=== PATIENT | male | born 1975 | race Caucasian/White ===

== ENCOUNTER 2016-11-02 17:14 | Emergency (ER) | payer MEDICARE, MEDICAID ==
--- NOTE | 2016-11-02 18:05 | RAD ---
Indication: Chest pain. 2 views of the chest including dual energy PA views demonstrate no mediastinal shift. Heart is of normal size and configuration. Lung sanderson demonstrate no pleural fluid, pneumonia or pneumothorax. When compared to previous exam of July 25, 2016 no significant change is noted. IMPRESSION: No active cardiopulmonary disease is noted.
--- NOTE | 2016-11-02 18:21 | UC ---
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 Negative: Vision Changes, Anxiety, Recent Stress, Headaches, Numbness, Tingling, Weakness , Dizziness, SOB, Swelling, Diaphoresis, Nausea/Vomiting, Palpitations, Cough, Hemoptysis, Back Pain, Abdominal Pain, Calf Pain/Swelling - Risk Factors Pulmonary Embolism Risk Factors: Malignancy - Allergy/Home Medications Allergies/Adverse Reactions: Allergies Allergy/AdvReac Type Severity Reaction Status Date / Time Phenytoin Allergy Unknown Unknown Verified 11/02/16 17:26 Reaction Details Gadolinium Allergy Hives Verified 11/02/16 17:26 Gadolinium Derivatives Allergy Hives Verified 11/02/16 17:26 Gadoteridol [From ProHance] Allergy Hives Verified 11/02/16 17:26 Shellfish Allergy Allergy Swelling Verified 11/02/16 17:26 Home Medications: Home Medications Methadone HCl [Dolophine] 10 mg PO BID 11/02/16 [History Confirmed 11/02/16] PMH/Surg Hx/FS Hx/Imm Hx Endocrine History Of: Denies: Diabetes, Thyroid Disease, Hyperthyroidism, Hypothyroidism, Dyslipidemia Cardiovascular History Of: Denies: Cardiac Disorders, Hypertension, Pacemaker/ICD, Myocardial Infarction , Congestive Heart Failure, Atrial Fibrillation, Deep Vein Thrombosis, Bleeding Disorders Respiratory History Of: Denies: COPD, Asthma, Bronchitis, Pneumonia, Pulmonary Embolism GI/ History Of: Reports: Gastroesophageal Reflux Denies: Ulcer, Gastrointestinal Bleed, Gall Bladder Disease, Kidney Stones, Diverticulitis, Renal Disease, Urosepsis Neurological History Of: Reports: Seizures Denies: TIA, CVA, Dementia, Migraine Psychological History Of: Denies: Anxiety, Depression, Bipolar Disorder, Schizophrenia, Post Traumatic Stress Disorder Cancer History Of: Denies: Lung Cancer, Colorectal Cancer, Breast Cancer, Prostate Cancer, Cervical Cancer Other History Of: Negative For: HIV, Hepatitis B, Hepatitis C, Anticoagulant Therapy - Surgical History Surgical History: Yes Surgery Procedure, Year, and Place: 3-CRANIOTOMY -03/27,12/31,01/01. mole removal to right under arm and left forearm and back 03/26/16 - Family History Known Family History: Positive: Cardiac Disease Negative: Hypertension - Social History Alcohol Use: None Substance Use Type: Marijuana Substance Use Comment - Amount & Last Used: states "medical marijuana" ... vapor form Smoking Status (MU): Current Every Day Smoker Type: Cigarettes Amount Used/How Often: 1/2 ppd Length of Time of Smoking/Using Tobacco: 26 yrs Have You Smoked in the Last Year: Yes - Immunization History Most Recent Influenza Vaccination: 2013 Most Recent Tetanus Shot: unk Most Recent Pneumonia Vaccination: never Review of Systems Constitutional: Fever, Chills Skin: Negative Eyes: Negative ENT: Negative Respiratory: Negative Cardiovascular: Chest Pain Gastrointestinal: Negative Genitourinary: Negative Motor: Negative Neurovascular: Negative Musculoskeletal: Negative Neurological: Negative Psychological: Negative All Other Systems Reviewed And Are Negative: Yes Physical Exam Triage Information Reviewed: Yes Appearance: Ill-Appearing, Pain Distress, Thin Vital Signs: Initial Vital Signs Temp 100.9 F 11/02/16 17:22 Pulse 98 11/02/16 17:22 Resp 18 11/02/16 17:22 BP 125/81 11/02/16 17:22 Pulse Ox 100 11/02/16 17:22 Vital Signs Reviewed: Yes Eyes: Positive: Conjunctiva Clear ENT: Positive: Hearing grossly normal. Negative: Nasal congestion, Nasal drainage, Trismus, Muffled/hoarse voice Neck: Positive: Supple, Nontender, No Lymphadenopathy Respiratory: Positive: Chest non-tender, Lungs clear, Normal breath sounds, No respiratory distress Cardiovascular: Positive: RRR, No Murmur Abdomen Description: Positive: Nontender. Negative: Distended Bowel Sounds: Positive: Present Musculoskeletal: Positive: ROM Intact, No Edema Neurological Exam: Normal Neurological: Positive: Alert Psychological Exam: Normal Skin Exam: Normal Diagnostics - EKG Cardiac Rate: NL Cardiac Rhythm: Sinus: Normal Ectopy: None ST Segment: Normal - Clinical Impression Provider Diagnoses: chest pain/fever of uncertain cause - Physician Notifications Discussed Patient Care With: Dr. Kirby [facility] [place] ED. via EMS Discharge - Discharge Plan Condition: Stable Disposition: TRANS HIGHER LVL OF CARE FAC
[2016-11-02 18:33] VITALS: BP 127/79
== END 2016-11-02 18:33 | disposition short-term general hospital (02) ==
LOC: UCEAST 17:14
DX: R07.81 Pleurodynia (principal); R50.9 Fever, unspecified; F17.210 Nicotine dependence, cigarettes, uncomplicated
CPT/HCPCS: 71020; 93005; 99213; G0463

== ENCOUNTER 2016-11-02 19:04 | Emergency (ER) | payer MEDICARE, MEDICAID ==
[2016-11-02] MEDS ORDERED: HYDROmorphone INJ* 1 MG/ML CARPUJECT SYRINGE IV ONE (19:51)
[2016-11-02 19:58] LABS: Hematocrit 32 % (42-52); Hemoglobin 10.9 g/dl (14.0-18.0); Mean Corpuscular HGB Conc 34 g/dl (31-36); Mean Corpuscular Hemoglobin 29 pg (27-31); Mean Corpuscular Volume 86 fL (80-94); Mean Platelet Volume 8 um3 (7.4-10.4); Red Blood Count 3.72 10^6/ul (4.0-5.4); Red Cell Distribution Width 14 % (10.5-15); White Blood Count 8.8 10^3/ul (3.5-10.8)
[2016-11-02 20:13] LABS: Albumin 3.5 g/dL (3.2-5.2); BUN/Creatinine Ratio 10.6 (8-20); Calcium 8.6 mg/dL (8.6-10.3); EGFR African American 84.2 (>60); EGFR Non-African American 65.5 (>60); Globulin 2.9 g/dL (2-4); Potassium 3.5 mmol/L (3.5-5.0); Total Bilirubin 0.3 mg/dL (0.2-1.0); Total Protein 6.4 g/dL (6.4-8.9)
[2016-11-02 20:16] LABS: Troponin I 0.01 ng/mL (<0.04)
--- NOTE | 2016-11-02 20:25 | RAD ---
Indication: Chest pain. Single frontal view of the chest performed at 2000 hours was reviewed. Comparison is made with previous exam dated earlier the same day. No mediastinal shift is noted. Heart is of normal size and configuration. Lung sanderson appear clear. IMPRESSION: NO ACTIVE CARDIOPULMONARY DISEASE IS NOTED.
[2016-11-02] MEDS ORDERED: Ondansetron INJ* 2 MG/ML VIAL IV ONE (20:40)
[2016-11-02] MEDS ORDERED: Ketorolac INJ* 30 MG/ML 1 ML VIAL IV PUSH ONE (20:55)
[2016-11-02 21:34] VITALS: BP 107/53
--- NOTE | 2016-11-26 20:01 | ED ---
David Roman Karl, scribed for Osmany Nascimento MD on 11/02/16 at 2109 . HPI Chest Pain - HPI Summary HPI Summary: Pt is a 40 y/o male BIBA that presents to the ED c/o 07/31 midsternal CP that began at 13:00 today and is constant. Pt was sent from urgent care and reported that his CP is worsened with deep breaths and movement. Pt also reported mild SOB. Pt stated that he took Dilaudid 4mg at 13:00 but it did not alleviate his symptoms. Hx: 1/2 PPD smoker, brain cancer. - History of Current Complaint Chief Complaint: EDChestWallPain Time Seen by Provider: 11/02/16 20:49 Hx Obtained From: Patient Onset/Duration: Started Hours Ago, Atraumatic, Still Present Time of Onset: 13:00 - CP Timing: Constant, Lasting Hours Initial Severity: Moderate Current Severity: Moderate Pain Intensity: 10 - CP Pain Scale Used: 0-10 Numeric Chest Pain Location: Mid Sternal Aggravating Factor(s): Movement, Deep Breaths Alleviating Factor(s): Nothing Associated Signs and Symptoms: Positive: Chest Pain, Shortness of Breath - mild - Allergy/Home Medications Allergies/Adverse Reactions: Allergies Allergy/AdvReac Type Severity Reaction Status Date / Time Phenytoin Allergy Unknown Unknown Verified 11/24/16 09:01 Reaction Details Gadolinium Allergy Hives Verified 11/24/16 09:01 Gadolinium Derivatives Allergy Hives Verified 11/24/16 09:01 Gadoteridol [From ProHance] Allergy Hives Verified 11/24/16 09:01 Shellfish Allergy Allergy Swelling Verified 11/24/16 09:01 PMH/Surg Hx/FS Hx/Imm Hx Endocrine/Hematology History: Denies: Hx Anticoagulant Therapy, Hx Diabetes, Hx Thyroid Disease Cardiovascular History: Denies: Hx Congestive Heart Failure, Hx Deep Vein Thrombosis, Hx Hypertension , Hx Myocardial Infarction, Hx Pacemaker/ICD Respiratory History: Reports: Other Respiratory Problems/Disorders Denies: Hx Asthma, Hx Chronic Obstructive Pulmonary Disease (COPD), Hx Lung Cancer, Hx Pneumonia, Hx Pulmonary Embolism GI History: Denies: Hx Gall Bladder Disease, Hx Gastrointestinal Bleed, Hx Ulcer, Hx Urosepsis History: Denies: Hx Dialysis, Hx Kidney Stones, Hx Renal Disease Sensory History: Denies: Hx Hearing Aid Neurological History: Reports: Hx Seizures, Other Neuro Impairments/Disorders - seizures Denies: Hx Dementia, Hx Migraine, Hx Transient Ischemic Attacks (TIA) Psychiatric History: Denies: Hx Anxiety, Hx Depression, Hx Panic Disorder, Hx Schizophrenia, Hx Bipolar Disorder - Cancer History Cancer Type, Location and Year: brain Hx Chemotherapy: Yes Hx Radiation Therapy: Yes - CURRENTLY - Surgical History Surgery Procedure, Year, and Place: 3-CRANIOTOMY -03/27,12/31,01/01. mole removal to right under arm and left forearm and back 03/26/16 Infectious Disease History: No Infectious Disease History: Denies: Hx Clostridium Difficile, Hx Hepatitis, Hx Human Immunodeficiency Virus (HIV), Hx of Known/Suspected MRSA, Hx Shingles, Hx Tuberculosis, Hx Known/ Suspected VRE, Hx Known/Suspected VRSA, History Other Infectious Disease, Traveled Outside the [place] in Last 30 Days - Family History Known Family History: Positive: Cardiac Disease Negative: Hypertension - Social History Alcohol Use: None Substance Use Type: Reports: Marijuana Substance Use Comment - Amount & Last Used: states "medical marijuana" ... vapor form Hx Tobacco Use: Yes Smoking Status (MU): Current Every Day Smoker Type: Cigarettes Amount Used/How Often: 1/2 ppd Length of Time of Smoking/Using Tobacco: 26 yrs Have You Smoked in the Last Year: Yes Review of Systems Constitutional: Negative Eyes: Negative ENT: Negative Positive: Chest Pain, Other - tachycardia at 107 bpm Positive: Shortness Of Breath Gastrointestinal: Negative Genitourinary: Negative Musculoskeletal: Negative Skin: Negative Neurological: Negative Psychological: Normal All Other Systems Reviewed And Are Negative: Yes Physical Exam Triage Information Reviewed: Yes Vital Signs On Initial Exam: Initial Vitals Temp Pulse Resp BP Pulse Ox 99.1 F 107 18 125/79 96 11/02/16 19:07 11/02/16 19:07 11/02/16 19:07 11/02/16 19:07 11/02/16 19:07 Vital Signs Reviewed: Yes Appearance: Positive: Pain Distress - mild discomfort Skin: Positive: Warm Head/Face: Positive: Normal Head/Face Inspection Eyes: Positive: JEANNA ENT: Positive: Hearing grossly normal Neck: Positive: Supple Respiratory/Lung Sounds: Positive: Clear to Auscultation, Breath Sounds Present Cardiovascular: Positive: RRR Abdomen Description: Positive: Nontender, Soft Bowel Sounds: Positive: Present Musculoskeletal: Positive: Strength/ROM Intact Neurological: Positive: Sensory/Motor Intact, Alert, Oriented to Person Place, Time Psychiatric: Positive: Affect/Mood Appropriate Diagnostics - Vital Signs Vital Signs Temp Pulse Resp BP Pulse Ox 11/02/16 20:30 96 12 109/58 97 11/02/16 20:00 106 10 122/67 97 11/02/16 19:59 18 11/02/16 19:40 94 0 117/69 95 11/02/16 19:25 99 21 98 11/02/16 19:07 99.1 F 107 18 125/79 96 - Laboratory Lab Results: Lab Results 11/02/16 11/02/16 11/02/16 Range/Units 19:48 19:48 19:48 WBC 8.8 (3.5-10.8) 10^3/ul RBC 3.72 L (4.0-5.4) 10^6/ul Hgb 10.9 L (14.0-18.0) g/dl Hct 32 L (42-52) % MCV 86 (80-94) fL MCH 29 (27-31) pg MCHC 34 (31-36) g/dl RDW 14 (10.5-15) % Plt Count 136 L (150-450) 10^3/ul MPV 8 (7.4-10.4) um3 Neut % (Auto) 84.2 H (38-83) % Lymph % (Auto) 5.6 L (25-47) % [place] % (Auto) 8.6 (1-9) % Eos % (Auto) 1.0 (0-6) % Baso % (Auto) 0.6 (0-2) % Absolute Neuts (auto) 7.4 (1.5-7.7) 10^3/ul Absolute Lymphs (auto) 0.5 L (1.0-4.8) 10^3/ul Absolute Monos (auto) 0.8 (0-0.8) 10^3/ul Absolute Eos (auto) 0.1 (0-0.6) 10^3/ul Absolute Basos (auto) 0.1 (0-0.2) 10^3/ul Absolute Nucleated RBC 0 10^3/ul Nucleated RBC % 0 INR (Anticoag Therapy) 1.09 (0.89-1.11) APTT 31.5 (26.0-36.3) seconds Sodium 138 (133-145) mmol/L Potassium 3.5 (3.5-5.0) mmol/L Chloride 104 (101-111) mmol/L Carbon Dioxide 30 (22-32) mmol/L Anion Gap 4 (2-11) mmol/L BUN 13 (6-24) mg/dL Creatinine 1.23 H (0.67-1.17) mg/dL Est GFR ( Amer) 84.2 (>60) Est GFR (Non-Af Amer) 65.5 (>60) BUN/Creatinine Ratio 10.6 (8-20) Glucose 100 (70-100) mg/dL Lactic Acid (0.5-2.0) mmol/L Calcium 8.6 (8.6-10.3) mg/dL Total Bilirubin 0.30 (0.2-1.0) mg/dL AST 28 (13-39) U/L ALT 28 (7-52) U/L Alkaline Phosphatase 87 (34-104) U/L Total Creatine Kinase 55 (10-223) U/L CK-MB (CK-2) 0.7 (0.6-6.3) ng/mL Myoglobin 22.6 (17.4-105.7) ng/mL Troponin I 0.01 (<0.04) ng/mL B-Natriuretic Peptide ( - 100) pg/mL Total Protein 6.4 (6.4-8.9) g/dL Albumin 3.5 (3.2-5.2) g/dL Globulin 2.9 (2-4) g/dL Albumin/Globulin Ratio 1.2 (1-3) 11/02/16 11/02/16 Range/Units 19:48 19:48 WBC (3.5-10.8) 10^3/ul RBC (4.0-5.4) 10^6/ul Hgb (14.0-18.0) g/dl Hct (42-52) % MCV (80-94) fL MCH (27-31) pg MCHC (31-36) g/dl RDW (10.5-15) % Plt Count (150-450) 10^3/ul MPV (7.4-10.4) um3 Neut % (Auto) (38-83) % Lymph % (Auto) (25-47) % [place] % (Auto) (1-9) % Eos % (Auto) (0-6) % Baso % (Auto) (0-2) % Absolute Neuts (auto) (1.5-7.7) 10^3/ul Absolute Lymphs (auto) (1.0-4.8) 10^3/ul Absolute Monos (auto) (0-0.8) 10^3/ul Absolute Eos (auto) (0-0.6) 10^3/ul Absolute Basos (auto) (0-0.2) 10^3/ul Absolute Nucleated RBC 10^3/ul Nucleated RBC % INR (Anticoag Therapy) (0.89-1.11) APTT (26.0-36.3) seconds Sodium (133-145) mmol/L Potassium (3.5-5.0) mmol/L Chloride (101-111) mmol/L Carbon Dioxide (22-32) mmol/L Anion Gap (2-11) mmol/L BUN (6-24) mg/dL Creatinine (0.67-1.17) mg/dL Est GFR ( Amer) (>60) Est GFR (Non-Af Amer) (>60) BUN/Creatinine Ratio (8-20) Glucose (70-100) mg/dL Lactic Acid 0.8 (0.5-2.0) mmol/L Calcium (8.6-10.3) mg/dL Total Bilirubin (0.2-1.0) mg/dL AST (13-39) U/L ALT (7-52) U/L Alkaline Phosphatase (34-104) U/L Total Creatine Kinase (10-223) U/L CK-MB (CK-2) (0.6-6.3) ng/mL Myoglobin (17.4-105.7) ng/mL Troponin I (<0.04) ng/mL B-Natriuretic Peptide 42 ( - 100) pg/mL Total Protein (6.4-8.9) g/dL Albumin (3.2-5.2) g/dL Globulin (2-4) g/dL Albumin/Globulin Ratio (1-3) Result Diagrams: 11/02/16 19:48 11/02/16 19:48 Lab Statement: Any lab studies that have been ordered have been reviewed, and results considered in the medical decision making process. - Radiology CXR Xray Interpretation: No Acute Changes Radiology Interpretation Completed By: Radiologist - IMPRESSION: NO ACTIVE CARDIOPULMONARY DISEASE IS NOTED. - EKG 19:22 EKG Interpretation: NSR at 92 bpm, No STEMI Re-Evaluation - Re-Evaluation First Eval Change: Improved Chest Pain Course/Dx - Diagnoses Provider Diagnoses: Pleurisy Discharge - Discharge Plan Condition: Stable Disposition: HOME Patient Education Materials: Pleurisy (ED) Referrals: Ole Jones MD [Primary Care Provider] - Additional Instructions: Please follow up with your primary care provider. Return to the emergency department for changing or worsening symptoms. The documentation as recorded by the David soriano Karl accurately reflects the service I personally performed and the decisions made by , Osmany Nascimento MD.
== END 2016-11-02 21:49 | disposition home or self-care (01) ==
LOC: ED 19:04
DX: R09.1 Pleurisy (principal); R07.9 Chest pain, unspecified
CPT/HCPCS: 36415; 71010; 71020; 80053; 82550; 82553; 83605; 83874; 83880; 84484; 85025; 85379; 85610; 85730; 93005; 96374; 96375; 99213; 99284; G0463; J1170; J1885; J2405

== ENCOUNTER 2017-07-04 11:07 | Emergency (ER) | payer MEDICARE, MEDICAID ==
[2017-07-04 13:16] VITALS: BP 116/68
--- NOTE | 2017-07-16 08:50 | UC ---
Respiratory Complaint HPI - HPI Summary HPI Summary: Patient presents with complaints of chest congestion, productive cough and sputum production x 2-3 days. He states his cough is getting worse. He reports generalized fatigue and malaise. He denies any chest pain, significant dyspnea, fever or chills, nausea or vomiting - History of Current Complaint Chief Complaint: UCRespiratory Stated Complaint: SORE THROAT SINUS ISSUE Time Seen by Provider: 07/04/17 13:58 Hx Obtained From: Patient Onset/Duration: Gradual Onset, Lasting Days Timing: Intermittent Episodes Severity Initially: Mild Severity Currently: Moderate Pain Intensity: 0 Pain Scale Used: 0-10 Numeric Character: Cough: Productive Aggravating Factors: Recumbent Position Alleviating Factors: Spontaneous Resolution Associated Signs And Symptoms: Positive: URI, Nasal Congestion, Sinus Discomfort - Risk Factors Pulmonary Embolism Risk Factors: Negative Cardiac Risk Factors: Negative Pseudomonas Risk Factors: Negative Tuberculosis Risk Factors: Negative - Allergies/Home Medications Allergies/Adverse Reactions: Allergies Allergy/AdvReac Type Severity Reaction Status Date / Time Phenytoin Allergy Unknown Unknown Verified 07/04/17 11:46 Reaction Details Gadolinium Allergy Hives Verified 07/04/17 11:46 Gadolinium Derivatives Allergy Hives Verified 07/04/17 11:46 Gadoteridol [From ProHance] Allergy Hives Verified 07/04/17 11:46 Shellfish Allergy Allergy Swelling Verified 07/04/17 11:46 Home Medications: Home Medications Sulfamethox/Trimethoprim DS* [Bactrim DS 800/160 TAB*] 07/04/17 [History] PMH/Surg Hx/FS Hx/Imm Hx Previously Healthy: Yes Other History Of: Negative For: HIV, Hepatitis B, Hepatitis C, Anticoagulant Therapy - Surgical History Surgical History: Yes Surgery Procedure, Year, and Place: HERNIA CHILD. CRANIOTOMY 03/27-12/31-. MOLE REMOVED FROM RIGHT UNDER ARM/LEFT FOREARM/BACK 03/26/16 - Family History Known Family History: Positive: Cardiac Disease Negative: Hypertension - Social History Occupation: Employed Part-time Lives: Alone Alcohol Use: None Substance Use Type: Marijuana Substance Use Comment - Amount & Last Used: states "medical marijuana" ... vapor form Smoking Status (MU): Current Every Day Smoker Type: Cigarettes Amount Used/How Often: 1/2 ppd Length of Time of Smoking/Using Tobacco: 26 yrs Have You Smoked in the Last Year: Yes - Immunization History Most Recent Influenza Vaccination: 2013 Most Recent Tetanus Shot: unk Most Recent Pneumonia Vaccination: never Review of Systems Constitutional: Fatigue Respiratory: Cough All Other Systems Reviewed And Are Negative: Yes Physical Exam Triage Information Reviewed: Yes Appearance: Well-Appearing Vital Signs: Initial Vital Signs Temp 97.9 F 07/04/17 11:47 Pulse 79 07/04/17 11:47 Resp 16 07/04/17 11:47 BP 107/67 07/04/17 11:47 Pulse Ox 99 07/04/17 11:47 Vital Signs Reviewed: Yes Eye Exam: Normal ENT Exam: Normal Neck exam: Normal Respiratory: Positive: Rhonchi Cardiovascular Exam: Normal Abdominal Exam: Normal Musculoskeletal Exam: Normal Neurological Exam: Normal Psychological Exam: Normal Skin Exam: Normal UC Diagnostic Evaluation - Laboratory O2 Sat by Pulse Oximetry: 100 Respiratory Course/Dx - Course Course Of Treatment: Patient was treated with ABX. - Differential Dx/Diagnosis Differential Diagnosis/HQI/PQRI: Bronchitis Provider Diagnoses: bronchitis Discharge - Discharge Plan Condition: Stable Disposition: HOME Prescriptions: Amoxicillin/Clavulanate TAB* [Augmentin TAB 500 mg*] 500 mg PO BID #20 tab Patient Education Materials: Acute Bronchitis (ED) Print Language: TAJIK Referrals: Ole Jones MD [Primary Care Provider] - Additional Instructions: You will need to follow up with your PCP regarding the area on you face.
== END 2017-07-04 14:05 | disposition home or self-care (01) ==
LOC: UCEAST 11:07
DX: J40 Bronchitis, not specified as acute or chronic (principal); R09.81 Nasal congestion; F12.90 Cannabis use, unspecified, uncomplicated; F17.210 Nicotine dependence, cigarettes, uncomplicated
CPT/HCPCS: 99212; G0463

== ENCOUNTER 2017-09-14 16:33 | Emergency (ER) | payer MEDICARE, MEDICAID ==
[2017-09-14 17:11] VITALS: BP 117/57
--- NOTE | 2017-09-14 17:59 | UC ---
Dental HPI - HPI Summary HPI Summary: In side right cheek skin is macerated but healing cheek is tender and swollen - History of Current Complaint Chief Complaint: UCDentalProblem Stated Complaint: PAINFUL SORE IN MOUTH,SWELLING Time Seen by Provider: 09/14/17 17:46 Hx Obtained From: Patient Onset/Duration: Sudden Onset, Lasting Days - 1, Still Present Severity: Moderate Pain Intensity: 5 Pain Scale Used: 0-10 Numeric Alleviating Factor(s): Topical Meds Related History: Swelling - Allergies/Home Medications Allergies/Adverse Reactions: Allergies Allergy/AdvReac Type Severity Reaction Status Date / Time Phenytoin Allergy Unknown Unknown Verified 09/14/17 17:12 Reaction Details Gadolinium Allergy Hives Verified 09/14/17 17:12 Gadolinium Derivatives Allergy Hives Verified 09/14/17 17:12 Gadoteridol [From ProHance] Allergy Hives Verified 09/14/17 17:12 Shellfish Allergy Allergy Swelling Verified 09/14/17 17:12 PMH/Surg Hx/FS Hx/Imm Hx Previously Healthy: No Cancer History: Other Other Cancer History: Brain Cancer Other History Of: Negative For: HIV, Hepatitis B, Hepatitis C, Anticoagulant Therapy - Surgical History Surgical History: Yes Surgery Procedure, Year, and Place: HERNIA CHILD. CRANIOTOMY 03/27-12/31-. MOLE REMOVED FROM RIGHT UNDER ARM/LEFT FOREARM/BACK 03/26/16 - Family History Known Family History: Positive: Cardiac Disease Negative: Hypertension - Social History Occupation: Disabled Lives: With Family Alcohol Use: None Substance Use Type: Marijuana Substance Use Comment - Amount & Last Used: states "medical marijuana" ... vapor form Smoking Status (MU): Former Smoker Type: Cigarettes Amount Used/How Often: 1/2 ppd Length of Time of Smoking/Using Tobacco: 26 yrs Have You Smoked in the Last Year: Yes - Immunization History Most Recent Influenza Vaccination: 2013 Most Recent Tetanus Shot: unk Most Recent Pneumonia Vaccination: never Review of Systems Constitutional: Negative Skin: Other - inside of cheek near cornor of lip is tender and swollen Eyes: Negative ENT: Negative Respiratory: Negative Cardiovascular: Negative Gastrointestinal: Negative Genitourinary: Negative Motor: Negative Neurovascular: Negative Musculoskeletal: Negative Neurological: Negative Psychological: Negative Is Patient Immunocompromised?: No All Other Systems Reviewed And Are Negative: Yes Physical Exam Triage Information Reviewed: Yes Appearance: Well-Appearing, No Pain Distress, Well-Nourished Vital Signs: Initial Vital Signs Temp 99.0 F 09/14/17 17:08 Pulse 85 09/14/17 17:08 Resp 12 09/14/17 17:08 BP 117/57 09/14/17 17:08 Pulse Ox 98 09/14/17 17:08 Vital Signs Reviewed: Yes Eye Exam: Normal Eyes: Positive: Conjunctiva Clear ENT Exam: Normal ENT: Positive: Normal ENT inspection, Hearing grossly normal, Pharynx normal, Uvula midline, Other - macerated tissue inside of right cheek near cornor of lip ---unsure how this happened-. Negative: Nasal congestion, Tonsillar swelling, Tonsillar exudate, Trismus, Hoarse voice, Dental tenderness Dental Exam: Normal Neck exam: Normal Neck: Positive: Supple, Nontender Respiratory Exam: Normal Respiratory: Positive: Chest non-tender, Lungs clear, Normal breath sounds, No respiratory distress, No accessory muscle use Cardiovascular Exam: Normal Cardiovascular: Positive: RRR, No Murmur, Pulses Normal, Brisk Capillary Refill Musculoskeletal Exam: Normal Musculoskeletal: Positive: Strength Intact, ROM Intact, No Edema Neurological Exam: Normal Neurological: Positive: Alert, Muscle Tone Normal Psychological Exam: Normal Skin Exam: Normal Dental Complaint Course/Dx - Course Course Of Treatment: clindamycin, chlorhexadene mouth wash, follow with pcp - Differential Dx/Diagnosis Provider Diagnoses: Wound infection right cheek, nicotine dependent Discharge - Discharge Plan Condition: Stable Disposition: HOME Prescriptions: Chlorhexidine MOUTHWASH 0.12%* [Peridex Mouth Wash 0.12%*] 15 ml .SEE ORDER BID #[id number] oral.soln Clindamycin Cap(NF) [Clindamycin Cap 300 mg Cap(NF)] 300 mg PO Q6H #40 cap Patient Education Materials: Wound Infection (ED) Referrals: Ole Jones MD [Primary Care Provider] - 1 Week
[2017-09-15 16:10] LABS: Albumin 3.7 g/dL (3.2-5.2); BUN/Creatinine Ratio 9.4 (8-20); Calcium 8.8 mg/dL (8.6-10.3); EGFR African American 99.5 (>60); EGFR Non-African American 77.4 (>60); Globulin 3.7 g/dL (2-4); Potassium 4.3 mmol/L (3.5-5.0); Total Bilirubin 0.4 mg/dL (0.2-1.0); Total Protein 7.4 g/dL (6.4-8.9)
[2017-09-15 16:18] LABS: Hematocrit 33 % (42-52); Hemoglobin 11.4 g/dl (14.0-18.0); Mean Corpuscular HGB Conc 34 g/dl (31-36); Mean Corpuscular Hemoglobin 29 pg (27-31); Mean Corpuscular Volume 85 fL (80-94); Mean Platelet Volume 9 um3 (7.4-10.4); Red Blood Count 3.91 10^6/ul (4.0-5.4); Red Cell Distribution Width 13 % (10.5-15); White Blood Count 7.2 10^3/ul (3.5-10.8)
== END 2017-09-14 18:35 | disposition home or self-care (01) ==
LOC: UCEAST 16:33
DX: B99.9 Unspecified infectious disease (principal); F12.90 Cannabis use, unspecified, uncomplicated; F17.201 Nicotine dependence, unspecified, in remission
CPT/HCPCS: 36415; 80053; 85025; 86618; 99212; G0463

== ENCOUNTER 2017-11-20 18:17 | Emergency (ER) | payer MEDICARE, MEDICAID ==
[2017-11-20] MEDS ORDERED: NS 0.9% 1000 ML* 1,000 ML IV ONE (18:56)
[2017-11-20] MEDS ORDERED: levETIRAcetam IV* 1,000 MG in NS 0.9% 100 ML* 100 ML IVPB ONE (18:56)
[2017-11-20 19:40] LABS: ABS Basophils 0 10^3/ul (0-0.2); ABS Eosinophils 0.1 10^3/ul (0-0.6); ABS Lymphocytes 0.5 10^3/ul (1.0-4.8); ABS Monocytes 0.5 10^3/ul (0-0.8); ABS Neutrophils 3.4 10^3/ul (1.5-7.7); ABS Nucleated RBC 0 10^3/ul; Hematocrit 36 % (42-52); Hemoglobin 12.2 g/dl (14.0-18.0); Lymphocyte % 10.9 % (25-47); Mean Corpuscular HGB Conc 34 g/dl (31-36); Mean Corpuscular Hemoglobin 28 pg (27-31); Mean Corpuscular Volume 83 fL (80-94); Mean Platelet Volume 8 um3 (7.4-10.4); Nucleated Red Blood Cells % 0; Platelet Count 111 10^3/ul (150-450); Red Cell Distribution Width 16 % (10.5-15); White Blood Count 4.5 10^3/ul (3.5-10.8)
--- NOTE | 2017-11-20 19:54 | RAD ---
INDICATION: Seizure. COMPARISON: Comparison is made with a prior CT of the brain from March 20, 2012 and a prior MRI of the brain from September 18, 2017. TECHNIQUE: Contiguous axial sections of the brain were obtained from the skull base to the vertex without contrast. FINDINGS: The patient is status post right frontal craniotomy. There is an area of decreased density in the right frontal lobe with some negative mass effect most consistent with encephalomalacia. No other focal abnormality or mass effect is seen. There is no evidence for hemorrhage. There is opacification of the right frontal sinus and several right ethmoid air cells and mild mucosal thickening within the visualized portion of the maxillary sinuses. These findings appear new from the prior MR study. IMPRESSION: 1. NO EVIDENCE FOR ACUTE INTRACRANIAL ABNORMALITY. 2 STATUS POST RIGHT CRANIOTOMY AND POSTSURGICAL CHANGES IN THE RIGHT FRONTAL LOBE WITHOUT EVIDENCE FOR MASS EFFECT. CONSIDER A FOLLOW-UP OUTPATIENT MRI OF THE BRAIN WITH CONTRAST FOR FURTHER EVALUATION. 3. FINDINGS SUGGESTIVE OF SINUSITIS.
[2017-11-20 19:59] LABS: EGFR Non-African American 85.7 (>60)
[2017-11-20 20:07] LABS: INR 1.02 (0.77-1.02)
[2017-11-20] MEDS ORDERED: Morphine INJ* 4 MG/ML 1 ML CARPUJECT IV ONE (20:47)
[2017-11-20] MEDS ORDERED: Ondansetron INJ* 2 MG/ML VIAL IV ONE (20:47)
[2017-11-20 20:55] LABS: Urine Appearance Clear; Urine Blood Negative (Negative); Urine Color Yellow; Urine Ketones Negative (Negative); Urine Protein 1+(30 mg/dL) (Negative); Urine Specific Gravity 1.018 (1.010-1.030); Urine Urobilinogen Negative (Negative)
[2017-11-20 21:27] VITALS: BP 117/71
--- NOTE | 2017-11-25 14:25 | ED ---
Damián Roman Stephanie, scribed for Jerardo Dong MD on 11/20/17 at 1929 . Neurological HPI - HPI Summary HPI Summary: The pt is a 41 y/o M BIBA to the ED with c/o seizure that occurred at 17:30 today. The seizure was witnessed by the pts sister and she reports all-body trembling and shaking. The pt was taking 1500 mg of Keppra a day for the past few days instead of the prescribed 3500 for the past few days. Pt was post- ictal on EMS arrival. Pt had Left arm and left sided weakness at EMS arrival but resolved now. - History of Current Complaint Chief Complaint: EDSeizure Stated Complaint: SEIZURES Time Seen by Provider: 11/20/17 18:56 Hx Obtained From: Patient, Family/Hadoop Analyst - sister Onset/Duration: Sudden Onset, Started hours ago - 2, Resolved Timing: Intermittent Episodes Lasting: - 1 min Number of Seizures: 1 Pain Intensity: 0 Pain Scale Used: 0-10 Numeric Aggravating: Medication Change Alleviating: Spontanious Resolution Associated Signs and Symptoms: Positive: Weakness - L sided, Decreased Level of Consciousness - Allergy/Home Medications Allergies/Adverse Reactions: Allergies Allergy/AdvReac Type Severity Reaction Status Date / Time MS Phenytoin [Phenytoin] Allergy Unknown Unknown Verified 09/14/17 17:12 Reaction Details MS Gadolinium [Gadolinium] Allergy Hives Verified 09/14/17 17:12 MS Gadolinium Derivatives Allergy Hives Verified 09/14/17 17:12 [Gadolinium Derivatives] MS Gadoteridol Allergy Hives Verified 09/14/17 17:12 [From ProHance] MS Shellfish Allergy Allergy Swelling Verified 09/14/17 17:12 [Shellfish Allergy] Home Medications: Home Medications Dronabinol CAP* [Marinol CAP*] 5 mg PO TID 11/20/17 [History Confirmed 11/20/17] HYDROmorphone TAB* [Dilaudid TAB*] 4 mg PO BID 11/20/17 [History Confirmed 11/20] Methadone TAB* [Dolophine TAB*] 10 mg PO BID 11/20/17 [History Confirmed ] levETIRAcetam TAB* [Keppra TAB*] 1,500 mg PO BID 11/20/17 [History Confirmed ] PMH/Surg Hx/FS Hx/Imm Hx Endocrine/Hematology History: Denies: Hx Anticoagulant Therapy, Hx Diabetes, Hx Thyroid Disease Cardiovascular History: Denies: Hx Congestive Heart Failure, Hx Deep Vein Thrombosis, Hx Hypertension , Hx Myocardial Infarction, Hx Pacemaker/ICD Respiratory History: Reports: Other Respiratory Problems/Disorders Denies: Hx Asthma, Hx Chronic Obstructive Pulmonary Disease (COPD), Hx Lung Cancer, Hx Pneumonia, Hx Pulmonary Embolism GI History: Denies: Hx Gall Bladder Disease, Hx Gastrointestinal Bleed, Hx Ulcer, Hx Urosepsis History: Denies: Hx Dialysis, Hx Kidney Stones, Hx Renal Disease Sensory History: Denies: Hx Hearing Aid Neurological History: Reports: Hx Seizures, Other Neuro Impairments/Disorders - seizures Denies: Hx Dementia, Hx Migraine, Hx Transient Ischemic Attacks (TIA) Psychiatric History: Denies: Hx Anxiety, Hx Depression, Hx Panic Disorder, Hx Schizophrenia, Hx Bipolar Disorder - Cancer History Cancer Type, Location and Year: Brain with Chemo and radiation Hx Chemotherapy: Yes Hx Radiation Therapy: Yes - Surgical History Surgery Procedure, Year, and Place: HERNIA CHILD. CRANIOTOMY 03/27-12/31-. MOLE REMOVED FROM RIGHT UNDER ARM/LEFT FOREARM/BACK 03/26/16 Infectious Disease History: No Infectious Disease History: Denies: Hx Clostridium Difficile, Hx Hepatitis, Hx Human Immunodeficiency Virus (HIV), Hx of Known/Suspected MRSA, Hx Shingles, Hx Tuberculosis, Hx Known/ Suspected VRE, Hx Known/Suspected VRSA, History Other Infectious Disease, Traveled Outside the [place] in Last 30 Days - Family History Known Family History: Positive: Cardiac Disease Negative: Hypertension - Social History Occupation: Disabled Lives: With Family Alcohol Use: None Substance Use Type: Reports: Marijuana Substance Use Comment - Amount & Last Used: states "medical marijuana" ... vapor form Hx Tobacco Use: Yes Smoking Status (MU): Heavy Every Day Tobacco Smoker Type: Cigarettes Amount Used/How Often: 1/2 ppd Length of Time of Smoking/Using Tobacco: 26 yrs Have You Smoked in the Last Year: Yes Review of Systems Negative: Fever, Chills Negative: Erythema Negative: Sore Throat Negative: Chest Pain Negative: Shortness Of Breath, Cough Negative: Abdominal Pain, Vomiting, Nausea Negative: dysuria, hematuria Negative: Myalgia, Edema Negative: Rash Neurological: Other - Negative: dizziness Positive: Weakness - L sided weakness- now resolved All Other Systems Reviewed And Are Negative: Yes Physical Exam - Summary Physical Exam Summary: Constitutional: Well-developed, Well-nourished, Alert. (-) Distressed Skin: Warm, Dry HENT: Normocephalic; Atraumatic Eyes: Conjunctiva normal Neck: Musculoskeletal ROM normal neck. (-) JVD, (-) Stridor, (-) Tracheal deviation Cardio: Rhythm regular, rate normal, Heart sounds normal; Intact distal pulses; The pedal pulses are 2+ and symmetric. Radial pulses are 2+ and symmetric. (-) Murmur Pulmonary/Chest wall: Effort normal. (-) Respiratory distress, (-) Wheezes, (-) Rales Abd: Soft, (-) Tenderness, (-) Distension, (-) Guarding, (-) Rebound Musculoskeletal: (-) Edema Lymph: (-) Cervical adenopathy Neuro: Alert, Oriented x3 Psych: Mood and affect Normal Triage Information Reviewed: Yes Vital Signs On Initial Exam: Initial Vitals Temp Pulse Resp BP Pulse Ox 98.8 F 82 20 105/69 100 11/20/17 18:27 11/20/17 18:27 11/20/17 18:27 11/20/17 18:27 11/20/17 18:27 Vital Signs Reviewed: Yes Diagnostics - Vital Signs Vital Signs Temp Pulse Resp BP Pulse Ox 11/20/17 19:06 99 11/20/17 18:39 82 17 99 11/20/17 18:37 105/69 11/20/17 18:27 98.8 F 82 20 105/69 100 - Laboratory Result Diagrams: 11/20/17 19:26 11/20/17 19:26 Lab Statement: Any lab studies that have been ordered have been reviewed, and results considered in the medical decision making process. - CT Brain CT Interpretation: No Acute Changes CT Interpretation Completed By: Radiologist - 1. NO EVIDENCE FOR ACUTE INTRACRANIAL ABNORMALITY. 2 STATUS POST RIGHT CRANIOTOMY AND POSTSURGICAL CHANGES IN THE RIGHT FRONTAL LOBE WITHOUT EVIDENCE FOR MASS EFFECT. CONSIDER A FOLLOW-UP OUTPATIENT MRI OF THE BRAIN WITH CONTRAST FOR FURTHER EVALUATION. 3. FINDINGS SUGGESTIVE OF SINUSITIS. - EKG 19:12 EKG Rhythm: Sinus Rhythm - 75 BPM EKG Interpretation: No STEMI Course/Dx - Course Course Of Treatment: ED physician consulted with Dr. Odonnell from neurology. Reviewed CT and discussed symptoms. Pt fully recovered. 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 Todds paralysis is very common in pts with frontal lobe tumors. ED physician gave the pt a loading dose of IV Keppra. Pt should return to his original Keppra dose. ED physician updated the mother, father, and pt who all agree with discharge. - Diagnoses Provider Diagnoses: Medical non-compliance, seizure with stanislav's paralysis - Physician Notifications Discussed Care Of Patient With: Jamila Odonnell - Providers discussed the case and agree with discharge decision. Time Discussed With Above Provider: 21:22 Discharge - Discharge Plan Condition: Stable Disposition: HOME Patient Education Materials: Frontal Lobe Seizures (ED) Referrals: Ole Jones MD [Primary Care Provider] - 3 Days Additional Instructions: RETURN TO THE EMERGENCY DEPARTMENT FOR CHANGING OR WORSENING SYMPTOMS The documentation as recorded by the Damián soriano Stephanie accurately reflects the service I personally performed and the decisions made by , Jerardo Dong MD.
== END 2017-11-20 21:47 | disposition home or self-care (01) ==
LOC: ED 18:17
DX: R56.9 Unspecified convulsions (principal); R53.1 Weakness; F17.210 Nicotine dependence, cigarettes, uncomplicated; Z91.19 Patient's noncompliance with other medical treatment and regimen
CPT/HCPCS: 36415; 70450; 80053; 80177; 80320; 81003; 81015; 83605; 83735; 85025; 85610; 93005; 96365; 96374; 96375; 99283; G0480; J2270; J2405

== ENCOUNTER 2017-12-25 17:24 | Inpatient (IN) | payer MEDICARE, MEDICAID ==
[2017-12-25 18:37] LABS: ABS Basophils 0 10^3/ul (0-0.2); ABS Eosinophils 0.2 10^3/ul (0-0.6); ABS Lymphocytes 0.5 10^3/ul (1.0-4.8); ABS Monocytes 0.4 10^3/ul (0-0.8); ABS Neutrophils 4.4 10^3/ul (1.5-7.7); ABS Nucleated RBC 0 10^3/ul; Eosinophil % 3.3 % (0-6); Hematocrit 34 % (42-52); Hemoglobin 11.8 g/dl (14.0-18.0); Lymphocyte % 9.8 % (25-47); Mean Corpuscular HGB Conc 35 g/dl (31-36); Mean Corpuscular Hemoglobin 29 pg (27-31); Mean Corpuscular Volume 83 fL (80-94); Mean Platelet Volume 8 um3 (7.4-10.4); Nucleated Red Blood Cells % 0; Platelet Count 16 10^3/ul (150-450); Red Blood Count 4.12 10^6/ul (4.0-5.4); Red Cell Distribution Width 16 % (10.5-15); White Blood Count 5.5 10^3/ul (3.5-10.8)
--- NOTE | 2017-12-25 18:45 | RAD ---
Indication: Seizures. Single frontal view of the chest performed at 1826 hours was reviewed. Comparison is made with previous exam dated November 02, 2016. Hyperinflated lung sanderson are noted. No pleural fluid, pneumonia or pneumothorax is noted. IMPRESSION: NO ACTIVE CARDIOPULMONARY DISEASE IS NOTED.
[2017-12-25 18:53] LABS: EGFR Non-African American 87.4 (>60)
[2017-12-25 18:59] LABS: INR 1.04 (0.77-1.02)
--- NOTE | 2017-12-25 19:25 | RAD ---
Indication: Seizure. CT of the brain was performed without IV contrast. Comparison is made with previous exam dated November 20, 2017. Ventricular structures are midline. No midline shift is noted. The extra-axial spaces are unremarkable. Hypodensity in the right frontal lobe consistent with encephalomalacia from prior surgery is noted. Patient is status post right frontal craniotomy. Mastoid air cells and paranasal sinuses are otherwise unremarkable. IMPRESSION: Right frontal encephalomalacia and postoperative change. No intracranial mass or hemorrhage is noted. No changes noted since previous exam of November 20, 2017.
[2017-12-25 20:39] LABS: ABS Basophils 0 10^3/ul (0-0.2); ABS Eosinophils 0.2 10^3/ul (0-0.6); ABS Lymphocytes 0.7 10^3/ul (1.0-4.8); ABS Monocytes 0.4 10^3/ul (0-0.8); ABS Neutrophils 3.1 10^3/ul (1.5-7.7); ABS Nucleated RBC 0 10^3/ul; Eosinophil % 4.6 % (0-6); Hematocrit 32 % (42-52); Hemoglobin 10.9 g/dl (14.0-18.0); Lymphocyte % 15.2 % (25-47); Mean Corpuscular HGB Conc 34 g/dl (31-36); Mean Corpuscular Hemoglobin 29 pg (27-31); Mean Corpuscular Volume 83 fL (80-94); Mean Platelet Volume 8 um3 (7.4-10.4); Nucleated Red Blood Cells % 0; Platelet Count 14 10^3/ul (150-450); Red Blood Count 3.83 10^6/ul (4.0-5.4); Red Cell Distribution Width 16 % (10.5-15); White Blood Count 4.4 10^3/ul (3.5-10.8)
[2017-12-25 20:59] LABS: Urine Appearance Clear; Urine Blood Negative (Negative); Urine Color Yellow; Urine Ketones Negative (Negative); Urine Protein Negative (Negative); Urine Specific Gravity 1.017 (1.010-1.030); Urine Urobilinogen Negative (Negative)
[2017-12-25] MEDS ORDERED: levETIRAcetam IV* 1,500 MG in NS 0.9% 100 ML* 100 ML IVPB ONE (21:00)
--- NOTE | 2017-12-25 21:01 | ED ---
Uday Roman Abhishek, scribed for Patience Chavez MD on 12/25/17 at 2057 . Progress - Progress Note Progress Note: We accepted pt from Dr. Quesada. Pt is awaiting disposition. During evaluation, we reported to the pt regarding their imaging results, and lab results. We also evaluated the pt's thrombocytopenia. After initial exam we discussed pt care with Dr. Hampton and she accepted pt care. - Consult/PCP Time Called: 20:50 Consult/PCP: Dr. Sarah Hampton Consult Reason/Comments: We discussed pt care regarding pt's admittance to the [facility] [place]. Course/Dx - Course Course Of Treatment: The pt's dx will be thrombocytopenia and recurrent seizure disorder and we discussed pt care with Dr. Hampton. She accepted pt care and the pt will be admitted to the [facility] [place]. - Diagnoses Provider Diagnoses: Recurrent seizures, Thrombocytopenia - Provider Notifications Instructed by Provider To: Admit As Inpatient The documentation as recorded by the Uday soriano Abhishek accurately reflects the service I personally performed and the decisions made by , Patience Chavez MD.
[2017-12-25] MEDS ORDERED: LORazepam TAB(*) 1 MG PO PRN (21:35)
[2017-12-25] MEDS ORDERED: Prochlorperazine TAB* 10 MG PO PRN (21:35)
[2017-12-25] MEDS ORDERED: Ondansetron INJ* 2 MG/ML VIAL IV PRN (21:37)
[2017-12-25] MEDS ORDERED: LORazepam INJ* 2 MG/ML 1 ML VIAL IV PUSH PRN ×2 (21:49→21:52)
[2017-12-26] MEDS: NS 0.9% 1000 ML* 1,000 ML IV SCH ×4 (00:28→22:55)
[2017-12-26] MEDS: HYDROmorphone TAB* 2 MG PO PRN ×4 (00:57→22:22)
--- NOTE | 2017-12-26 03:09 | HP ---
CC: Dr. Jones * HISTORY AND PHYSICAL: DATE OF ADMISSION: 12/25/17 PRIMARY CARE PROVIDER: None. ONCOLOGIST: Dr. Jones. CHIEF COMPLAINT: Seizure. HISTORY OF PRESENT ILLNESS: Mr. 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 The patient at this point is quite sleepy and not acting normally per his family. He states he had only 1 seizure ; however, his father states that he believes he had a seizure approximately 3 p.m. on the date of admission followed by a subsequent seizure either en route to an appointment with Dr. Jones or when he got to his office and was sent to the emergency room at that point. The patient's family generally are all poor historians and I cannot get much history out of the patient. His sister provides the best information that few weeks ago, he had seizure with what sounds to be a Shaheen's paralysis. In looking to the record, this appears to have been 11/20/17. At that time, per the ER note, the patient was taking his Keppra only once a day instead of twice a day. He was discharged home. The patient's sister also indicates that he states he will black out relatively frequently. It is unclear what these blacking out episodes are. The patient currently admits to left-sided weakness after a seizure. He states this is common. The patient states he received Temodar a couple of weeks ago. This was confirmed after speaking with Dr. Chilel. He denies any fevers but does state that he felt chilled recently. The patient's sister states that last evening when she saw him she noticed him trembling. PAST MEDICAL HISTORY: 1. Grade 3 astrocytoma with numerous recurrences. 2. Seizure disorder. MEDICATIONS: 1. Dronabinol 5 to 10 mg p.o. t.i.d. 2. Dilaudid 4 mg p.o. q.4 hours p.r.n. pain. 3. Compazine 10 mg p.o. q.6 hours p.r.n. nausea. 4. Ativan 2 mg p.o. q.6 hours p.r.n. seizure. 5. Protonix 40 mg p.o. daily. 6. Keppra 1500 mg p.o. b.i.d. 7. Zofran 8 mg p.o. q.8 hours p.r.n. nausea. 8. Methadone 10 mg p.o. b.i.d. 9. Dilaudid 4 mg p.o. twice daily. ALLERGIES: DILANTIN and IV CONTRAST and GADOLINIUM. FAMILY HISTORY: Mom is living; she is healthy. Dad is living; he has a history of hypertension, hyperlipidemia, and PTSD. SOCIAL HISTORY: The patient is an active smoker of one-half to 1 pack per day. He does not drink alcohol. Uses marijuana on occasion. 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 He is not at this point. He has 5 children. He indicates that his mom and dad would be his healthcare proxies though paperwork has not been filled out for this. REVIEW OF SYSTEMS: Somewhat difficult to obtain though he does state his appetite has been up and down. He has felt chilled and was shaking last evening. Denies any chest pain or edema. He denies cough or shortness of breath. He admits to mild abdominal pain at this point. No current nausea, vomiting. He admits to constipation. No hematochezia. No hematuria. No dysuria. He admits to left- sided weakness at this point. No joint pains or muscle pains out of the ordinary. No anxiety or depression. The patient's sister notes that he has a bruise overlying his left eye lid and that is new. He denies any bleeding from his gums or nosebleeds. PHYSICAL EXAMINATION GENERAL: The patient is a well-developed, thin, young male, lying flat in the bed, in no acute distress. VITAL SIGNS: Blood pressure 96/53, pulse 57, respirations 13, temp 97.7, O2 sat 99% on room air. HEENT: Pupils are equal and round. Extraocular muscles intact. Oropharynx is clear. Oral mucosa is moist. The patient wears dentures. There is no submandibular, cervical, or supraclavicular adenopathy. Thyroid is not enlarged. No thyroid nodule is noted. PULMONARY: Lungs are clear to auscultation bilaterally. CARDIAC: Normal S1, S2. Regular rate and rhythm. I do not appreciate any murmurs. ABDOMEN: Bowel sounds are present. Abdomen is soft, nontender, nondistended. MUSCULOSKELETAL: There is no cyanosis or clubbing of the digits. NEUROLOGIC: The patient is lethargic but responds to questions. He is able to speak. At times, it is somewhat garbled; however, if I ask him to speak more clearly, he is able to answer the question clearly and understandably. He follows all commands. There is noticeable left-sided weakness of the arm and leg. PSYCH: The patient is lethargic. He appears to be oriented to situation. SKIN: Warm and dry. The patient has some petechiae and a larger area of what appears to be palpable purpura on the left lower leg. There is a slight bruise to the left eye lid. The patient denies any trauma. There is also circular lesion to the left corner of his mouth, per the patient's son, who is a juvenile , states that his father told him previously that this is a birthmark. DIAGNOSTIC STUDIES/LAB DATA: WBC 4.4, hemoglobin 10.9, hematocrit 32, platelets 14. INR 1.04. Sodium 137, potassium 3.6, chloride 104, CO2 29, BUN 15, creatinine 0.95, glucose 143, lactic acid 0.6, calcium 9.0, magnesium 2.0. Bilirubin 0.5, AST 16, ALT 12, alk phos 62. CPK 70. Albumin 3.8. TSH 0.55. Urinalysis revealed specific gravity of 1.017 and otherwise negative for signs of infection. Urine drug screen is positive for opiates and cannabinoids. Chest x-ray reveals no active cardiopulmonary disease. CT brain: There is right frontal encephalomalacia and postoperative change. No intracranial mass or hemorrhage is noted. No change is noted since previous exam of 11/20/17. ASSESSMENT AND PLAN: Mr. Luna is a 42-year-old male with a history of grade 3 astrocytoma diagnosed in 2005 with subsequent resections and recurrences, most recently treated with Temodar approximately a couple of weeks ago, who now presents to the emergency room after having 1 to 2 seizures on the day of admission. 1. Seizures. The patient at one point (11/20/17) indicated he was taking his Keppra only once a day. Today, when questioned he states that he reliably has been taking it twice a day. The patient has never seen a neurologist for the seizure disorder. Therefore, I have consulted Dr. Hampton. At this point, he recommends giving the patient Keppra 1500 mg IV twice daily and having Ativan available for seizures lasting greater than 5 minutes. He does not recommend having a second agent at this point. He will be seen in consultation tomorrow morning. I suspect his lethargy/altered mental status at this point is postictal state. 2. Thrombocytopenia. This is new for the patient. He has at times been thrombocytopenic, however, not this severely. The patient does have evidence of mild bruising of the left eyelid and some petechiae in his lower extremities. He denies any other significant bleeding; therefore, we will hold off on platelet transfusion. A CBC will be obtained tomorrow morning. Dr. Chilel has been alerted to the patient's admission. 3. Nausea and chronic pain. The patient will continue on p.r.n. Compazine and Zofran. Additionally, his p.r.n. Dilaudid and standing methadone will be continued. 4. Gastroesophageal reflux disease. Continue Protonix. 5. DVT prophylaxis. According to the Adult Thrombosis Prophylaxis Risk Factor Assessment Guide, the patient has a total risk factor score of 3 making him high risk. However, given his marked thrombocytopenia, I will not utilize chemical prophylaxis nor will I utilize SCDs as significant bruising could be caused. 6. Code status is full. Again, the patient indicates that his parents would be his first choice of surrogate decision makers. His dad's name is Luis Daniel. His cell phone number is [phone]. The patient's sister can also be reached , her number is [phone], and her name is Laura. TIME SPENT: Seventy minutes was spent admitting this patient. [id number]/[facility] #: [id number]
[2017-12-26 05:52] LABS: Hematocrit 30 % (42-52); Hemoglobin 10.4 g/dl (14.0-18.0); Mean Corpuscular HGB Conc 35 g/dl (31-36); Mean Corpuscular Hemoglobin 29 pg (27-31); Mean Corpuscular Volume 84 fL (80-94); Mean Platelet Volume 8 um3 (7.4-10.4); Platelet Count 11 10^3/ul (150-450); Red Cell Distribution Width 16 % (10.5-15); White Blood Count 2.8 10^3/ul (3.5-10.8)
[2017-12-26] MEDS: Omeprazole CAP* 20 MG PO SCH (07:41)
--- NOTE | 2017-12-26 07:53 | ED ---
Alexandra Roman Thomas, scribed for Jimmy Quesada MD on 12/25/17 at 1801 . Complex/Multi-Sys Presentation - HPI Summary HPI Summary: The patient is a 42 year old male with a history of brain cancer and seizures presenting to the emergency department after he had a seizure earlier today. He is on Keppra 1500 mg in the morning and 1500 mg at night. His last seizure was in August of 2017. - History Of Current Complaint Chief Complaint: EDSeizure Time Seen by Provider: 12/25/17 17:49 Hx Obtained From: Patient Onset/Duration: Sudden Onset, Resolved Timing: Intermittent, Lasting: Severity Currently: None Severity Initially: Moderate Alleviating Factor(s): Spontaneous resolution Associated Signs And Symptoms: Positive: Other - Seizure - Allergies/Home Medications Allergies/Adverse Reactions: Allergies Allergy/AdvReac Type Severity Reaction Status Date / Time Gadolinium-Containing Allergy Hives Verified 12/25/17 21:31 Contrast Medi gadoteridol Allergy Hives Verified 12/25/17 21:31 phenytoin Allergy Unknown Verified 12/25/17 21:31 Reaction Details shellfish derived Allergy Swelling Verified 12/25/17 21:31 Home Medications: Home Medications Dronabinol CAP* [Marinol CAP*] 5 - 10 mg PO TID 12/25/17 [History Confirmed 04/08] HYDROmorphone TAB* [Dilaudid TAB*] 4 mg PO Q4H PRN 12/25/17 [History Confirmed 12/25/17] LORazepam TAB(*) [Ativan 1 MG TAB (*)] 2 mg PO Q6H PRN 12/25/17 [History Confirmed 12/25/17] Ondansetron TAB* [Zofran 4 MG Tab*] 8 mg PO Q8H PRN 12/25/17 [History Confirmed 12/25/17] Pantoprazole TAB (NF) [Protonix TAB (NF)] 40 mg PO DAILY 12/25/17 [History Confirmed 12/25/17] Prochlorperazine TAB* [Compazine Tab*] 10 mg PO Q6H PRN 12/25/17 [History Confirmed 12/25/17] PMH/Surg Hx/FS Hx/Imm Hx Endocrine/Hematology History: Denies: Hx Anticoagulant Therapy, Hx Diabetes, Hx Thyroid Disease Cardiovascular History: Denies: Hx Congestive Heart Failure, Hx Deep Vein Thrombosis, Hx Hypertension , Hx Myocardial Infarction, Hx Pacemaker/ICD Respiratory History: Reports: Other Respiratory Problems/Disorders Denies: Hx Asthma, Hx Chronic Obstructive Pulmonary Disease (COPD), Hx Lung Cancer, Hx Pneumonia, Hx Pulmonary Embolism GI History: Denies: Hx Gall Bladder Disease, Hx Gastrointestinal Bleed, Hx Ulcer, Hx Urosepsis History: Denies: Hx Dialysis, Hx Kidney Stones, Hx Renal Disease Sensory History: Denies: Hx Hearing Aid Neurological History: Reports: Hx Seizures, Other Neuro Impairments/Disorders - seizures Denies: Hx Dementia, Hx Migraine, Hx Transient Ischemic Attacks (TIA) Psychiatric History: Denies: Hx Anxiety, Hx Depression, Hx Panic Disorder, Hx Schizophrenia, Hx Bipolar Disorder - Cancer History Cancer Type, 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 CRANIOTOMY 03/27, , 01/01. MOLE REMOVED FROM Rt UNDER ARM, Lt FOREARM & BACK - 03/26/16 Infectious Disease History: No Infectious Disease History: Denies: Hx Clostridium Difficile, Hx Hepatitis, Hx Human Immunodeficiency Virus (HIV), Hx of Known/Suspected MRSA, Hx Shingles, Hx Tuberculosis, Hx Known/ Suspected VRE, Hx Known/Suspected VRSA, History Other Infectious Disease, Traveled Outside the [place] in Last 30 Days - Family History Known Family History: Positive: Cardiac Disease Negative: Hypertension - Social History Alcohol Use: None Substance Use Type: Reports: Marijuana Substance Use Comment - Amount & Last Used: states "medical marijuana" ... vapor form Hx Tobacco Use: Yes Smoking Status (MU): Heavy Every Day Tobacco Smoker Type: Cigarettes Amount Used/How Often: 1/2 ppd Length of Time of Smoking/Using Tobacco: 26 yrs Have You Smoked in the Last Year: Yes Review of Systems Negative: Fever Neurological: Other - Seizure All Other Systems Reviewed And Are Negative: Yes Physical Exam - Summary Physical Exam Summary: VITAL SIGNS: Reviewed. GENERAL: Patient is a well-developed and nourished male who is lying comfortable in the stretcher. Patient is not in any acute respiratory distress. HEAD AND FACE: No signs of trauma. No ecchymosis, hematomas or skull depressions. No sinus tenderness. EYES: PERRLA, EOMI x 2, No injected conjunctiva, no nystagmus. EARS: Hearing grossly intact. Ear canals and tympanic membranes are within normal limits. MOUTH: Oropharynx within normal limits. NECK: Supple, trachea is midline, no adenopathy, no JVD, no carotid bruit, no c- spine tenderness, neck with full ROM. CHEST: Symmetric, no tenderness at palpation LUNGS: Clear to auscultation bilaterally. No wheezing or crackles. CVS: Regular rate and rhythm, S1 and S2 present, no murmurs or gallops appreciated. ABDOMEN: Soft, non-tender. No signs of distention. No rebound no guarding, and no masses palpated. Bowel sounds are normal. EXTREMITIES: FROM in all major joints, no edema, no cyanosis or clubbing. NEURO: Alert and oriented x 3. No acute neurological deficits. Speech is normal and follows commands. SKIN: Dry and warm Triage Information Reviewed: Yes Vital Signs On Initial Exam: Initial Vitals Temp Pulse Resp BP Pulse Ox 97.7 F 101 18 101/66 97 12/25/17 17:25 12/25/17 17:25 12/25/17 17:25 12/25/17 17:25 12/25/17 17:25 Vital Signs Reviewed: Yes Diagnostics - Vital Signs Vital Signs Temp Pulse Resp BP Pulse Ox 12/25/17 17:25 97.7 F 101 18 101/66 97 - Laboratory Lab Results: Lab Results 12/25/17 12/25/17 12/25/17 Range/Units 18:18 18:18 18:18 WBC 5.5 (3.5-10.8) 10^3/ul RBC 4.12 (4.0-5.4) 10^6/ul Hgb 11.8 L (14.0-18.0) g/dl Hct 34 L (42-52) % MCV 83 (80-94) fL MCH 29 (27-31) pg MCHC 35 (31-36) g/dl RDW 16 H (10.5-15) % Plt Count 16 L* (150-450) 10^3/ul MPV 8 (7.4-10.4) um3 Neut % (Auto) 79.7 (38-83) % Lymph % (Auto) 9.8 L (25-47) % Meagher % (Auto) 6.9 (0-7) % Eos % (Auto) 3.3 (0-6) % Baso % (Auto) 0.3 (0-2) % Absolute Neuts (auto) 4.4 (1.5-7.7) 10^3/ul Absolute Lymphs (auto) 0.5 L (1.0-4.8) 10^3/ul Absolute Monos (auto) 0.4 (0-0.8) 10^3/ul Absolute Eos (auto) 0.2 (0-0.6) 10^3/ul Absolute Basos (auto) 0 (0-0.2) 10^3/ul Absolute Nucleated RBC 0 10^3/ul Nucleated RBC % 0 INR (Anticoag Therapy) 1.04 H (0.77-1.02) Sodium 137 (133-145) mmol/L Potassium 3.6 (3.5-5.0) mmol/L Chloride 104 (101-111) mmol/L Carbon Dioxide 29 (22-32) mmol/L Anion Gap 4 (2-11) mmol/L BUN 15 (6-24) mg/dL Creatinine 0.95 (0.67-1.17) mg/dL Est GFR ( Amer) 112.4 (>60) Est GFR (Non-Af Amer) 87.4 (>60) BUN/Creatinine Ratio 15.8 (8-20) Glucose 143 H (70-100) mg/dL Lactic Acid (0.5-2.0) mmol/L Calcium 9.0 (8.6-10.3) mg/dL Magnesium 2.0 (1.9-2.7) mg/dL Total Bilirubin 0.50 (0.2-1.0) mg/dL AST 16 (13-39) U/L ALT 12 (7-52) U/L Alkaline Phosphatase 62 (34-104) U/L Total Creatine Kinase 70 (10-223) U/L Total Protein 6.8 (6.4-8.9) g/dL Albumin 3.8 (3.2-5.2) g/dL Globulin 3.0 (2-4) g/dL Albumin/Globulin Ratio 1.3 (1-3) TSH 0.55 (0.34-5.60) mcIU/mL Urine Color Urine Appearance Urine pH (5-9) Ur Specific [place] (1.010-1.030) Urine Protein (Negative) Urine Ketones (Negative) Urine Blood (Negative) Urine Nitrate (Negative) Urine Bilirubin (Negative) Urine Urobilinogen (Negative) Ur Leukocyte Esterase (Negative) Urine Glucose (Negative) Urine Opiates Screen (None Detect) Ur Barbiturates Screen (None Detect) Carbamazepine < 2.0 L (4.0-12.0) mcg/mL Ur Phencyclidine Scrn (None Detect) Ur Amphetamines Screen (None Detect) U Benzodiazepines Scrn (None Detect) Urine Cocaine Screen (None Detect) U Cannabinoids Screen (None Detect) Serum Alcohol < 10 (<10) mg/dL 12/25/17 12/25/17 12/25/17 Range/Units 18:18 20:30 20:46 WBC 4.4 (3.5-10.8) 10^3/ul RBC 3.83 L (4.0-5.4) 10^6/ul Hgb 10.9 L (14.0-18.0) g/dl Hct 32 L (42-52) % MCV 83 (80-94) fL MCH 29 (27-31) pg MCHC 34 (31-36) g/dl RDW 16 H (10.5-15) % Plt Count 14 L* (150-450) 10^3/ul MPV 8 (7.4-10.4) um3 Neut % (Auto) 71.2 (38-83) % Lymph % (Auto) 15.2 L (25-47) % Meagher % (Auto) 8.7 H (0-7) % Eos % (Auto) 4.6 (0-6) % Baso % (Auto) 0.3 (0-2) % Absolute Neuts (auto) 3.1 (1.5-7.7) 10^3/ul Absolute Lymphs (auto) 0.7 L (1.0-4.8) 10^3/ul Absolute Monos (auto) 0.4 (0-0.8) 10^3/ul Absolute Eos (auto) 0.2 (0-0.6) 10^3/ul Absolute Basos (auto) 0 (0-0.2) 10^3/ul Absolute Nucleated RBC 0 10^3/ul Nucleated RBC % 0 INR (Anticoag Therapy) (0.77-1.02) Sodium (133-145) mmol/L Potassium (3.5-5.0) mmol/L Chloride (101-111) mmol/L Carbon Dioxide (22-32) mmol/L Anion Gap (2-11) mmol/L BUN (6-24) mg/dL Creatinine (0.67-1.17) mg/dL Est GFR ( Amer) (>60) Est GFR (Non-Af Amer) (>60) BUN/Creatinine Ratio (8-20) Glucose (70-100) mg/dL Lactic Acid 0.6 (0.5-2.0) mmol/L Calcium (8.6-10.3) mg/dL Magnesium (1.9-2.7) mg/dL Total Bilirubin (0.2-1.0) mg/dL AST (13-39) U/L ALT (7-52) U/L Alkaline Phosphatase (34-104) U/L Total Creatine Kinase (10-223) U/L Total Protein (6.4-8.9) g/dL Albumin (3.2-5.2) g/dL Globulin (2-4) g/dL Albumin/Globulin Ratio (1-3) TSH (0.34-5.60) mcIU/mL Urine Color Urine Appearance Urine pH (5-9) Ur Specific [place] (1.010-1.030) Urine Protein (Negative) Urine Ketones (Negative) Urine Blood (Negative) Urine Nitrate (Negative) Urine Bilirubin (Negative) Urine Urobilinogen (Negative) Ur Leukocyte Esterase (Negative) Urine Glucose (Negative) Urine Opiates Screen Presumptive positive A (None Detect) Ur Barbiturates Screen None detected (None Detect) Carbamazepine (4.0-12.0) mcg/mL Ur Phencyclidine Scrn None detected (None Detect) Ur Amphetamines Screen None detected (None Detect) U Benzodiazepines Scrn None detected (None Detect) Urine Cocaine Screen None detected (None Detect) U Cannabinoids Screen Presumptive positive A (None Detect) Serum Alcohol (<10) mg/dL 12/25/17 Range/Units 20:46 WBC (3.5-10.8) 10^3/ul RBC (4.0-5.4) 10^6/ul Hgb (14.0-18.0) g/dl Hct (42-52) % MCV (80-94) fL MCH (27-31) pg MCHC (31-36) g/dl RDW (10.5-15) % Plt Count (150-450) 10^3/ul MPV (7.4-10.4) um3 Neut % (Auto) (38-83) % Lymph % (Auto) (25-47) % Meagher % (Auto) (0-7) % Eos % (Auto) (0-6) % Baso % (Auto) (0-2) % Absolute Neuts (auto) (1.5-7.7) 10^3/ul Absolute Lymphs (auto) (1.0-4.8) 10^3/ul Absolute Monos (auto) (0-0.8) 10^3/ul Absolute Eos (auto) (0-0.6) 10^3/ul Absolute Basos (auto) (0-0.2) 10^3/ul Absolute Nucleated RBC 10^3/ul Nucleated RBC % INR (Anticoag Therapy) (0.77-1.02) Sodium (133-145) mmol/L Potassium (3.5-5.0) mmol/L Chloride (101-111) mmol/L Carbon Dioxide (22-32) mmol/L Anion Gap (2-11) mmol/L BUN (6-24) mg/dL Creatinine (0.67-1.17) mg/dL Est GFR ( Amer) (>60) Est GFR (Non-Af Amer) (>60) BUN/Creatinine Ratio (8-20) Glucose (70-100) mg/dL Lactic Acid (0.5-2.0) mmol/L Calcium (8.6-10.3) mg/dL Magnesium (1.9-2.7) mg/dL Total Bilirubin (0.2-1.0) mg/dL AST (13-39) U/L ALT (7-52) U/L Alkaline Phosphatase (34-104) U/L Total Creatine Kinase (10-223) U/L Total Protein (6.4-8.9) g/dL Albumin (3.2-5.2) g/dL Globulin (2-4) g/dL Albumin/Globulin Ratio (1-3) TSH (0.34-5.60) mcIU/mL Urine Color Yellow Urine Appearance Clear Urine pH 5.0 (5-9) Ur Specific [place] 1.017 (1.010-1.030) Urine Protein Negative (Negative) Urine Ketones Negative (Negative) Urine Blood Negative (Negative) Urine Nitrate Negative (Negative) Urine Bilirubin Negative (Negative) Urine Urobilinogen Negative (Negative) Ur Leukocyte Esterase Negative (Negative) Urine Glucose Negative (Negative) Urine Opiates Screen (None Detect) Ur Barbiturates Screen (None Detect) Carbamazepine (4.0-12.0) mcg/mL Ur Phencyclidine Scrn (None Detect) Ur Amphetamines Screen (None Detect) U Benzodiazepines Scrn (None Detect) Urine Cocaine Screen (None Detect) U Cannabinoids Screen (None Detect) Serum Alcohol (<10) mg/dL Result Diagrams: 12/26/17 05:15 03 18:18 Lab Statement: Any lab studies that have been ordered have been reviewed, and results considered in the medical decision making process. - Radiology CXR Xray Interpretation: No Acute Changes - NO ACTIVE CARDIOPULMONARY DISEASE IS NOTED. Dr. Quesada has reviewed this report. Radiology Interpretation Completed By: Radiologist - CT CT Brain CT Interpretation Completed By: Radiologist - ORDERED--SEE [facility] Multi-Symp Course/Dx Assessment/Plan: The patient is a 42 year old male with a history of brain cancer and seizures presenting to the emergency department after he had a seizure earlier today. He is on Keppra 1500 mg in the morning and 1500 mg at night. His last seizure was in August of 2017. At this point, bloodwork is ordered and is still pending. CXR shows no active cariopulmonary disease. At this point, the patient will be signed out to Dr. Chavez for further workup and management. - Diagnoses Differential Diagnoses/HQI/PQRI: Urinary Tract Infection, Other - Seizure Provider Diagnoses: Recurrent seizures, Thrombocytopenia Discharge - Discharge Plan Condition: Fair Disposition: OTHER Discharge Disposition Comment: Signed out to Dr. Chavez, pending bloodwork and CXR read. The documentation as recorded by the Alexandra soriano Thomas accurately reflects the service I personally performed and the decisions made by , Jimmy Quesada MD.
[2017-12-26] MEDS ORDERED: levETIRAcetam TAB* 500 MG PO SCH (09:00)
[2017-12-26] MEDS ORDERED: levETIRAcetam IV* 1,500 MG in NS 0.9% 100 ML* 100 ML IVPB SCH (09:00)
[2017-12-26] MEDS: Dronabinol CAP* 2.5 MG PO SCH ×3 (09:55→20:23)
[2017-12-26] MEDS: Methadone TAB* 10 MG PO SCH ×2 (09:56→20:24)
[2017-12-26] MEDS: levETIRAcetam TAB* 500 MG PO SCH ×2 (09:56→20:24)
--- NOTE | 2017-12-26 10:46 | PN ---
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 When questioned about his Keppra usage at home, it sounds that he has been taking only 1 tablet twice daily. Confirmation with his pharmacy is that he has 750mg tablets and it has been prescribed to take 2 tablets (1500mg) twice daily. He denies any signs of bleeding including from his gums, blood in his stool or hematuria. He has had no additional seizures since admission. Neurology has been asked to consult.] Objective: [ Laboratory Results - last 24 hr 12/25/17 12/25/17 12/25/17 18:18 18:18 18:18 WBC 5.5 RBC 4.12 Hgb 11.8 L Hct 34 L MCV 83 MCH 29 MCHC 35 RDW 16 H Plt Count 16 L* MPV 8 Neut % (Auto) 79.7 Lymph % (Auto) 9.8 L [place] % (Auto) 6.9 Eos % (Auto) 3.3 Baso % (Auto) 0.3 Absolute Neuts (auto) 4.4 Absolute Lymphs (auto) 0.5 L Absolute Monos (auto) 0.4 Absolute Eos (auto) 0.2 Absolute Basos (auto) 0 Absolute Nucleated RBC 0 Nucleated RBC % 0 INR (Anticoag Therapy) 1.04 H Sodium 137 Potassium 3.6 Chloride 104 Carbon Dioxide 29 Anion Gap 4 BUN 15 Creatinine 0.95 Est GFR ( Amer) 112.4 Est GFR (Non-Af Amer) 87.4 BUN/Creatinine Ratio 15.8 Glucose 143 H POC Glucose (mg/dL) Lactic Acid Calcium 9.0 Magnesium 2.0 Total Bilirubin 0.50 AST 16 ALT 12 Alkaline Phosphatase 62 Total Creatine Kinase 70 Total Protein 6.8 Albumin 3.8 Globulin 3.0 Albumin/Globulin Ratio 1.3 TSH 0.55 Urine Color Urine Appearance Urine pH Ur Specific [place] Urine Protein Urine Ketones Urine Blood Urine Nitrate Urine Bilirubin Urine Urobilinogen Ur Leukocyte Esterase Urine Glucose Urine Opiates Screen Ur Barbiturates Screen Carbamazepine < 2.0 L Ur Phencyclidine Scrn Ur Amphetamines Screen U Benzodiazepines Scrn Urine Cocaine Screen U Cannabinoids Screen Serum Alcohol < 10 12/25/17 12/25/17 12/25/17 18:18 20:30 20:46 WBC 4.4 RBC 3.83 L Hgb 10.9 L Hct 32 L MCV 83 MCH 29 MCHC 34 RDW 16 H Plt Count 14 L* MPV 8 Neut % (Auto) 71.2 Lymph % (Auto) 15.2 L [place] % (Auto) 8.7 H Eos % (Auto) 4.6 Baso % (Auto) 0.3 Absolute Neuts (auto) 3.1 Absolute Lymphs (auto) 0.7 L Absolute Monos (auto) 0.4 Absolute Eos (auto) 0.2 Absolute Basos (auto) 0 Absolute Nucleated RBC 0 Nucleated RBC % 0 INR (Anticoag Therapy) Sodium Potassium Chloride Carbon Dioxide Anion Gap BUN Creatinine Est GFR ( Amer) Est GFR (Non-Af Amer) BUN/Creatinine Ratio Glucose POC Glucose (mg/dL) Lactic Acid 0.6 Calcium Magnesium Total Bilirubin AST ALT Alkaline Phosphatase Total Creatine Kinase Total Protein Albumin Globulin Albumin/Globulin Ratio TSH Urine Color Urine Appearance Urine pH Ur Specific [place] Urine Protein Urine Ketones Urine Blood Urine Nitrate Urine Bilirubin Urine Urobilinogen Ur Leukocyte Esterase Urine Glucose Urine Opiates Screen Presumptive positive A Ur Barbiturates Screen None detected Carbamazepine Ur Phencyclidine Scrn None detected Ur Amphetamines Screen None detected U Benzodiazepines Scrn None detected Urine Cocaine Screen None detected U Cannabinoids Screen Presumptive positive A Serum Alcohol 12/25/17 12/26/17 12/26/17 20:46 03:35 05:15 WBC 2.8 L RBC 3.60 L Hgb 10.4 L Hct 30 L MCV 84 MCH 29 MCHC 35 RDW 16 H Plt Count 11 L* MPV 8 Neut % (Auto) Lymph % (Auto) [place] % (Auto) Eos % (Auto) Baso % (Auto) Absolute Neuts (auto) Absolute Lymphs (auto) Absolute Monos (auto) Absolute Eos (auto) Absolute Basos (auto) Absolute Nucleated RBC Nucleated RBC % INR (Anticoag Therapy) Sodium Potassium Chloride Carbon Dioxide Anion Gap BUN Creatinine Est GFR ( Amer) Est GFR (Non-Af Amer) BUN/Creatinine Ratio Glucose POC Glucose (mg/dL) 109 H Lactic Acid Calcium Magnesium Total Bilirubin AST ALT Alkaline Phosphatase Total Creatine Kinase Total Protein Albumin Globulin Albumin/Globulin Ratio TSH Urine Color Yellow Urine Appearance Clear Urine pH 5.0 Ur Specific [place] 1.017 Urine Protein Negative Urine Ketones Negative Urine Blood Negative Urine Nitrate Negative Urine Bilirubin Negative Urine Urobilinogen Negative Ur Leukocyte Esterase Negative Urine Glucose Negative Urine Opiates Screen Ur Barbiturates Screen Carbamazepine Ur Phencyclidine Scrn Ur Amphetamines Screen U Benzodiazepines Scrn Urine Cocaine Screen U Cannabinoids Screen Serum Alcohol Vital Signs Temp Pulse Resp BP Pulse Ox 98.3 F 60 12 87/58 97 12/26/17 07:24 12/26/17 10:20 12/26/17 10:20 12/26/17 07:24 12/26/17 10:20 Dronabinol (Marinol Cap*) 5 mg PO TID [facility] Last Admin: 12/26/17 09:55 Dose: 5 mg Hydromorphone HCl (Dilaudid Tab*) 4 mg PO Q4H PRN PRN Reason: PAIN Last Admin: 12/26/17 07:45 Dose: 4 mg Sodium Chloride (Ns 0.9% 1000 Ml*) 1,000 mls @ 125 mls/hr IV PER RATE [facility] Last Admin: 12/26/17 07:45 Dose: 125 mls/hr Levetiracetam (Keppra Tab*) 1,500 mg PO BID [facility] Last Admin: 12/26/17 09:56 Dose: 1,500 mg Lorazepam (Ativan Inj*) 2 mg IV PUSH Q5M PRN PRN Reason: seizure lasting >5min Methadone HCl (Dolophine Tab*) 10 mg PO BID [facility] Last Admin: 12/26/17 09:56 Dose: 10 mg Omeprazole (Prilosec Cap*) 20 mg PO 0730 [facility] Last Admin: 12/26/17 07:41 Dose: 20 mg Ondansetron HCl (Zofran Inj*) 4 mg IV Q6H PRN PRN Reason: NAUSEA Last Admin: 12/26/17 03:48 Dose: 4 mg Prochlorperazine (Compazine Tab*) 10 mg PO Q6H PRN PRN Reason: NAUSEA/VOMITING Gen: Thin and slightly sedated appearing 42 yo gentleman in NAD HEENT: small area of ecchymosis over L eyelid, no conjunctival hemorrage, MMM, no signs of bleeding CV: RRR, no m/r/g Resp: lungs CTA Abd: soft, nonTTP Extremities: No edema Skin: No extensive ecchymosis or other rash] Assessment: [This is a 42 yo male who presented after multiple seizures with profound thrombocytopenia with known recurrent grade 3 astrocytoma who had recently started Temodar.] Plan: [1. Seizure - neurology input is appreciated. Seizure focus is likely his tumor site, MRI from 1 month ago demonstrated some evidence of recurrence. After extensive interview it sounds like he has been taking the incorrect dose of Keppra at home (750 twice daily as opposed to the prescribed 1500 bid). Cont 1500 bid at this time. Cont seziure precautions 2. Thrombocytopenia - likely due to Temodar. Plt count 11K this am. No signs of bleeding. No plan to transfuse unless bleeding develops or plts fall to < 10K. Repeat CBC in am. 3. Astrocytoma - Followed by Dr Jones, recently started on Temodar for recurrent disease now with associated thrombocytopenia Dispo: Cont inpatient management. Awaiting neurology consult. DC when platelet count show signs of recovery without active bleeding.]
--- NOTE | 2017-12-26 15:51 | CONS ---
AMENDED REPORT NOW INCLUDES DATE OF CONSULT - ESIGNED BEFORE ADJUSTMENTS CC: Dr. Ole Jones* CONSULTATION REPORT: DATE OF CONSULT: 12/26/17 REASON FOR CONSULTATION: Seizure and history of brain cancer. HISTORY OF PRESENT ILLNESS: Mr. Luna is a 42-year-old gentleman, who has a history of grade 3 astrocytoma, diagnosed in 2005, status post numerous resections and radiation therapy as well as chemotherapy, most recently he received Temodar several weeks ago. He notes a history of seizures, states that his last one was in August, but he was seen in the hospital in the ER back at the end of October with a seizure. At that time, he was apparently not taking the Keppra as directed. He was supposed to be on 3000 mg a day and he was taking 1500 mg a day. He presented at that time with what was suspected to be a Shaheen's paralysis, left-sided weakness, which resolved slowly per the patient. He was loaded on Keppra and sent home on his normal dose of 1500 b.i.d. He is unclear how often he has seizures and it should be noted that the patient is a very poor historian. He apparently had a seizure yesterday, generalized tonic-clonic in nature, and then a subsequent seizure while he was on his way to see his oncologist. At that time, he was sent to the emergency room for additional evaluation. He did present with left-sided weakness again in the arm and leg, similar to his previous presentation. He was somnolent in the ER and slow to recover. He did not get any benzodiazepines. He was admitted to the hospital for monitoring. CT scan done yesterday, I personally reviewed the films, agreed with the findings, showed a right frontal encephalomalacia and postoperative changes. No mass or hemorrhage is noted. No change since the prior exam of 11/20/17. I also reviewed his MRI of the brain done on 11/28/17. At that time, showed mild enhancement adjacent to the area of encephalomalacia in the right frontal lobe, which is most prominent along the posterosuperior border, which has progressed from the prior examination and is suspicious for tumor recurrence, right frontoethmoid sinusitis noted. I agree with those findings as well. On admission, a Keppra level was drawn and he was noted to be severely thrombocytopenic with a platelet count of 11. It appears that on 11/20/17, his platelet count was 111. Platelet count on 09/26/17 was 200. He is anemic with a hemoglobin of 10.4, hematocrit of 30. INR of 1.04. Blood glucose yesterday 109. Urine is negative. Previous Keppra level of 38.9 on 11/20/17. Carbamazepine level yesterday was less than 2, serum alcohol less than 10, cannabinoids positive, opiates positive. Lyme serology negative in 2017. HIV 1 and 2 antibody nonreactive on 06/14/17. PAST MEDICAL HISTORY: As noted above, seizures and brain tumor. MEDICATIONS: At home include: 1. Dronabinol 5 mg to 10 mg p.o. t.i.d. 2. Dilaudid 4 mg p.o. q. 4 hours p.r.n. pain. 3. Compazine 10 mg p.o. q. 6 hours p.r.n. nausea. 4. Ativan 2 mg p.o. q. 6 hours p.r.n. seizures. 5. Protonix 40 mg p.o. daily. 6. Keppra 1500 mg p.o. b.i.d. 7. Zofran 8 mg p.o. q. 8 hours p.r.n. nausea. 8. Methadone 10 mg p.o. b.i.d. 9. Dilaudid 4 mg p.o. twice a day. ALLERGIES: DILANTIN, IV CONTRAST, and GADOLINIUM. FAMILY HISTORY: Father with hypertension, hyperlipidemia, and PTSD. Mother is healthy. SOCIAL HISTORY: Smokes about a pack a day for years. Denies any alcohol use. He states that he uses some marijuana. He denies any other drug use. REVIEW OF SYSTEMS: A 14-organ systems was done. He denies any problems at this point. Denies any headache, vision changes, although he does note a weakness on his left side. He states that this is getting better. He notes no other focal weakness. No numbness or tingling. No shortness of breath, dyspnea on exertion. No chest pain. No nausea, vomiting. Review of systems is otherwise negative. PHYSICAL EXAM: Vital Signs: Temp of 97.7, pulse rate of 57, respiratory rate of 18, O2 sat of 98%, blood pressure 88/53 to 104/82. In general: He is a thin , well- developed gentleman, in no acute distress. He is lying in his hospital bed, sleeping. He awakens easily. No family at bedside. HEENT: Normocephalic , atraumatic. There is a well-healed right frontal incision. Sclerae anicteric. Mucous membranes are moist. Oropharynx is clear. Nares are patent. Neck: Supple. No thyromegaly. No carotid bruits. Chest: Clear to auscultation bilaterally. Cardiovascular: Regular rate and rhythm. Abdomen: Nontender, nondistended. Extremities: No clubbing, cyanosis, or edema. He has some tattoos. Skin: Warm and dry. Neurologic Exam: He is awake. He is somnolent, but oriented to person, place, and time. His speech is fluent. There is no dysarthria. He is somewhat slow to respond. Pupils are equal, round, and reactive to light. Extraocular muscles are intact. Visual sanderson are full. Sensation is intact. Face is symmetric. Tongue is midline. Palate raises symmetrically. Sternocleidomastoid intact. Motor Exam: Spontaneously moving all extremities antigravity. He has 4+/5 weakness proximally and distally in the left upper extremity. 4+/5 weakness in the distal left lower extremity. 5/5 on the right side. Tone is normal. DTRs are 1+ and symmetric in the upper extremities, 3+ at the patella bilaterally, 2+ at the ankles. Downgoing Babinski's. [id number], rapid alternating movements were without tremor. He has no resting tremor. Sensation is intact to light touch, pinprick , and vibration throughout. There is no focal sensory loss. Gait was not tested at this time. DIAGNOSTIC STUDIES/LAB DATA: Lab work as noted above. Imaging as noted above. ASSESSMENT AND PLAN: Mr. Luna is a 42-year-old gentle man with a history of grade 3 astrocytoma, status post surgery, status post chemotherapy, most recently, Temodar several weeks ago, followed by Dr. Jones in Clinic. Has a history of seizures in the past. His last seizure was apparently in late October 2017; at that time, he had what appeared to be a Shaheen's paralysis, which improved. He was loaded on Keppra at that time and he was continued on 3000 mg p.o. divided twice a day. He presented to the hospital yesterday evening with another seizure or two, generalized tonic-clonic in nature. Has left-sided weakness consistent with his previous presentation, likely Shaheen's paralysis, it is slowly improving. CT scan showed no new bleeding or changes. I do not think we need to do any other imaging at this point. He had an MRI done about a month ago. I would continue his Keppra at current doses as there is some concern about compoliance. He was given IV doses yesterday and we will switch him to p.o. today. Keppra level is pending at this time, but I would keep him on this dose unless he has another seizure at which point we could consider adjunctive therapy.. We will have to keep in mind the fact that he is thrombocytopenic and many of the seizure medications can worsen this: Vimpat or Zonegran are possibilities.. He needs to be followed by Neurology outpatient as well for his seizure disorder. If his left-sided weakness persists greater than 24 hours, we can check an MRI of the brain, although my suspicion is low that this is secondary to any new changes in his brain. I will continue to follow him closely and make further recommendations as necessary. Thank you for the opportunity to participate in the care of this very interesting patient. [id number]/[facility] #: [id number] [place]
[2017-12-27] MEDS ORDERED: LORazepam INJ* 2 MG/ML 1 ML VIAL IV PUSH PRN ×2 (00:05→17:43)
[2017-12-27 06:15] LABS: ABS Basophils 0 10^3/ul (0-0.2); ABS Eosinophils 0.1 10^3/ul (0-0.6); ABS Lymphocytes 0.5 10^3/ul (1.0-4.8); ABS Monocytes 0.3 10^3/ul (0-0.8); ABS Neutrophils 1.4 10^3/ul (1.5-7.7); ABS Nucleated RBC 0 10^3/ul; Eosinophil % 4.3 % (0-6); Hematocrit 28 % (42-52); Hemoglobin 9.7 g/dl (14.0-18.0); Lymphocyte % 23.1 % (25-47); Mean Corpuscular HGB Conc 34 g/dl (31-36); Mean Corpuscular Hemoglobin 29 pg (27-31); Mean Corpuscular Volume 84 fL (80-94); Mean Platelet Volume 8 um3 (7.4-10.4); Nucleated Red Blood Cells % 0.2; Platelet Count 8 10^3/ul (150-450); Red Blood Count 3.35 10^6/ul (4.0-5.4); Red Cell Distribution Width 16 % (10.5-15); White Blood Count 2.3 10^3/ul (3.5-10.8)
[2017-12-27 06:23] LABS: EGFR Non-African American 90.7 (>60)
--- NOTE | 2017-12-27 08:09 | RAD ---
INDICATION: Left forearm pain after a fall TECHNIQUE: 2 views of the left forearm were obtained. FINDINGS: The bones are normal alignment. Joint spaces appear maintained. No fracture is seen. IMPRESSION: No radiographic evidence of acute fracture or dislocation. If the patient's symptoms persist, follow-up imaging is recommended.
[2017-12-27] MEDS: levETIRAcetam TAB* 500 MG PO SCH ×2 (08:34→21:09)
[2017-12-27] MEDS: Omeprazole CAP* 20 MG PO SCH (08:35)
[2017-12-27] MEDS: Dronabinol CAP* 2.5 MG PO SCH ×3 (08:35→21:10)
[2017-12-27] MEDS: Methadone TAB* 10 MG PO SCH ×2 (08:35→21:09)
[2017-12-27] MEDS ORDERED: Lidocaine 2% PF * 5 ML VIAL INJ ONE (08:46)
--- NOTE | 2017-12-27 09:52 | PROCNOTE ---
Hematology/Oncology Procedure Hematology/Oncology Procedure Note: Bone Marrow Biopsy: Informed consent obtained. Time out performed per protocol. Anesthesia 2% lidocaine, approx. 2.5 mLs, administered with good effect. Bone marrow biopsy and aspirate performed to left posterior superior iliac crest without obvious complications. Minimal blood loss. Pt. tolerated well.
--- NOTE | 2017-12-27 09:57 | PN ---
Progress Note - Progress Note Date of Service: 12/27/17 SOAP: Subjective: []Events of last night reviewed. Feel fine. Wants to go home. Aware of fall last night (following IV ativan) and states left elbow and hip hurt, grimacing slightly as he moves. Denies progressive headaches. No seizures. Medications: Dronabinol (Marinol Cap*) 5 mg PO TID [facility] Last Admin: 12/27/17 08:35 Dose: 5 mg Hydromorphone HCl (Dilaudid Tab*) 4 mg PO Q4H PRN PRN Reason: PAIN Last Admin: 12/26/17 22:22 Dose: 4 mg Sodium Chloride (Ns 0.9% 1000 Ml*) 1,000 mls @ 125 mls/hr IV PER RATE [facility] Last Admin: 12/26/17 22:55 Dose: 125 mls/hr Levetiracetam (Keppra Tab*) 1,500 mg PO BID [facility] Last Admin: 12/27/17 08:34 Dose: 1,500 mg Lorazepam (Ativan Inj*) 2 mg IV PUSH Q5M PRN PRN Reason: seizure lasting >5min Last Admin: 12/27/17 00:12 Dose: 2 mg Lorazepam (Ativan Inj*) 2 mg IV PUSH Q6H PRN PRN Reason: ANXIETY Methadone HCl (Dolophine Tab*) 10 mg PO BID [facility] Last Admin: 12/27/17 08:35 Dose: 10 mg Omeprazole (Prilosec Cap*) 20 mg PO 0730 [facility] Last Admin: 12/27/17 08:35 Dose: 20 mg Ondansetron HCl (Zofran Inj*) 4 mg IV Q6H PRN PRN Reason: NAUSEA Last Admin: 12/26/17 03:48 Dose: 4 mg Prochlorperazine (Compazine Tab*) 10 mg PO Q6H PRN PRN Reason: NAUSEA/VOMITING Objective: [] Vital Signs Temp Pulse Resp BP Pulse Ox 98.2 F 62 14 114/66 94 12/26/17 23:13 12/27/17 07:58 12/27/17 08:35 12/27/17 02:45 12/27/17 02:45 A&Ox3, sleepy, EOMI, JENNINGS, good strength=bilat. HRR, S1S2 LS clear with even and non-labored respirations +BS, abd. soft and non-tender Left elbow with moderate sized hematoma and abrasion, good ROM and mild tenderness -- forearm x-ray negative Left lateral hip/posterior femoral area with moderate size hematoma, good ROM and mild tenderness. Laboratory Results - last 24 hr 12/27/17 12/27/17 12/27/17 05:49 05:49 09:30 WBC 2.3 L RBC 3.35 L Hgb 9.7 L Hct 28 L MCV 84 MCH 29 MCHC 34 RDW 16 H Plt Count 8 L* MPV 8 Neut % (Auto) 60.3 Lymph % (Auto) 23.1 L Rolette % (Auto) 12.0 H Eos % (Auto) 4.3 Baso % (Auto) 0.3 Absolute Neuts (auto) 1.4 L Absolute Lymphs (auto) 0.5 L Absolute Monos (auto) 0.3 Absolute Eos (auto) 0.1 Absolute Basos (auto) 0 Absolute Nucleated RBC 0 Nucleated RBC % 0.2 Sodium 139 Potassium 3.9 Chloride 111 Carbon Dioxide 27 Anion Gap 1 L BUN 17 Creatinine 0.92 Est GFR ( Amer) 116.6 Est GFR (Non-Af Amer) 90.7 BUN/Creatinine Ratio 18.5 Glucose 97 Calcium 8.5 L Total Bilirubin 0.40 AST 13 ALT 9 Alkaline Phosphatase 50 Total Protein 5.5 L Albumin 3.0 L Globulin 2.5 Albumin/Globulin Ratio 1.2 Flow Intrp 2-8 Markers TNP Flow Intrp 16+ Markers TNP Assessment: []42 yo male with recurrent astrocytoma recently started on Temozolimide admitted with seizures found to be on incorrect doses of Keppra (level pending) and now with thrombocytopenia and decreasing counts appearing out of the norm for his tx. He has had multiple lines of thearpy and is certainly at risk for MDS, however there is also a possibility of keppra induced cytopenias. Plan: []1. Bone Marrow Biopsy and aspirate today, flow and cytometry, FISH MDS - see procedure note 2. Transfuse platelets today 3. Fall precautions and will decrease dose of lorazepam for PRN use 4. Check labs in AM
[2017-12-27] MEDS: HYDROmorphone TAB* 2 MG PO PRN (12:10)
[2017-12-27 15:02] LABS: Mean Platelet Volume 7 um3 (7.4-10.4); Platelet Count 33 10^3/ul (150-450)
[2017-12-28] MEDS: HYDROmorphone TAB* 2 MG PO PRN ×2 (02:36→13:50)
[2017-12-28] MEDS: LORazepam INJ* 2 MG/ML 1 ML VIAL IV PUSH PRN ×2 (04:41→17:13)
[2017-12-28] MEDS: Omeprazole CAP* 20 MG PO SCH (05:37)
[2017-12-28 06:38] LABS: ABS Basophils 0 10^3/ul (0-0.2); ABS Eosinophils 0.1 10^3/ul (0-0.6); ABS Lymphocytes 0.6 10^3/ul (1.0-4.8); ABS Monocytes 0.3 10^3/ul (0-0.8); ABS Neutrophils 2.2 10^3/ul (1.5-7.7); ABS Nucleated RBC 0 10^3/ul; Eosinophil % 4.2 % (0-6); Hematocrit 27 % (42-52); Hemoglobin 9.3 g/dl (14.0-18.0); Lymphocyte % 17.5 % (25-47); Mean Corpuscular HGB Conc 35 g/dl (31-36); Mean Corpuscular Hemoglobin 29 pg (27-31); Mean Corpuscular Volume 83 fL (80-94); Mean Platelet Volume 7 um3 (7.4-10.4); Nucleated Red Blood Cells % 0; Platelet Count 28 10^3/ul (150-450); Red Blood Count 3.24 10^6/ul (4.0-5.4); Red Cell Distribution Width 16 % (10.5-15); White Blood Count 3.2 10^3/ul (3.5-10.8)
[2017-12-28 06:42] LABS: EGFR Non-African American 95.4 (>60)
--- NOTE | 2017-12-28 08:57 | PN ---
Subjective Date of Service: 12/28/17 Interval History: No further falls. He is not trying to get out of bed independently. Notes some pain at the site of his bone marrow aspiration. Denies any weakness and feels that his weakness on presentation has resolved. No further seizure like activity. Objective Active Medications: Dronabinol (Marinol Cap*) 5 mg PO TID [facility] Last Admin: 12/27/17 21:10 Dose: 5 mg Hydromorphone HCl (Dilaudid Tab*) 4 mg PO Q4H PRN PRN Reason: PAIN Last Admin: 12/28/17 02:36 Dose: 4 mg Levetiracetam (Keppra Tab*) 1,500 mg PO BID [facility] Last Admin: 12/27/17 21:09 Dose: 1,500 mg Lorazepam (Ativan Inj*) 2 mg IV PUSH Q5M PRN PRN Reason: seizure lasting >5min Last Admin: 12/27/17 00:12 Dose: 2 mg Lorazepam (Ativan Inj*) 1 mg IV PUSH Q8H PRN PRN Reason: ANXIETY Last Admin: 12/28/17 04:41 Dose: 1 mg Methadone HCl (Dolophine Tab*) 10 mg PO BID [facility] Last Admin: 12/27/17 21:09 Dose: 10 mg Omeprazole (Prilosec Cap*) 20 mg PO 0730 [facility] Last Admin: 12/28/17 05:37 Dose: 20 mg Ondansetron HCl (Zofran Inj*) 4 mg IV Q6H PRN PRN Reason: NAUSEA Last Admin: 12/26/17 03:48 Dose: 4 mg Prochlorperazine (Compazine Tab*) 10 mg PO Q6H PRN PRN Reason: NAUSEA/VOMITING Vital Signs 12/27/17 12/27/17 12/27/17 09:07 10:46 10:59 Temperature 97.3 F 97.8 F Pulse Rate 55 55 Respiratory 16 16 17 Rate Blood Pressure 110/67 113/69 (mmHg) O2 Sat by Pulse 100 100 Oximetry 12/27/17 12/27/17 12/27/17 11:48 11:54 12:10 Temperature 98.1 F Pulse Rate 49 Respiratory 16 14 16 Rate Blood Pressure 97/61 (mmHg) O2 Sat by Pulse 100 Oximetry 12/27/17 12/27/17 12/27/17 13:13 14:13 14:44 Temperature 98.0 F 97.7 F Pulse Rate 58 57 Respiratory 16 16 16 Rate Blood Pressure 110/66 118/69 (mmHg) O2 Sat by Pulse 100 100 Oximetry 12/27/17 12/27/17 12/27/17 15:31 16:10 17:02 Temperature 98.0 F Pulse Rate 53 Respiratory 16 15 15 Rate Blood Pressure 120/65 (mmHg) O2 Sat by Pulse 99 Oximetry 12/27/17 12/27/17 12/27/17 17:07 21:09 21:10 Temperature 98.5 F Pulse Rate 55 Respiratory 15 16 16 Rate Blood Pressure 102/65 (mmHg) O2 Sat by Pulse 100 Oximetry 12/27/17 12/27/17 12/27/17 21:11 21:12 21:14 Temperature 98.1 F Pulse Rate 66 Respiratory 16 16 17 Rate Blood Pressure 119/64 (mmHg) O2 Sat by Pulse 100 Oximetry 12/28/17 12/28/17 12/28/17 00:49 01:07 02:36 Temperature 98.1 F Pulse Rate 75 Respiratory 16 16 16 Rate Blood Pressure 110/66 (mmHg) O2 Sat by Pulse 97 Oximetry 12/28/17 12/28/17 12/28/17 02:38 04:41 05:38 Temperature 98.2 F Pulse Rate 60 Respiratory 18 18 16 Rate Blood Pressure 105/56 (mmHg) O2 Sat by Pulse 96 Oximetry Oxygen Devices in Use Now: None Neurology Exam: General: HEENT: Normocephalic, sclera anicteric, mucous membranes dry Neck: Supple Chest: Clear to auscultation bilaterally Cardiovascular: Regular rate and rhythm without murmurs, rubs, gallops Abdomen: Soft, scaphoid Extremities: No cyanosis, or edema, skin is warm Neurological Findings: Sleeping but awakens, oriented X 3, somnolent Speech: fluent without dysarthria Cranial Nerve: PEERL, EOM intact, VFF, no nystagmus, face symmetric bilaterally , facial sensation intact, hearing intact to finger rub bilaterally, palate elevates symmetrically, tongue midline Motor: Moving all extremities antigravity, no drift. Symmetric, no focal weakness. Generalized muscle wasting Sensation: intact to LT/PP bilaterally upper and lower extremities No tremors Result Diagrams: 12/28/17 05:57 12/28/17 05:57 Additional Lab and Data: Lab Results 12/25/17 12/25/17 12/25/17 Range/Units 18:18 18:18 18:18 WBC 5.5 (3.5-10.8) 10^3/ul RBC 4.12 (4.0-5.4) 10^6/ul Hgb 11.8 L (14.0-18.0) g/dl Hct 34 L (42-52) % MCV 83 (80-94) fL MCH 29 (27-31) pg MCHC 35 (31-36) g/dl RDW 16 H (10.5-15) % Plt Count 16 L* (150-450) 10^3/ul MPV 8 (7.4-10.4) um3 Neut % (Auto) 79.7 (38-83) % Lymph % (Auto) 9.8 L (25-47) % Borden % (Auto) 6.9 (0-7) % Eos % (Auto) 3.3 (0-6) % Baso % (Auto) 0.3 (0-2) % Absolute Neuts (auto) 4.4 (1.5-7.7) 10^3/ul Absolute Lymphs (auto) 0.5 L (1.0-4.8) 10^3/ul Absolute Monos (auto) 0.4 (0-0.8) 10^3/ul Absolute Eos (auto) 0.2 (0-0.6) 10^3/ul Absolute Basos (auto) 0 (0-0.2) 10^3/ul Absolute Nucleated RBC 0 10^3/ul Nucleated RBC % 0 INR (Anticoag Therapy) 1.04 H (0.77-1.02) Sodium 137 (133-145) mmol/L Potassium 3.6 (3.5-5.0) mmol/L Chloride 104 (101-111) mmol/L Carbon Dioxide 29 (22-32) mmol/L Anion Gap 4 (2-11) mmol/L BUN 15 (6-24) mg/dL Creatinine 0.95 (0.67-1.17) mg/dL Est GFR ( Amer) 112.4 (>60) Est GFR (Non-Af Amer) 87.4 (>60) BUN/Creatinine Ratio 15.8 (8-20) Glucose 143 H (70-100) mg/dL Lactic Acid (0.5-2.0) mmol/L Calcium 9.0 (8.6-10.3) mg/dL Magnesium 2.0 (1.9-2.7) mg/dL Total Bilirubin 0.50 (0.2-1.0) mg/dL AST 16 (13-39) U/L ALT 12 (7-52) U/L Alkaline Phosphatase 62 (34-104) U/L Total Creatine Kinase 70 (10-223) U/L Total Protein 6.8 (6.4-8.9) g/dL Albumin 3.8 (3.2-5.2) g/dL Globulin 3.0 (2-4) g/dL Albumin/Globulin Ratio 1.3 (1-3) TSH 0.55 (0.34-5.60) mcIU/mL Urine Color Urine Appearance Urine pH (5-9) Ur Specific Zaleski (1.010-1.030) Urine Protein (Negative) Urine Ketones (Negative) Urine Blood (Negative) Urine Nitrate (Negative) Urine Bilirubin (Negative) Urine Urobilinogen (Negative) Ur Leukocyte Esterase (Negative) Urine Glucose (Negative) Urine Opiates Screen (None Detect) Ur Barbiturates Screen (None Detect) Carbamazepine < 2.0 L (4.0-12.0) mcg/mL Ur Phencyclidine Scrn (None Detect) Ur Amphetamines Screen (None Detect) U Benzodiazepines Scrn (None Detect) Urine Cocaine Screen (None Detect) U Cannabinoids Screen (None Detect) Serum Alcohol < 10 (<10) mg/dL 12/25/17 12/25/17 12/25/17 Range/Units 18:18 20:30 20:46 WBC 4.4 (3.5-10.8) 10^3/ul RBC 3.83 L (4.0-5.4) 10^6/ul Hgb 10.9 L (14.0-18.0) g/dl Hct 32 L (42-52) % MCV 83 (80-94) fL MCH 29 (27-31) pg MCHC 34 (31-36) g/dl RDW 16 H (10.5-15) % Plt Count 14 L* (150-450) 10^3/ul MPV 8 (7.4-10.4) um3 Neut % (Auto) 71.2 (38-83) % Lymph % (Auto) 15.2 L (25-47) % Borden % (Auto) 8.7 H (0-7) % Eos % (Auto) 4.6 (0-6) % Baso % (Auto) 0.3 (0-2) % Absolute Neuts (auto) 3.1 (1.5-7.7) 10^3/ul Absolute Lymphs (auto) 0.7 L (1.0-4.8) 10^3/ul Absolute Monos (auto) 0.4 (0-0.8) 10^3/ul Absolute Eos (auto) 0.2 (0-0.6) 10^3/ul Absolute Basos (auto) 0 (0-0.2) 10^3/ul Absolute Nucleated RBC 0 10^3/ul Nucleated RBC % 0 INR (Anticoag Therapy) (0.77-1.02) Sodium (133-145) mmol/L Potassium (3.5-5.0) mmol/L Chloride (101-111) mmol/L Carbon Dioxide (22-32) mmol/L Anion Gap (2-11) mmol/L BUN (6-24) mg/dL Creatinine (0.67-1.17) mg/dL Est GFR ( Amer) (>60) Est GFR (Non-Af Amer) (>60) BUN/Creatinine Ratio (8-20) Glucose (70-100) mg/dL Lactic Acid 0.6 (0.5-2.0) mmol/L Calcium (8.6-10.3) mg/dL Magnesium (1.9-2.7) mg/dL Total Bilirubin (0.2-1.0) mg/dL AST (13-39) U/L ALT (7-52) U/L Alkaline Phosphatase (34-104) U/L Total Creatine Kinase (10-223) U/L Total Protein (6.4-8.9) g/dL Albumin (3.2-5.2) g/dL Globulin (2-4) g/dL Albumin/Globulin Ratio (1-3) TSH (0.34-5.60) mcIU/mL Urine Color Urine Appearance Urine pH (5-9) Ur Specific Zaleski (1.010-1.030) Urine Protein (Negative) Urine Ketones (Negative) Urine Blood (Negative) Urine Nitrate (Negative) Urine Bilirubin (Negative) Urine Urobilinogen (Negative) Ur Leukocyte Esterase (Negative) Urine Glucose (Negative) Urine Opiates Screen Presumptive positive A (None Detect) Ur Barbiturates Screen None detected (None Detect) Carbamazepine (4.0-12.0) mcg/mL Ur Phencyclidine Scrn None detected (None Detect) Ur Amphetamines Screen None detected (None Detect) U Benzodiazepines Scrn None detected (None Detect) Urine Cocaine Screen None detected (None Detect) U Cannabinoids Screen Presumptive positive A (None Detect) Serum Alcohol (<10) mg/dL 12/25/17 Range/Units 20:46 WBC (3.5-10.8) 10^3/ul RBC (4.0-5.4) 10^6/ul Hgb (14.0-18.0) g/dl Hct (42-52) % MCV (80-94) fL MCH (27-31) pg MCHC (31-36) g/dl RDW (10.5-15) % Plt Count (150-450) 10^3/ul MPV (7.4-10.4) um3 Neut % (Auto) (38-83) % Lymph % (Auto) (25-47) % Borden % (Auto) (0-7) % Eos % (Auto) (0-6) % Baso % (Auto) (0-2) % Absolute Neuts (auto) (1.5-7.7) 10^3/ul Absolute Lymphs (auto) (1.0-4.8) 10^3/ul Absolute Monos (auto) (0-0.8) 10^3/ul Absolute Eos (auto) (0-0.6) 10^3/ul Absolute Basos (auto) (0-0.2) 10^3/ul Absolute Nucleated RBC 10^3/ul Nucleated RBC % INR (Anticoag Therapy) (0.77-1.02) Sodium (133-145) mmol/L Potassium (3.5-5.0) mmol/L Chloride (101-111) mmol/L Carbon Dioxide (22-32) mmol/L Anion Gap (2-11) mmol/L BUN (6-24) mg/dL Creatinine (0.67-1.17) mg/dL Est GFR ( Amer) (>60) Est GFR (Non-Af Amer) (>60) BUN/Creatinine Ratio (8-20) Glucose (70-100) mg/dL Lactic Acid (0.5-2.0) mmol/L Calcium (8.6-10.3) mg/dL Magnesium (1.9-2.7) mg/dL Total Bilirubin (0.2-1.0) mg/dL AST (13-39) U/L ALT (7-52) U/L Alkaline Phosphatase (34-104) U/L Total Creatine Kinase (10-223) U/L Total Protein (6.4-8.9) g/dL Albumin (3.2-5.2) g/dL Globulin (2-4) g/dL Albumin/Globulin Ratio (1-3) TSH (0.34-5.60) mcIU/mL Urine Color Yellow Urine Appearance Clear Urine pH 5.0 (5-9) Ur Specific Zaleski 1.017 (1.010-1.030) Urine Protein Negative (Negative) Urine Ketones Negative (Negative) Urine Blood Negative (Negative) Urine Nitrate Negative (Negative) Urine Bilirubin Negative (Negative) Urine Urobilinogen Negative (Negative) Ur Leukocyte Esterase Negative (Negative) Urine Glucose Negative (Negative) Urine Opiates Screen (None Detect) Ur Barbiturates Screen (None Detect) Carbamazepine (4.0-12.0) mcg/mL Ur Phencyclidine Scrn (None Detect) Ur Amphetamines Screen (None Detect) U Benzodiazepines Scrn (None Detect) Urine Cocaine Screen (None Detect) U Cannabinoids Screen (None Detect) Serum Alcohol (<10) mg/dL Assessment/Plan 42 year old with a history of recurrent Astrocytoma, most recently started on Temodar. He has a history of seizures which are moderately controlled with some breakthroughs, admitted with seizure like activity and found to be on the wrong dose of Keppra. His Keppra dose has since been corrected to 3000mg q day. No further seizure activity. He has presented with Shaheen's in the past and on this presentation, had left sided weakness consistent with his prior presentation which appears to have resolved. --Continue Keppra 1500mg po bid. No further seizure activity. Keppra level is pending but it will reflect the incorrect dose that he was taking. Would suggest another Keppra level in a week prior to first dose in the am. 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 --Thrombocytopenia: Keppra can be associated with thrombocytopenia, as can many of the AEDs. He has been on Keppra for some time and in the past, his platelets have been stable on this medication. My suspicion that this is related to the Keppra is low. I am very hesitant to switch AEDs at this point. --I would be happy to follow him as an outpatient once discharged and continue to adjust his seizure medication as necessary. Will sign off for now, neurology remains available for any additional concerns. Can set up outpatient follow up at discharge.
[2017-12-28] MEDS: levETIRAcetam TAB* 500 MG PO SCH ×2 (09:06→19:43)
[2017-12-28] MEDS: Methadone TAB* 10 MG PO SCH ×2 (09:06→19:42)
[2017-12-28] MEDS: Dronabinol CAP* 2.5 MG PO SCH ×3 (09:06→19:41)
--- NOTE | 2017-12-28 11:16 | PN ---
Progress Note - Progress Note Date of Service: 12/28/17 SOAP: Subjective: []Doing a little better today. His elbow and hip are soar. No sizures per his report. He is on one on one since fall. Eating. SocHx: Reports he does have his Will done. His son is with his sister. Parents brought him to hospital. Dronabinol (Marinol Cap*) 5 mg PO TID [facility] Last Admin: 12/28/17 09:06 Dose: 5 mg Hydromorphone HCl (Dilaudid Tab*) 4 mg PO Q4H PRN PRN Reason: PAIN Last Admin: 12/28/17 02:36 Dose: 4 mg Levetiracetam (Keppra Tab*) 1,500 mg PO BID [facility] Last Admin: 12/28/17 09:06 Dose: 1,500 mg Lorazepam (Ativan Inj*) 2 mg IV PUSH Q5M PRN PRN Reason: seizure lasting >5min Last Admin: 12/27/17 00:12 Dose: 2 mg Lorazepam (Ativan Inj*) 1 mg IV PUSH Q8H PRN PRN Reason: ANXIETY Last Admin: 12/28/17 04:41 Dose: 1 mg Methadone HCl (Dolophine Tab*) 10 mg PO BID [facility] Last Admin: 12/28/17 09:06 Dose: 10 mg Omeprazole (Prilosec Cap*) 20 mg PO 0730 [facility] Last Admin: 12/28/17 05:37 Dose: 20 mg Ondansetron HCl (Zofran Inj*) 4 mg IV Q6H PRN PRN Reason: NAUSEA Last Admin: 12/26/17 03:48 Dose: 4 mg Prochlorperazine (Compazine Tab*) 10 mg PO Q6H PRN PRN Reason: NAUSEA/VOMITING Objective: [] Vital Signs Temp Pulse Resp BP Pulse Ox 97.5 F 48 16 95/53 99 12/28/17 07:39 12/28/17 07:39 12/28/17 10:52 12/28/17 07:39 12/28/17 07:39 Neuro: continues to have bunted slowed cognition, he is weak appearing. EOMI, JENNINGS, good strength=bilat. He is walking well, normal gait. out of bed without assist. HRR, S1S2 LS clear with even and non-labored respirations +BS, abd. soft and non-tender Left elbow with moderate sized hematoma and abrasion, good ROM and mild tenderness -- forearm x-ray negative Left lateral hip/posterior femoral area with moderate size hematoma, good ROM and mild tenderness. 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 Admitted with seizures on Keppra, may not have been taking correctly but level was 48. Course complicated by sever thrombocytopenia and fall during admission. Plan: []1. Seizure. Case discussed with Dr. Hampton and there are few attractive alternatives. Will continue on Keppra and tolerate some seizure activity. Follow closely in clinic. Asked if sister could bring in all pill boxes to review prior to discharge. VNS at home for medication management. 2. Thrombocytopenia. Aspirate with normal megakaryocytes, full bone marrow pending. May have been TMZ or TMZ in combination with keppra. - Improved today and will follow - Check B12 - Dose reduction of further chemotherapy. 3. GBM. Has been deteriorating. Have discussed prognosis, he has had his Will done. At this time we will try and continue therapy. Full code given seizure risk.
[2017-12-29 07:21] LABS: ABS Basophils 0 10^3/ul (0-0.2); ABS Eosinophils 0.1 10^3/ul (0-0.6); ABS Lymphocytes 0.5 10^3/ul (1.0-4.8); ABS Monocytes 0.3 10^3/ul (0-0.8); ABS Nucleated RBC 0 10^3/ul; Eosinophil % 4.3 % (0-6); Hematocrit 27 % (42-52); Hemoglobin 9.6 g/dl (14.0-18.0); Lymphocyte % 16.8 % (25-47); Mean Corpuscular HGB Conc 35 g/dl (31-36); Mean Corpuscular Hemoglobin 29 pg (27-31); Mean Corpuscular Volume 83 fL (80-94); Mean Platelet Volume 7 um3 (7.4-10.4); Nucleated Red Blood Cells % 0.1; Platelet Count 21 10^3/ul (150-450); Red Blood Count 3.25 10^6/ul (4.0-5.4); Red Cell Distribution Width 16 % (10.5-15)
[2017-12-29] MEDS: Dronabinol CAP* 2.5 MG PO SCH ×3 (07:32→19:36)
[2017-12-29] MEDS: Methadone TAB* 10 MG PO SCH ×2 (07:32→19:36)
[2017-12-29] MEDS: Omeprazole CAP* 20 MG PO SCH (07:32)
[2017-12-29] MEDS: levETIRAcetam TAB* 500 MG PO SCH ×2 (07:32→19:37)
[2017-12-29] MEDS: LORazepam INJ* 2 MG/ML 1 ML VIAL IV PUSH PRN (10:56)
[2017-12-29] MEDS: HYDROmorphone TAB* 2 MG PO PRN ×2 (14:02→23:19)
[2017-12-30 05:30] LABS: ABS Basophils 0 10^3/ul (0-0.2); ABS Eosinophils 0.1 10^3/ul (0-0.6); ABS Lymphocytes 0.5 10^3/ul (1.0-4.8); ABS Monocytes 0.3 10^3/ul (0-0.8); ABS Neutrophils 2.1 10^3/ul (1.5-7.7); ABS Nucleated RBC 0 10^3/ul; Eosinophil % 4.4 % (0-6); Hematocrit 29 % (42-52); Hemoglobin 10.2 g/dl (14.0-18.0); Lymphocyte % 16.1 % (25-47); Mean Corpuscular HGB Conc 35 g/dl (31-36); Mean Corpuscular Hemoglobin 29 pg (27-31); Mean Corpuscular Volume 83 fL (80-94); Mean Platelet Volume 7 um3 (7.4-10.4); Nucleated Red Blood Cells % 0.1; Platelet Count 21 10^3/ul (150-450); Red Cell Distribution Width 17 % (10.5-15); White Blood Count 2.9 10^3/ul (3.5-10.8)
[2017-12-30 07:52] VITALS: BP 97/58
[2017-12-30] MEDS: Omeprazole CAP* 20 MG PO SCH (08:08)
[2017-12-30] MEDS: levETIRAcetam TAB* 500 MG PO SCH (08:08)
[2017-12-30] MEDS: Methadone TAB* 10 MG PO SCH (08:10)
[2017-12-30] MEDS: Dronabinol CAP* 2.5 MG PO SCH (08:12)
[2017-12-30] MEDS: LORazepam INJ* 2 MG/ML 1 ML VIAL IV PUSH PRN (12:28)
== END 2017-12-30 13:45 | disposition home or self-care (01) | DRG 803 ==
LOC: ED 17:24 → MED 21:34
PROVIDERS: ADMIT Hospitalist; ATTEND Internal Medicine Hematology & Oncology
PROC: 0QB33ZX Excision of Left Pelvic Bone, Percutaneous Approach, Diagnostic (ICD-10-PCS; principal; 2017-12-27)
PROC: 07DR3ZX Extraction of Iliac Bone Marrow, Percutaneous Approach, Diagnostic (ICD-10-PCS; 2017-12-27)
PROC: 30233R1 Transfusion of Nonautologous Platelets into Peripheral Vein, Percutaneous Approach (ICD-10-PCS; 2017-12-27)
DX: D69.6 Thrombocytopenia, unspecified (principal); C71.9 Malignant neoplasm of brain, unspecified; G83.84 Todd's paralysis (postepileptic); G40.909 Epilepsy, unspecified, not intractable, without status epilepticus; K21.9 Gastro-esophageal reflux disease without esophagitis; G89.29 Other chronic pain; F17.210 Nicotine dependence, cigarettes, uncomplicated; Z79.899 Other long term (current) drug therapy; Z88.8 Allergy status to other drugs, medicaments and biological substances; Z91.041 Radiographic dye allergy status; Z82.49 Family history of ischemic heart disease and other diseases of the circulatory system; Z81.8 Family history of other mental and behavioral disorders
CPT/HCPCS: 36415; 38222; 70450; 71045; 80048; 80053; 80156; 80177; 80307; 80320; 81003; 82550; 83605; 83735; 84443; 85025; 85027; 85049; 85060; 85097; 85610; 88184; 88187; 88188; 88271; 88305; 88311; 88313; 99212; 99231; 99232; 99233; 99284; 99406; A9270-GY; G0463; G0480; J2060; J2405; P9035; Q0164

== ENCOUNTER 2018-03-20 09:30 | Emergency (ER) | payer MEDICARE, MEDICAID ==
[2018-03-20 09:53] VITALS: BP 101/64
--- NOTE | 2018-03-20 10:49 | UC ---
UC General HPI - HPI Summary HPI Summary: this man is to urgent care with systemic rash, has had fevers and additional weight loss has a reoccurring brain cancer. Seems pale , confused compared to previous visits - History of Current Complaint Hx Obtained From: Patient Onset/Duration: Gradual Onset Timing: Constant Pain Intensity: 0 Associated Signs & Symptoms: Positive: Confusion, Decreased Oral Intake, Immunocompromised <Carmen Acosta - Last Filed: 04/04/18 14:00> <Marily Finnegan - Last Filed: 04/04/18 18:16> - History of Current Complaint Chief Complaint: UCSkin Stated Complaint: RASH Time Seen by Provider: 03/20/18 10:25 - Allergy/Home Medications Allergies/Adverse Reactions: Allergies Allergy/AdvReac Type Severity Reaction Status Date / Time Gadolinium-Containing Allergy Hives Verified 03/20/18 09:53 Contrast Medi gadoteridol Allergy Hives Verified 03/20/18 09:53 phenytoin Allergy Unknown Verified 03/20/18 09:53 Reaction Details shellfish derived Allergy Swelling Verified 03/20/18 09:53 PMH/Surg Hx/FS Hx/Imm Hx Previously Healthy: Yes GI/ History: Gastroesophageal Reflux Neurological History: Seizures Cancer History: Other - brain Other Cancer History: Brain Other History Of: Negative For: HIV, Hepatitis B, Hepatitis C, Anticoagulant Therapy - Surgical History Surgical History: Yes Surgery Procedure, Year, and Place: HERNIA - A CHILD. CRANIOTOMY 03/27, , 01/01. MOLE REMOVED FROM Rt UNDER ARM, Lt FOREARM & BACK - 03/26/16 - Family History Known Family History: Positive: Cardiac Disease Negative: Hypertension - Social History Occupation: Disabled Lives: With Family Alcohol Use: None Substance Use Type: Marijuana Substance Use Comment - Amount & Last Used: states "medical marijuana" ... vapor form Smoking Status (MU): Heavy Every Day Tobacco Smoker Type: Cigarettes Amount Used/How Often: 1/2 ppd Length of Time of Smoking/Using Tobacco: 26 yrs Have You Smoked in the Last Year: Yes - Immunization History Most Recent Influenza Vaccination: Fall 2016 Most Recent Tetanus Shot: unk Most Recent Pneumonia Vaccination: 2015 <Carmen Acosta - Last Filed: 04/04/18 14:00> Review of Systems Constitutional: Fever, Fatigue Skin: Rash Gastrointestinal: Nausea Neurological: Weakness Is Patient Immunocompromised?: Yes All Other Systems Reviewed And Are Negative: Yes <Carmen Acosta - Last Filed: 04/04/18 14:00> Physical Exam Triage Information Reviewed: Yes Appearance: Ill-Appearing, Pain Distress, Thin, Cachectic Vital Signs: Initial Vital Signs Temp 101.3 F 03/20/18 09:46 Pulse 106 03/20/18 09:46 Resp 16 03/20/18 09:46 BP 101/64 03/20/18 09:46 Pulse Ox 99 03/20/18 09:46 Vital Signs Reviewed: Yes Eye Exam: Normal Eyes: Positive: Conjunctiva Clear ENT Exam: Normal ENT: Positive: Normal ENT inspection, Hearing grossly normal, Pharynx normal, TMs normal, Uvula midline. Negative: Nasal congestion, Tonsillar swelling, Tonsillar exudate, Trismus, Muffled voice, Hoarse voice, Dental tenderness, Sinus tenderness Dental Exam: Normal Neck exam: Normal Neck: Positive: Supple, Nontender, No Lymphadenopathy Respiratory Exam: Normal Respiratory: Positive: Chest non-tender, Lungs clear, Normal breath sounds, No respiratory distress, No accessory muscle use Cardiovascular Exam: Normal Cardiovascular: Positive: No Murmur, Pulses Normal, Brisk Capillary Refill, Tachycardia Musculoskeletal Exam: Normal Musculoskeletal: Positive: Strength Intact, ROM Intact, No Edema Neurological Exam: Normal Neurological: Positive: Alert, Muscle Tone Normal Psychological Exam: Other Psychological: Positive: Other: - seems confused when compaired to his past interactions, slow to respond Skin: Positive: rashes <Carmen Acosta - Last Filed: 04/04/18 14:00> Vital Signs: Initial Vital Signs Temp 101.3 F 03/20/18 09:46 Pulse 106 03/20/18 09:46 Resp 16 03/20/18 09:46 BP 101/64 03/20/18 09:46 Pulse Ox 99 03/20/18 09:46 <Marily Finnegan - Last Filed: 04/04/18 18:16> Course/Dx - Course Course Of Treatment: ivf, to [facility] [place] ED by EMS - Differential Dx - Multi-Symptom Provider Diagnoses: Fever in immune comprimise patient - Physician Notifications Discussed Patient Care With: Will Gray Time Discussed With Above Provider: 10:15 Instructed by Provider To: Transfer <Carmen Acosta - Last Filed: 04/04/18 14:00> Discharge - Sign-Out/Discharge Documenting (check all that apply): Discharge/Admit/Transfer - Billing Disposition and Condition Condition: FAIR Disposition: Trans Higher Lvl of Care Fac <Carmen Acosta - Last Filed: 04/04/18 14:00> - Billing Disposition and Condition Condition: FAIR Disposition: Trans Higher Lvl of Care Fac <Marily Finnegan - Last Filed: 04/04/18 18:16> - Discharge Plan Condition: Fair Disposition: TRANS HIGHER LVL OF CARE FAC Referrals: Ole Jones MD [Primary Care Provider] - Attestation Statement User Type: Provider - I was available for consult. This patient was seen by the MANDA. The patient was not presented to, seen by, or examined by me. -Tracee <Marily Finnegan - Last Filed: 04/04/18 18:16>
== END 2018-03-20 11:04 | disposition short-term general hospital (02) ==
LOC: UCEAST 09:30
DX: R50.9 Fever, unspecified (principal); D84.9 Immunodeficiency, unspecified; R53.83 Other fatigue; R11.0 Nausea; R63.4 Abnormal weight loss; C71.9 Malignant neoplasm of brain, unspecified; K21.9 Gastro-esophageal reflux disease without esophagitis; R56.9 Unspecified convulsions; Z91.013 Allergy to seafood; Z88.8 Allergy status to other drugs, medicaments and biological substances; F17.210 Nicotine dependence, cigarettes, uncomplicated; Z82.49 Family history of ischemic heart disease and other diseases of the circulatory system
CPT/HCPCS: 99213; G0463

== ENCOUNTER 2018-03-20 11:39 | Inpatient (IN) | payer MEDICARE, MEDICAID ==
[2018-03-20] MEDS ORDERED: NS 0.9% 1000 ML*IV.FLUID IV ONE (11:59)
[2018-03-20] MEDS ORDERED: Piperacillin/Tazobac ADVAN(*) 3.375 GM in NS 0.9% 100 ML* 100 ML IVPB ONE ×2 (11:59→14:53)
[2018-03-20] MEDS ORDERED: Vancomycin(*) 1,000 MG VIAL IVPB SCH (12:00)
[2018-03-20 12:45] LABS: ABS Basophils 0 10^3/ul (0-0.2); ABS Eosinophils 0 10^3/ul (0-0.6); ABS Lymphocytes 0.4 10^3/ul (1.0-4.8); ABS Monocytes 0.7 10^3/ul (0-0.8); ABS Neutrophils 4.4 10^3/ul (1.5-7.7); ABS Nucleated RBC 0 10^3/ul; Eosinophil % 0.8 % (0-6); Hematocrit 29 % (42-52); Hemoglobin 10.1 g/dl (14.0-18.0); Lymphocyte % 7.7 % (25-47); Mean Corpuscular HGB Conc 35 g/dl (31-36); Mean Corpuscular Hemoglobin 31 pg (27-31); Mean Corpuscular Volume 90 fL (80-94); Mean Platelet Volume 7.4 um3 (7.4-10.4); Nucleated Red Blood Cells % 0; Platelet Count 109 10^3/ul (150-450); Red Blood Count 3.22 10^6/ul (4.0-5.4); Red Cell Distribution Width 13 % (10.5-15); White Blood Count 5.5 10^3/ul (3.5-10.8)
[2018-03-20 12:59] LABS: INR 1.24 (0.77-1.02)
--- NOTE | 2018-03-20 13:07 | RAD ---
HISTORY: General illness, possible sepsis COMPARISONS: December 25, 2017 VIEWS: 1: frontal portable view of the chest at 12:05 PM FINDINGS: LINES AND TUBES: None. CARDIOMEDIASTINAL SILHOUETTE: The cardiomediastinal silhouette is normal for portable technique. PLEURA: The costophrenic angles are sharp. No pleural abnormalities are noted. LUNG PARENCHYMA: There is increased density along the left upper lung in the periphery which is felt to be artifactual secondary to overlying electronic monitoring lead ABDOMEN: The upper abdomen is clear. There is no subphrenic gas. BONES AND SOFT TISSUES: No bone or soft tissue abnormalities are noted. IMPRESSION: NO ACTIVE CARDIOPULMONARY DISEASE.
[2018-03-20] MEDS ORDERED: methylPREDNISolone 125 MG* 2 ML VIAL IV ONE ×2 (13:50→16:00)
[2018-03-20] MEDS ORDERED: Vancomycin(*) 1,000 MG - ED ONCE IVPB ONE ×2 (14:00)
[2018-03-20] MEDS ORDERED: Prochlorperazine TAB* 10 MG PO PRN (14:54)
[2018-03-20] MEDS ORDERED: Zosyn per Pharmacy* NOTE FOLLOW UP SCH (15:00)
--- NOTE | 2018-03-20 15:35 | ED ---
Sudheer Roman Julia, scribed for Will Gray on 03/20/18 at 1159 . Skin Complaint - HPI Summary HPI Summary: This patient is a 42 year old M BIBA to [facility] from [facility] with due bilateral leg rash and swelling with fever for the past three days. No prior rash before . Patient took Ibuprofen last night. Patient denies recent antibiotic use. Last chemotherapy was a week ago for brain cancer. Patient is unaware of oncologist; records reviewed, patient is seen by Dr. Jones. Patient report three previous brain surgeries. - History of Current Complaint Chief Complaint: EDRashSkinAbscess Time Seen by Provider: 03/20/18 11:49 Stated Complaint: GENERAL ILLNESS/POSS SEPSIS Hx Obtained From: Patient Skin Exposure Onset/Duration: Days Ago Timing: Constant Pain Intensity: 9 Pain Scale Used: 0-10 Numeric Skin Location: Leg - bilateral Character: Swelling, Pain, Redness Alleviating Symptom(s): Nothing Associated Signs & Symptoms: Fever Related History: Other: - cancer - Additional Pertinent History Primary Care Physician: ADELA - Allergy/Home Medications Allergies/Adverse Reactions: Allergies Allergy/AdvReac Type Severity Reaction Status Date / Time Gadolinium-Containing Allergy Hives Verified 03/20/18 09:53 Contrast Medi gadoteridol Allergy Hives Verified 03/20/18 09:53 phenytoin Allergy Unknown Verified 03/20/18 09:53 Reaction Details shellfish derived Allergy Swelling Verified 03/20/18 09:53 Home Medications: Home Medications levETIRAcetam TAB* [Keppra TAB*] 1,500 mg PO BID 03/20/18 [History Confirmed ] PMH/Surg Hx/FS Hx/Imm Hx Endocrine/Hematology History: Denies: Hx Anticoagulant Therapy, Hx Diabetes, Hx Thyroid Disease Cardiovascular History: Denies: Hx Congestive Heart Failure, Hx Deep Vein Thrombosis, Hx Hypertension , Hx Myocardial Infarction, Hx Pacemaker/ICD Respiratory History: Denies: Hx Asthma, Hx Chronic Obstructive Pulmonary Disease (COPD), Hx Lung Cancer, Hx Pneumonia, Hx Pulmonary Embolism GI History: Denies: Hx Gall Bladder Disease, Hx Gastrointestinal Bleed, Hx Ulcer, Hx Urosepsis History: Denies: Hx Dialysis, Hx Kidney Stones, Hx Renal Disease Sensory History: Reports: Hx Contacts or Glasses Denies: Hx Hearing Aid Opthamlomology History: Reports: Hx Contacts or Glasses Neurological History: Reports: Hx Seizures, Other Neuro Impairments/Disorders - seizures Denies: Hx Dementia, Hx Migraine, Hx Transient Ischemic Attacks (TIA) Psychiatric History: Denies: Hx Anxiety, Hx Depression, Hx Panic Disorder, Hx Schizophrenia, Hx Bipolar Disorder - Cancer History Cancer Type, 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 CRANIOTOMY 03/27, , 01/01. MOLE REMOVED FROM Rt UNDER ARM, Lt FOREARM & BACK - 03/26/16 Infectious Disease History: No Infectious Disease History: Denies: Hx Clostridium Difficile, Hx Hepatitis, Hx Human Immunodeficiency Virus (HIV), Hx of Known/Suspected MRSA, Hx Shingles, Hx Tuberculosis, Hx Known/ Suspected VRE, Hx Known/Suspected VRSA, History Other Infectious Disease, Traveled Outside the [place] in Last 30 Days - Family History Known Family History: Positive: Cardiac Disease Negative: Hypertension - Social History Alcohol Use: None Substance Use Type: Reports: Marijuana Substance Use Comment - Amount & Last Used: states "medical marijuana" ... vapor form Hx Tobacco Use: Yes Smoking Status (MU): Heavy Every Day Tobacco Smoker Type: Cigarettes Amount Used/How Often: 1/2 ppd Length of Time of Smoking/Using Tobacco: 26 yrs Have You Smoked in the Last Year: Yes Review of Systems Positive: Fever Positive: Rash All Other Systems Reviewed And Are Negative: Yes Physical Exam - Summary Physical Exam Summary: Appearance: ill appearing, no pain distress, lethargic Skin: warm, dry, maculopapular rash and swelling to bilateral legs Head/face: normal Eyes: EOMI, JEANNA ENT: normal Neck: supple, non-tender Respiratory: CTA, breath sounds present Cardiovascular: regular rhythm, tachycardic, pulses symmetrical Abdomen: non-tender, soft Bowel: present Musculoskeletal: normal, strength/ROM intact Neuro: normal, sensory motor intact, A&Ox3 Triage Information Reviewed: Yes Vital Signs On Initial Exam: Initial Vitals Temp Pulse Resp BP Pulse Ox 101.2 F 83 19 103/66 99 03/20/18 11:41 03/20/18 11:41 03/20/18 11:41 03/20/18 11:41 03/20/18 11:41 Vital Signs Reviewed: Yes Diagnostics - Vital Signs Vital Signs Temp Pulse Resp BP Pulse Ox 03/20/18 11:41 101.2 F 83 19 103/66 99 - Laboratory Lab Results: Lab Results 03/20/18 03/20/18 03/20/18 Range/Units 12:34 12:34 12:34 WBC 5.5 (3.5-10.8) 10^3/ul RBC 3.22 L (4.0-5.4) 10^6/ul Hgb 10.1 L (14.0-18.0) g/dl Hct 29 L (42-52) % MCV 90 (80-94) fL MCH 31 (27-31) pg MCHC 35 (31-36) g/dl RDW 13 (10.5-15) % Plt Count 109 L (150-450) 10^3/ul MPV 7.4 (7.4-10.4) um3 Neut % (Auto) 79.4 (38-83) % Lymph % (Auto) 7.7 L (25-47) % Alexander % (Auto) 12.0 H (0-7) % Eos % (Auto) 0.8 (0-6) % Baso % (Auto) 0.1 (0-2) % Absolute Neuts (auto) 4.4 (1.5-7.7) 10^3/ul Absolute Lymphs (auto) 0.4 L (1.0-4.8) 10^3/ul Absolute Monos (auto) 0.7 (0-0.8) 10^3/ul Absolute Eos (auto) 0 (0-0.6) 10^3/ul Absolute Basos (auto) 0 (0-0.2) 10^3/ul Absolute Nucleated RBC 0 10^3/ul Nucleated RBC % 0 INR (Anticoag Therapy) 1.24 H (0.77-1.02) APTT 27.2 (26.0-36.3) seconds Sodium 136 L (139-145) mmol/L Potassium 3.6 (3.5-5.0) mmol/L Chloride 103 (101-111) mmol/L Carbon Dioxide 28 (22-32) mmol/L Anion Gap 5 (2-11) mmol/L BUN 14 (6-24) mg/dL Creatinine 1.11 (0.67-1.17) mg/dL Est GFR ( Amer) 93.9 (>60) Est GFR (Non-Af Amer) 73.0 (>60) BUN/Creatinine Ratio 12.6 (8-20) Glucose 100 (70-100) mg/dL Lactic Acid (0.5-2.0) mmol/L Calcium 8.3 L (8.6-10.3) mg/dL Total Bilirubin 0.60 (0.2-1.0) mg/dL AST 14 (13-39) U/L ALT 8 (7-52) U/L Alkaline Phosphatase 56 (34-104) U/L Total Creatine Kinase 48 (10-223) U/L Troponin I 0.00 (<0.04) ng/mL Total Protein 6.0 L (6.4-8.9) g/dL Albumin 3.2 (3.2-5.2) g/dL Globulin 2.8 (2-4) g/dL Albumin/Globulin Ratio 1.1 (1-3) 05//18 Range/Units 12:34 WBC (3.5-10.8) 10^3/ul RBC (4.0-5.4) 10^6/ul Hgb (14.0-18.0) g/dl Hct (42-52) % MCV (80-94) fL MCH (27-31) pg MCHC (31-36) g/dl RDW (10.5-15) % Plt Count (150-450) 10^3/ul MPV (7.4-10.4) um3 Neut % (Auto) (38-83) % Lymph % (Auto) (25-47) % Alexander % (Auto) (0-7) % Eos % (Auto) (0-6) % Baso % (Auto) (0-2) % Absolute Neuts (auto) (1.5-7.7) 10^3/ul Absolute Lymphs (auto) (1.0-4.8) 10^3/ul Absolute Monos (auto) (0-0.8) 10^3/ul Absolute Eos (auto) (0-0.6) 10^3/ul Absolute Basos (auto) (0-0.2) 10^3/ul Absolute Nucleated RBC 10^3/ul Nucleated RBC % INR (Anticoag Therapy) (0.77-1.02) APTT (26.0-36.3) seconds Sodium (139-145) mmol/L Potassium (3.5-5.0) mmol/L Chloride (101-111) mmol/L Carbon Dioxide (22-32) mmol/L Anion Gap (2-11) mmol/L BUN (6-24) mg/dL Creatinine (0.67-1.17) mg/dL Est GFR ( Amer) (>60) Est GFR (Non-Af Amer) (>60) BUN/Creatinine Ratio (8-20) Glucose (70-100) mg/dL Lactic Acid 0.6 (0.5-2.0) mmol/L Calcium (8.6-10.3) mg/dL Total Bilirubin (0.2-1.0) mg/dL AST (13-39) U/L ALT (7-52) U/L Alkaline Phosphatase (34-104) U/L Total Creatine Kinase (10-223) U/L Troponin I (<0.04) ng/mL Total Protein (6.4-8.9) g/dL Albumin (3.2-5.2) g/dL Globulin (2-4) g/dL Albumin/Globulin Ratio (1-3) Result Diagrams: 03/20/18 12:34 03/20/18 12:34 Lab Statement: Any lab studies that have been ordered have been reviewed, and results considered in the medical decision making process. - Radiology CXR Radiology Interpretation Completed By: Radiologist - NO ACTIVE CARDIOPULMONARY DISEASE. ED Physician has reviewed this report. - EKG 12:13 Cardiac Rate: NL EKG Rhythm: Sinus Rhythm EKG Interpretation: no acute changes Course/Dx - Course Course Of Treatment: 42 year old M BIBA to [facility] from [facility] with due bilateral leg rash and swelling with fever for the past three days. No prior rash before . Patient took Ibuprofen last night. Patient denies recent antibiotic use. Last chemotherapy was a week ago for brain cancer. PMHx of astrocytoma. Patient is given Solu-Medrol, IV fluids, and Vancomycin. CXR and EKG reveal no acute findings. Patient is febrile and lethargic. Physicial exam reval macropapular rash on bilateral legs. Bloodwork is obtained. Disccused patient care with Dr. Chilel's mid level who recommended admission. - Differential Diagnoses - Skin Complaint Differential Diagnoses: Allergic Reaction, Cellulitis, Eczema, Medication; Adverse Reaction, Other - sepsis/orville kain syndrome - Diagnoses Provider Diagnoses: Cellulitis, Sepsis, Fever, Julian-Kain syndrome, Astrocytoma, Chemotherapy adverse reaction - Physician Notifications Discussed Care Of Patient With: Jose Angel Chilel mid-level Time Discussed With Above Provider: 13:50 Instructed by Provider To: Admit As Inpatient Discharge - Sign-Out/Discharge Documenting (check all that apply): Discharge/Admit/Transfer - admit - Discharge Plan Condition: Stable Disposition: ADMITTED TO [facility] - Billing Disposition and Condition Condition: STABLE [place] [facility] [place] The documentation as recorded by the Sudheer soriano Julia accurately reflects the service I personally performed and the decisions made by Isaac davis Emmanuel.
[2018-03-20] MEDS: Heparin VIAL(*) 5000 UNITS/ML VIAL (FIVE THOUSAND) SUBCUT SCH ×2 (15:47→21:08)
[2018-03-20] MEDS: ZOSYN 3.375 GM Q8H per EXTENDED INFUSION IVPB SCH ×2 (17:01)
[2018-03-20] MEDS: NS 0.9% 1000 ML* 1,000 ML IV SCH (17:02)
[2018-03-20 18:53] LABS: Urine Appearance Clear; Urine Blood 2+ (Negative); Urine Color Yellow; Urine Ketones Negative (Negative); Urine Protein Negative (Negative); Urine Urobilinogen Positive (Negative)
[2018-03-20] MEDS ORDERED: Dronabinol CAP* 2.5 MG PO SCH (21:00)
[2018-03-20] MEDS: Dexamethasone IV* 4 MG/ML 1 ML (4 MG) IV SLOW PU SCH (21:06)
[2018-03-20] MEDS: levETIRAcetam TAB* 500 MG PO SCH (21:07)
[2018-03-20] MEDS: Acetaminophen TAB* 325 MG PO PRN (21:07)
[2018-03-20] MEDS: Methadone TAB* 10 MG PO SCH (21:08)
[2018-03-20] MEDS: HYDROmorphone TAB* 4 MG PO PRN (21:33)
[2018-03-21] MEDS: ZOSYN 3.375 GM Q8H per EXTENDED INFUSION IVPB SCH ×2 (01:06)
[2018-03-21] MEDS: Acetaminophen TAB* 325 MG PO PRN ×2 (02:27→19:59)
[2018-03-21] MEDS: NS 0.9% 1000 ML* 1,000 ML IV SCH ×2 (03:18→15:31)
[2018-03-21] MEDS: diPHENhydraMINE PO* 25 MG PO PRN ×2 (03:52→20:02)
[2018-03-21] MEDS ORDERED: LORazepam TAB(*) 1 MG PO PRN ×2 (04:24→08:59)
[2018-03-21] MEDS: HYDROmorphone TAB* 4 MG PO PRN ×2 (04:25→20:00)
[2018-03-21 05:37] LABS: Hematocrit 31 % (42-52); Hemoglobin 10.9 g/dl (14.0-18.0); Mean Corpuscular HGB Conc 35 g/dl (31-36); Mean Corpuscular Hemoglobin 32 pg (27-31); Mean Corpuscular Volume 90 fL (80-94); Mean Platelet Volume 8.3 um3 (7.4-10.4); Platelet Count 97 10^3/ul (150-450); Red Blood Count 3.43 10^6/ul (4.0-5.4); Red Cell Distribution Width 13 % (10.5-15); White Blood Count 3.1 10^3/ul (3.5-10.8)
[2018-03-21 05:49] LABS: EGFR Non-African American 83.3 (>60)
[2018-03-21] MEDS: Heparin VIAL(*) 5000 UNITS/ML VIAL (FIVE THOUSAND) SUBCUT SCH ×3 (06:19→20:03)
[2018-03-21] MEDS ORDERED: LORazepam TAB(*) 1 MG PO ONE (07:47)
[2018-03-21] MEDS: Omeprazole CAP* 20 MG PO SCH (08:23)
[2018-03-21] MEDS: Dexamethasone IV* 4 MG/ML 1 ML (4 MG) IV SLOW PU SCH ×2 (08:23→19:59)
[2018-03-21] MEDS: Methadone TAB* 10 MG PO SCH ×2 (08:23→20:01)
[2018-03-21] MEDS: levETIRAcetam TAB* 500 MG PO SCH ×2 (08:24→20:01)
--- NOTE | 2018-03-21 09:24 | PN ---
Progress Note - Progress Note Date of Service: 03/21/18 SOAP: Subjective: had a seizure this am, but missed his early am ativan. reports that he woke up with left arm paralysis, but self limited. feels better now after ativan. reports that he took a "prescription drug" from a "friend" on sunday for pain ( despite getting narcotics through our office) and then the next day developed a purple rash on LE spreading up his legs to his scrotum. intensely pruritic. used topical hydrocortisone and benadryl with out relief. no fevers until he went to urgent care. given IV vanco and zosyn in ER. Denies any IV drug use. denies smoking (though i have personally observed him smoking in the community smoking). he is drinking alcohol. there is some question as to whether or not he is taking his son's adderal as well. Objective: Vital Signs Temp Pulse Resp BP Pulse Ox 96.9 F 58 16 107/74 99 03/21/18 07:43 03/21/18 07:43 03/21/18 08:24 03/21/18 07:43 03/21/18 07:43 groggy but communitive perr eomi op moist no lesions cta bl s1 s2 nl soft nt +bs nonblanching nonpalpable purpura on legs and scrotum slow to answer but communicative Laboratory Results - last 24 hr 03/20/18 03/20/18 03/20/18 12:34 12:34 12:34 WBC 5.5 RBC 3.22 L Hgb 10.1 L Hct 29 L MCV 90 MCH 31 MCHC 35 RDW 13 Plt Count 109 L MPV 7.4 Neut % (Auto) 79.4 Lymph % (Auto) 7.7 L [place] % (Auto) 12.0 H Eos % (Auto) 0.8 Baso % (Auto) 0.1 Absolute Neuts (auto) 4.4 Absolute Lymphs (auto) 0.4 L Absolute Monos (auto) 0.7 Absolute Eos (auto) 0 Absolute Basos (auto) 0 Absolute Nucleated RBC 0 Nucleated RBC % 0 ESR 73 H INR (Anticoag Therapy) 1.24 H APTT 27.2 D-Dimer, Quantitative Cancelled Sodium 136 L Potassium 3.6 Chloride 103 Carbon Dioxide 28 Anion Gap 5 BUN 14 Creatinine 1.11 Est GFR ( Amer) 93.9 Est GFR (Non-Af Amer) 73.0 BUN/Creatinine Ratio 12.6 Glucose 100 Lactic Acid Calcium 8.3 L Total Bilirubin 0.60 AST 14 ALT 8 Alkaline Phosphatase 56 Total Creatine Kinase 48 Troponin I 0.00 C-Reactive Protein 128.65 H Total Protein 6.0 L Albumin 3.2 Globulin 2.8 Albumin/Globulin Ratio 1.1 Urine Color Urine Appearance Urine pH Ur Specific [place] Urine Protein Urine Ketones Urine Blood Urine Nitrate Urine Bilirubin Urine Urobilinogen Ur Leukocyte Esterase Urine WBC (Auto) Urine RBC (Auto) Urine Bacteria Urine Glucose 03/20/18 03/20/18 03/20/18 12:34 15:46 17:30 WBC RBC Hgb Hct MCV MCH MCHC RDW Plt Count MPV Neut % (Auto) Lymph % (Auto) [place] % (Auto) Eos % (Auto) Baso % (Auto) Absolute Neuts (auto) Absolute Lymphs (auto) Absolute Monos (auto) Absolute Eos (auto) Absolute Basos (auto) Absolute Nucleated RBC Nucleated RBC % ESR INR (Anticoag Therapy) APTT D-Dimer, Quantitative > 1050 H Sodium Potassium Chloride Carbon Dioxide Anion Gap BUN Creatinine Est GFR ( Amer) Est GFR (Non-Af Amer) BUN/Creatinine Ratio Glucose Lactic Acid 0.6 0.6 Calcium Total Bilirubin AST ALT Alkaline Phosphatase Total Creatine Kinase Troponin I C-Reactive Protein Total Protein Albumin Globulin Albumin/Globulin Ratio Urine Color Urine Appearance Urine pH Ur Specific [place] Urine Protein Urine Ketones Urine Blood Urine Nitrate Urine Bilirubin Urine Urobilinogen Ur Leukocyte Esterase Urine WBC (Auto) Urine RBC (Auto) Urine Bacteria Urine Glucose 03/20/18 03/21/18 03/21/18 18:34 05:17 05:17 WBC 3.1 L RBC 3.43 L Hgb 10.9 L Hct 31 L MCV 90 MCH 32 H MCHC 35 RDW 13 Plt Count 97 L D MPV 8.3 Neut % (Auto) Lymph % (Auto) [place] % (Auto) Eos % (Auto) Baso % (Auto) Absolute Neuts (auto) Absolute Lymphs (auto) Absolute Monos (auto) Absolute Eos (auto) Absolute Basos (auto) Absolute Nucleated RBC Nucleated RBC % ESR INR (Anticoag Therapy) APTT D-Dimer, Quantitative Sodium 138 L Potassium 4.2 Chloride 108 Carbon Dioxide 26 Anion Gap 4 BUN 16 Creatinine 0.99 Est GFR ( Amer) 107.1 Est GFR (Non-Af Amer) 83.3 BUN/Creatinine Ratio 16.2 Glucose 167 H Lactic Acid Calcium 8.6 Total Bilirubin 0.70 AST 87 H ALT 76 H Alkaline Phosphatase 83 Total Creatine Kinase Troponin I C-Reactive Protein Total Protein 6.4 Albumin 3.3 Globulin 3.1 Albumin/Globulin Ratio 1.1 Urine Color Yellow Urine Appearance Clear Urine pH 5.0 Ur Specific [place] 1.010 Urine Protein Negative Urine Ketones Negative Urine Blood 2+ A Urine Nitrate Negative Urine Bilirubin Negative Urine Urobilinogen Positive A Ur Leukocyte Esterase Negative Urine WBC (Auto) Trace(0-5/hpf) Urine RBC (Auto) 1+(3-5/hpf) A Urine Bacteria Absent Urine Glucose Negative Acetaminophen (Tylenol Tab*) 650 mg PO Q6H PRN PRN Reason: FEVER/PAIN Last Admin: 03/21/18 02:27 Dose: 650 mg Dexamethasone Sodium Phosphate (Decadron Iv*) 4 mg IV SLOW PU BID [facility] Last Admin: 03/21/18 08:23 Dose: 4 mg Diphenhydramine HCl (Benadryl Po*) 25 mg PO Q6H PRN PRN Reason: ITCHING Last Admin: 03/21/18 03:52 Dose: 25 mg Heparin Sodium (Porcine) (Heparin Vial(*)) 5,000 units SUBCUT Q8HR [facility] Last Admin: 03/21/18 06:19 Dose: 5,000 units Hydromorphone HCl (Dilaudid Tab*) 4 mg PO QID PRN PRN Reason: PAIN Last Admin: 03/21/18 04:25 Dose: 4 mg Sodium Chloride (Ns 0.9% 1000 Ml*) 1,000 mls @ 100 mls/hr IV PER RATE [facility] Last Admin: 03/21/18 03:18 Dose: 100 mls/hr Levetiracetam (Keppra Tab*) 1,500 mg PO BID [facility] Last Admin: 03/21/18 08:24 Dose: 1,500 mg Lorazepam (Ativan Tab(*)) 2 mg PO Q6H PRN PRN Reason: IMPENDING SEIZURE Methadone HCl (Dolophine Tab*) 10 mg PO BID [facility] Last Admin: 03/21/18 08:23 Dose: 10 mg Omeprazole (Prilosec Cap*) 20 mg PO DAILY [facility] Last Admin: 03/21/18 08:23 Dose: 20 mg Pharmacy Consult (Zosyn Per Pharmacy*) 1 note FOLLOW UP .ZOSYN PER PHARMACY [facility] Prochlorperazine (Compazine Tab*) 10 mg PO Q6H PRN PRN Reason: NAUSEA/VOMITING Assessment: 42 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 viral infection (HIV, hepatitis). Plan: -stop zosyn -fu blood cultures -cont steroids for vasculitis -check viral studies as above -fu cultures -will look at peripheral smear given anemia and thrombocytopenia, though suspicion for TTP is low -seizure precautions, ativan 2 mg qam and prn, keppra 1500 mg po bid it appears that overall Mohan is deteriorating in his ability to care for himself. In reviewing office notes his therapy appears to be on hold for these reasons, and now he is taking drugs unprescribed to him. I am not clear on his ability to continue to provide guardianship to his son. We will get a social work consult.
[2018-03-21] MEDS ORDERED: Nicotine Inhaler* 10 MG AMP INH PRN (11:34)
[2018-03-21] MEDS ORDERED: Mouth Piece, Nicotine* 1 EACH CARTRIDGE INH ONE (12:00)
[2018-03-21] MEDS: Nicotine PATCH 21 MG/24 HR* PATCH TRANSDERM SCH (13:36)
[2018-03-21] MEDS ORDERED: Hydrocortisone 1% CREAM* 30 GM TUBE TOPICAL PRN (20:32)
[2018-03-21] MEDS ORDERED: Nicotine Patch Removal NOTE PATCH OFF SCH (21:00)
[2018-03-22] MEDS: diPHENhydraMINE PO* 25 MG PO PRN (03:37)
[2018-03-22] MEDS: Heparin VIAL(*) 5000 UNITS/ML VIAL (FIVE THOUSAND) SUBCUT SCH (05:30)
[2018-03-22 05:39] LABS: ABS Basophils 0 10^3/ul (0-0.2); ABS Eosinophils 0 10^3/ul (0-0.6); ABS Lymphocytes 0.4 10^3/ul (1.0-4.8); ABS Monocytes 0.7 10^3/ul (0-0.8); ABS Neutrophils 8.7 10^3/ul (1.5-7.7); ABS Nucleated RBC 0 10^3/ul; Eosinophil % 0 % (0-6); Hematocrit 29 % (42-52); Hemoglobin 10.1 g/dl (14.0-18.0); Lymphocyte % 4.3 % (25-47); Mean Corpuscular HGB Conc 36 g/dl (31-36); Mean Corpuscular Hemoglobin 32 pg (27-31); Mean Corpuscular Volume 90 fL (80-94); Mean Platelet Volume 8.3 um3 (7.4-10.4); Nucleated Red Blood Cells % 0; Platelet Count 103 10^3/ul (150-450); Red Blood Count 3.16 10^6/ul (4.0-5.4); Red Cell Distribution Width 13 % (10.5-15); White Blood Count 9.9 10^3/ul (3.5-10.8)
[2018-03-22 05:55] LABS: EGFR Non-African American 106.5 (>60)
--- NOTE | 2018-03-22 07:35 | DS ---
- Discharge Summary ADMIT DTE: 03/20/2018 DISCHARGE DATE: 03/22/2018 DISCHARGE DIAGNOSIS: 1. 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 seizure disorder 3. fever, likely from vasculitis and drug reaction 4. narcotic abuse 5. astrocytoma DISCHARGE MEDS: Home Medications Medication Instructions Recorded Confirmed Type HYDROmorphone TAB* [Dilaudid Tab*] 4 mg PO QID 11/20/17 03/20/18 History Methadone TAB* [Dolophine TAB*] 10 mg PO BID 11/20/17 03/20/18 History Dronabinol CAP* [Marinol CAP*] 5 - 10 mg PO TID 12/25/17 03/20/18 History Pantoprazole TAB (NF) [Protonix 40 mg PO DAILY 12/25/17 03/20/18 History TAB (NF)] Prochlorperazine TAB* [Compazine 10 mg PO Q6H PRN 12/25/17 03/20/18 History Tab*] levETIRAcetam TAB* [Keppra TAB*] 1,500 mg PO BID 03/20/18 03/20/18 History Dexamethasone TAB* [Decadron TAB*] 2 mg PO BID #14 tab 03/22/18 Rx Hydrocortisone 1% CREAM* [Hytone 1 applic TOPICAL BID PRN tube 03/22/18 Rx Cream 1%*] LORazepam TAB(*) [Ativan 1 MG TAB 2 mg PO Q6H PRN tab MDD 8 mg 03/22/18 Rx (*)] diPHENhydraMINE PO* [Benadryl PO 25 mg PO Q6H PRN tab 03/22/18 Rx 25 MG TAB*] DISCHARGE FOLLOW UP: Emilia Gomes, 03/28 at 4 pm Main office HOSPITAL COURSE: See full admit H+P for details, briefly Mohan admits to using a "prescription " painkiller from a friend "something that started with a T" and one day later developing a pruritic prupuric rash on both legs that progressed up to his scrotum. He went to urgent care where he had slurred speech and a fever and was sent to the ER. He was given zosyn and vanco in the ER and admitted with IV steroids. I felt that this likely represented a leukoclastocytic vasculitis from either a drug reaction or virus. Hepatitis and HIV were negative. antibiotics were stopped, cultures negative, and steroids were administered. He did have one questionable seizure after missing his am ativan. He improved and will be discharged home on dexamethasone 2 mg po bid. He will see DISABILITIES SERVICES OFFICER Mireya in 1 week and if improving steroids can be tapered further. He was strongly advised to NOT use drugs not prescribed to him, as this violates the contract with Dr. Jones to provide his narcotics. He seems in agreement. There has been some concern about his ability to care for his son as his disease progresses. CPS was recently contacted by our office and social work here is continuing to follow. a VNS referral was placed. >30 mins spent, >50% in face to face counseling
[2018-03-22] MEDS: levETIRAcetam TAB* 500 MG PO SCH (08:16)
[2018-03-22] MEDS: Dexamethasone IV* 4 MG/ML 1 ML (4 MG) IV SLOW PU SCH (08:16)
[2018-03-22] MEDS: Omeprazole CAP* 20 MG PO SCH (08:17)
[2018-03-22] MEDS: Nicotine PATCH 21 MG/24 HR* PATCH TRANSDERM SCH (08:17)
[2018-03-22] MEDS: Methadone TAB* 10 MG PO SCH (08:17)
[2018-03-22 12:36] VITALS: BP 124/70
== END 2018-03-22 10:30 | disposition home or self-care (01) | DRG 546 ==
LOC: ED 11:39 → MED 14:42
PROVIDERS: ADMIT Internal Medicine Hematology & Oncology; ATTEND Internal Medicine Hematology & Oncology
DX: M31.0 Hypersensitivity angiitis (principal); C71.1 Malignant neoplasm of frontal lobe; G40.909 Epilepsy, unspecified, not intractable, without status epilepticus; F17.210 Nicotine dependence, cigarettes, uncomplicated; D64.9 Anemia, unspecified; D69.6 Thrombocytopenia, unspecified; R50.9 Fever, unspecified; F12.10 Cannabis abuse, uncomplicated; T39.315A Adverse effect of propionic acid derivatives, initial encounter; Z88.8 Allergy status to other drugs, medicaments and biological substances; Z82.49 Family history of ischemic heart disease and other diseases of the circulatory system; Z92.21 Personal history of antineoplastic chemotherapy; Z91.013 Allergy to seafood; Z88.1 Allergy status to other antibiotic agents; Z91.041 Radiographic dye allergy status
CPT/HCPCS: 36415; 71045; 80053; 80177; 81003; 81015; 82248; 82550; 83516; 83605; 83615; 84484; 85025; 85027; 85379; 85610; 85652; 85730; 86140; 86141; 86255; 86703; 86704; 86705; 86706; 86707; 86803; 87040; 87086; 87340; 87350; 93005; 99213; 99222; 99239; 99285; A9270-GY; G0463; J1100; J1644; J2543; J2930; J3370

== ENCOUNTER 2018-04-19 15:46 | Inpatient (IN) | payer MEDICARE, MEDICAID ==
[2018-04-19] MEDS ORDERED: NS 0.9% 1000 ML*IV.FLUID IV ONE (16:08)
[2018-04-19] MEDS ORDERED: Levofloxacin 750 MG IVPREMIX(* 750 MG/150 ML BAG IVPB ONE (16:09)
[2018-04-19 16:49] LABS: ABS Basophils 0 10^3/ul (0-0.2); ABS Eosinophils 0.1 10^3/ul (0-0.6); ABS Lymphocytes 0.6 10^3/ul (1.0-4.8); ABS Monocytes 0.8 10^3/ul (0-0.8); ABS Nucleated RBC 0 10^3/ul; Eosinophil % 0.7 % (0-6); Hematocrit 36 % (42-52); Hemoglobin 12.3 g/dl (14.0-18.0); Lymphocyte % 5.4 % (25-47); Mean Corpuscular HGB Conc 35 g/dl (31-36); Mean Corpuscular Hemoglobin 31 pg (27-31); Mean Corpuscular Volume 89 fL (80-94); Mean Platelet Volume 7.7 um3 (7.4-10.4); Nucleated Red Blood Cells % 0; Platelet Count 223 10^3/ul (150-450); Red Blood Count 3.98 10^6/ul (4.00-5.40); Red Cell Distribution Width 14 % (10.5-15); White Blood Count 10.5 10^3/ul (3.5-10.8)
--- NOTE | 2018-04-19 16:58 | RAD ---
INDICATION: Sepsis COMPARISON: Chest x-ray March 20, 2018 TECHNIQUE: An AP portable view obtained at 1640 hours is submitted. FINDINGS: Bones/Soft Tissues: There are no acute bony findings. Cardiomediastinal: The heart is normal in size. Lungs: There is a right upper lobe infiltrate and a right perihilar infiltrate. There is a left lower lobe infiltrate with interstitial and alveolar change. Both findings are new. Pleura: There are no pleural effusions. Other: None IMPRESSION: BY LATERAL INFILTRATES. SUGGEST FOLLOW-UP.
[2018-04-19 17:00] LABS: INR 1.69 (0.77-1.02)
[2018-04-19 17:14] LABS: EGFR Non-African American 74.6 (>60)
[2018-04-19] MEDS ORDERED: Acetaminophen TAB* 325 MG PO ONE (17:37)
[2018-04-19] MEDS ORDERED: Hydrocortisone 1% CREAM* 30 GM TUBE TOPICAL PRN (19:23)
[2018-04-19] MEDS ORDERED: Prochlorperazine TAB* 10 MG PO PRN (19:23)
[2018-04-19 20:18] LABS: Urine Appearance Clear; Urine Blood 2+ (Negative); Urine Color Amber; Urine Ketones Negative (Negative); Urine Protein 1+(30 mg/dL) (Negative); Urine Specific Gravity 1.021 (1.010-1.030); Urine Urobilinogen Negative (Negative)
[2018-04-19] MEDS: LORazepam TAB(*) 1 MG PO PRN (20:26)
--- NOTE | 2018-04-19 20:48 | ED ---
Ata Roman Angela, scribed for Matthew Bo MD on 04/19/18 at 1610 . HPI Febrile Illness - HPI Summary HPI Summary: This pt is a 42 y/o male presenting to [facility] c/o productive cough, vomiting, fever today. Pt reports he has had a cough for 1 week now. He describes a productive cough with sputum. He states he began vomiting yesterday and continues to today. Pt notes he developed a fever today. He additionally reports diarrhea with known C. diff. Denies any pain, chest pain, abd pain. PMHx includes brain CA, brain surgery x3, ADHD. - History of Current Complaint Chief Complaint: EDFever Time Seen by Provider: 04/19/18 15:58 Hx Obtained From: Patient Onset/Duration: Started Hours Ago, Still Present Timing: Lasting Hours Current Severity: None Pain Intensity: 0 Pain Scale Used: 0-10 Numeric Aggravating Factors: Nothing Alleviating Factors: Nothing Associated Signs and Symptoms: Cough, Diarrhea, Nausea, Vomiting - Additional Pertinent History Primary Care Physician: ADELA - Allergy/Home Medications Allergies/Adverse Reactions: Allergies Allergy/AdvReac Type Severity Reaction Status Date / Time Gadolinium-Containing Allergy Hives Verified 03/20/18 09:53 Contrast Medi gadoteridol Allergy Hives Verified 03/20/18 09:53 phenytoin Allergy Unknown Verified 03/20/18 09:53 Reaction Details shellfish derived Allergy Swelling Verified 03/20/18 09:53 PMH/Surg Hx/FS Hx/Imm Hx Endocrine/Hematology History: Denies: Hx Anticoagulant Therapy, Hx Diabetes, Hx Thyroid Disease Cardiovascular History: Denies: Hx Congestive Heart Failure, Hx Deep Vein Thrombosis, Hx Hypertension , Hx Myocardial Infarction, Hx Pacemaker/ICD Respiratory History: Reports: Other Respiratory Problems/Disorders Denies: Hx Asthma, Hx Chronic Obstructive Pulmonary Disease (COPD), Hx Lung Cancer, Hx Pneumonia, Hx Pulmonary Embolism GI History: Denies: Hx Gall Bladder Disease, Hx Gastrointestinal Bleed, Hx Ulcer, Hx Urosepsis History: Denies: Hx Dialysis, Hx Kidney Stones, Hx Renal Disease Sensory History: Reports: Hx Contacts or Glasses Denies: Hx Hearing Aid Opthamlomology History: Reports: Hx Contacts or Glasses Neurological History: Reports: Hx Seizures, Other Neuro Impairments/Disorders - seizures Denies: Hx Dementia, Hx Migraine, Hx Transient Ischemic Attacks (TIA) Psychiatric History: Reports: Hx Attention Deficit Hyperactivity Disorder Denies: Hx Anxiety, Hx Depression, Hx Panic Disorder, Hx Schizophrenia, Hx Bipolar Disorder - Cancer History Cancer Type, 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 CRANIOTOMY 03/27, , 01/01. MOLE REMOVED FROM Rt UNDER ARM, Lt FOREARM & BACK - 03/26/16 Infectious Disease History: Yes Infectious Disease History: Denies: Hx Clostridium Difficile, Hx Hepatitis, Hx Human Immunodeficiency Virus (HIV), Hx of Known/Suspected MRSA, Hx Shingles, Hx Tuberculosis, Hx Known/ Suspected VRE, Hx Known/Suspected VRSA, History Other Infectious Disease, Traveled Outside the [place] in Last 30 Days - Family History Known Family History: Positive: Cardiac Disease Negative: Hypertension - Social History Alcohol Use: None Substance Use Type: Reports: Marijuana Substance Use Comment - Amount & Last Used: states "medical marijuana" ... vapor form Hx Tobacco Use: Yes Smoking Status (MU): Heavy Every Day Tobacco Smoker Type: Cigarettes Amount Used/How Often: 1/2 ppd Length of Time of Smoking/Using Tobacco: 26 yrs Have You Smoked in the Last Year: Yes Review of Systems Positive: Fever Negative: Chest Pain Positive: Cough Positive: Vomiting, Diarrhea, Nausea. Negative: Abdominal Pain All Other Systems Reviewed And Are Negative: Yes Physical Exam - Summary Physical Exam Summary: Appearance: The patient is a thin male. Ill-appearing. Skin: The skin is warm and dry and skin color reflects adequate perfusion. HEENT: The head is normocephalic and atraumatic. The pupils are equal and reactive. The conjunctivae are clear and without drainage. Nares are patent and without drainage. Mouth reveals moist mucous membranes and the throat is without erythema and exudate. The external ears are intact. The ear canals are patent and without drainage. The tympanic membranes are intact. Neck: the neck is supple with full range of motion and non-tender. There are no carotid bruits. There is no neck vein distension. Respiratory: Chest is non-tender. Lungs are clear to auscultation and breath sounds are symmetrical and equal. Cardiovascular: Heart is tachycardic with regular rhythm. There is no murmur or rub auscultated. There is no peripheral edema and pulses are symmetrical and equal. Abdomen: The abdomen is soft and non-tender. There are normal bowel sounds heard in all four quadrants and there is no organomegaly palpated. Musculoskeletal: There is no back tenderness noted. Extremities are non-tender with full range of motion. There is good capillary refill. There is no peripheral edema or calf tenderness elicited. Neurological: Patient is alert and oriented to person, place and time. Psychiatric: The patient has an appropriate affect and does not exhibit any anxiety or depression. Triage Information Reviewed: Yes Vital Signs On Initial Exam: Initial Vitals Temp Pulse Resp BP Pulse Ox 102.1 F 120 14 101/67 94 04/19/18 15:53 04/19/18 15:53 04/19/18 15:53 04/19/18 15:53 04/19/18 15:53 Vital Signs Reviewed: Yes Diagnostics - Vital Signs Vital Signs Temp Pulse Resp BP Pulse Ox 04/19/18 15:53 102.1 F 120 14 101/67 94 - Laboratory Lab Results: Lab Results 04/19/18 04/19/18 04/19/18 Range/Units 16:40 16:40 16:40 WBC 10.5 (3.5-10.8) 10^3/ul RBC 3.98 L (4.00-5.40) 10^6/ul Hgb 12.3 L (14.0-18.0) g/dl Hct 36 L (42-52) % MCV 89 (80-94) fL MCH 31 (27-31) pg MCHC 35 (31-36) g/dl RDW 14 (10.5-15) % Plt Count 223 (150-450) 10^3/ul MPV 7.7 (7.4-10.4) um3 Neut % (Auto) 85.8 H (38-83) % Lymph % (Auto) 5.4 L (25-47) % [place] % (Auto) 8.1 H (0-7) % Eos % (Auto) 0.7 (0-6) % Baso % (Auto) 0 (0-2) % Absolute Neuts (auto) 9.0 H (1.5-7.7) 10^3/ul Absolute Lymphs (auto) 0.6 L (1.0-4.8) 10^3/ul Absolute Monos (auto) 0.8 (0-0.8) 10^3/ul Absolute Eos (auto) 0.1 (0-0.6) 10^3/ul Absolute Basos (auto) 0 (0-0.2) 10^3/ul Absolute Nucleated RBC 0 10^3/ul Nucleated RBC % 0 INR (Anticoag Therapy) 1.69 H (0.77-1.02) Sodium 134 L (135-145) mmol/L Potassium 3.7 (3.5-5.0) mmol/L Chloride 100 L (101-111) mmol/L Carbon Dioxide 27 (22-32) mmol/L Anion Gap 7 (2-11) mmol/L BUN 13 (6-24) mg/dL Creatinine 1.09 (0.67-1.17) mg/dL Est GFR ( Amer) 90.2 (>60) Est GFR (Non-Af Amer) 74.6 (>60) BUN/Creatinine Ratio 11.9 (8-20) Glucose 102 H (70-100) mg/dL Lactic Acid (0.5-2.0) mmol/L Calcium 9.0 (8.6-10.3) mg/dL Total Bilirubin 0.50 (0.2-1.0) mg/dL AST 12 L (13-39) U/L ALT 7 (7-52) U/L Alkaline Phosphatase 55 (34-104) U/L Troponin I 0.00 (<0.04) ng/mL C-Reactive Protein 123.33 H (<8.01) mg/L Total Protein 7.5 (6.4-8.9) g/dL Albumin 3.4 (3.2-5.2) g/dL Globulin 4.1 H (2-4) g/dL Albumin/Globulin Ratio 0.8 L (1-3) 04/19/18 Range/Units 16:40 WBC (3.5-10.8) 10^3/ul RBC (4.00-5.40) 10^6/ul Hgb (14.0-18.0) g/dl Hct (42-52) % MCV (80-94) fL MCH (27-31) pg MCHC (31-36) g/dl RDW (10.5-15) % Plt Count (150-450) 10^3/ul MPV (7.4-10.4) um3 Neut % (Auto) (38-83) % Lymph % (Auto) (25-47) % [place] % (Auto) (0-7) % Eos % (Auto) (0-6) % Baso % (Auto) (0-2) % Absolute Neuts (auto) (1.5-7.7) 10^3/ul Absolute Lymphs (auto) (1.0-4.8) 10^3/ul Absolute Monos (auto) (0-0.8) 10^3/ul Absolute Eos (auto) (0-0.6) 10^3/ul Absolute Basos (auto) (0-0.2) 10^3/ul Absolute Nucleated RBC 10^3/ul Nucleated RBC % INR (Anticoag Therapy) (0.77-1.02) Sodium (135-145) mmol/L Potassium (3.5-5.0) mmol/L Chloride (101-111) mmol/L Carbon Dioxide (22-32) mmol/L Anion Gap (2-11) mmol/L BUN (6-24) mg/dL Creatinine (0.67-1.17) mg/dL Est GFR ( Amer) (>60) Est GFR (Non-Af Amer) (>60) BUN/Creatinine Ratio (8-20) Glucose (70-100) mg/dL Lactic Acid 0.8 (0.5-2.0) mmol/L Calcium (8.6-10.3) mg/dL Total Bilirubin (0.2-1.0) mg/dL AST (13-39) U/L ALT (7-52) U/L Alkaline Phosphatase (34-104) U/L Troponin I (<0.04) ng/mL C-Reactive Protein (<8.01) mg/L Total Protein (6.4-8.9) g/dL Albumin (3.2-5.2) g/dL Globulin (2-4) g/dL Albumin/Globulin Ratio (1-3) Result Diagrams: 04/19/18 16:40 04/19/18 16:40 Lab Statement: Any lab studies that have been ordered have been reviewed, and results considered in the medical decision making process. - Radiology Chest XR Xray Interpretation: Positive (See Comments) - IMPRESSION: Bilateral infiltrates. Suggest follow-up. Dr. Bo has reviewed this radiology report. Radiology Interpretation Completed By: Radiologist Course/Dx - Course Course Of Treatment: Mr. Luna presented to the emergency department immediately accepted criteria. He was tachycardic and febrile. He was given IV normal saline and Levaquin while labs were obtained. Dr. Chilel was contacted congressional district aide for Dr. Jones and will be admitting him to the ICU. - Diagnoses Provider Diagnoses: Pneumonia, Sepsis - Provider Notifications Discussed Care Of Patient With: Arnold Pennington Time Discussed With Above Provider: 17:43 Instructed by Provider To: Other - I discussed pt care with Dr. Pennington, hospitalist, who recommends consult with oncologist. [17:58] I discussed case with Dr. Chilel, oncologist, who accepted pt for admission. - Critical Care Time Critical Care Time: 30-74 min Discharge - Sign-Out/Discharge Documenting (check all that apply): Discharge/Admit/Transfer - Admit - Discharge Plan Condition: Stable Disposition: ADMITTED TO [facility] Referrals: Ole Jones MD [Primary Care Provider] - - Billing Disposition and Condition Condition: STABLE Disposition: Admitted to [facility] The documentation as recorded by the Ata soriano Angela accurately reflects the service I personally performed and the decisions made by me, Matthew Bo MD.
[2018-04-19] MEDS: NS 0.9% 1000 ML* 1,000 ML IV SCH (21:47)
[2018-04-19] MEDS: levETIRAcetam TAB* 500 MG PO SCH (22:02)
[2018-04-19] MEDS: Methadone TAB* 10 MG PO SCH (22:03)
[2018-04-19] MEDS: Dronabinol CAP* 2.5 MG PO SCH (22:03)
[2018-04-19] MEDS: metroNIDAZOLE IV 250 MG/50ML* 50 ML IVPB SCH (22:03)
[2018-04-19] MEDS: HYDROmorphone TAB* 4 MG PO SCH (22:03)
[2018-04-20] MEDS: NS 0.9% 1000 ML* 1,000 ML IV SCH ×4 (02:22→12:50)
[2018-04-20] MEDS: diPHENhydraMINE PO* 25 MG PO PRN (03:49)
[2018-04-20] MEDS: Acetaminophen TAB* 325 MG PO PRN ×2 (04:16→20:21)
[2018-04-20] MEDS: metroNIDAZOLE IV 250 MG/50ML* 50 ML IVPB SCH ×3 (05:15→20:32)
[2018-04-20 05:50] LABS: ABS Basophils 0.1 10^3/ul (0-0.2); ABS Eosinophils 0.1 10^3/ul (0-0.6); ABS Lymphocytes 0.5 10^3/ul (1.0-4.8); ABS Monocytes 0.7 10^3/ul (0-0.8); ABS Neutrophils 7.6 10^3/ul (1.5-7.7); ABS Nucleated RBC 0 10^3/ul; Eosinophil % 1.4 % (0-6); Hematocrit 27 % (42-52); Hemoglobin 9.5 g/dl (14.0-18.0); Lymphocyte % 5.2 % (25-47); Mean Corpuscular HGB Conc 35 g/dl (31-36); Mean Corpuscular Hemoglobin 31 pg (27-31); Mean Corpuscular Volume 89 fL (80-94); Mean Platelet Volume 7.6 um3 (7.4-10.4); Nucleated Red Blood Cells % 0; Platelet Count 177 10^3/ul (150-450); Red Blood Count 3.05 10^6/ul (4.00-5.40); Red Cell Distribution Width 13 % (10.5-15)
[2018-04-20 06:06] LABS: EGFR Non-African American 103.5 (>60)
[2018-04-20] MEDS: Methadone TAB* 10 MG PO SCH ×2 (08:31→20:22)
[2018-04-20] MEDS: CMC:Pantoprazole TAB (NF) 40 MG TAB PO SCH (08:31)
[2018-04-20] MEDS: Dronabinol CAP* 2.5 MG PO SCH ×3 (08:32→20:21)
[2018-04-20] MEDS: HYDROmorphone TAB* 4 MG PO SCH ×4 (08:32→20:22)
[2018-04-20] MEDS: levETIRAcetam TAB* 500 MG PO SCH ×2 (08:32→20:21)
[2018-04-20] MEDS: Benzonatate CAP* 100 MG PO PRN ×2 (10:30→18:36)
[2018-04-20] MEDS: Enoxaparin(*) 40 MG/0.4 ML SYR SUBCUT SCH (10:31)
[2018-04-20] MEDS: LORazepam TAB(*) 1 MG PO PRN (11:43)
[2018-04-20] MEDS: Levofloxacin 750 MG IVPREMIX(* 750 MG/150 ML BAG IVPB SCH (17:26)
[2018-04-21] MEDS: LORazepam TAB(*) 1 MG PO PRN ×3 (01:14→22:07)
[2018-04-21] MEDS: metroNIDAZOLE IV 250 MG/50ML* 50 ML IVPB SCH ×3 (04:03→20:12)
[2018-04-21] MEDS: Acetaminophen TAB* 325 MG PO PRN ×2 (04:09→20:13)
[2018-04-21 07:33] LABS: INR 1.44 (0.77-1.02)
[2018-04-21 07:38] LABS: EGFR Non-African American 102.1 (>60)
[2018-04-21 08:15] LABS: ABS Basophils 0 10^3/ul (0-0.2); ABS Eosinophils 0.2 10^3/ul (0-0.6); ABS Lymphocytes 0.5 10^3/ul (1.0-4.8); ABS Monocytes 0.6 10^3/ul (0-0.8); ABS Neutrophils 6.5 10^3/ul (1.5-7.7); ABS Nucleated RBC 0 10^3/ul; Eosinophil % 2.6 % (0-6); Hematocrit 31 % (42-52); Hemoglobin 10.6 g/dl (14.0-18.0); Lymphocyte % 6.8 % (25-47); Mean Corpuscular HGB Conc 34 g/dl (31-36); Mean Corpuscular Hemoglobin 31 pg (27-31); Mean Corpuscular Volume 91 fL (80-94); Mean Platelet Volume 8.2 um3 (7.4-10.4); Nucleated Red Blood Cells % 0; Platelet Count 200 10^3/ul (150-450); Red Blood Count 3.44 10^6/ul (4.00-5.40); Red Cell Distribution Width 14 % (10.5-15); White Blood Count 7.9 10^3/ul (3.5-10.8)
[2018-04-21] MEDS: levETIRAcetam TAB* 500 MG PO SCH ×2 (08:52→20:12)
[2018-04-21] MEDS: HYDROmorphone TAB* 4 MG PO SCH ×4 (08:53→20:13)
[2018-04-21] MEDS: Dronabinol CAP* 2.5 MG PO SCH ×3 (08:54→20:14)
[2018-04-21] MEDS: CMC:Pantoprazole TAB (NF) 40 MG TAB PO SCH (08:54)
[2018-04-21] MEDS: Methadone TAB* 10 MG PO SCH ×2 (08:54→20:14)
[2018-04-21] MEDS: Cefepime 2 GM in Dextrose(*) 2 GM/50 ML BAG IV SCH ×2 (11:27→22:11)
[2018-04-21] MEDS: Enoxaparin(*) 40 MG/0.4 ML SYR SUBCUT SCH (11:29)
[2018-04-21] MEDS ORDERED: NS 0.9% 250 ML* 250 ML IVPB ONE (13:00)
[2018-04-21] MEDS: NS 0.9% 1000 ML* 1,000 ML IV SCH (13:33)
[2018-04-21] MEDS: Levofloxacin 750 MG IVPREMIX(* 750 MG/150 ML BAG IVPB SCH (17:02)
[2018-04-22] MEDS: NS 0.9% 1000 ML* 1,000 ML IV SCH (01:56)
[2018-04-22] MEDS: metroNIDAZOLE IV 250 MG/50ML* 50 ML IVPB SCH ×3 (03:59→20:32)
[2018-04-22 07:01] LABS: ABS Basophils 0.1 10^3/ul (0-0.2); ABS Eosinophils 0.2 10^3/ul (0-0.6); ABS Lymphocytes 0.4 10^3/ul (1.0-4.8); ABS Monocytes 0.6 10^3/ul (0-0.8); ABS Neutrophils 4.9 10^3/ul (1.5-7.7); ABS Nucleated RBC 0 10^3/ul; Eosinophil % 2.8 % (0-6); Hematocrit 28 % (42-52); Hemoglobin 9.7 g/dl (14.0-18.0); Lymphocyte % 7.2 % (25-47); Mean Corpuscular HGB Conc 34 g/dl (31-36); Mean Corpuscular Hemoglobin 31 pg (27-31); Mean Corpuscular Volume 89 fL (80-94); Mean Platelet Volume 7.7 um3 (7.4-10.4); Nucleated Red Blood Cells % 0; Platelet Count 167 10^3/ul (150-450); Red Blood Count 3.17 10^6/ul (4.00-5.40); Red Cell Distribution Width 14 % (10.5-15); White Blood Count 6.2 10^3/ul (3.5-10.8)
[2018-04-22] MEDS: Dronabinol CAP* 2.5 MG PO SCH ×3 (08:30→20:40)
[2018-04-22] MEDS: levETIRAcetam TAB* 500 MG PO SCH ×2 (08:31→20:39)
[2018-04-22] MEDS: CMC:Pantoprazole TAB (NF) 40 MG TAB PO SCH (08:31)
[2018-04-22] MEDS: Methadone TAB* 10 MG PO SCH ×2 (08:31→20:40)
[2018-04-22] MEDS: HYDROmorphone TAB* 4 MG PO SCH ×4 (08:32→20:40)
--- NOTE | 2018-04-22 10:48 | PN ---
Progress Note - Progress Note Date of Service: 04/22/18 SOAP: Subjective: []Admitted 3 days ago with Sepsis secondary to Pseudomonas. Course complicated by prior C.Diff infection, on PO Flagyl. Has been coughing for approx. 1 week, none productive. Denies abd. pain and feels diarrhea is getting better. Noticed a rash on bilat. tops of feet this AM. Pain controlled. Medications: Acetaminophen (Tylenol Tab*) 650 mg PO Q6H PRN PRN Reason: FEVER Last Admin: 04/21/18 20:13 Dose: 650 mg Benzonatate (Tessalon Cap*) 100 mg PO BID PRN PRN Reason: COUGH Last Admin: 04/20/18 18:36 Dose: 100 mg Diphenhydramine HCl (Benadryl Po*) 25 mg PO Q6H PRN PRN Reason: ITCHING Last Admin: 04/20/18 03:49 Dose: 25 mg Dronabinol (Marinol Cap*) 5 mg PO TID [facility] Last Admin: 04/22/18 08:30 Dose: 5 mg Enoxaparin Sodium (Lovenox(*)) 40 mg SUBCUT Q24H [facility] Last Admin: 04/21/18 11:29 Dose: 40 mg Hydrocortisone (Hytone Cream 1%*) 1 applic TOPICAL BID PRN PRN Reason: ITCHING Hydromorphone HCl (Dilaudid Tab*) 4 mg PO QID [facility] Last Admin: 04/22/18 08:32 Dose: 4 mg Levofloxacin/Dextrose (Levaquin 750 Mg Ivpremix(*)) 750 mg in 150 mls @ 100 mls /hr IVPB Q24H [facility] Last Admin: 04/21/18 17:02 Dose: 100 mls/hr Metronidazole/Sodium Chloride (Flagyl 250 Mg Ivpb*) 50 mls @ 50 mls/hr IVPB Q8H [facility] Last Admin: 04/22/18 03:59 Dose: 50 mls/hr Sodium Chloride (Ns 0.9% 1000 Ml*) 1,000 mls @ 100 mls/hr IV PER RATE [facility] Last Admin: 04/22/18 01:56 Dose: 100 mls/hr Cefepime HCl (Maxipime 2 Gm In Dextrose Duplex (*)) 2 gm in 50 mls @ 100 mls/ hr IV Q12H [facility] Last Admin: 04/21/18 22:11 Dose: 100 mls/hr Levetiracetam (Keppra Tab*) 1,500 mg PO BID [facility] Last Admin: 04/22/18 08:31 Dose: 1,500 mg Lorazepam (Ativan Tab(*)) 2 mg PO Q6H PRN PRN Reason: IMPENDING SEIZURE Last Admin: 04/21/18 22:07 Dose: 2 mg Methadone HCl (Dolophine Tab*) 10 mg PO BID [facility] Last Admin: 04/22/18 08:31 Dose: 10 mg Pantoprazole Sodium (Protonix Tab (Nf)) 40 mg PO DAILY [facility] Last Admin: 04/22/18 08:31 Dose: 40 mg Prochlorperazine (Compazine Tab*) 10 mg PO Q6H PRN PRN Reason: NAUSEA/VOMITING Objective: [] Vital Signs Temp Pulse Resp BP Pulse Ox 99.8 F 91 18 101/58 99 04/22/18 07:41 04/22/18 07:41 04/22/18 08:32 04/22/18 07:41 04/22/18 07:41 Alert and oriented, mumbles but neuro otherwise grossly non-focal HRR, S1S2, no murmur noted LS right markedly dim. to middle lobe, without crackles noted, dry cough present , poor respiratory effort - left clear though poor respiratory effort +BS, abd. soft and non-tender Small, dark erythematous, slightly raised macular purpuric, non-blanchable rash to dorsal aspect of bilat. feet Laboratory Results - last 24 hr 04/22/18 06:45 WBC 6.2 RBC 3.17 L Hgb 9.7 L Hct 28 L MCV 89 MCH 31 MCHC 34 RDW 14 Plt Count 167 MPV 7.7 Neut % (Auto) 79.4 Lymph % (Auto) 7.2 L [place] % (Auto) 9.7 H Eos % (Auto) 2.8 Baso % (Auto) 0.9 Absolute Neuts (auto) 4.9 Absolute Lymphs (auto) 0.4 L Absolute Monos (auto) 0.6 Absolute Eos (auto) 0.2 Absolute Basos (auto) 0.1 Absolute Nucleated RBC 0 Nucleated RBC % 0 Assessment: []42 yo male with sepsis secondary to pseudomonas, likely from pneumonia, present on admission. Plan: []1. Pseumodmonas sepsis: Continue broad spectrum until susceptibility, recheck blood cultures today 2. C.Diff: cont. Flagyl 3. Rash: suspect recurrent vasculitis, requested a punch biopsy from path, check CHRIS, ANCA, hep. B&C antibody, and HIV, will hold off on steroids until after biopsy as not severe currently 4. GBM: hold chemo d/t acute illness Disposition: inpt. for IV abx., will likely need full week with transition to PO
[2018-04-22] MEDS: Cefepime 2 GM in Dextrose(*) 2 GM/50 ML BAG IV SCH ×2 (11:30→22:21)
[2018-04-22] MEDS: Enoxaparin(*) 40 MG/0.4 ML SYR SUBCUT SCH (11:44)
[2018-04-22] MEDS: Levofloxacin 750 MG IVPREMIX(* 750 MG/150 ML BAG IVPB SCH (17:04)
[2018-04-22] MEDS: LORazepam TAB(*) 1 MG PO PRN (22:20)
[2018-04-22] MEDS: Benzonatate CAP* 100 MG PO PRN (22:26)
[2018-04-23] MEDS: NS 0.9% 1000 ML* 1,000 ML IV SCH ×2 (01:22→14:17)
[2018-04-23] MEDS: metroNIDAZOLE IV 250 MG/50ML* 50 ML IVPB SCH ×3 (03:15→20:28)
[2018-04-23 07:06] LABS: ABS Basophils 0 10^3/ul (0-0.2); ABS Eosinophils 0.1 10^3/ul (0-0.6); ABS Lymphocytes 0.5 10^3/ul (1.0-4.8); ABS Monocytes 0.7 10^3/ul (0-0.8); ABS Neutrophils 4.8 10^3/ul (1.5-7.7); ABS Nucleated RBC 0 10^3/ul; Eosinophil % 2.4 % (0-6); Hematocrit 27 % (42-52); Hemoglobin 9.4 g/dl (14.0-18.0); Lymphocyte % 7.8 % (25-47); Mean Corpuscular HGB Conc 35 g/dl (31-36); Mean Corpuscular Hemoglobin 31 pg (27-31); Mean Corpuscular Volume 89 fL (80-94); Mean Platelet Volume 7.7 um3 (7.4-10.4); Nucleated Red Blood Cells % 0; Platelet Count 169 10^3/ul (150-450); Red Blood Count 3.01 10^6/ul (4.00-5.40); Red Cell Distribution Width 13 % (10.5-15); White Blood Count 6.1 10^3/ul (3.5-10.8)
[2018-04-23 07:30] LABS: EGFR Non-African American 102.1 (>60)
[2018-04-23] MEDS: Benzonatate CAP* 100 MG PO PRN (07:55)
[2018-04-23] MEDS: Enoxaparin(*) 40 MG/0.4 ML SYR SUBCUT SCH (09:29)
[2018-04-23] MEDS: levETIRAcetam TAB* 500 MG PO SCH ×2 (09:29→20:28)
[2018-04-23] MEDS: Methadone TAB* 10 MG PO SCH ×2 (09:30→20:30)
[2018-04-23] MEDS: HYDROmorphone TAB* 4 MG PO SCH ×4 (09:30→20:28)
[2018-04-23] MEDS: Dronabinol CAP* 2.5 MG PO SCH ×3 (09:31→20:28)
[2018-04-23] MEDS: CMC:Pantoprazole TAB (NF) 40 MG TAB PO SCH (09:31)
--- NOTE | 2018-04-23 10:32 | PN ---
Progress Note - Progress Note Date of Service: 04/23/18 SOAP: Subjective: []Still coughing but chest feels better. Rash on feet unchanged and definitely not worse. No GI complaints. Medications Acetaminophen (Tylenol Tab*) 650 mg PO Q6H PRN PRN Reason: FEVER Last Admin: 04/21/18 20:13 Dose: 650 mg Benzonatate (Tessalon Cap*) 100 mg PO BID PRN PRN Reason: COUGH Last Admin: 04/23/18 07:55 Dose: 100 mg Diphenhydramine HCl (Benadryl Po*) 25 mg PO Q6H PRN PRN Reason: ITCHING Last Admin: 04/20/18 03:49 Dose: 25 mg Dronabinol (Marinol Cap*) 5 mg PO TID [facility] Last Admin: 04/23/18 09:31 Dose: 5 mg Enoxaparin Sodium (Lovenox(*)) 40 mg SUBCUT Q24H [facility] Last Admin: 04/23/18 09:29 Dose: 40 mg Guaifenesin/Dextromethorphan (Robitussin Dm*) 10 ml PO Q6H PRN PRN Reason: COUGH Hydrocortisone (Hytone Cream 1%*) 1 applic TOPICAL BID PRN PRN Reason: ITCHING Hydromorphone HCl (Dilaudid Tab*) 4 mg PO QID [facility] Last Admin: 04/23/18 09:30 Dose: 4 mg Levofloxacin/Dextrose (Levaquin 750 Mg Ivpremix(*)) 750 mg in 150 mls @ 100 mls /hr IVPB Q24H [facility] Last Admin: 04/22/18 17:04 Dose: 100 mls/hr Metronidazole/Sodium Chloride (Flagyl 250 Mg Ivpb*) 50 mls @ 50 mls/hr IVPB Q8H [facility] Last Admin: 04/23/18 03:15 Dose: 50 mls/hr Sodium Chloride (Ns 0.9% 1000 Ml*) 1,000 mls @ 100 mls/hr IV PER RATE [facility] Last Admin: 04/23/18 01:22 Dose: 100 mls/hr Levetiracetam (Keppra Tab*) 1,500 mg PO BID [facility] Last Admin: 04/23/18 09:29 Dose: 1,500 mg Lorazepam (Ativan Tab(*)) 2 mg PO Q6H PRN PRN Reason: IMPENDING SEIZURE Last Admin: 04/22/18 22:20 Dose: 2 mg Methadone HCl (Dolophine Tab*) 10 mg PO BID [facility] Last Admin: 04/23/18 09:30 Dose: 10 mg Pantoprazole Sodium (Protonix Tab (Nf)) 40 mg PO DAILY [facility] Last Admin: 04/23/18 09:31 Dose: 40 mg Prochlorperazine (Compazine Tab*) 10 mg PO Q6H PRN PRN Reason: NAUSEA/VOMITING Objective: [] Vital Signs Temp Pulse Resp BP Pulse Ox 98.4 F 76 20 109/67 94 04/23/18 08:10 04/23/18 08:10 04/23/18 09:31 04/23/18 08:10 04/23/18 08:10 A&Ox3, EOMI, mumbles HRR, S1S2 without murmur noted LS dimished bilat., occ. cough wet but non-productive +BS, abd. soft and non-tender +PP=bilat, no edema Dorsal aspect of bilat. feet with purpuric rash that is slightly less erythematous than yesterday Laboratory Results - last 24 hr 04/23/18 04/23/18 04/23/18 06:28 06:31 06:31 WBC 6.1 RBC 3.01 L Hgb 9.4 L Hct 27 L MCV 89 MCH 31 MCHC 35 RDW 13 Plt Count 169 MPV 7.7 Neut % (Auto) 77.7 Lymph % (Auto) 7.8 L Robeson % (Auto) 11.6 H Eos % (Auto) 2.4 Baso % (Auto) 0.5 Absolute Neuts (auto) 4.8 Absolute Lymphs (auto) 0.5 L Absolute Monos (auto) 0.7 Absolute Eos (auto) 0.1 Absolute Basos (auto) 0 Absolute Nucleated RBC 0 Nucleated RBC % 0 Sodium 141 Potassium 3.7 Chloride 108 Carbon Dioxide 30 Anion Gap 3 BUN 5 L Creatinine 0.83 Est GFR ( Amer) 123.5 Est GFR (Non-Af Amer) 102.1 BUN/Creatinine Ratio 6.0 L Glucose 100 POC Glucose (mg/dL) Calcium 7.9 L Total Bilirubin 0.30 AST 13 ALT 6 L Alkaline Phosphatase 39 Total Protein 5.6 L Albumin 2.4 L Globulin 3.2 Albumin/Globulin Ratio 0.8 L Hepatitis B Antibody not immune A Hep Bs Antigen Nonreactive Hep Bs Antibody, Quant <3.1 HIV 1&2 Antibody Rapid nonreactive Microbiology 04/19/18 16:27 Aerobic Blood Culture - Final Blood Venous Sphingomonas Paucimobilis Anaerobic Blood Culture - Preliminary No Growth Day 3 04/19/18 16:40 Aerobic Blood Culture - Preliminary Blood Venous No Growth Day 3 Anaerobic Blood Culture - Preliminary No Growth Day 3 04/19/18 20:07 Urine Culture - Final Urine No Growth (<1,000 CFU/mL) Assessment: []42 yo male with GBM currently admitted due to Sphingomonas Paucimobilis spesis , present on admission. Plan: []1. Sepsis: sensitive to Levaquin and appears to be improving. Today is day 5 IV abx., d/c cefepime. Can transition to PO tomorrow and potential d/c is stable. 2. Rash: unclear but appears to be a recurrent vasculitis, not progressive so holding off on steroids for now, follow work-up 3. C.Diff: cont. PO Flagyl, appears to be improving 4. Cough: add Guaifensin DM 5. GBM: off therapy, will f/u as outpatiemnt 6. High fall risk: partially related to how ill he was upon arrival, will ask PT to eval. for independent ambulation in planning for d/c
--- NOTE | 2018-04-23 12:20 | HP ---
HISTORY AND PHYSICAL: DATE OF ADMISSION: 04/19/18 REASON FOR ADMISSION: Fever, pneumonia, sepsis. HISTORY OF PRESENT ILLNESS: Mohan Luna is a 42-year-old male with known underlying grade 3 astrocytoma dating back to 2005. He has been on multiple therapies over time, although his recent Temodar has been on hold. For details , please see the note. He had a recent admission on 03/20/18. At that time, he had presented with a rash along with fever and mild hypotension. He had previously taken a medication from a friend just prior to that. 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 Likely drug reaction. He was treated with a steroid. Hepatitis and HIV were negative during that admission. The patient did reasonably well until 1 week prior to this admission when he developed a cough productive of sputum. Along with this, he had fatigue, chest pain. It should be noted that he had had diarrhea about 2 weeks ago and stool cultures have been positive for C. diff. He is currently receiving Flagyl 250 t.i.d. He presented to the emergency room where he was seen by Dr. Casimiro Bo. Workup in the ER included a chest x-ray, which revealed bilateral infiltrates, upper lobe on the right and lower lobe on the left. He was very hypotensive and tachycardic in the emergency room along with hypoxia. BP typically runs in the 90s and 100s, but in the emergency room, his blood pressure was in the, at times, upper 80s. Temp was 102.1 and pulse rate was as high as 120. He was given normal saline 2 L and also started on Levaquin. Lactic acid was obtained and was 0.8. White count was slightly elevated at 10.5. PAST MEDICAL/SURGICAL HISTORY: Significant for grade 3 astrocytoma, status post R0 resection in 2005, treated with radiation and then 1 year of Temodar. In 2011, was found to have a recurrent lesion with a second surgery R0 resection. He was treated with 6 months of Temodar, this was resumed in 2012 with disease progression and multiple reexcision. He was started on Avastin in 2012 and then radiation therapy. He developed nephrotic syndrome in 2015, was found to have no residual disease on MRI in 2016. In February 2017, there was no enhancement seen and seizure activity in early 2017. MRI continued to show progression and he resumed Temodar in November 2017. This has been on hold recently due to multiple other issues. Past medical history otherwise significant for no other surgeries other than of the brain as discussed above other than herniorrhaphy in 1987. MEDICATIONS: 1. Flagyl 250 mg t.i.d. 2. Lorazepam 2 mg q.6 hours p.r.n. 3. Marinol 5 mg t.i.d. 4. Dilaudid 4 mg four times a day. 5. Keppra 1500 mg b.i.d. 6. Methadone 10 mg b.i.d. 7. Pantoprazole 40 mg daily. ALLERGIES: To GADOLINIUM, DILANTIN, and SHELLFISH. FAMILY HISTORY: Noncontributory. 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 Has a girlfriend, who spends time with him on the weekend, whom he has known for approximately 4 months. He does get some outside services. His sister lives across the street and does care for his son when he is unable to do so. He is a former smoker. REVIEW OF SYSTEMS: Essentially unobtainable for the patient at this time. He is accompanied by his girlfriend, who provides most of the details. He is unable to provide much medical information. PHYSICAL EXAMINATION GENERAL: A 42-year-old male, very lethargic. His speech is quite slurred and almost unintelligible at times. VITAL SIGNS: Temperature 102.2; blood pressure 98/66 following IV fluid; O2 sat 97% on 4 L, having previously been in the upper 80s on room air. Pulse currently 90, had been as high as 120 earlier. HEENT: PERRL, EOMI. No erythema or exudate. NECK: No palpable cervical, supraclavicular, or axillary adenopathy. LUNGS: Clear. HEART: Tachycardic without murmurs, rubs, or gallops. ABDOMEN: Soft and nontender without masses or organomegaly. EXTREMITIES: No edema. NEUROLOGIC: The patient is alert, but confused, is oriented to person and to hospital as well as year. DIAGNOSTIC STUDIES/LAB DATA: Include a CBC with a white count of 10,500, H and H 36/12.3, platelet count . Chemistry studies: Sodium 134, potassium 3.7, chloride 100, bicarb 27, BUN 13, creatinine 1.09, glucose 102. C-reactive protein 123. Lactic acid 0.8. Chest x-ray as above. Cultures have been obtained. IMPRESSION AND PLAN: 1. Bilateral right upper lobe and left lower lobe pneumonia in the setting of hypotension, sepsis, and tachycardia along with hypoxia. The patient has been started on Levaquin 750 mg daily IV. Given his recent episode of Clostridium difficile, we will try not to broaden coverage unless we have to. He will be maintained on 250 mL of normal saline per hour after his initial 2 L bolus. If necessary, further IV fluids will be given. Given the blood pressure, he will be watched in the ICU overnight. 2. Astrocytoma. He has been off Temodar recently and continued to be watched off therapy. Hopefully, this can be resumed in the future. 3. Recent episode of Clostridium difficile. He will receive Flagyl 250 mg t.i.d. to complete a 14-day course. 4. Seizure history. He will be maintained on Keppra 1500 mg b.i.d. 5. DVT prophylaxis. Lovenox 40 mg daily. [id number]/[facility] #: [id number] [facility]
[2018-04-23] MEDS: LORazepam TAB(*) 1 MG PO PRN (15:18)
[2018-04-23] MEDS: Levofloxacin 750 MG IVPREMIX(* 750 MG/150 ML BAG IVPB SCH (17:01)
[2018-04-24] MEDS: GuaiFENesin DM* 5 ML UDC PO PRN ×2 (01:11→22:51)
[2018-04-24] MEDS: Benzonatate CAP* 100 MG PO PRN ×3 (03:24→22:51)
[2018-04-24] MEDS: Acetaminophen TAB* 325 MG PO PRN (03:24)
[2018-04-24] MEDS: diPHENhydraMINE PO* 25 MG PO PRN (03:24)
[2018-04-24] MEDS: NS 0.9% 1000 ML* 1,000 ML IV SCH (03:25)
[2018-04-24] MEDS: metroNIDAZOLE IV 250 MG/50ML* 50 ML IVPB SCH (03:26)
[2018-04-24] MEDS: levETIRAcetam TAB* 500 MG PO SCH ×2 (09:36→20:31)
[2018-04-24] MEDS: Methadone TAB* 10 MG PO SCH ×2 (09:37→20:32)
[2018-04-24] MEDS: HYDROmorphone TAB* 4 MG PO SCH ×4 (09:38→20:32)
[2018-04-24] MEDS: Enoxaparin(*) 40 MG/0.4 ML SYR SUBCUT SCH (09:39)
[2018-04-24] MEDS: Dronabinol CAP* 2.5 MG PO SCH ×3 (09:39→20:31)
[2018-04-24] MEDS: CMC:Pantoprazole TAB (NF) 40 MG TAB PO SCH (09:39)
--- NOTE | 2018-04-24 10:15 | PN ---
Progress Note - Progress Note Date of Service: 04/24/18 SOAP: Subjective: []Feels better. Worked with PT and balance was ok. Responding to questions but difficulty with focus. No fevers. Breathing is better. Eating well. Rash on feet maybe getting better but still hurts. Acetaminophen (Tylenol Tab*) 650 mg PO Q6H PRN PRN Reason: FEVER Last Admin: 04/24/18 03:24 Dose: 650 mg Benzonatate (Tessalon Cap*) 100 mg PO BID PRN PRN Reason: COUGH Last Admin: 04/24/18 03:24 Dose: 100 mg Diphenhydramine HCl (Benadryl Po*) 25 mg PO Q6H PRN PRN Reason: ITCHING Last Admin: 04/24/18 03:24 Dose: 25 mg Dronabinol (Marinol Cap*) 2.5 mg PO TID [facility] Enoxaparin Sodium (Lovenox(*)) 40 mg SUBCUT Q24H [facility] Last Admin: 04/24/18 09:39 Dose: 40 mg Guaifenesin/Dextromethorphan (Robitussin Dm*) 10 ml PO Q6H PRN PRN Reason: COUGH Last Admin: 04/24/18 01:11 Dose: 10 ml Hydrocortisone (Hytone Cream 1%*) 1 applic TOPICAL BID PRN PRN Reason: ITCHING Last Admin: 04/23/18 15:19 Dose: 1 applic Hydromorphone HCl (Dilaudid Tab*) 4 mg PO QID [facility] Last Admin: 04/24/18 09:38 Dose: 4 mg Levetiracetam (Keppra Tab*) 1,500 mg PO BID [facility] Last Admin: 04/24/18 09:36 Dose: 1,500 mg Levofloxacin (Levaquin Tab*) 750 mg PO Q24H [facility] Lorazepam (Ativan Tab(*)) 2 mg PO Q6H PRN PRN Reason: IMPENDING SEIZURE Last Admin: 04/23/18 15:18 Dose: 2 mg Methadone HCl (Dolophine Tab*) 10 mg PO BID [facility] Last Admin: 04/24/18 09:37 Dose: 10 mg Metronidazole (Flagyl Tab*) 500 mg PO TID [facility] Pantoprazole Sodium (Protonix Tab (Nf)) 40 mg PO DAILY [facility] Last Admin: 04/24/18 09:39 Dose: 40 mg Prochlorperazine (Compazine Tab*) 10 mg PO Q6H PRN PRN Reason: NAUSEA/VOMITING Objective: [] Vital Signs Temp Pulse Resp BP Pulse Ox 98.3 F 83 18 100/58 98 04/24/18 03:08 04/24/18 03:08 04/24/18 09:39 04/24/18 03:08 04/24/18 03:08 Appears weak A&Ox3, EOMI, mumbles HRR, S1S2 without murmur noted LS dimished bilat., no wheezing +BS, abd. soft and non-tender +PP=bilat, no edema Dorsal aspect of bilat. feet with rash that is appears to be improving. Bx site healing. Assessment: []42 yo male with GBM currently admitted due to Sphingomonas Paucimobilis spesis , present on admission. Plan: []1. Sepsis. Will change to PO Levoquin at 750 mg daily, plan 10 days total. 2. Rash: unclear but appears to be a recurrent vasculitis. Bx is pending. Steroids on hold. Improving 3. C.Diff: cont. PO Flagyl at 500 mg tid appears to be improving. Will continue util 2 weeks post antibiotics 4. Cough: add Guaifensin DM 5. GBM. Will check MRI tomorrow 6. High fall risk. PT evaluation and will work with him while in hospital 7. Mental status. Multifactorial, try to decrease Marinol 8. Plan discharge tomorrow.
[2018-04-24] MEDS: Levofloxacin TAB* 750 MG PO SCH (11:33)
[2018-04-24] MEDS: metroNIDAZOLE TAB* 250 MG PO SCH ×2 (13:19→20:31)
[2018-04-24] MEDS: LORazepam TAB(*) 1 MG PO PRN (13:20)
[2018-04-25 08:37] VITALS: BP 93/56
[2018-04-25] MEDS: Dronabinol CAP* 2.5 MG PO SCH ×2 (08:48→13:29)
[2018-04-25] MEDS: Methadone TAB* 10 MG PO SCH (08:49)
[2018-04-25] MEDS: HYDROmorphone TAB* 4 MG PO SCH ×2 (08:51→13:28)
[2018-04-25] MEDS: levETIRAcetam TAB* 500 MG PO SCH (08:51)
[2018-04-25] MEDS: metroNIDAZOLE TAB* 250 MG PO SCH ×2 (08:52→13:27)
[2018-04-25] MEDS: LORazepam TAB(*) 1 MG PO PRN (09:18)
[2018-04-25] MEDS: Benzonatate CAP* 100 MG PO PRN (09:18)
--- NOTE | 2018-04-25 10:01 | DS ---
- Discharge Summary Admission Date: 04/19/2018 Discharge Date: 04/25/18 Discharge Diagnosis: 1. Sphingomonas Paucimobilis Sepsis: present on admission, resolving, felt secondary to pneumonia 2. 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 Astrocytoma: off therapy, will obtain restaging MRI in near future as outpatient 4. Chronic Pain: no change in therapy as managed by Dr. Jones Discharge Medications: Medication Instructions Recorded Confirmed Type HYDROmorphone TAB* [Dilaudid Tab*] 4 mg PO Q6HR PRN 11/20/17 04/19/18 History Methadone TAB* [Dolophine TAB*] 10 mg PO BID 11/20/17 04/19/18 History Dronabinol CAP* [Marinol CAP*] 5 - 10 mg PO TID 12/25/17 04/19/18 History Prochlorperazine TAB* [Compazine 10 mg PO Q6H PRN 12/25/17 04/19/18 History Tab*] levETIRAcetam TAB* [Keppra TAB*] 1,500 mg PO BID 03/20/18 04/19/18 History LORazepam TAB(*) [Ativan 1 MG TAB 2 mg PO Q6H PRN tab MDD 8 mg 03/22/18 Rx (*)] diPHENhydraMINE PO* [Benadryl PO 25 mg PO Q6H PRN tab 03/22/18 04/19/18 Rx 25 MG TAB*] Acetaminophen TAB* [Tylenol TAB*] 650 mg PO Q6H PRN tab 04/25/18 Rx Benzonatate CAP* [Tessalon 100 MG 100 mg PO BID PRN #60 cap 04/25/18 Rx CAP*] GuaiFENesin DM* [Robitussin DM*] 10 ml PO Q6H PRN udc 04/25/18 Rx Levofloxacin TAB* [Levaquin 750 MG 750 mg PO Q24H #8 tab 04/25/18 Rx TAB*] metroNIDAZOLE TAB* [Flagyl 250 mg 500 mg PO TID #66 tab 04/25/18 Rx TAB*] Hospital Course: Please see admission noted for full H&P, however briefly, Mr. Luna is well known to our service due to his unfortunate diagnosis of recurrent astrocytoma most recently off therapy due to several complications. He presented to the ER on 04/19 with complaint of a cough x1 week with new fever. He was found to have bilat. pneumonia with sepsis and was admitted for IV abx. Due to recent c.diff infection he was started on Levaquin with goal of avoiding broad spectrum abx. Initial cultures appeared to grow Pseudomonas therefore this was felt to be approrpiate, however on 04/21 he had a recurrent temp. of 100.9 with hypotension and subsequently IV Cefepime was ordered. On 04/22 he complained of a recurrent rash similar to recent [facility]. feet and full work- up for vasculitis was initiated. Hepatitis B&C, and HIV were all negative. He was found to have +ANCA and myeloperoxidase antibodies and a biopsy completed that day confirmed vasculitis (felt secondary to drug reaction). On 04/23 sensitivities confirmed Levaquin coverage and Cefepime was stopped. At this time his rash has improved spontaneously and he is feeling very well. He is having formed stools and no further abd. discomfort or cramping. He continues to have a harsh, non-productive cough, but has not been hypoxic for several days. He is hypotensive similar to his baseline without symptoms and has not have a fever since 04/21. He has ambulated around unit with PT and has improved strength since admission. He will be discharged home today with PO Levaquin to complete full 14 day course and will continue Flagyl for another 14 days after this is completed. He will follow-up as an outpatient with a restaging MRI of the brain and subsequently see Dr. Jones on 05/06. Plan of care reviewed at length with all questions answered. >40 min spent with >50% face to face counseling.
[2018-04-25] MEDS: Enoxaparin(*) 40 MG/0.4 ML SYR SUBCUT SCH (10:47)
[2018-04-25] MEDS: Levofloxacin TAB* 750 MG PO SCH (11:43)
== END 2018-04-25 14:10 | disposition home or self-care (01) | DRG 871 ==
LOC: ED 15:46 → ICU 19:18 → MED 04-20 11:38
PROVIDERS: ADMIT Internal Medicine Hematology & Oncology; ATTEND Internal Medicine Hematology & Oncology
PROC: 0HBNXZX Excision of Left Foot Skin, External Approach, Diagnostic (ICD-10-PCS; principal; 2018-04-22)
DX: A41.52 Sepsis due to Pseudomonas (principal); J18.9 Pneumonia, unspecified organism; A04.72 Enterocolitis due to Clostridium difficile, not specified as recurrent; F17.210 Nicotine dependence, cigarettes, uncomplicated; G89.29 Other chronic pain; L95.9 Vasculitis limited to the skin, unspecified; R56.9 Unspecified convulsions; A41.89 Other specified sepsis; F90.9 Attention-deficit hyperactivity disorder, unspecified type; Z85.841 Personal history of malignant neoplasm of brain; Z92.21 Personal history of antineoplastic chemotherapy; Z92.3 Personal history of irradiation; Z82.49 Family history of ischemic heart disease and other diseases of the circulatory system; Z88.8 Allergy status to other drugs, medicaments and biological substances; Z91.013 Allergy to seafood
CPT/HCPCS: 11100; 11101; 36415; 71045; 80053; 81003; 81015; 83516; 83605; 84484; 85025; 85610; 86038; 86140; 86255; 86703; 86706; 86803; 87040; 87077; 87086; 87186; 87340; 88305; 88342; 88346; 88350; 99232; 99233; 99239; 99285; 99406; A9270-GY; G8978-GP-CL; G8979-GP-CI; J0692; J1650; Q0164

== ENCOUNTER 2018-08-04 13:57 | Emergency (ER) | payer MEDICARE, MEDICAID ==
[2018-08-04 14:05] VITALS: BP 109/65
[2018-08-04] MEDS ORDERED: predniSONE TAB* 20 MG PO ONE (14:33)
--- NOTE | 2018-08-04 14:33 | UC ---
General HPI - HPI Summary HPI Summary: 42 yo patient who states he has some meaty sauce about 90 min ago and started feeling some swelling/tingling and itching of his tongue. He took a benadryl shortly after the onset of these symptoms and he has experienced some relief but still has some itching in his tongue and throat. Denies drooling, wheezing, problems swallowing, itching in skin/rashes. He does not know if it had shellfish inside, he has a known allergy to it. Also states he has presence of an ingrown hair in pubis which has been discharging intermittently for several weeks. Denies fever, chills. - History of Current Complaint Chief Complaint: UCGeneralIllness Stated Complaint: SWOLLEN TONGUE Time Seen by Provider: 08/04/18 14:15 Hx Obtained From: Patient Onset/Duration: Sudden Onset, Lasting Hours Timing: Constant Onset Severity: Mild Current Severity: Mild Pain Intensity: 0 - Allergy/Home Medications Allergies/Adverse Reactions: Allergies Allergy/AdvReac Type Severity Reaction Status Date / Time Gadolinium-Containing Allergy Hives Verified 08/04/18 14:06 Contrast Medi gadoteridol Allergy Hives Verified 08/04/18 14:06 phenytoin Allergy Unknown Verified 08/04/18 14:06 Reaction Details shellfish derived Allergy Swelling Verified 08/04/18 14:06 PMH/Surg Hx/FS Hx/Imm Hx Neurological History: Seizures Other History Of: Negative For: HIV, Hepatitis B, Hepatitis C, Anticoagulant Therapy - Surgical History Surgical History: Yes Surgery Procedure, Year, and Place: HERNIA - A CHILD. CRANIOTOMY 03/27, , 01/01. MOLE REMOVED FROM Rt UNDER ARM, Lt FOREARM & BACK - 03/26/16 - Family History Known Family History: Positive: Cardiac Disease Negative: Hypertension - Social History Alcohol Use: None Substance Use Type: Prescribed Substance Use Comment - Amount & Last Used: states "medical marijuana" ... vapor form Smoking Status (MU): Heavy Every Day Tobacco Smoker Type: Cigarettes Amount Used/How Often: 1/2 ppd Length of Time of Smoking/Using Tobacco: 26 yrs Have You Smoked in the Last Year: Yes - Immunization History Most Recent Influenza Vaccination: Fall 2016 Most Recent Tetanus Shot: unk Most Recent Pneumonia Vaccination: 2016 Review of Systems ENT: Other - tongue itch All Other Systems Reviewed And Are Negative: Yes Physical Exam Triage Information Reviewed: Yes Appearance: Well-Appearing, No Pain Distress, Well-Nourished Vital Signs: Initial Vital Signs Temp 98.4 F 08/04/18 14:02 Pulse 116 08/04/18 14:02 Resp 18 08/04/18 14:02 BP 109/65 08/04/18 14:02 Pulse Ox 98 08/04/18 14:02 Vital Signs Reviewed: Yes Eyes: Positive: Conjunctiva Clear ENT: Positive: Hearing grossly normal, Pharynx normal, TMs normal, Uvula midline , Other - tongue has lost its coating, no teeth markings. Neck: Positive: Supple, Nontender, No Lymphadenopathy Respiratory: Positive: Chest non-tender, Lungs clear, Normal breath sounds Cardiovascular: Positive: RRR, No Murmur, Pulses Normal, Brisk Capillary Refill Abdomen Description: Positive: Nontender, No Organomegaly, Soft Bowel Sounds: Positive: Present Musculoskeletal: Positive: Strength Intact, ROM Intact Skin Exam: Other - erythema and soft tissue swelling on base of pubic hair with mild d/c Course/Dx - Course Course Of Treatment: Patient presents with tongue swelling and itching after ingestion of meat sauce. Prednisone administered at , discussed with patient other signs of allergies to food, return immediately if they present. Prednisone to be continued for 3 days. Presence of folliculitis in pubic area for several weeks with intermittent supuration, start keflex 500mg po tid for 5 days. F/u with PCP in 1 week. - Differential Dx - Multi-Symptom Provider Diagnoses: Food allergy. Folliculitis Discharge - Sign-Out/Discharge Documenting (check all that apply): Patient Departure All imaging exams completed and their final reports reviewed: No Studies - Discharge Plan Condition: Stable Disposition: HOME Referrals: Ole Jones MD [Primary Care Provider] - - Billing Disposition and Condition Condition: STABLE Disposition: Home
== END 2018-08-04 14:55 | disposition home or self-care (01) ==
LOC: UCEAST 13:57
DX: T78.1XXA Other adverse food reactions, not elsewhere classified, initial encounter (principal); X58.XXXA Exposure to other specified factors, initial encounter; L73.9 Follicular disorder, unspecified; F17.210 Nicotine dependence, cigarettes, uncomplicated; F12.90 Cannabis use, unspecified, uncomplicated; Z91.013 Allergy to seafood; Z91.041 Radiographic dye allergy status; Z88.8 Allergy status to other drugs, medicaments and biological substances; Z79.2 Long term (current) use of antibiotics
CPT/HCPCS: 99212; G0463; J7512

== ENCOUNTER 2019-01-21 20:28 | Inpatient (IN) | payer MEDICARE, MEDICAID ==
--- NOTE | 2019-01-21 20:38 | ED ---
Neurological HPI - HPI Summary HPI Summary: ALANIS BRUNO CALLED AT 2014. ETA 5 MINUTES. Patient was seen by Dr. Chavez at 2027. This patient is a 43 year old M brought in by ambulance to ED with neuro hx ( see record for PMHx) and a chief complaint of seizure and possible stroke at 1939. The patient had a L frontal lobe astrocytoma that was dx in 2005. It was restricted. Reoccurence happened in 2017. The patient had an MRI done today that showed the frontal lobe mass has progressed. The patient has a hx of L side focal seizure. He takes Keppra 1500mg BID. The patient was brought in by EMS because of seizure/weakness of the L side and L side facial droop. EMS says he usually is post ictal for 15 minutes, was sleepy, but was able to answer questions appropriately en route. The patient rates the pain 0/10 in severity. Symptoms aggravated by nothing. Symptoms alleviated by nothing. Patients family is in the room at 2050. Patient sees Dr. Jones. - History of Current Complaint Stated Complaint: POSSIBLE STROKE PER EMS Hx Obtained From: Patient, EMS Onset/Duration: Sudden Onset, Started hours ago - 1939, Still Present Timing: Constant Current Severity: None Number of Seizures: 1 Neurological Deficit Location: Facial, LUE, LLE Pain Intensity: 0 Pain Scale Used: 0-10 Numeric Character: Weak - on the L side Aggravating: Nothing Alleviating: Nothing Associated Signs and Symptoms: Positive: Weakness, Seizure TPA Considered: No Related Hx: Seizure - Additional Pertinent History Primary Care Physician: [id number] - Allergy/Home Medications Allergies/Adverse Reactions: Allergies Allergy/AdvReac Type Severity Reaction Status Date / Time Gadolinium-Containing Allergy Hives Verified 09/27/18 15:45 Contrast Medi gadoteridol Allergy Hives Verified 09/27/18 15:45 phenytoin Allergy Unknown Verified 09/27/18 15:45 Reaction Details shellfish derived Allergy Swelling Verified 09/27/18 15:45 PMH/Surg Hx/FS Hx/Imm Hx Endocrine/Hematology History: Denies: Hx Anticoagulant Therapy, Hx Diabetes, Hx Thyroid Disease Cardiovascular History: Denies: Hx Congestive Heart Failure, Hx Deep Vein Thrombosis, Hx Hypertension , Hx Myocardial Infarction, Hx Pacemaker/ICD Respiratory History: Reports: Hx Pneumonia - Current PNA, Other Respiratory Problems/Disorders Denies: Hx Asthma, Hx Chronic Obstructive Pulmonary Disease (COPD), Hx Lung Cancer, Hx Pulmonary Embolism GI History: Reports: Other GI Disorders - Hernia surgery in the 80s Denies: Hx Gall Bladder Disease, Hx Gastrointestinal Bleed, Hx Ulcer, Hx Urosepsis History: Denies: Hx Dialysis, Hx Kidney Stones, Hx Renal Disease Sensory History: Denies: Hx Contacts or Glasses, Hx Hearing Aid Opthamlomology History: Denies: Hx Contacts or Glasses Neurological History: Reports: Hx Seizures, Other Neuro Impairments/Disorders - Recurrent x3 astrocytoma Denies: Hx Dementia, Hx Migraine, Hx Transient Ischemic Attacks (TIA) Psychiatric History: Reports: Hx Attention Deficit Hyperactivity Disorder Denies: Hx Anxiety, Hx Depression, Hx Panic Disorder, Hx Schizophrenia, Hx Bipolar Disorder - Cancer History Cancer Type, Location and Year: Brain cancer (astrocytoma), recurrence x3 Hx Chemotherapy: Yes - Last in greater than few weeks Hx Radiation Therapy: Yes - Surgical History Surgery Procedure, Year, and Place: HERNIA - A CHILD. CRANIOTOMY 03/27, , 01/01. MOLE REMOVED FROM Rt UNDER ARM, Lt FOREARM & BACK - 03/26/16 Infectious Disease History: Reports: Hx Clostridium Difficile - dx 04/10/18 Denies: Hx Hepatitis, Hx Human Immunodeficiency Virus (HIV), Hx of Known/ Suspected MRSA, Hx Shingles, Hx Tuberculosis, Hx Known/Suspected VRE, Hx Known/ Suspected VRSA, History Other Infectious Disease - Family History Known Family History: Positive: Cardiac Disease Negative: Hypertension - Social History Alcohol Use: None Substance Use Type: Reports: Prescribed Substance Use Comment - Amount & Last Used: states "medical marijuana" ... vapor form Hx Tobacco Use: Yes Smoking Status (MU): Heavy Every Day Tobacco Smoker Type: Cigarettes Amount Used/How Often: 1/2 ppd Length of Time of Smoking/Using Tobacco: 26 yrs Have You Smoked in the Last Year: Yes Review of Systems Negative: Fever Neurological: Other - seizure, L sided facial droop, possible stroke Positive: Weakness - L side All Other Systems Reviewed And Are Negative: Yes Physical Exam - Summary Physical Exam Summary: VITAL SIGNS: Reviewed. GENERAL: Patient is a well-developed and nourished MALE who is lying comfortable in the stretcher. Patient is not in any acute respiratory distress. HEAD AND FACE: No signs of trauma. No ecchymosis, hematomas or skull depressions. No sinus tenderness. EYES: PERRLA, EOMI x 2, No injected conjunctiva, no nystagmus. EARS: Hearing grossly intact. Ear canals and tympanic membranes are within normal limits. MOUTH: Oropharynx within normal limits. NECK: Supple, trachea is midline, no adenopathy, no JVD, no carotid bruit, no c- spine tenderness, neck with full ROM. CHEST: Symmetric, no tenderness at palpation LUNGS: Clear to auscultation bilaterally. No wheezing or crackles. CVS: Regular rate and rhythm, S1 and S2 present, no murmurs or gallops appreciated. ABDOMEN: Soft, non-tender. No signs of distention. No rebound no guarding, and no masses palpated. Bowel sounds are normal. EXTREMITIES: FROM in all major joints, no edema, no cyanosis or clubbing. NEURO: Alert and oriented x 3. Speech is normal and follows commands. Patient was able to give hx. Increased tone of LUE and on motor exam: LLE is 4/5 and LUE is 3/5. SKIN: Dry and warm GCS: 15 Triage Information Reviewed: Yes Vital Signs On Initial Exam: Initial Vitals Temp Pulse Resp BP Pulse Ox 98.6 F 61 20 95/65 98 01/21/19 20:41 01/21/19 20:41 01/21/19 20:41 01/21/19 20:41 01/21/19 20:41 Vital Signs Reviewed: Yes Diagnostics - Laboratory Result Diagrams: 01/22/19 05:00 01/22/19 05:00 Lab Statement: Any lab studies that have been ordered have been reviewed, and results considered in the medical decision making process. - Radiology CXR Radiology Interpretation Completed By: ED Physician Summary of Radiographic Findings: Hyperinflation and no acute processes. Pending radiologist official report. - CT Brain CT CT Interpretation Completed By: Radiologist Summary of CT Findings: Right frontal craniotomy, with underlying postoperative encephalomalacia. Subtle interval increase in hyperdensity in the right frontal lobe, as well as slight interval increase in mass effect upon the right lateral ventricle are concerning for progression of disease. ASSESSMENT : ASPECTS ([place] Stroke Program Early CT Score) is 10. Dr. Chavez has reviewed this radiology report. - EKG 2053 Cardiac Rate: Bradycardia - 57 BPM EKG Rhythm: Sinus Bradycardia Summary of EKG Findings: Normal axis. Normal interval. No ischemic changes. Re-Evaluation - Re-Evaluation First Eval Re-Evaluation Time: 21:39 Comment: The patient is doing alright and is just a bit cold. Course/Dx - Course Assessment/Plan: ALANIS BRUNO CALLED AT 2014. ETA 5 MINUTES. Patient was seen by Dr. Chavez at 2027. This patient is a 43 year old M brought in by ambulance to ED with neuro hx (see record for PMHx) and a chief complaint of seizure and possible stroke at 194. The patients sx is most likely due to a seizure and CVA. Patient has exclusion criteria for TPA which is his brain tumor. In the ED course, the patient was given fluids and Ativan. EKG reveals sinus bradycardia at 57 BPM and normal axis, normal interval, and no ischemic changes. Brain CT reveals right frontal craniotomy, with underlying postoperative encephalomalacia. Subtle interval increase in hyperdensity in the right frontal lobe, as well as slight interval increase in mass effect upon the right lateral ventricle are concerning for progression of disease. ASSESSMENT : ASPECTS ([place] Stroke Program Early CT Score) is 10. CXR, per Dr. Chavez, reveals hyperinflation and no acute processes. Consulted Dr. Chilel at 2132 about the patients case. Consulted MORGAN Ocampo at 2156 about the patient's case and she accepts the patient for admission. The patient will be admitted with dx of brain tumor and seizure. Patient understands and agrees with this plan. - Differential Dx Differential Diagnoses Neuro: Positive: Other - brain tumor and seizure - Diagnoses Provider Diagnoses: Brain tumor, Seizure - Physician Notifications Discussed Care Of Patient With: Jose Angel Chilel Time Discussed With Above Provider: 21:33 Instructed by Provider To: Other - Consulted Dr. Chilel at 2132 about the patient s case. Consulted MORGAN Ocampo at 2156 about the patient's case and she accepts the patient for admission. - Critical Care Time Critical Care Time: 30-74 min - 45 minutes Discharge - Sign-Out/Discharge Documenting (check all that apply): Patient Departure - admit Patient Received Moderate/Deep Sedation with Procedure: No - Discharge Plan Condition: Stable Disposition: ADMITTED TO [facility] - Billing Disposition and Condition Condition: STABLE Disposition: Admitted to [facility] - Attestation Statements Document Initiated by Scribe: Yes Documenting Scribe: Lm Lemus Provider For Whom Scribe is Documenting (Include Credential): Patience Chavez MD Scribe Attestation: I, Lm Lemus, scribed for Patience Chavez MD on 01/22/19 at 0615. Scribe Documentation Reviewed: Yes Provider Attestation: The documentation as recorded by the Lm soriano accurately reflects the service I personally performed and the decisions made by me, Patience Chavez MD Status of Scribe Document: Viewed
[2019-01-21] MEDS ORDERED: NS 0.9% 1000 ML** 1,000 ML IV ONE ×2 (20:47→21:40)
[2019-01-21] MEDS ORDERED: LORazepam INJ* 2 MG/ML 1 ML VIAL ONE (20:52)
[2019-01-21] MEDS ORDERED: LORazepam INJ* 2 MG/ML 1 ML VIAL IV PUSH ONE (20:55)
[2019-01-21 21:20] LABS: ABS Basophils 0 10^3/ul (0-0.2); ABS Eosinophils 0 10^3/ul (0-0.6); ABS Lymphocytes 0.4 10^3/ul (1.0-4.8); ABS Monocytes 0.1 10^3/ul (0-0.8); ABS Neutrophils 4.6 10^3/ul (1.5-7.7); ABS Nucleated RBC 0 10^3/ul; Eosinophil % 0.1 %; Hematocrit 32 % (36-46); Hemoglobin 11.2 g/dL (14.0-18.0); Mean Corpuscular HGB Conc 35 g/dL (31-36); Mean Corpuscular Hemoglobin 32 pg (27-31); Mean Corpuscular Volume 91 fL (80-94); Mean Platelet Volume 7.6 fL (7.4-10.4); Nucleated Red Blood Cells % 0; Platelet Count 107 10^3/uL (150-450); Red Blood Count 3.51 10^6 /uL (4.18-5.48); Red Cell Distribution Width 15 % (10.5-15); White Blood Count 5.2 10^3/uL (3.5-10.8)
[2019-01-21 21:37] LABS: ALT 9 U/L (7-52); AST 17 U/L (13-39); Albumin 3.8 g/dL (3.2-5.2); Albumin/Globulin Ratio 1.4 (1-3); Alkaline Phosphatase 40 U/L (34-104); Anion Gap 8 mmol/L (2-11); BUN/Creatinine Ratio 14.1 (8-20); Blood Urea Nitrogen 19 mg/dL (6-24); CO2 Carbon Dioxide 25 mmol/L (22-32); Calcium 8.6 mg/dL (8.6-10.3); Chloride 102 mmol/L (101-111); EGFR African American 70.1 (>60); Globulin 2.8 g/dL (2-4); Glucose 126 mg/dL (70-100); Potassium 4.2 mmol/L (3.5-5.0); Sodium 135 mmol/L (135-145); Total Protein 6.6 g/dL (6.4-8.9)
[2019-01-21 21:43] LABS: Activated Partial Thrombo Time 30.7 seconds (26.0-36.3); INR 1.05 (0.77-1.02)
[2019-01-21] MEDS ORDERED: Dexamethasone IV* 4 MG/ML 1 ML (4 MG) IV SLOW PU ONE (22:04)
[2019-01-21] MEDS ORDERED: Ondansetron INJ* 2 MG/ML VIAL IV PRN (22:59)
[2019-01-21] MEDS ORDERED: levETIRAcetam IV* 1,500 MG in NS 0.9% 100 ML* 100 ML IVPB SCH (23:00)
[2019-01-21] MEDS ORDERED: levETIRAcetam 1000MG IVPREMIX* 1,000 MG/100 ML BAG IVPB SCH (23:00)
[2019-01-21] MEDS ORDERED: HYDROmorphone INJ* 0.5 MG/0.5 ML SYRINGE IV SLOW PU PRN (23:04)
[2019-01-21] MEDS ORDERED: Iodixanol* (CONTRAST) 320 MG/ML 100 ML SDV IV ONE (23:07)
[2019-01-22 01:06] LABS: Barbiturates Urine Screen None Detected (None Detect); Benzodiazepine Urine Screen None Detected (None Detect); Urine Cannabinoids Screen Presumptive Positive (None Detect)
[2019-01-22 01:22] LABS: Alcohol < 10 mg/dL (<10)
--- NOTE | 2019-01-22 01:32 | HP ---
HISTORY AND PHYSICAL: DATE OF ADMISSION: 01/21/19 PRIMARY CARE PHYSICIAN: Ole Jones MD ATTENDING PHYSICIAN: Xochitl Coleman MD * (dictated by MORGAN Ocampo) CHIEF COMPLAINT: Altered mental status. HISTORY OF PRESENT ILLNESS: Mr. 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 He recently presented to the ER on with seizure. Earlier today, he had an outpatient MRI of the brain which revealed progression of enhancing tumor at the margins of the right frontal lobe , tumor resection site, mild increased mass effect with further compression of the frontal horn of the right lateral ventricle. He was negative for hydrocephalus. Today, the patient was brought in by ambulance. There was little known about his history, as the patient is somnolent. It is noted that the patient's 9-year-old son called the ambulance due to a change in mental status. He also exhibited left-sided weakness and left facial droop upon arrival to the ER. The patient is unable to provide a history at this time due to somnolence. The only witness to the event was his son. His girlfriend was called, and states that he does occasionally forget to take his medications, but is unable to provide any other relevant information. While in the emergency room, the patient had a chest x-ray and a brain CT. Brain CT revealed increase in mass effect on the right lateral ventricle concerning for progression of disease. Blood work revealed lactic acidosis. Hospitalist team were asked to evaluate the patient for admission. PAST MEDICAL HISTORY: Past medical history obtained from chart: 1. Astrocytoma recurrence x3. 2. Seizure disorder. Patient's Keppra was recently increased to 1500 b.i.d. 3. Narcotic abuse. PAST SURGICAL HISTORY: Obtained from chart. [id number] and resection of tumor x3 in March 2006, December 2011, December 2012; hernia as a child; left forearm and back 03/26/13. HOME MEDICATIONS: Obtained from chart: 1. Prednisone 40 mg p.o. daily. 2. Levetiracetam 1500 mg p.o. b.i.d. 3. Diphenhydramine 25 mg p.o. q.6 hours p.r.n. 4. Compazine 10 mg p.o. q.6 hours p.r.n. 5. Methadone 10 mg p.o. b.i.d. 6. Lorazepam 2 mg p.o. q.6 hours p.r.n., maximum dose 8 mg daily. 7. Hydromorphone 4 mg p.o. q.6 hours p.r.n. 8. Marinol 5 to 10 mg p.o. t.i.d. 9. Keflex 500 mg p.o. t.i.d. 10. Acetaminophen 650 mg p.o. q.6 hours p.r.n. FAMILY HISTORY: Deferred. SOCIAL HISTORY: The patient states that he does smoke, but is unable to quantify how much or how long. He states he does not use alcohol. In speaking with his girlfriend, she states that his parents are his surrogate decision makers. REVIEW OF SYSTEMS: Deferred as the patient was not responding to questioning. PHYSICAL EXAMINATION GENERAL: Mr. Luna is a thin middle aged man who appears very ill. He is somnolent and lethargic. He wakes when his name is called but is not very responsive when asked questions, responding with occasional one-word answers that are mumbled. He partially opens his eyes at times when spoken to, but only for a brief period. HEENT: Pupils are equally round and reactive to light. There is no scleral icterus. Hearing is grossly intact. RESPIRATORY: The patient does not respond to request for deep inhalation and exhalation. He is breathing comfortably. Lungs are clear to auscultation. There are no rhonchi, wheezes, or rubs. CARDIOVASCULAR: S1, S2 present. The patient is bradycardic. Normal sinus rhythm. There are no murmurs, rubs, or gallops. ABDOMEN: Bowel sounds normoactive. The abdomen is soft and nontender to palpation. There is no hepatosplenomegaly. EXTREMITIES: Skin is warm and smooth bilaterally. There is no edema, clubbing , or cyanosis. Radial and pedal pulses are palpable. NEUROLOGIC: The patient is awake, he is somnolent. He is oriented to name, but does not answer when asked place and location. He does move all of his extremities. Motor strength is decreased on the left side compared to the right. DIAGNOSTIC STUDIES/LAB DATA: MRI 01/21/19, impression: Evidence for significant progression of enhancing tumor at the margins of the right frontal lobe tumor resection site. Compared with the 10/28/18 exam, with mild increased mass effect including localized focal effacement and mild further compression of the frontal horn of the right lateral ventricle, negative for hydrocephalus or subfalcine or transtentorial herniation. CT brain, 01/21/19, impression: Right frontal craniotomy with underlying postoperative encephalomalacia. Subtle interval increase in hyperdensity in the right frontal lobe as well as slight interval increase in mass effect upon the right lateral ventricle are concerning for progression of disease. Laboratory data: WBC 5.2, RBC 3.51, Hgb 11.2, Hct 32, platelets 107,000. Sodium 135, potassium 4.2, chloride 102, carbon dioxide 25, anion gap 8, BUN 19 , creatinine 1.25, lactic acid 4.3. IMPRESSION AND PLAN: Mr. Luna is a 43-year-old male with the past medical history significant for astrocytoma and seizure disorder who presented to the ER today with left-sided weakness, somnolence. He will be admitted for: 1. Left-sided weakness. Differentials include cerebrovascular accident with large vessel occlusion versus postictal state. CTA of the head and neck will be ordered to rule out large vessel occlusion. It is unknown whether or not the patient has missed any doses of Keppra. He will be given a loading dose of Keppra 1500 and then started on 1500 b.i.d. Keppra level will be checked. EEG ordered for tomorrow a.m., q.2 hour neuro checks and seizure precautions will also be ordered. Spoke with Dr. Sosa and he recommended if the patient has greater than 3-minute seizure, start 2 mg IV Ativan. Neurology and Neurosurgery were both consulted and notified. 2. Mass effect from astrocytoma. Decadron 10 mg IV x1 given. Will continue Decadron [address] Jones consulted and notified. Again, q.2 hour neuro checks with seizure precautions will be in place. 3. Lactic acidosis. This is being treated with 2L IV fluid resuscitation. Recheck lactic acid at 0100. 4. Seizure disorder. Management as described above. 5. DVT prophylaxis. The patient will be placed on heparin q.8 hours. 6. Code status: Full code. TIME SPENT: Approximately 75 minutes were spent on this admission. This case has been reviewed with my attending, Dr. Coleman who is in agreement with the plan of care. MORGAN ZAVALETA [id number]/CPS #: [id number] [place]
[2019-01-22] MEDS: NS 0.9% 1000 ML** 1,000 ML IV SCH ×3 (01:42→17:36)
[2019-01-22] MEDS: Dexamethasone IV* 4 MG/ML 1 ML (4 MG) IV SLOW PU SCH ×4 (04:53→22:14)
[2019-01-22] MEDS ORDERED: Dexamethasone IV* 4 MG in NS 0.9% 50 ML* 50 ML IVPB SCH (05:00)
[2019-01-22] MEDS: Heparin VIAL(*) 5000 UNITS/ML VIAL (FIVE THOUSAND) SUBCUT SCH ×3 (05:02→22:07)
[2019-01-22 05:18] LABS: ABS Basophils 0 10^3/ul (0-0.2); ABS Eosinophils 0 10^3/ul (0-0.6); ABS Lymphocytes 0.5 10^3/ul (1.0-4.8); ABS Monocytes 0.2 10^3/ul (0-0.8); ABS Neutrophils 5.1 10^3/ul (1.5-7.7); ABS Nucleated RBC 0 10^3/ul; Eosinophil % 0 %; Hematocrit 29 % (36-46); Hemoglobin 10.1 g/dL (14.0-18.0); Lymphocyte % 8.6 %; Mean Corpuscular HGB Conc 35 g/dL (31-36); Mean Corpuscular Hemoglobin 32 pg (27-31); Mean Corpuscular Volume 91 fL (80-94); Mean Platelet Volume 8.1 fL (7.4-10.4); Nucleated Red Blood Cells % 0; Platelet Count 97 10^3/uL (150-450); Red Blood Count 3.14 10^6 /uL (4.18-5.48); Red Cell Distribution Width 15 % (10.5-15); White Blood Count 5.7 10^3/uL (3.5-10.8)
[2019-01-22 05:30] LABS: Albumin 3.4 g/dL (3.2-5.2); Albumin/Globulin Ratio 1.4 (1-3); EGFR African American 86.1 (>60); EGFR Non-African American 71.2 (>60); Globulin 2.5 g/dL (2-4); Potassium 4.2 mmol/L (3.5-5.0); Total Bilirubin 0.5 mg/dL (0.2-1.0); Total Protein 5.9 g/dL (6.4-8.9)
--- NOTE | 2019-01-22 08:03 | PN ---
Progress Note - Progress Note Date of Service: 01/22/19 SOAP: Subjective: []Asked to see patient with long history of right frontal astrocytoma.Admitted last PM with altered mental status Left sided weakness.MRI done as outpatient earlier in day showed recurrent tumor with increased mass effect.Patient has history of three prior surgeries,originally by Dr. Meyers with last two surgeries done at [facility] [place] most recently in 2012.Currently awake,alert denies headache currently. Objective: []Awake akert Motor intact Assessment: []MRI reveals increased tumor burden from study in 11/09 Plan: []Suspect patient was post ictal on presentation.Has increased tumor burden with a number of secondary social issues.Would recommend evaluation at [facility] if surgery considered since that is where his most recent procedures have been performed.
[2019-01-22] MEDS ORDERED: HYDROmorphone TAB* 4 MG PO PRN (09:49)
--- NOTE | 2019-01-22 10:04 | PN ---
Progress Note - Progress Note Date of Service: 01/22/19 SOAP: Subjective: [Mohan was admitted yesterday with seizure and L sided paralysis. Brain imaging shows clear progression of his known astrocytoma with increased vasogenic edema. He was loaded with keppra and dexamethasone. No further seizure activity. Mohan is unable to state clearly whether he missed any doses of Keppra. Reports that his dose of Keppra may have changed, but unable to say who made that recommendation.] Objective: [ Laboratory Results - last 24 hr 01/21/19 01/21/19 01/21/19 21:13 21:13 21:13 WBC 5.2 RBC 3.51 L Hgb 11.2 L Hct 32 L MCV 91 MCH 32 H MCHC 35 RDW 15 Plt Count 107 L MPV 7.6 Neut % (Auto) 89.3 Lymph % (Auto) 7.0 [place] % (Auto) 2.8 Eos % (Auto) 0.1 Baso % (Auto) 0.8 Absolute Neuts (auto) 4.6 Absolute Lymphs (auto) 0.4 L Absolute Monos (auto) 0.1 Absolute Eos (auto) 0 Absolute Basos (auto) 0 Absolute Nucleated RBC 0 Nucleated RBC % 0 INR (Anticoag Therapy) 1.05 H APTT 30.7 Sodium 135 Potassium 4.2 Chloride 102 Carbon Dioxide 25 Anion Gap 8 BUN 19 Creatinine 1.35 H Est GFR ( Amer) 70.1 Est GFR (Non-Af Amer) 58.0 BUN/Creatinine Ratio 14.1 Glucose 126 H Lactic Acid Calcium 8.6 Total Bilirubin 0.50 AST 17 ALT 9 Alkaline Phosphatase 40 Total Protein 6.6 Albumin 3.8 Globulin 2.8 Albumin/Globulin Ratio 1.4 Urine Opiates Screen Ur Barbiturates Screen Ur Phencyclidine Scrn Ur Amphetamines Screen U Benzodiazepines Scrn Urine Cocaine Screen U Cannabinoids Screen Serum Alcohol < 10 01/21/19 01/22/19 01/22/19 21:13 00:35 02:11 WBC RBC Hgb Hct MCV MCH MCHC RDW Plt Count MPV Neut % (Auto) Lymph % (Auto) [place] % (Auto) Eos % (Auto) Baso % (Auto) Absolute Neuts (auto) Absolute Lymphs (auto) Absolute Monos (auto) Absolute Eos (auto) Absolute Basos (auto) Absolute Nucleated RBC Nucleated RBC % INR (Anticoag Therapy) APTT Sodium Potassium Chloride Carbon Dioxide Anion Gap BUN Creatinine Est GFR ( Amer) Est GFR (Non-Af Amer) BUN/Creatinine Ratio Glucose Lactic Acid 4.3 H* 1.2 Calcium Total Bilirubin AST ALT Alkaline Phosphatase Total Protein Albumin Globulin Albumin/Globulin Ratio Urine Opiates Screen Presumptive positive A Ur Barbiturates Screen None detected Ur Phencyclidine Scrn None detected Ur Amphetamines Screen None detected U Benzodiazepines Scrn None detected Urine Cocaine Screen None detected U Cannabinoids Screen Presumptive positive A Serum Alcohol 01/22/19 01/22/19 05:00 05:00 WBC 5.7 RBC 3.14 L Hgb 10.1 L Hct 29 L MCV 91 MCH 32 H MCHC 35 RDW 15 Plt Count 97 L MPV 8.1 Neut % (Auto) 88.3 Lymph % (Auto) 8.6 [place] % (Auto) 3.0 Eos % (Auto) 0 Baso % (Auto) 0.1 Absolute Neuts (auto) 5.1 Absolute Lymphs (auto) 0.5 L Absolute Monos (auto) 0.2 Absolute Eos (auto) 0 Absolute Basos (auto) 0 Absolute Nucleated RBC 0 Nucleated RBC % 0 INR (Anticoag Therapy) APTT Sodium 137 Potassium 4.2 Chloride 106 Carbon Dioxide 27 Anion Gap 4 BUN 17 Creatinine 1.13 Est GFR ( Amer) 86.1 Est GFR (Non-Af Amer) 71.2 BUN/Creatinine Ratio 15.0 Glucose 123 H Lactic Acid Calcium 8.0 L Total Bilirubin 0.50 AST 16 ALT 7 Alkaline Phosphatase 40 Total Protein 5.9 L Albumin 3.4 Globulin 2.5 Albumin/Globulin Ratio 1.4 Urine Opiates Screen Ur Barbiturates Screen Ur Phencyclidine Scrn Ur Amphetamines Screen U Benzodiazepines Scrn Urine Cocaine Screen U Cannabinoids Screen Serum Alcohol Dexamethasone Sodium Phosphate (Decadron Iv*) 4 mg IV SLOW PU Q6H [facility] Last Admin: 01/22/19 04:53 Dose: 4 mg Heparin Sodium (Porcine) (Heparin Vial(*)) 5,000 units SUBCUT Q8HR [facility] Last Admin: 01/22/19 05:02 Dose: 5,000 units Hydromorphone HCl (Dilaudid Tab*) 4 mg PO Q6HR PRN PRN Reason: PAIN Sodium Chloride (Ns 0.9% 1000 Ml) 1,000 mls @ 125 mls/hr IV PER RATE [facility] Last Admin: 01/22/19 08:57 Dose: 125 mls/hr Levetiracetam (Keppra Tab*) 1,500 mg PO BID ALEX Lorazepam (Ativan Inj*) 2 mg IV PUSH Q4H PRN PRN Reason: seizure Methadone HCl (Dolophine Tab*) 10 mg PO BID ALEX Methimazole (Tapazole Tab*) 10 mg PO BID ALEX Ondansetron HCl (Zofran Inj*) 4 mg IV Q4H PRN PRN Reason: NAUSEA/VOMITING Trazodone HCl (Desyrel Tab*) 50 mg PO BEDTIME ALEX Vital Signs: Temp Pulse Resp BP Pulse Ox 96.4 F 46 15 92/62 97 01/22/19 09:43 01/22/19 09:43 01/22/19 09:43 01/22/19 09:43 01/22/19 09:43 Exam: Gen: Chronically ill and fatigued appearing 43 yo male in NAD. His eyes stay closed for the majority of the exam, but he does engage in some limited communication HEENT: MMM CV: RRR, no m/r/g Resp: CTA, no w/c/r Abd: soft, non TTP Neuro: limited strength in L upper and lower extremities, ~3-4/5, R extremities show intact strength, unable to perform remainder of neuro exam due to cooperation] Assessment: [This is a very unfortunate 43 yo male with a progressive astrocytoma despite multiple lines of therapy. He presented with seizure and new L sided paralysis. Plan: [1. Astrocytoma - imaging shows true progressive of disease and increased vasogenic edema - he has recently discussed with Dr Jones that he has no additional treatment options and recommendation is to transition to Hospice 2. Seizure - appreciated neurology input - cont dexamethasone - resume usual oral dose of Keppra at 1500 mg bid - Keppra level pending from yesterday Dispo: request palliative consultation, appropriate for hospice but there are multiple confounding social issues that will be difficult to navigate]
[2019-01-22] MEDS: levETIRAcetam TAB* 500 MG PO SCH ×2 (10:56→22:06)
[2019-01-22] MEDS: Methimazole TAB* 5 MG PO SCH ×2 (12:01→22:05)
[2019-01-22] MEDS: Nicotine PATCH 21 MG/24 HR* PATCH TRANSDERM SCH (14:53)
[2019-01-22] MEDS: Nicotine Inhaler* 10 MG AMP INH PRN ×2 (14:53→22:09)
[2019-01-22] MEDS ORDERED: Mouth Piece, Nicotine* 1 EACH CARTRIDGE INH ONE (15:00)
--- NOTE | 2019-01-22 15:19 | CONSULT ---
Palliative / Hospice Consult Ordering Provider: Florin Driscoll - Subjective Code Status: Full Code Advance Directives Location: No Advance Directives - History or Present Illness History or Present Illness: 43 yo male with astrocytoma presented to ER with AMS, seizure and L sided weakness. 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 CTA neg, Ekg sinus malorie, CXR- COPD otherwise neg, Ct brain showed increase in size of tumor, H/H 10.1/29 , 17/.13 egfr 71.2 tprot 5.9, alb 3.4. still smokes and uses drugs denies etoh use. Girlfriend lives with him and has 9 yo son not related to present girlfriend. All history for pt, girlfriend and chart. Lab Values: Abnormal Lab Results 01/21/19 01/21/19 01/21/19 21:13 21:13 21:13 WBC 5.2 RBC 3.51 L Hgb 11.2 L Hct 32 L MCV 91 MCH 32 H MCHC 35 RDW 15 Plt Count 107 L MPV 7.6 Neut % (Auto) 89.3 Lymph % (Auto) 7.0 Lamar % (Auto) 2.8 Eos % (Auto) 0.1 Baso % (Auto) 0.8 Absolute Neuts (auto) 4.6 Absolute Lymphs (auto) 0.4 L Absolute Monos (auto) 0.1 Absolute Eos (auto) 0 Absolute Basos (auto) 0 Absolute Nucleated RBC 0 Nucleated RBC % 0 INR (Anticoag Therapy) 1.05 H APTT 30.7 Sodium 135 Potassium 4.2 Chloride 102 Carbon Dioxide 25 Anion Gap 8 BUN 19 Creatinine 1.35 H Est GFR ( Amer) 70.1 Est GFR (Non-Af Amer) 58.0 BUN/Creatinine Ratio 14.1 Glucose 126 H Lactic Acid Calcium 8.6 Total Bilirubin 0.50 AST 17 ALT 9 Alkaline Phosphatase 40 Total Protein 6.6 Albumin 3.8 Globulin 2.8 Albumin/Globulin Ratio 1.4 Urine Opiates Screen Ur Barbiturates Screen Ur Phencyclidine Scrn Ur Amphetamines Screen U Benzodiazepines Scrn Urine Cocaine Screen U Cannabinoids Screen Serum Alcohol < 10 01/21/19 01/22/19 01/22/19 21:13 00:35 02:11 WBC RBC Hgb Hct MCV MCH MCHC RDW Plt Count MPV Neut % (Auto) Lymph % (Auto) Lamar % (Auto) Eos % (Auto) Baso % (Auto) Absolute Neuts (auto) Absolute Lymphs (auto) Absolute Monos (auto) Absolute Eos (auto) Absolute Basos (auto) Absolute Nucleated RBC Nucleated RBC % INR (Anticoag Therapy) APTT Sodium Potassium Chloride Carbon Dioxide Anion Gap BUN Creatinine Est GFR ( Amer) Est GFR (Non-Af Amer) BUN/Creatinine Ratio Glucose Lactic Acid 4.3 H* 1.2 Calcium Total Bilirubin AST ALT Alkaline Phosphatase Total Protein Albumin Globulin Albumin/Globulin Ratio Urine Opiates Screen Presumptive positive A Ur Barbiturates Screen None detected Ur Phencyclidine Scrn None detected Ur Amphetamines Screen None detected U Benzodiazepines Scrn None detected Urine Cocaine Screen None detected U Cannabinoids Screen Presumptive positive A Serum Alcohol 01/22/19 01/22/19 05:00 05:00 WBC 5.7 RBC 3.14 L Hgb 10.1 L Hct 29 L MCV 91 MCH 32 H MCHC 35 RDW 15 Plt Count 97 L MPV 8.1 Neut % (Auto) 88.3 Lymph % (Auto) 8.6 Lamar % (Auto) 3.0 Eos % (Auto) 0 Baso % (Auto) 0.1 Absolute Neuts (auto) 5.1 Absolute Lymphs (auto) 0.5 L Absolute Monos (auto) 0.2 Absolute Eos (auto) 0 Absolute Basos (auto) 0 Absolute Nucleated RBC 0 Nucleated RBC % 0 INR (Anticoag Therapy) APTT Sodium 137 Potassium 4.2 Chloride 106 Carbon Dioxide 27 Anion Gap 4 BUN 17 Creatinine 1.13 Est GFR ( Amer) 86.1 Est GFR (Non-Af Amer) 71.2 BUN/Creatinine Ratio 15.0 Glucose 123 H Lactic Acid Calcium 8.0 L Total Bilirubin 0.50 AST 16 ALT 7 Alkaline Phosphatase 40 Total Protein 5.9 L Albumin 3.4 Globulin 2.5 Albumin/Globulin Ratio 1.4 Urine Opiates Screen Ur Barbiturates Screen Ur Phencyclidine Scrn Ur Amphetamines Screen U Benzodiazepines Scrn Urine Cocaine Screen U Cannabinoids Screen Serum Alcohol Laboratory Last Values WBC 5.7 10^3/uL (3.5-10.8) 01/22/19 05:00 RBC 3.14 10^6 /uL (4.18-5.48) L 01/22/19 05:00 Hgb 10.1 g/dL (14.0-18.0) L 01/22/19 05:00 Hct 29 % (36-46) L 01/22/19 05:00 MCV 91 fL (80-94) 01/22/19 05:00 MCH 32 pg (27-31) H 01/22/19 05:00 MCHC 35 g/dL (31-36) 01/22/19 05:00 RDW 15 % (10.5-15) 01/22/19 05:00 Plt Count 97 10^3/uL (150-450) L 01/22/19 05:00 MPV 8.1 fL (7.4-10.4) 01/22/19 05:00 Neut % (Auto) 88.3 % 01/22/19 05:00 Lymph % (Auto) 8.6 % 01/22/19 05:00 Lamar % (Auto) 3.0 % 01/22/19 05:00 Eos % (Auto) 0 % 01/22/19 05:00 Baso % (Auto) 0.1 % 01/22/19 05:00 Absolute Neuts (auto) 5.1 10^3/ul (1.5-7.7) 01/22/19 05:00 Absolute Lymphs (auto) 0.5 10^3/ul (1.0-4.8) L 01/22/19 05:00 Absolute Monos (auto) 0.2 10^3/ul (0-0.8) 01/22/19 05:00 Absolute Eos (auto) 0 10^3/ul (0-0.6) 01/22/19 05:00 Absolute Basos (auto) 0 10^3/ul (0-0.2) 01/22/19 05:00 Absolute Nucleated RBC 0 10^3/ul 01/22/19 05:00 Nucleated RBC % 0 01/22/19 05:00 INR (Anticoag Therapy) 1.05 (0.77-1.02) H 01/21/19 21:13 APTT 30.7 seconds (26.0-36.3) 01/21/19 21:13 Sodium 137 mmol/L (135-145) 01/22/19 05:00 Potassium 4.2 mmol/L (3.5-5.0) 01/22/19 05:00 Chloride 106 mmol/L (101-111) 01/22/19 05:00 Carbon Dioxide 27 mmol/L (22-32) 01/22/19 05:00 Anion Gap 4 mmol/L (2-11) 01/22/19 05:00 BUN 17 mg/dL (6-24) 01/22/19 05:00 Creatinine 1.13 mg/dL (0.67-1.17) 01/22/19 05:00 Est GFR ( Amer) 86.1 (>60) 01/22/19 05:00 Est GFR (Non-Af Amer) 71.2 (>60) 01/22/19 05:00 BUN/Creatinine Ratio 15.0 (8-20) 01/22/19 05:00 Glucose 123 mg/dL (70-100) H 01/22/19 05:00 Lactic Acid 1.2 mmol/L (0.5-2.0) 01/22/19 02:11 Calcium 8.0 mg/dL (8.6-10.3) L 01/22/19 05:00 Total Bilirubin 0.50 mg/dL (0.2-1.0) 01/22/19 05:00 AST 16 U/L (13-39) 01/22/19 05:00 ALT 7 U/L (7-52) 01/22/19 05:00 Alkaline Phosphatase 40 U/L (34-104) 01/22/19 05:00 Total Protein 5.9 g/dL (6.4-8.9) L 01/22/19 05:00 Albumin 3.4 g/dL (3.2-5.2) 01/22/19 05:00 Globulin 2.5 g/dL (2-4) 01/22/19 05:00 Albumin/Globulin Ratio 1.4 (1-3) 01/22/19 05:00 Urine Opiates Screen Presumptive positive (None Detect) A 01/22/19 00:35 Ur Barbiturates Screen None detected (None Detect) 01/22/19 00:35 Ur Phencyclidine Scrn None detected (None Detect) 01/22/19 00:35 Ur Amphetamines Screen None detected (None Detect) 01/22/19 00:35 U Benzodiazepines Scrn None detected (None Detect) 01/22/19 00:35 Urine Cocaine Screen None detected (None Detect) 01/22/19 00:35 U Cannabinoids Screen Presumptive positive (None Detect) A 01/22/19 00:35 Serum Alcohol < 10 mg/dL (<10) 01/21/19 21:13 - Objective Active Medications: Dexamethasone Sodium Phosphate (Decadron Iv*) 4 mg IV SLOW PU Q6H [facility] Last Admin: 01/22/19 10:57 Dose: 4 mg Heparin Sodium (Porcine) (Heparin Vial(*)) 5,000 units SUBCUT Q8HR [facility] Last Admin: 01/22/19 13:40 Dose: 5,000 units Hydromorphone HCl (Dilaudid Tab*) 4 mg PO Q6HR PRN PRN Reason: PAIN Last Admin: 01/22/19 12:09 Dose: 4 mg Sodium Chloride (Ns 0.9% 1000 Ml) 1,000 mls @ 125 mls/hr IV PER RATE [facility] Last Admin: 01/22/19 08:57 Dose: 125 mls/hr Levetiracetam (Keppra Tab*) 1,500 mg PO BID [facility] Last Admin: 01/22/19 10:56 Dose: 1,500 mg Lorazepam (Ativan Inj*) 2 mg IV PUSH Q4H PRN PRN Reason: seizure Methadone HCl (Dolophine Tab*) 10 mg PO BID [facility] Methimazole (Tapazole Tab*) 10 mg PO BID [facility] Last Admin: 01/22/19 12:01 Dose: 10 mg Nicotine (Nicotine Inhaler*) 10 mg INH Q2H PRN PRN Reason: CRAVING Last Admin: 01/22/19 14:53 Dose: 10 mg Nicotine (Nicotine Patch 21 Mg/24 Hr*) 1 patch TRANSDERM DAILY@0800 [facility] Last Admin: 01/22/19 14:53 Dose: 1 patch Ondansetron HCl (Zofran Inj*) 4 mg IV Q4H PRN PRN Reason: NAUSEA/VOMITING Pharmacy Profile Note (Nicotine Patch Removal Note*) 1 note FOLLOW UP 2100 [facility] Trazodone HCl (Desyrel Tab*) 50 mg PO BEDTIME [facility] Vital Signs: Vital Signs: Temp Pulse Resp BP Pulse Ox 97.1 F 66 16 105/67 100 01/22/19 13:13 01/22/19 13:13 01/22/19 13:13 01/22/19 13:13 01/22/19 13:13 Patient Weight: Weight 63.9 kg Intake and Output: Intake & Output 01/20/19 01/21/19 01/22/19 01/23/19 06:59 06:59 06:59 06:59 Intake Total 415 635 Output Total 340 150 Balance 75 485 Weight 63.9 kg Intake: IV Fluids 415 375 NS (0.9%) 415 375 Oral 0 260 Output: Urine 340 150 ADLs: Meal Record Start: 01/22/19 01: 34 Freq: 09,13,18 Status: Inactive Protocol: Created 01/22/19 01:34 System (Rec: 01/22/19 01:34 System [id number]) Intake and Output Start: 01/22/19 01: 34 Freq: Q1HR Status: Inactive Protocol: Created 01/22/19 01:34 System (Rec: 01/22/19 01:34 System [id number]) Document 01/22/19 01:54 [id number] (Rec: 01/22/19 01:54 [id number] ICU-M32) Document 01/22/19 03:00 [id number] (Rec: 01/22/19 03:12 [id number] ICU-C25) Document 01/22/19 03:25 [id number] (Rec: 01/22/19 03:32 [id number] ICU-C25) Document 01/22/19 04:41 [id number] (Rec: 01/22/19 04:41 [id number] ICU-C25) Document 01/22/19 05:20 [id number] (Rec: 01/22/19 05:20 [id number] ICU-C25) Document 01/22/19 06:37 [id number] (Rec: 01/22/19 06:37 [id number] ICU-M34) Document 01/22/19 08:00 [id number] (Rec: 01/22/19 09:39 [id number] ICU-C16) Document 01/22/19 09:00 [id number] (Rec: 01/22/19 09:44 [id number] ICU-C16) Document 01/22/19 10:00 [id number] (Rec: 01/22/19 12:26 [id number] ICU-C16) Document 01/22/19 11:00 (Rec: 01/22/19 12:26 [id number] ICU-C16) Document 01/22/19 12:00 (Rec: 01/22/19 12:26 [id number] ICU-C16) Eyes: No Scleral Icterus Cardiovascular: NL Sounds; No Murmurs; No JVD Respiratory: Clear to Auscultation Abdominal: NL Sounds; No Tenderness; No Distention Extremities: No Edema Neurological: Alert and Oriented x 3 - Assessment Assessment: 43 yo with astrocytoma not responding to treatment - Plan Consult Plan (MU): Palliative Plan: Long discussion with pt and girlfriend(Sarita) about cancer and prognosis. He did complete a HCP which is on the chart naming his parents. We discussed MOLST form he doesn't want to be intubated but is agreeable to CPR. If he is intubated he only wants a trial if not successful he wants to come off. He told me his prognosis is 6-12 months. Discussed hospice but a phone call interrupted us and he was transferred to the floor. Did revisit him on the floor without the girlfriend but it was hard to talk to him and keep him on track. Will stop by later to see if family is available. KPS 40%, PPS 50% - Time On Unit Date of Evaluation: 01/22/19 Hospice Consult Time in: 11:30 Hospice Consult Time Out: 01:00 Hospice Consult Time Total: -630 > 50% of Time Spend In Counseling or Coordinating Care: Yes
[2019-01-22 17:27] LABS: Magnesium 1.8 mg/dL (1.9-2.7)
--- NOTE | 2019-01-22 21:09 | CONS ---
NEUROLOGY CONSULTATION NOTE: DATE OF CONSULT: 01/22/19 CONSULTING PROVIDER: MORGAN Ocampo REASON FOR CONSULT: Seizures. CHIEF COMPLAINT: Seizures. HISTORY OF PRESENT ILLNESS: Mr. Luna is a 43-year-old right-handed man with history of tumor-related epilepsy, who has recurrent astrocytoma, diagnosed and resected in 2005, and has had 3 recurrences. The patient has history of narcotic dependency. He lives with his girlfriend and a 9-year-old son. Apparently, the patient had an outpatient MRI completed on 12/21/18, which showed progression of the enhanced tumor at the margin of the right frontal lobe tumor resection and mild increased mass effect with further compression of the frontal horn in the right lateral ventricle. There was no evidence of hydrocephalus. The patient was brought by ambulance yesterday when the patient' s son witnessed seizure and change in mental status. The patient developed left -sided weakness. I was contacted by the on-call provider who stated that the patient was having nearly flaccid weakness in the left upper and lower extremity. A CTA head and neck was ordered stat due to concern of possible stroke, which showed no evidence of large vessel occlusion, but there is evidence of cerebral edema and encephalomalacia in the right frontal region. The patient in the ED slowly improved. He was given levetiracetam and I had also recommended to continue the dose of 1500 mg p.o. b.i.d. There was concern that the patient was noncompliant to the levetiracetam in the past. Levetiracetam level was sent in the ER and is currently pending. Currently, today, the patient is more awake and moving all 4 extremities, but less strength in the left upper arm and leg. He is appropriate. PAST MEDICAL HISTORY: Astrocytoma, tumor-related epilepsy, narcotic abuse. PAST SURGICAL HISTORY: Craniotomy, resection, and hernia repair as a child. HOME MEDICATIONS: 1. Prednisone 40 mg p.o. daily. 2. Levetiracetam 1500 mg p.o. b.i.d. 3. Diphenhydramine 25 mg p.o. every 6 hours as needed. 4. Compazine 10 mg p.o. every 6 hours as needed. 5. Methadone 10 mg p.o. b.i.d. 6. Lorazepam 2 mg p.o. every 6 hours as needed. 7. Hydromorphone 4 mg p.o. every 6 hours as needed. 8. Marinol 5 to 10 mg p.o. t.i.d. 9. Keflex 500 mg p.o. t.i.d. 10. Acetaminophen 650 mg p.o. q.6 as needed. FAMILY HISTORY: There is no family history of stroke or seizures. SOCIAL HISTORY: The patient does smoke, but there is no history of alcohol use. He lives with his girlfriend and a 9-year-old son. REVIEW OF SYSTEMS: A 14-point review of systems was obtained and otherwise negative except for as mentioned in the HPI. PHYSICAL EXAM: Temperature 97.1, pulse 66, respiratory rate of 16, oxygen saturation of 100%, blood pressure of 105/67. General: Frail-appearing, fatigued man, in no acute distress. Head: Normocephalic, atraumatic. Eyes: Conjunctivae/corneas are clear. Neck is supple and symmetrical. No carotid bruit. Lungs are clear to auscultation bilaterally. Cardiovascular: Regular rate and rhythm with normal S1 and S2. Extremities: Normal range of motion. Skin: No skin lesions or laceration. Psych: Flat affect and depressed mood. Neurological Examination: Mental status: Awake, alert, oriented to person, place, time, and general circumstances. There is mild slurred speech. Cranial Nerves: Normal confrontation testing bilaterally. Mild left facial droop. Able to stick out tongue which is symmetric and without any atrophy. Motor Examination: He has got 4/5 weakness in the left upper and left lower extremity with a long tract pyramidal distribution. He has 5/5 strength in the right. Reflexes: Right/left, 2/3; biceps 2/3; triceps 2/3; patella 2/3; ankle 2/2; plantar flexor/mute. Sensation is intact to light touch throughout. Coordination: Normal [id number] and rapid alternating movement. Gait was not assessed. LABORATORY DATA: WBC 5.7, hemoglobin of 10, hematocrit of 29, platelet count of 97. INR of 1.05. Creatinine 1.13. Lactic acid 4.3 on arrival, but 1.2 after IV fluid. The patient's urine tox screen was positive for opiates and cannabinoids. Magnesium level was not checked. ASSESSMENT: Mr. Mohan Luna is a 43-year-old unfortunate man with history of tumor-related epilepsy, who presented with witnessed seizure with postictal weakness. I suspect the patient had seizure emanating from the right frontal lobe causing initially a partial seizure that had secondary generalization with resulting Shaheen's paralysis. There is a questionable adherence to medications and therefore, I will continue the patient on the same dose of levetiracetam 1500 mg twice daily. The Levetiracetam level that was ordered in the ED is going to be very useful. If it is lower than 20, then medication noncompliance is the likely cause for his seizures, superimposed to the growing tumor. However, if it is above 20, we would to have most likely start a second seizure medication for which at that time I would recommend Vimpat 100 mg twice daily. In regards to the vasogenic edema, I recommend Decadron and defer further management to the oncology team. No need for an EEG at this point, as the patient is awake and communicating. His overall prognosis unfortunately is poor. I will continue to follow to make sure the patient's seizures are under control. I discussed this case with Fabby Quezada as well as the oncology team. TIME SPENT: I spent a total of 60 critical care minutes with more than 50% was spent obtaining history, examining the patient, and discussing the treatment plan with the primary team as well as the patient. [id number]/[facility] #: [id number] [place]
[2019-01-22] MEDS: traZODone TAB* 50 MG TAB PO SCH (22:06)
[2019-01-22] MEDS: Methadone TAB* 10 MG PO SCH (22:06)
[2019-01-22] MEDS: Nicotine Patch Removal NOTE FOLLOW UP SCH (22:15)
[2019-01-23] MEDS: LORazepam INJ* 2 MG/ML 1 ML VIAL IV PUSH PRN (01:22)
[2019-01-23] MEDS: NS 0.9% 1000 ML** 1,000 ML IV SCH ×4 (02:03→23:51)
[2019-01-23] MEDS: Dexamethasone IV* 4 MG/ML 1 ML (4 MG) IV SLOW PU SCH ×4 (04:46→23:51)
[2019-01-23] MEDS: Heparin VIAL(*) 5000 UNITS/ML VIAL (FIVE THOUSAND) SUBCUT SCH ×3 (04:46→21:17)
[2019-01-23] MEDS: Methimazole TAB* 5 MG PO SCH ×2 (08:14→21:16)
[2019-01-23] MEDS: levETIRAcetam TAB* 500 MG PO SCH ×2 (08:16→21:15)
[2019-01-23] MEDS: Methadone TAB* 10 MG PO SCH ×2 (08:17→21:16)
[2019-01-23] MEDS: Nicotine PATCH 21 MG/24 HR* PATCH TRANSDERM SCH (08:19)
--- NOTE | 2019-01-23 09:56 | PN ---
Progress Note - Progress Note Date of Service: 01/23/19 SOAP: Subjective: []Feeling fine this AM. 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 States this all happened because he didn't take his medications. Spoke with father over the phone who asks if he can have surgery. "When we went up to [place] they said he looked great!" Father will be with this afternoon. Medications: Dexamethasone Sodium Phosphate (Decadron Iv*) 4 mg IV SLOW PU Q6H [facility] Last Admin: 01/23/19 04:46 Dose: 4 mg Heparin Sodium (Porcine) (Heparin Vial(*)) 5,000 units SUBCUT Q8HR [facility] Last Admin: 01/23/19 04:46 Dose: 5,000 units Hydromorphone HCl (Dilaudid Tab*) 4 mg PO Q6HR PRN PRN Reason: PAIN Last Admin: 01/22/19 12:09 Dose: 4 mg Sodium Chloride (Ns 0.9% 1000 Ml) 1,000 mls @ 125 mls/hr IV PER RATE [facility] Last Admin: 01/23/19 02:03 Dose: 125 mls/hr Levetiracetam (Keppra Tab*) 1,500 mg PO BID [facility] Last Admin: 01/23/19 08:16 Dose: 1,500 mg Lorazepam (Ativan Inj*) 2 mg IV PUSH Q4H PRN PRN Reason: seizure Last Admin: 01/23/19 01:22 Dose: 2 mg Methadone HCl (Dolophine Tab*) 10 mg PO BID [facility] Last Admin: 01/23/19 08:17 Dose: 10 mg Methimazole (Tapazole Tab*) 10 mg PO BID [facility] Last Admin: 01/23/19 08:14 Dose: 10 mg Nicotine (Nicotine Inhaler*) 10 mg INH Q2H PRN PRN Reason: CRAVING Last Admin: 01/22/19 22:09 Dose: 10 mg Nicotine (Nicotine Patch 21 Mg/24 Hr*) 1 patch TRANSDERM DAILY@0800 [facility] Last Admin: 01/23/19 08:19 Dose: 1 patch Ondansetron HCl (Zofran Inj*) 4 mg IV Q4H PRN PRN Reason: NAUSEA/VOMITING Last Admin: 01/23/19 01:16 Dose: 4 mg Pharmacy Profile Note (Nicotine Patch Removal Note*) 1 note FOLLOW UP 2100 [facility] Last Admin: 01/22/19 22:15 Dose: 1 note Trazodone HCl (Desyrel Tab*) 50 mg PO BEDTIME [facility] Last Admin: 01/22/19 22:06 Dose: 50 mg Objective: [] Vital Signs Temp Pulse Resp BP Pulse Ox 97.3 F 51 18 93/62 98 01/23/19 07:26 01/23/19 07:26 01/23/19 08:17 01/23/19 07:26 01/23/19 07:26 Alert and oriented to situation Communicating in soft voice and mumbles Frequently mixes up information and is not always clear in his responses indicating full comprehension of his situation HRR, sinus amlorie on tele, no ectopy noted LS clear JENNINGS Left weaker than right upper and lower extremities 3/5 left vers 4/5 right Laboratory Results - last 24 hr 01/22/19 05:00 Sodium 137 Potassium 4.2 Chloride 106 Carbon Dioxide 27 Anion Gap 4 BUN 17 Creatinine 1.13 Est GFR ( Amer) 86.1 Est GFR (Non-Af Amer) 71.2 BUN/Creatinine Ratio 15.0 Glucose 123 H Calcium 8.0 L Magnesium 1.8 L Total Bilirubin 0.50 AST 16 ALT 7 Alkaline Phosphatase 40 Total Protein 5.9 L Albumin 3.4 Globulin 2.5 Albumin/Globulin Ratio 1.4 Assessment: []43 yo male with a progressive astrocytoma despite multiple lines of therapy presenting with seizures. Plan: []1. Astrocytoma: surgery is not an option and he is not a candidate for further chemotherapy due to adherence and tolerance issues - recommend hospice, discussed with Mohan at length who remains confused why he can't receive chemo - discussed code status, though I am not sure of his ability to make a rational decision - course complicated by social issues, I would like to review his case with his father in attempts to set him up for safe d/c - may require family meeting - request social work consult this afternoon 2. Seizures: related to progressive disease with edema - appreciate neuro input, waiting on keppra level for further management - cont. keppra and dex Dispo: pending keppra level for management of seizures, family meeting to determine d/c
[2019-01-23 12:35] LABS: TSH (Thyroid Stimulating Horm) 53.01 mcIU/mL (0.34-5.60)
[2019-01-23] MEDS: traZODone TAB* 50 MG TAB PO SCH (21:16)
[2019-01-23] MEDS: Nicotine Patch Removal NOTE FOLLOW UP SCH (21:17)
[2019-01-24] MEDS: LORazepam INJ* 2 MG/ML 1 ML VIAL IV PUSH PRN (00:30)
[2019-01-24] MEDS: Dexamethasone IV* 4 MG/ML 1 ML (4 MG) IV SLOW PU SCH ×2 (05:08→10:27)
[2019-01-24] MEDS: Heparin VIAL(*) 5000 UNITS/ML VIAL (FIVE THOUSAND) SUBCUT SCH (05:10)
[2019-01-24] MEDS: levETIRAcetam TAB* 500 MG PO SCH (08:54)
[2019-01-24] MEDS: Methadone TAB* 10 MG PO SCH (08:54)
[2019-01-24] MEDS: Nicotine PATCH 21 MG/24 HR* PATCH TRANSDERM SCH (08:54)
[2019-01-24] MEDS: Methimazole TAB* 5 MG PO SCH (09:01)
[2019-01-24] MEDS ORDERED: Lacosamide TAB* 100 MG TAB PO SCH (10:00)
[2019-01-24] MEDS ORDERED: Levothyroxine TAB* 100 MCG TAB PO SCH (10:00)
[2019-01-24 11:59] VITALS: BP 101/60
--- NOTE | 2019-01-24 17:31 | PN ---
Subjective Date of Service: 01/24/19 Length of Stay: 2 Days Neurology is following for seizures. Interval History: He has not had any seizures since his hospitalization. He has fixed left hemiparesis. He informed me that this is chronic since the brain surgery. He does not have any new weakness. 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 Levetiracetam trough level is 46.2 Review of Systems: Denied CP, SOB, or palpitations. Objective Active Medications: HYDROmorphone TAB* [Dilaudid Tab*] 4 mg PO Q6HR PRN 11/20/17 [History Confirmed 01/22/19] Methadone TAB* [Dolophine TAB*] 10 mg PO BID 11/20/17 [History Confirmed ] levETIRAcetam TAB* [Keppra TAB*] 1,500 mg PO BID 03/20/18 [History Confirmed 01/07] LORazepam TAB(*) [Ativan 1 MG TAB (*)] 2 mg PO Q6H PRN tab MDD 8 mg 03/22/18 [ Rx Confirmed 01/22/19] traZODone TAB* [Desyrel TAB*] 50 mg PO BEDTIME 01/22/19 [History Confirmed 01/22] Dexamethasone TAB* [Decadron TAB*] 4 mg PO BID #60 tab 01/24/19 [Rx] Lacosamide TAB* [Vimpat TAB*] 100 mg PO BID #60 tab MDD 200 mg 01/24/19 [Rx] Levothyroxine TAB* [Synthroid 100 MCG TAB*] 100 mcg PO DAILY #30 tab 01/24/19 [ Rx] Vital Signs 01/24/19 01/24/19 01/24/19 08:54 10:27 11:28 Temperature 98.4 F Pulse Rate 78 Respiratory 18 16 18 Rate Blood Pressure 101/60 (mmHg) O2 Sat by Pulse 100 Oximetry Intake and Output Last 24 Hours 01/22/19 01/23/19 01/24/19 01/25/19 06:59 06:59 06:59 06:59 Intake Total 054 221 0788 1550 Output Total 340 325 200 500 Balance 75 620 188 9585 Weight 140 lb 14.006 oz Intake: IV Fluids 415 824 058 7635 NS (0.9%) 415 508 493 8582 Oral 0 605 240 360 Output: Urine 340 325 200 500 Other: # Bowel Movements 0 # Voids 3 Oxygen Devices in Use Now: None Neurology Exam: General: Well nourished, well developed, and in no acute distress HEENT: normocephelic/atraumatic, sclera anicteric Neck: Supple Extremities: No clubbing, cyanosis, or edema Neurological Findings: Awake, alert, and oriented to person, place, and time. Speech: fluent without dysarthria, repetition intact Cranial Nerve: PERRL, EOM intact, VFF Motor: 4/5 weakness on the left upper extremity. Otherwise, 5/5 in the right upper and lower extremities Sensation: intact to LT/PP bilaterally upper and lower extremities Deep Tendon Reflex: 2+ symmetric in the upper/lower extremities on the right and 3+ on the left. Babinski - down going Finger to nose, rapid alternating movements intact without tremor, no dysdiadochokinesia Gait: intact with good arm swing on the right Result Diagrams: 01/22/19 05:00 01/22/19 05:00 Microbiology and Other Data: Microbiology 01/22/19 01:35 Nasal Screen MRSA (PCR) - Final Nasal Mrsa Not Detected Assessment/Plan 1. Tumor-related epilepsy- He had a breakthrough seizure in spite a therapeutic dose of levetiracetam. Recommendation: Start Vimpat 100 mg PO twice daily. The side effects of Vimpat include but are not limited to: dizziness and lethargy. He can follow-up with me in 4-6 weeks.
--- NOTE | 2019-01-24 18:23 | DS ---
CC: Primary care provider; Dr. Jones * DISCHARGE SUMMARY: DATE OF ADMISSION: 01/22/19 DATE OF DISCHARGE: 01/24/19 PRIMARY ONCOLOGIST: Dr. Ole Jones. CONSULTING NEUROLOGIST: Dr. Sosa. CONSULTING PALLIATIVE PHYSICIAN: Dr. Daley. ATTENDING PHYSICIAN: Dr. Nieves Orellana.* (DICTATED BY MORGAN GARRETT) DISCHARGING PROVIDER: MORGAN Garrett. PRIMARY DISCHARGE DIAGNOSES: 1. Recurrent seizures. 2. Progressive astrocytoma. 3. Hypothyroidism. DISCHARGE MEDICATIONS: 1. Dilaudid 4 mg p.o. q.6 hours as needed for pain. 2. Keppra 1500 mg p.o. twice daily. 3. Methadone 10 mg p.o. twice daily. 4. Trazodone 50 mg p.o. at bedtime. 5. Dexamethasone 4 mg p.o. twice daily. 6. Vimpat 100 mg p.o. twice daily. 7. Levothyroxine 100 mcg p.o. daily. 8. Ativan 2 mg p.o. q.6 hours as needed for seizure. HOSPITAL IMAGIN. CT brain demonstrates right frontal craniotomy with underlying postoperative encephalomalacia and subtle interval increase in hyperdensity in the right frontal lobe as well as slight interval increase in mass effect on the right lateral ventricle concerning for progressive disease. 2. Chest x-ray shows elevated lung volume, suggestive of COPD, but no acute process. 3. CTA of the neck shows no vascular abnormality of the neck. HOSPITAL COURSE: This is a 43-year-old gentleman with known and long history with astrocytoma under the care of Dr. Jones, who has undergone multiple treatment modalities, who presented to the emergency department with a seizure and left-sided weakness. The patient had undergone MRI of the brain earlier in the day as an outpatient, which demonstrated clear progression of his known intracranial tumor with associated vasogenic edema. He was subsequently treated with IV dexamethasone and loading dose of IV Keppra in the emergency department. The patient underwent CT of the head, which did not demonstrate other acute changes apart from his known malignancy and CTA of the neck due to concerns of associated left-sided weakness which did not demonstrate any vascular abnormalities. The patient was subsequently admitted to the hospital. The patient was continued on dexamethasone and his usual home dose of Keppra. His serum Keppra levels that were drawn prior to his loading dose of IV Keppra demonstrated that he was at a therapeutic level at the time of his seizure. He was seen in consultation by Dr. Sosa, neurologist, who recommended adding Vimpat to his current regimen. Also of note the patient has a history of hyperthyroidism and has been on methimazole as a result of this. During this hospitalization, TSH was measured at 53. Methimazole was subsequently stopped and he was started on levothyroxine. The patient has had extensive conversation with Dr. Jones regarding subsequent treatment option for his astrocytoma. He was most recently treated with lomustine, the beginning of November and has been grossly noncompliant with laboratory monitoring and office visit. Outpatient MRI was completed as mentioned above, which showed clear progression after the recent treatment. Recommendation from Dr. Jones was to not pursue any additional medical therapy due to his failure of multiple lines. Palliative physician was consulted for coordination of hospice services and an extensive family meeting was held during this hospitalization. The patient's family acknowledges the need for hospice, but would like to pursue additional surgical consultation. He has been seen by Neurosurgery in [place] in the past and has had prior resections of his frontal tumor. DISPOSITION AND FOLLOWUP PLAN: The patient is being discharged to home with medications as outlined above. Recommendations have been to sign-on with home hospice. The patient would like to pursue surgical consultation, which will be arranged by nurse navigator through the Oncology office. Referral has also been initiated in parallel to hospice and the patient did meet with palliative physician during his hospitalization. Of note, there are multiple social confounders that complicate this case, mostly surrounding the custody of the patient's 9-year-old son and CPS is currently involved. In regards to subsequent followup, the patient will be seen by Neurosurgery at [place]. He could certainly be seen in followup by Dr. Jones as an outpatient but recommendations are for home hospice at this time. MORGAN GARRETT [id number]/[facility] #: [id number] [place]
== END 2019-01-24 14:34 | disposition home or self-care (01) | DRG 54 ==
LOC: ED 20:28 → ICU 01-22 00:50 → MEDTELE 01-22 09:51
PROVIDERS: ADMIT Pediatrics; ATTEND Internal Medicine Cardiovascular Disease
DX: C71.9 Malignant neoplasm of brain, unspecified (principal); G93.6 Cerebral edema; G40.802 Other epilepsy, not intractable, without status epilepticus; E87.2 Acidosis; R00.1 Bradycardia, unspecified; F17.210 Nicotine dependence, cigarettes, uncomplicated; E03.9 Hypothyroidism, unspecified; G93.89 Other specified disorders of brain; J44.9 Chronic obstructive pulmonary disease, unspecified; Z87.01 Personal history of pneumonia (recurrent); F90.9 Attention-deficit hyperactivity disorder, unspecified type; Z82.49 Family history of ischemic heart disease and other diseases of the circulatory system; Z92.21 Personal history of antineoplastic chemotherapy; Z92.3 Personal history of irradiation; Z91.19 Patient's noncompliance with other medical treatment and regimen
CPT/HCPCS: 36415; 70450; 70496; 70498; 71045; 80053; 80177; 80307; 80320; 83605; 83735; 84443; 85025; 85610; 85730; 87641; 93005; 99233; 99239; 99285; A9270-GY; G0480; J1100; J1170; J1644; J1953; J2060; J2405; Q9967

== ENCOUNTER 2019-03-10 11:50 | Inpatient (IN) | payer MEDICARE, MEDICAID ==
--- NOTE | 2019-03-10 12:01 | ED ---
Neurological HPI - HPI Summary HPI Summary: LEVEL 5 CAVEAT, THE PATIENT IS EITHER UNWILLING TO SPEAK OR TOO WEAK TO SPEAK. This patient is a 43 year old M brought in by ambulance to ED with hx of stage 3 brain CA and a chief complaint of syncope since [employer]. EMS reports that the patient went for a walk to the post office and then collapsed when he got back home. The fianc reports he fell outside the house and found some blood on his chin. The patient was too weak to stand and a bit dehydrated. The patient then was able to get inside the house but was too weak to get around the house. Upon arrival of EMS, the patient was able to talk slowly to them. The patient rates the pain 0/10 in severity. Symptoms aggravated by nothing. Symptoms alleviated by nothing. Patient reports an unsteady gait and dizziness. - History of Current Complaint Chief Complaint: EDSyncope Stated Complaint: FALL PER EMS Hx Obtained From: Family/[employer] [place] - fiance, will call later, HPI given to EMS, EMS Hx From Patient Unobtainable Due To: Other - LEVEL 5 CAVEAT, THE PATIENT IS EITHER UNWILLING TO SPEAK OR TOO WEAK TO SPEAK. Onset/Duration: Sudden Onset, Started minutes ago Current Severity: None Pain Intensity: 0 Pain Scale Used: 0-10 Numeric Character: Weak, Dizzy, Other: - unsteady gait Syncope Timing: [employer] Episode Lasting: Seconds/Minutes Syncope Context: Exertion - walking back from the post office, fell outside the house Frequency: Episodes x___ - 1 Aggravating: Nothing Alleviating: Nothing Associated Signs and Symptoms: Positive: Unsteady Gait, Weakness, Dizziness, Nothing - dehydration - Additional Pertinent History Primary Care Physician: ADELA - Allergy/Home Medications Allergies/Adverse Reactions: Allergies Allergy/AdvReac Type Severity Reaction Status Date / Time Gadolinium-Containing Allergy Hives Verified 09/27/18 15:45 Contrast Medi gadoteridol Allergy Hives Verified 09/27/18 15:45 phenytoin Allergy Unknown Verified 09/27/18 15:45 Reaction Details shellfish derived Allergy Swelling Verified 09/27/18 15:45 Home Medications: Home Medications Amygdalin B17 1 cap PO DAILY WITH MEAL 03/10/19 [History Confirmed 03/10/19] Bio Memory Max 2 cap PO DAILY 03/10/19 [History Confirmed 03/10/19] Multivitamins/Minerals TAB* [Theragran/minerals TAB*] 1 tab PO DAILY 03/10/19 [ History Confirmed 03/10/19] Ondansetron TAB* [Zofran 4 MG Tab*] 8 mg PO Q8HR PRN 03/10/19 [History Confirmed 03/10/19] Prochlorperazine TAB* [Compazine Tab*] 10 mg PO Q6H PRN 03/10/19 [History Confirmed 03/10/19] levETIRAcetam [Keppra-] 1,500 mg PO BID 03/10/19 [History Confirmed 03/10/19] PMH/Surg Hx/FS Hx/Imm Hx Endocrine/Hematology History: Denies: Hx Anticoagulant Therapy, Hx Diabetes, Hx Thyroid Disease Cardiovascular History: Denies: Hx Congestive Heart Failure, Hx Deep Vein Thrombosis, Hx Hypertension , Hx Myocardial Infarction, Hx Pacemaker/ICD Respiratory History: Reports: Hx Pneumonia - Current PNA, Other Respiratory Problems/Disorders Denies: Hx Asthma, Hx Chronic Obstructive Pulmonary Disease (COPD), Hx Lung Cancer, Hx Pulmonary Embolism GI History: Reports: Other GI Disorders - Hernia surgery in the 80s Denies: Hx Gall Bladder Disease, Hx Gastrointestinal Bleed, Hx Ulcer, Hx Urosepsis History: Denies: Hx Dialysis, Hx Kidney Stones, Hx Renal Disease Sensory History: Denies: Hx Contacts or Glasses, Hx Hearing Aid Opthamlomology History: Denies: Hx Contacts or Glasses Neurological History: Reports: Hx Seizures, Other Neuro Impairments/Disorders - Recurrent x3 astrocytoma Denies: Hx Dementia, Hx Migraine, Hx Transient Ischemic Attacks (TIA) Psychiatric History: Reports: Hx Attention Deficit Hyperactivity Disorder Denies: Hx Anxiety, Hx Depression, Hx Panic Disorder, Hx Schizophrenia, Hx Bipolar Disorder - Cancer History Cancer Type, Location and Year: Brain cancer (astrocytoma), recurrence x3 Hx Chemotherapy: Yes - Last in greater than few weeks Hx Radiation Therapy: Yes - Surgical History Surgery Procedure, Year, and Place: HERNIA - A CHILD. CRANIOTOMY 03/27, , 01/01. MOLE REMOVED FROM Rt UNDER ARM, Lt FOREARM & BACK - 03/26/16 Hx Anesthesia Reactions: No Infectious Disease History: No Infectious Disease History: Reports: Hx Clostridium Difficile - dx 04/10/18 Denies: Hx Hepatitis, Hx Human Immunodeficiency Virus (HIV), Hx of Known/ Suspected MRSA, Hx Shingles, Hx Tuberculosis, Hx Known/Suspected VRE, Hx Known/ Suspected VRSA, History Other Infectious Disease, Traveled Outside the [place] in Last 30 Days - Family History Known Family History: Positive: Cardiac Disease Negative: Hypertension - Social History Alcohol Use: None Substance Use Type: Reports: Prescribed Substance Use Comment - Amount & Last Used: states "medical marijuana" ... vapor form Hx Tobacco Use: Yes Smoking Status (MU): Heavy Every Day Tobacco Smoker Type: Cigarettes Amount Used/How Often: 1/2 ppd Length of Time of Smoking/Using Tobacco: 26 yrs Have You Smoked in the Last Year: Yes Review of Systems Positive: Other - dehydration Neurological: Other - dizziness, unsteady gait Positive: Weakness, Syncope All Other Systems Reviewed And Are Negative: No Physical Exam - Summary Physical Exam Summary: Appearance: Well-appearing, Well-nourished, lying in bed comfortably Skin: Warm, dry, no obvious rash Eyes: sclera anicteric, no conjunctival pallor ENT: mucous membranes moist, pharynx appears normal. Thrush on his tongue. Neck: Supple, nontender Respiratory: Clear to auscultation, no signs of respiratory distress Cardiovascular: Normal S1, S2. No murmurs. Normal distal pulses in tibial and radial bilaterally. Abdomen: Soft, nontender, normal active bowel sounds present Musculoskeletal: Normal, Strength/ROM Intact Neurological: A&Ox3, awake and alert, mentation is normal, speech is fluent and appropriate Psychiatric: affect is normal, does not appear anxious or depressed Triage Information Reviewed: Yes Vital Signs On Initial Exam: Initial Vitals Temp Pulse Resp BP Pulse Ox 98.7 F 93 12 108/73 95 03/10/19 11:50 03/10/19 11:50 03/10/19 11:50 03/10/19 11:50 03/10/19 11:50 Vital Signs Reviewed: Yes Completion Of Physical Exam Limited Due To: Level 5 Diagnostics - Vital Signs Vital Signs Temp Pulse Resp BP Pulse Ox 03/10/19 11:50 98.7 F 93 12 108/73 95 - Laboratory Result Diagrams: 03/10/19 12:01 03/10/19 12:01 Lab Statement: Any lab studies that have been ordered have been reviewed, and results considered in the medical decision making process. - EKG 1209 Cardiac Rate: NL - 88 BPM EKG Rhythm: Sinus Rhythm Summary of EKG Findings: NSR at 88 BPM, P waves, QRS complex, and T waves are within normal limits, T waves and intervals are normal, no ischemic changes. This is a normal EKG. Course/Dx - Course Assessment/Plan: LEVEL 5 CAVEAT, THE PATIENT IS EITHER UNWILLING TO SPEAK OR TOO WEAK TO SPEAK. This patient is a 43 year old M brought in by ambulance to ED with hx of stage 3 brain CA and a chief complaint of syncope since [employer]. EKG reveals NSR at 88 BPM, P waves, QRS complex, and T waves are within normal limits, T waves and intervals are normal, no ischemic changes. This is a normal EKG. Consulted Dr. Jones at 1224 about the patient's case and he says he'll find out about hospice and get back to us. Spoke with patient's father at 1336 about the patient's HPI. Spoke with Dr. Jones at 1357 who says he will admit this patient. The patient will be admitted with dx of syncope. - Differential Dx Differential Diagnoses Neuro: Positive: Other - syncope - Diagnoses Provider Diagnoses: Syncope - Physician Notifications Discussed Care Of Patient With: Ole Jones Time Discussed With Above Provider: 12:24 Instructed by Provider To: Other - Consulted Dr. Jones at 1224 about the patient' s case and he says he'll find out about hospice and get back to us. Spoke with patient's father at 1336 about the patient's HPI. Spoke with Dr. Jones at 1357 who says he will admit this patient. Discharge - Sign-Out/Discharge Documenting (check all that apply): Patient Departure - admit Patient Received Moderate/Deep Sedation with Procedure: No - Discharge Plan Condition: Stable Disposition: ADMITTED TO [facility] Referrals: Ole Jones MD [Primary Care Provider] - - Billing Disposition and Condition Condition: STABLE Disposition: Admitted to [facility] - Attestation Statements Document Initiated by Aziza: Yes Documenting Scribe: Lm Lemus Provider For Whom Aziza is Documenting (Include Credential): Matthew Grove MD Scribe Attestation: Lm Roman scribed for Matthew Grove MD on 03/10/19 at 1708. Scribe Documentation Reviewed: Yes Provider Attestation: The documentation as recorded by the Lm soriano accurately reflects the service I personally performed and the decisions made by me, Matthew Grove MD Status of Scribe Document: Viewed
[2019-03-10 12:12] LABS: Hematocrit 35 % (42-52); Mean Corpuscular HGB Conc 34 g/dL (31-36); Mean Corpuscular Hemoglobin 33 pg (27-31); Mean Corpuscular Volume 95 fL (80-94); Mean Platelet Volume 7.5 fL (7.4-10.4); Platelet Count 84 10^3/uL (150-450); Red Blood Count 3.69 10^6 /uL (4.18-5.48); Red Cell Distribution Width 16 % (10.5-15); White Blood Count 8.6 10^3/uL (3.5-10.8)
[2019-03-10 12:27] LABS: Albumin 3.4 g/dL (3.2-5.2); Albumin/Globulin Ratio 1.4 (1-3); BUN/Creatinine Ratio 35.1 (8-20); Calcium 9.2 mg/dL (8.6-10.3); EGFR African American 134.1 (>60); EGFR Non-African American 110.8 (>60); Globulin 2.4 g/dL (2-4); Potassium 3.8 mmol/L (3.5-5.0); Total Bilirubin 0.4 mg/dL (0.2-1.0); Total Protein 5.8 g/dL (6.4-8.9)
[2019-03-10] MEDS: NS 0.9% 1000 ML** 2,000 ML IV ONE (12:35)
[2019-03-10 12:50] LABS: ABS Lymphocytes 0.1 10^3/ul (1.0-4.8); ABS Monocytes 0.5 10^3/ul (0-0.8); Lymphocyte % 1.4 %
[2019-03-10 13:40] LABS: Urine Appearance Cloudy; Urine Bilirubin Negative (Negative); Urine Blood Negative (Negative); Urine Color Yellow; Urine Glucose Negative (Negative); Urine Ketones Negative (Negative); Urine Nitrite Negative (Negative); Urine Protein Negative (Negative); Urine Specific Gravity 1.024 (1.010-1.030); Urine Urobilinogen Negative (Negative)
[2019-03-10] MEDS ORDERED: Ondansetron INJ* 2 MG/ML VIAL IV PRN (16:10)
[2019-03-10] MEDS ORDERED: LORazepam TAB(*) 1 MG PO PRN (16:14)
[2019-03-10] MEDS ORDERED: Prochlorperazine TAB* 10 MG PO PRN (16:14)
[2019-03-10] MEDS ORDERED: Ondansetron TAB* 4 MG PO PRN (16:14)
[2019-03-10 17:26] LABS: TSH (Thyroid Stimulating Horm) 0.02 mcIU/mL (0.34-5.60)
--- NOTE | 2019-03-10 18:03 | HP ---
ADMISSION HISTORY AND PHYSICAL: DATE OF ADMISSION: 03/10/19 PRIMARY ONCOLOGIST AND ATTENDING PHYSICIAN: Dr. lOe Jones.* (DICTATED BY MORGAN GARRETT) ADMITTING PROVIDER: MORGAN Garrett CHIEF COMPLAINT: Syncope. HISTORY OF PRESENT ILLNESS: This is a 43-year-old gentleman with advanced GBM, unfortunately now refractory to treatment, who presented to the emergency department after a syncopal episode at home. The patient is unable to provide all of the details of the event, but per nursing notes, the patient collapsed after walking to the post office, which was approximately a mile in length. The patient does not believe that he had a seizure. Currently, denying any pain or headache. He reports that he does remember details prior to the syncopal event, but is unable to state any of the specifics. The patient seen in the Oncology Clinic on 03/07/19, for routine followup. He had been hospitalized last month after a seizure, which demonstrated progressive disease and the patient had gone for a surgical opinion with Dr. Sepulveda at [place], who did not feel that he had any surgical options to offer. Recommendation at the time of his visit on Sunday was to proceed with hospice services, which the patient was in agreement with. PAST MEDICAL HISTORY: 1. GBM. 2. Seizure secondary to GBM. 3. Hyperthyroidism, now hypothyroidism. PAST SURGICAL HISTORY: 1. Craniotomy. 2. Hernia repair. HOME MEDICATIONS: 1. Keppra 1500 mg p.o. twice daily. 2. Methadone 10 mg p.o. 3 times daily. 3. Multivitamin 1 tablet p.o. daily. 4. Zofran 8 mg p.o. q.8 hours as needed for nausea and vomiting. 5. Compazine 10 mg p.o. q.6 hours as needed for nausea and vomiting. 6. Trazodone 50 mg p.o. at bedtime. 7. Dexamethasone 4 mg p.o. twice daily. 8. Vimpat 100 mg p.o. twice daily. 9. Synthroid 100 mcg p.o. daily. 10. Lorazepam 2 mg p.o. q.6 hours as needed for seizure. FAMILY HISTORY: Noncontributory. SOCIAL HISTORY: The patient has history of smoking, unclear exactly on his pack year history. He has a 9-year-old son, who currently lives with him. He is not . PHYSICAL EXAMINATION GENERAL: This is a chronically ill-appearing 43-year-old male, lying comfortably with his eyes closed and occasionally will answer in one word phrases and in no acute distress. INITIAL VITALS: Temperature 98.7 degrees Fahrenheit, pulse 93 beats per minute , respiratory rate of 12, oxygen saturation 95% on room air, blood pressure 108/ 73 mmHg. HEENT: Prior craniotomy scar. The patient has extensive thrush. RESPIRATORY: Lungs are clear to auscultation without wheezes, crackles, or rhonchi. CARDIOVASCULAR: Heart has regular rate and rhythm without murmurs, rubs, or gallops. ABDOMEN: Soft and nontender to palpation. EXTREMITIES: Trace edema. SKIN: The patient has abrasions over his face and the left hand. NEUROLOGIC: Limited exam due to the patient's cooperation but appears to be nonfocal, perhaps some mild left-sided weakness. DIAGNOSTIC STUDIES/LAB DATA: CBC demonstrates a white blood cell count of 8.6 , hemoglobin of 12, platelets of 84,000. Comprehensive metabolic panel shows a sodium of 141 mmol/L, potassium 3.8, BUN of 27, creatinine of 0.77, glucose 134. Transaminases within normal limits. Imaging: None. ASSESSMENT AND PLAN: This is a 43-year-old male with advanced glioblastoma multiforme, now refractory to treatment, who presented after a syncopal episode at home. Recommend patient be admitted to the hospital for further evaluation. 1. Syncope. This is likely disease related. Unfortunately, this patient has no further treatment options and has been recommended to hospice. We will request the palliative consult. He has multiple social confounders, which makes administering hospice at home challenging. We will hope to consider residential option for delivery of hospice care. We will CT the patient's brain without contrast to evaluate for bleeding. This would be unlikely to change recommendations, but would certainly have large impact on prognosis. 2. Glioblastoma multiforme. Continue dexamethasone. No further treatment options. 3. Seizure disorder. Continue Keppra and Vimpat. 4. Thyroid disorder. Recheck TSH, levothyroxine started at approximately 6 weeks ago. 5. Code status. The patient acknowledges and agrees with hospice, but unable to have a full code discussion, no prior MOLST form on file. 6. Healthcare proxies. The patient's father is primary and mother is secondary. 7. DVT prophylaxis. Lovenox 40 mg subcu daily. 8. Thrush. Continue nystatin swish and spit. MORGAN GARRETT [id number]/[facility] #: [id number] [facility]ITAL[facility]
[2019-03-10] MEDS: Enoxaparin(*) 40 MG/0.4 ML SYR SUBCUT SCH (18:06)
[2019-03-10] MEDS: Nystatin SUSPENSION* 100000 UNITS/ML 5 ML UDC PO SCH ×2 (18:06→21:56)
[2019-03-10] MEDS: Lacosamide TAB* 100 MG TAB PO SCH (21:59)
[2019-03-10] MEDS: Dexamethasone TAB* 4 MG PO SCH (21:59)
[2019-03-10] MEDS: NS 0.9% 1000 ML** 1,000 ML IV SCH (21:59)
[2019-03-10] MEDS: levETIRAcetam TAB* 500 MG PO SCH (21:59)
[2019-03-10] MEDS: Methadone TAB* 10 MG PO SCH (22:00)
[2019-03-10] MEDS: traZODone TAB* 50 MG TAB PO SCH (22:00)
[2019-03-11] MEDS: Acetaminophen TAB* 325 MG PO PRN (04:11)
[2019-03-11] MEDS: Levothyroxine TAB* 100 MCG TAB PO SCH (05:59)
[2019-03-11 06:35] LABS: ABS Lymphocytes 0.4 10^3/ul (1.0-4.8); ABS Monocytes 0.4 10^3/ul (0-0.8); ABS Neutrophils 6.6 10^3/ul (1.5-7.7); Eosinophil % 0.1 %; Hematocrit 35 % (42-52); Hemoglobin 12.2 g/dL (14.0-18.0); Mean Corpuscular HGB Conc 35 g/dL (31-36); Mean Corpuscular Hemoglobin 33 pg (27-31); Mean Corpuscular Volume 96 fL (80-94); Mean Platelet Volume 7.8 fL (7.4-10.4); Platelet Count 83 10^3/uL (150-450); Red Blood Count 3.67 10^6 /uL (4.18-5.48); Red Cell Distribution Width 16 % (10.5-15); White Blood Count 7.4 10^3/uL (3.5-10.8)
[2019-03-11 06:37] LABS: Albumin 3.1 g/dL (3.2-5.2); Albumin/Globulin Ratio 1.2 (1-3); BUN/Creatinine Ratio 28.1 (8-20); Calcium 8.8 mg/dL (8.6-10.3); EGFR African American 113.4 (>60); EGFR Non-African American 93.7 (>60); Globulin 2.5 g/dL (2-4); Potassium 3.9 mmol/L (3.5-5.0); Total Bilirubin 0.4 mg/dL (0.2-1.0); Total Protein 5.6 g/dL (6.4-8.9)
[2019-03-11] MEDS: levETIRAcetam TAB* 500 MG PO SCH ×2 (08:20→19:58)
[2019-03-11] MEDS: Lacosamide TAB* 100 MG TAB PO SCH ×2 (08:21→19:59)
[2019-03-11] MEDS: Methadone TAB* 10 MG PO SCH ×3 (08:21→20:00)
[2019-03-11] MEDS: Dexamethasone TAB* 4 MG PO SCH ×2 (08:21→20:00)
[2019-03-11] MEDS: Nystatin SUSPENSION* 100000 UNITS/ML 5 ML UDC PO SCH ×4 (10:24→19:57)
[2019-03-11] MEDS: NS 0.9% 1000 ML** 1,000 ML IV SCH (11:43)
--- NOTE | 2019-03-11 12:15 | CONSULT ---
Palliative / Hospice Consult Ordering Provider: Florin Driscoll Referal Reason: Goals of care/hospice - Subjective Code Status: Full Code Advance Directives Location: No Advance Directives - History or Present Illness History or Present Illness: 43 yo male with GBM and seizure disorder secondary to GBM presented to ER with syncopal event. His son witnessed the event and called EMS. 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 Pt uses tobacco, narcotics in the past not much etoh was a estefany before cancer, his son's mother has . Ekg- nsr, CT brain showed residual tumor, encephalomacia, post surgical changes no change from 01/21/19, H/H , BUN/Cr 27/.77, egfr 110.8, tprot 5.8 and alb 3.4. All history is from pt and medical records. Pt is admitted for symptom control. Lab Values: Abnormal Lab Results 03/10/19 03/10/19 03/10/19 12:01 12:01 12:01 WBC 8.6 RBC 3.69 L Hgb 12.0 L Hct 35 L MCV 95 H MCH 33 H MCHC 34 RDW 16 H Plt Count 84 L MPV 7.5 Neut % (Auto) 93.0 Lymph % (Auto) 1.4 [place] % (Auto) 5.5 Eos % (Auto) 0.0 Baso % (Auto) 0.1 Absolute Neuts (auto) 8.0 H Absolute Lymphs (auto) 0.1 L Absolute Monos (auto) 0.5 Absolute Eos (auto) 0.0 Absolute Basos (auto) 0.0 Absolute Nucleated RBC 0.0 Nucleated RBC % 0.0 Sodium 141 Potassium 3.8 Chloride 105 Carbon Dioxide 31 Anion Gap 5 BUN 27 H Creatinine 0.77 Est GFR ( Amer) 134.1 Est GFR (Non-Af Amer) 110.8 BUN/Creatinine Ratio 35.1 H Glucose 134 H Lactic Acid 1.1 Calcium 9.2 Total Bilirubin 0.40 AST 18 ALT 41 Alkaline Phosphatase 53 Total Protein 5.8 L Albumin 3.4 Globulin 2.4 Albumin/Globulin Ratio 1.4 TSH 0.02 L Urine Color Urine Appearance Urine pH Ur Specific [place] Urine Protein Urine Ketones Urine Blood Urine Nitrate Urine Bilirubin Urine Urobilinogen Ur Leukocyte Esterase Urine Glucose 03/10/19 03/11/1919 13:27 06:03 06:03 WBC 7.4 RBC 3.67 L Hgb 12.2 L Hct 35 L MCV 96 H MCH 33 H MCHC 35 RDW 16 H Plt Count 83 L MPV 7.8 Neut % (Auto) 89.0 Lymph % (Auto) 5.0 [place] % (Auto) 5.6 Eos % (Auto) 0.1 Baso % (Auto) 0.3 Absolute Neuts (auto) 6.6 Absolute Lymphs (auto) 0.4 L Absolute Monos (auto) 0.4 Absolute Eos (auto) 0.0 Absolute Basos (auto) 0.0 Absolute Nucleated RBC 0.0 Nucleated RBC % 0.0 Sodium 140 Potassium 3.9 Chloride 105 Carbon Dioxide 28 Anion Gap 7 BUN 25 H Creatinine 0.89 Est GFR ( Amer) 113.4 Est GFR (Non-Af Amer) 93.7 BUN/Creatinine Ratio 28.1 H Glucose 153 H Lactic Acid Calcium 8.8 Total Bilirubin 0.40 AST 17 ALT 39 Alkaline Phosphatase 53 Total Protein 5.6 L Albumin 3.1 L Globulin 2.5 Albumin/Globulin Ratio 1.2 TSH Urine Color Yellow Urine Appearance Cloudy Urine pH 6.0 Ur Specific [place] 1.024 Urine Protein Negative Urine Ketones Negative Urine Blood Negative Urine Nitrate Negative Urine Bilirubin Negative Urine Urobilinogen Negative Ur Leukocyte Esterase Negative Urine Glucose Negative Laboratory Last Values WBC 7.4 10^3/uL (3.5-10.8) 03/11/19 06:03 RBC 3.67 10^6 /uL (4.18-5.48) L 03/11/19 06:03 Hgb 12.2 g/dL (14.0-18.0) L 03/11/19 06:03 Hct 35 % (42-52) L 03/11/19 06:03 MCV 96 fL (80-94) H 03/11/19 06:03 MCH 33 pg (27-31) H 03/11/19 06:03 MCHC 35 g/dL (31-36) 03/11/19 06:03 RDW 16 % (10.5-15) H 03/11/19 06:03 Plt Count 83 10^3/uL (150-450) L 03/11/19 06:03 MPV 7.8 fL (7.4-10.4) 03/11/19 06:03 Neut % (Auto) 89.0 % 03/11/19 06:03 Lymph % (Auto) 5.0 % 03/11/19 06:03 [place] % (Auto) 5.6 % 03/11/19 06:03 Eos % (Auto) 0.1 % 03/11/19 06:03 Baso % (Auto) 0.3 % 03/11/19 06:03 Absolute Neuts (auto) 6.6 10^3/ul (1.5-7.7) 03/11/19 06:03 Absolute Lymphs (auto) 0.4 10^3/ul (1.0-4.8) L 03/11/19 06:03 Absolute Monos (auto) 0.4 10^3/ul (0-0.8) 03/11/19 06:03 Absolute Eos (auto) 0.0 10^3/ul (0-0.6) 03/11/19 06:03 Absolute Basos (auto) 0.0 10^3/ul (0-0.2) 03/11/19 06:03 Absolute Nucleated RBC 0.0 10^3/ul 03/11/19 06:03 Nucleated RBC % 0.0 03/11/19 06:03 Sodium 140 mmol/L (135-145) 03/11/19 06:03 Potassium 3.9 mmol/L (3.5-5.0) 03/11/19 06:03 Chloride 105 mmol/L (101-111) 03/11/19 06:03 Carbon Dioxide 28 mmol/L (22-32) 03/11/19 06:03 Anion Gap 7 mmol/L (2-11) 03/11/19 06:03 BUN 25 mg/dL (6-24) H 03/11/19 06:03 Creatinine 0.89 mg/dL (0.67-1.17) 03/11/19 06:03 Est GFR ( Amer) 113.4 (>60) 03/11/19 06:03 Est GFR (Non-Af Amer) 93.7 (>60) 03/11/19 06:03 BUN/Creatinine Ratio 28.1 (8-20) H 03/11/19 06:03 Glucose 153 mg/dL (70-100) H 03/11/19 06:03 Lactic Acid 1.1 mmol/L (0.5-2.0) 03/10/19 12:01 Calcium 8.8 mg/dL (8.6-10.3) 03/11/19 06:03 Total Bilirubin 0.40 mg/dL (0.2-1.0) 03/11/19 06:03 AST 17 U/L (13-39) 03/11/19 06:03 ALT 39 U/L (7-52) 03/11/19 06:03 Alkaline Phosphatase 53 U/L (34-104) 03/11/19 06:03 Total Protein 5.6 g/dL (6.4-8.9) L 03/11/19 06:03 Albumin 3.1 g/dL (3.2-5.2) L 03/11/19 06:03 Globulin 2.5 g/dL (2-4) 03/11/19 06:03 Albumin/Globulin Ratio 1.2 (1-3) 03/11/19 06:03 TSH 0.02 mcIU/mL (0.34-5.60) L 03/10/19 12:01 Urine Color Yellow 03/10/19 13:27 Urine Appearance Cloudy 03/10/19 13:27 Urine pH 6.0 (5-9) 03/10/19 13:27 Ur Specific [place] 1.024 (1.010-1.030) 03/10/19 13:27 Urine Protein Negative (Negative) 03/10/19 13:27 Urine Ketones Negative (Negative) 03/10/19 13:27 Urine Blood Negative (Negative) 03/10/19 13:27 Urine Nitrate Negative (Negative) 03/10/19 13:27 Urine Bilirubin Negative (Negative) 03/10/19 13:27 Urine Urobilinogen Negative (Negative) 03/10/19 13:27 Ur Leukocyte Esterase Negative (Negative) 03/10/19 13:27 Urine Glucose Negative (Negative) 03/10/19 13:27 - Objective Active Medications: Acetaminophen (Tylenol Tab*) 650 mg PO Q4H PRN PRN Reason: FEVER/PAIN Last Admin: 03/11/19 04:11 Dose: 650 mg Dexamethasone (Decadron Tab*) 4 mg PO BID [facility] Last Admin: 03/11/19 08:21 Dose: 4 mg Enoxaparin Sodium (Lovenox(*)) 40 mg SUBCUT Q24H [facility] Last Admin: 03/10/19 18:06 Dose: 40 mg Sodium Chloride (Ns 0.9% 1000 Ml) 1,000 mls @ 75 mls/hr IV PER RATE [facility] Last Admin: 03/11/19 11:43 Dose: 75 mls/hr Lacosamide (Vimpat Tab*) 100 mg PO BID [facility] Last Admin: 03/11/19 08:21 Dose: 100 mg Levetiracetam (Keppra Tab*) 1,500 mg PO BID [facility] Last Admin: 03/11/19 08:20 Dose: 1,500 mg Levothyroxine Sodium (Synthroid Tab*) 100 mcg PO DAILY@0600 [facility] Last Admin: 03/11/19 05:59 Dose: 100 mcg Lorazepam (Ativan Tab(*)) 2 mg PO Q6H PRN PRN Reason: IMPENDING SEIZURE Methadone HCl (Dolophine Tab*) 10 mg PO TID [facility] Last Admin: 03/11/19 08:21 Dose: 10 mg Nystatin (Nystatin Suspension*) 500,000 units PO QID [facility] Stop: 03/17/19 16:21 Last Admin: 03/11/19 10:24 Dose: 500,000 units Ondansetron HCl (Zofran Inj*) 4 mg IV Q4H PRN PRN Reason: NAUSEA/VOMITING Ondansetron HCl (Zofran Tab*) 8 mg PO Q8HR PRN PRN Reason: NAUSEA/VOMITING Last Admin: 03/11/19 04:19 Dose: 8 mg Prochlorperazine (Compazine Tab*) 10 mg PO Q6H PRN PRN Reason: NAUSEA/VOMITING Trazodone HCl (Desyrel Tab*) 50 mg PO BEDTIME [facility] Last Admin: 03/10/19 22:00 Dose: Not Given Vital Signs: Vital Signs: Temp Pulse Resp BP Pulse Ox 97.7 F 94 16 121/71 99 03/11/19 09:25 03/11/19 09:25 03/11/19 10:39 03/11/19 09:25 03/11/19 09:25 Patient Weight: Weight 58.559 kg Intake and Output: Intake & Output 05/1903/10/19 03/11/19 03/12/19 06:59 06:59 06:59 06:59 Intake Total 2520 240 Output Total 500 100 Balance 2019 140 Weight 58.559 kg Intake: IV Fluids 2000 Oral 520 240 Output: Urine 500 100 Other: Estimated Void Small # Bowel Movements 0 # Voids 1 1 ADLs: Meal Record Start: 03/10/19 18: 01 Freq: DAILY@0900,1400,1800 Status: Active Protocol: Created 03/10/19 18:01 System (Rec: 03/10/19 18:01 System [id number]) Document 03/11/19 09:00 [id number] (Rec: 03/11/19 09:48 [id number] [id number]) Intake and Output Start: 03/10/19 11: 52 Freq: Status: Active Protocol: Created 03/10/19 11:52 System (Rec: 03/10/19 11:52 System [id number]) Intake and Output Start: 03/10/19 18: 01 Freq: DAILY@0600,1400,2200 Status: Active Protocol: Created 03/10/19 18:01 System (Rec: 03/10/19 18:01 System [id number]) Document 03/10/19 22:00 [id number] (Rec: 03/10/19 22:08 [id number] MED-C11) Document 03/11/19 04:50 [id number] (Rec: 03/11/19 04:51 [id number]) Neck: NL Appearance and Movements; NL JVP Cardiovascular: NL Sounds; No Murmurs; No JVD Respiratory: Symmetrical Chest Expansion and Respiratory Effort, Clear to Auscultation Abdominal: NL Sounds; No Tenderness; No Distention Neurological: Alert and Oriented x 3 - Assessment Assessment: 43 yo with GBM and seizure disorder presented to ER after syncopal event eligible for hospice - Plan Consult Plan (MU): Palliative Plan: Spoke with pt about prognosis and future plans. He said he has a prognosis of 6- 12 months and that he is going back to [place] for a second opinion. Notes from oncology said he had no further surgical options from [place] and has a prognosis of 3-6 months. Pt is living with his son and dominik Stein. According to pt a teacher from his son's school is going to be the guardian of his son when pt dies. Right now he says he has good symptom control although he does note difficulty with left hand shaking. He is thinking about hospice and brochure was given about benefits/services and maybe open to home hospice. He states he would like hospice residence at the end when he is feeling worse/ dying. Will be having a family meeting with oncology and pt's parents who are his HCP. KPS 60% PPS 50% - Time On Unit Date of Evaluation: 03/11/19 Hospice Consult Time in: 11:30 Hospice Consult Time Out: 13:00 Hospice Consult Time Total: 90 > 50% of Time Spend In Counseling or Coordinating Care: Yes
--- NOTE | 2019-03-11 13:17 | PN ---
Progress Note - Progress Note Date of Service: 03/11/19 SOAP: Subjective: []Admitted with syncope. Can't stop shaking. Wants more anxiety medications. Father (proxy) and mother at bedside. Was open to hospice with palliative consult, however when brought up during my visit father again mentions prior doctors telling him his cancer was "just a speck" and doesn't understand why he can't have surgery. Mohan tells me guardianship of his son will go to "a cello teacher." Tells me he has to discuss his code status with his family. Medications: Acetaminophen (Tylenol Tab*) 650 mg PO Q4H PRN PRN Reason: FEVER/PAIN Last Admin: 03/11/19 04:11 Dose: 650 mg Dexamethasone (Decadron Tab*) 4 mg PO BID [facility] Last Admin: 03/11/19 08:21 Dose: 4 mg Enoxaparin Sodium (Lovenox(*)) 40 mg SUBCUT Q24H [facility] Last Admin: 03/10/19 18:06 Dose: 40 mg Sodium Chloride (Ns 0.9% 1000 Ml) 1,000 mls @ 75 mls/hr IV PER RATE [facility] Last Admin: 03/11/19 11:43 Dose: 75 mls/hr Lacosamide (Vimpat Tab*) 100 mg PO BID [facility] Last Admin: 03/11/19 08:21 Dose: 100 mg Levetiracetam (Keppra Tab*) 1,500 mg PO BID [facility] Last Admin: 03/11/19 08:20 Dose: 1,500 mg Levothyroxine Sodium (Synthroid Tab*) 100 mcg PO DAILY@0600 [facility] Last Admin: 03/11/19 05:59 Dose: 100 mcg Lorazepam (Ativan Tab(*)) 2 mg PO Q6H PRN PRN Reason: IMPENDING SEIZURE Methadone HCl (Dolophine Tab*) 10 mg PO TID [facility] Last Admin: 03/11/19 08:21 Dose: 10 mg Nystatin (Nystatin Suspension*) 500,000 units PO QID [facility] Stop: 03/17/19 16:21 Last Admin: 03/11/19 10:24 Dose: 500,000 units Ondansetron HCl (Zofran Inj*) 4 mg IV Q4H PRN PRN Reason: NAUSEA/VOMITING Ondansetron HCl (Zofran Tab*) 8 mg PO Q8HR PRN PRN Reason: NAUSEA/VOMITING Last Admin: 03/11/19 04:19 Dose: 8 mg Prochlorperazine (Compazine Tab*) 10 mg PO Q6H PRN PRN Reason: NAUSEA/VOMITING Trazodone HCl (Desyrel Tab*) 50 mg PO BEDTIME [facility] Last Admin: 03/10/19 22:00 Dose: Not Given Objective: [] Vital Signs Temp Pulse Resp BP Pulse Ox 97.7 F 94 16 121/71 99 03/11/19 09:25 03/11/19 09:25 03/11/19 10:39 03/11/19 09:25 03/11/19 09:25 A&O most of the time, inconsistent though pattern HRR LS clear Frail Tremulous Laboratory Results - last 24 hr 03/10/19 03/10/19 03/11/19 12:01 13:27 06:03 WBC 7.4 RBC 3.67 L Hgb 12.2 L Hct 35 L MCV 96 H MCH 33 H MCHC 35 RDW 16 H Plt Count 83 L MPV 7.8 Neut % (Auto) 89.0 Lymph % (Auto) 5.0 [place] % (Auto) 5.6 Eos % (Auto) 0.1 Baso % (Auto) 0.3 Absolute Neuts (auto) 6.6 Absolute Lymphs (auto) 0.4 L Absolute Monos (auto) 0.4 Absolute Eos (auto) 0.0 Absolute Basos (auto) 0.0 Absolute Nucleated RBC 0.0 Nucleated RBC % 0.0 Sodium 141 Potassium 3.8 Chloride 105 Carbon Dioxide 31 Anion Gap 5 BUN 27 H Creatinine 0.77 Est GFR ( Amer) 134.1 Est GFR (Non-Af Amer) 110.8 BUN/Creatinine Ratio 35.1 H Glucose 134 H Calcium 9.2 Total Bilirubin 0.40 AST 18 ALT 41 Alkaline Phosphatase 53 Total Protein 5.8 L Albumin 3.4 Globulin 2.4 Albumin/Globulin Ratio 1.4 TSH 0.02 L Urine Color Yellow Urine Appearance Cloudy Urine pH 6.0 Ur Specific [place] 1.024 Urine Protein Negative Urine Ketones Negative Urine Blood Negative Urine Nitrate Negative Urine Bilirubin Negative Urine Urobilinogen Negative Ur Leukocyte Esterase Negative Urine Glucose Negative 03/11/19 06:03 WBC RBC Hgb Hct MCV MCH MCHC RDW Plt Count MPV Neut % (Auto) Lymph % (Auto) [place] % (Auto) Eos % (Auto) Baso % (Auto) Absolute Neuts (auto) Absolute Lymphs (auto) Absolute Monos (auto) Absolute Eos (auto) Absolute Basos (auto) Absolute Nucleated RBC Nucleated RBC % Sodium 140 Potassium 3.9 Chloride 105 Carbon Dioxide 28 Anion Gap 7 BUN 25 H Creatinine 0.89 Est GFR ( Amer) 113.4 Est GFR (Non-Af Amer) 93.7 BUN/Creatinine Ratio 28.1 H Glucose 153 H Calcium 8.8 Total Bilirubin 0.40 AST 17 ALT 39 Alkaline Phosphatase 53 Total Protein 5.6 L Albumin 3.1 L Globulin 2.5 Albumin/Globulin Ratio 1.2 TSH Urine Color Urine Appearance Urine pH Ur Specific [place] Urine Protein Urine Ketones Urine Blood Urine Nitrate Urine Bilirubin Urine Urobilinogen Ur Leukocyte Esterase Urine Glucose Assessment: []43 yo male with advanced glioblastoma who has progressed off therapy (held due to a combination of poor tolerance, and non-compliance). We have made multiple recommendations for hospice (in January when admitted with seizures and progressive disease on imaging as well as following recent visit to [place] confirming no further surgical interventions), however both Mohan and his parents appear to be unwilling to hear this recommendation and hold unrealistic expectations about treating him moving forward. They unfortunately feel we have "given up on him" despite my attempt to review the extent of his prior treatments, lack of options moving forward, and reality of his progressive decline. I have asked social work to be involved with attempt at transition to hospice on d/c. Plan: []Repeat labs in AM, if cont.'d improvement in BUN/Cr ratio and no S/S seizures or syncope will likely be stable for d/c home. Recommend consideration of DNR and he wants to talk it over with his family. Recommend hospice, OK to start at home, but will likely need placement as he declines. CPS involved with son's plan moving forward.
[2019-03-11] MEDS ORDERED: Nicotine Lozenge* 4 MG LOZENGE MT PRN (16:10)
[2019-03-11] MEDS: LORazepam TAB(*) 0.5 MG PO PRN (16:20)
[2019-03-11] MEDS: Enoxaparin(*) 40 MG/0.4 ML SYR SUBCUT SCH (16:21)
[2019-03-11] MEDS ORDERED: Calcium Carbonate CHEW TAB* 500 MG (TUMS) PO PRN (19:47)
[2019-03-11] MEDS: traZODone TAB* 50 MG TAB PO SCH (19:59)
[2019-03-12] MEDS: LORazepam TAB(*) 0.5 MG PO PRN ×2 (00:35→09:09)
[2019-03-12] MEDS: Acetaminophen TAB* 325 MG PO PRN ×2 (00:35→09:09)
[2019-03-12] MEDS: NS 0.9% 1000 ML** 1,000 ML IV SCH (00:43)
[2019-03-12] MEDS: Levothyroxine TAB* 100 MCG TAB PO SCH (05:47)
[2019-03-12 06:42] LABS: ABS Lymphocytes 0.4 10^3/ul (1.0-4.8); ABS Monocytes 0.6 10^3/ul (0-0.8); ABS Neutrophils 5.2 10^3/ul (1.5-7.7); Eosinophil % 0.1 %; Hematocrit 34 % (42-52); Hemoglobin 11.7 g/dL (14.0-18.0); Lymphocyte % 6.3 %; Mean Corpuscular HGB Conc 35 g/dL (31-36); Mean Corpuscular Hemoglobin 33 pg (27-31); Mean Corpuscular Volume 96 fL (80-94); Mean Platelet Volume 7.8 fL (7.4-10.4); Nucleated Red Blood Cells % 0.1; Platelet Count 75 10^3/uL (150-450); Red Blood Count 3.51 10^6 /uL (4.18-5.48); Red Cell Distribution Width 16 % (10.5-15); White Blood Count 6.2 10^3/uL (3.5-10.8)
[2019-03-12 06:50] LABS: Albumin/Globulin Ratio 1.4 (1-3); BUN/Creatinine Ratio 32.9 (8-20); Calcium 8.5 mg/dL (8.6-10.3); EGFR African American 136.1 (>60); EGFR Non-African American 112.5 (>60); Globulin 2.2 g/dL (2-4); Potassium 3.9 mmol/L (3.5-5.0); Total Bilirubin 0.3 mg/dL (0.2-1.0); Total Protein 5.2 g/dL (6.4-8.9)
[2019-03-12 07:32] VITALS: BP 118/63
[2019-03-12] MEDS: Methadone TAB* 10 MG PO SCH ×2 (09:08→14:20)
[2019-03-12] MEDS: Dexamethasone TAB* 4 MG PO SCH (09:08)
[2019-03-12] MEDS: Lacosamide TAB* 100 MG TAB PO SCH (09:09)
[2019-03-12] MEDS: levETIRAcetam TAB* 500 MG PO SCH (09:09)
[2019-03-12] MEDS: Nystatin SUSPENSION* 100000 UNITS/ML 5 ML UDC PO SCH ×2 (09:11→14:20)
--- NOTE | 2019-03-12 18:28 | DS ---
- Discharge Summary Admission Date: 03/10/19 Discharge Date: 03/12/19 Discharge Diagnosis: 1. Syncope: secondary to dehydration, improved with IV fluids 2. End stage GBM: transition to hospice 3. Seizures: no activity while inpt., cont. outpatient management 4. Pain: controlled with outpatient regimen Discharge Medications: Medication Instructions Recorded Confirmed Type Methadone TAB* [Dolophine TAB*] 10 mg PO TID 11/20/17 03/10/19 History LORazepam TAB(*) [Ativan 1 MG TAB 2 mg PO Q6H PRN tab MDD 8 mg 03/22/18 Rx (*)] traZODone TAB* [Desyrel TAB*] 50 mg PO BEDTIME 01/22/19 03/10/19 History Dexamethasone TAB* [Decadron TAB*] 4 mg PO BID #60 tab 01/24/19 03/10/19 Rx Lacosamide TAB* [Vimpat TAB*] 100 mg PO BID #60 tab MDD 200 mg 01/24/19 Rx Levothyroxine TAB* [Synthroid 100 100 mcg PO DAILY #30 tab 01/24/19 03/10/19 Rx MCG TAB*] Multivitamins/Minerals TAB* 1 tab PO DAILY 03/10/19 03/10/19 History [Theragran/minerals TAB*] Ondansetron TAB* [Zofran 4 MG Tab*] 8 mg PO Q8HR PRN 03/10/19 03/10/19 History Prochlorperazine TAB* [Compazine 10 mg PO Q6H PRN 03/10/19 03/10/19 History Tab*] levETIRAcetam [Keppra-] 1,500 mg PO BID 03/10/19 03/10/19 History Acetaminophen TAB* [Tylenol TAB*] 650 mg PO Q4H PRN tab 03/12/19 Rx Calcium Carbonate CHEW TAB* [Tums*] 500 mg PO Q4H PRN tab.chew 03/12/19 Rx Nystatin SUSPENSION* 500,000 units PO QID #40 udc 03/12/19 Rx Disposition: home, sign on with hospice scheduled tomorrow Condition: stable Diet: as tolerated Activity: fall precautions Hospital Course: Please see admission note for full H&P, however briefly, Mr. Luna is well known to our service due to his unfortunate diagnosis of GBM dating back to 2005. He has had a progressive decline over the last year with imaging confirming progression in January 2019 at which time he was not tolerating therapy or adhering to monitoring requirements and hospice was recommended. He deferred this in preference for a surgical evaluation at [facility] where it was confirmed he was not a surgical candidate. He has since missed multiple appointments and was finally seen on 03/07 where again, hospice was recommended. He presented to the ER on 03/10 following a syncopal episode after walking an extended distance. A CT of the head confirmed presence of disease without evidence for a bleed. Labs revealed mild dehydration and he was admitted for IV fluids. There was no evidence of seizure activity. On 03/11 he consulted with palliative care. He and his family have been hesitant to pursue hospice with unrealistic expectation of options for treatment of his brain tumor; however today he is agreeable to hospice in the home setting and wishes very much to return home. He is stable for discharge and will have hospice sign on tomorrow in the home. To note Mr. Luna is also followed by social work related to CPS involvement in the future guardianship of his youngest son. VNS has been ordered for additional services in the home. He will resume his home pain medications and anti-seizure regimen.
--- NOTE | 2019-03-14 11:57 | HP ---
HISTORY AND PHYSICAL: ADDENDUM: REVIEW OF SYSTEMS: Pertinent positives and negatives as mentioned in HPI, otherwise the patient is u nable to provide a full review of systems due to sedation at the time of evaluation. MORGAN GARRETT [id number]/[facility] #: [id number]
== END 2019-03-12 14:30 | disposition hospice, home (50) | DRG 641 ==
LOC: ED 11:50 → MED 16:10
PROVIDERS: ADMIT Internal Medicine Hematology & Oncology; ATTEND Internal Medicine Hematology & Oncology
DX: E86.0 Dehydration (principal); C71.9 Malignant neoplasm of brain, unspecified; F90.9 Attention-deficit hyperactivity disorder, unspecified type; F17.210 Nicotine dependence, cigarettes, uncomplicated; E03.9 Hypothyroidism, unspecified; G40.909 Epilepsy, unspecified, not intractable, without status epilepticus; R52 Pain, unspecified; F41.9 Anxiety disorder, unspecified; Z88.8 Allergy status to other drugs, medicaments and biological substances; Z91.041 Radiographic dye allergy status; Z91.013 Allergy to seafood; Z86.19 Personal history of other infectious and parasitic diseases; Z82.49 Family history of ischemic heart disease and other diseases of the circulatory system; Z91.14 Patient's other noncompliance with medication regimen
CPT/HCPCS: 36415; 70450; 80053; 81003; 83605; 84443; 85025; 93005; 99222; 99233; 99239; 99284; A9270-GY; J1650; J8540

== ENCOUNTER 2019-04-14 18:08 | Emergency (ER) | payer OTHER ==
[2019-04-14 20:38] VITALS: BP 123/84
== END 2019-04-14 21:48 | disposition left against medical advice (07) ==
LOC: ED 18:08
DX: Z00.00 Encounter for general adult medical examination without abnormal findings (principal); Z53.21 Procedure and treatment not carried out due to patient leaving prior to being seen by health care provider

== ENCOUNTER 2019-04-19 22:02 | Inpatient (IN) | payer MEDICARE, MEDICAID ==
--- NOTE | 2019-04-20 04:35 | ED ---
Lower Extremity - HPI Summary HPI Summary: A 43 y/o male presents to [facility] with a chief complaint of lower extremity swelling. The patient is supposed to be on hospice care, but per [id number] the patient fired his hospice care team a couple weeks ago. The patient reports that he has more pain in his left leg than his right leg. At triage he rated his pain as a 9/10 in severity. The patient says that he is taking Ibuprofen and Tylenol, even if he is supposed to be taking other medications. He is able to walk. - History of Current Complaint Chief Complaint: EDExtremityLower Stated Complaint: INFECTION ON LEG PER PT Time Seen by Provider: 04/20/19 04:12 Hx Obtained From: Patient, Family/Field Human Resources Manager Mechanism Of Injury: Unknown Onset of Pain: Prior to Arrival Onset/Duration: Still Present Severity Initially: Severe Severity Currently: Severe Pain Intensity: 9 Pain Scale Used: 0-10 Numeric Timing: Constant, Lasting Hours Location: Is Diffuse - lower extrmities Character Of Pain: Unable To Describe Associated Signs And Symptoms: Negative: Fever Aggravating Factor(s): Nothing Alleviating Factor(s): Nothing Able to Bear Weight: Yes - Allergies/Home Medications Allergies/Adverse Reactions: Allergies Allergy/AdvReac Type Severity Reaction Status Date / Time Gadolinium-Containing Allergy Hives Verified 04/19/19 22:06 Contrast Medi gadoteridol Allergy Hives Verified 04/19/19 22:06 phenytoin Allergy Unknown Verified 04/19/19 22:06 Reaction Details shellfish derived Allergy Swelling Verified 04/19/19 22:06 PMH/Surg Hx/FS Hx/Imm Hx Endocrine/Hematology History: Denies: Hx Anticoagulant Therapy, Hx Diabetes, Hx Thyroid Disease Cardiovascular History: Denies: Hx Congestive Heart Failure, Hx Deep Vein Thrombosis, Hx Hypertension , Hx Myocardial Infarction, Hx Pacemaker/ICD Respiratory History: Reports: Hx Pneumonia - Current PNA, Other Respiratory Problems/Disorders Denies: Hx Asthma, Hx Chronic Obstructive Pulmonary Disease (COPD), Hx Lung Cancer, Hx Pulmonary Embolism GI History: Reports: Other GI Disorders - Hernia surgery in the 80s Denies: Hx Gall Bladder Disease, Hx Gastrointestinal Bleed, Hx Ulcer, Hx Urosepsis History: Denies: Hx Dialysis, Hx Kidney Stones, Hx Renal Disease Sensory History: Denies: Hx Contacts or Glasses, Hx Hearing Aid Opthamlomology History: Denies: Hx Contacts or Glasses Neurological History: Reports: Hx Seizures, Other Neuro Impairments/Disorders - Recurrent x3 astrocytoma Denies: Hx Dementia, Hx Migraine, Hx Transient Ischemic Attacks (TIA) Psychiatric History: Reports: Hx Attention Deficit Hyperactivity Disorder Denies: Hx Anxiety, Hx Depression, Hx Panic Disorder, Hx Schizophrenia, Hx Bipolar Disorder - Cancer History Cancer Type, Location and Year: Brain cancer (astrocytoma), recurrence x3 Hx Chemotherapy: Yes - Last in greater than few weeks Hx Radiation Therapy: Yes - Surgical History Surgery Procedure, Year, and Place: HERNIA - A CHILD. CRANIOTOMY 03/27, , 01/01. MOLE REMOVED FROM Rt UNDER ARM, Lt FOREARM & BACK - 03/26/16 Hx Anesthesia Reactions: No Infectious Disease History: No Infectious Disease History: Reports: Hx Clostridium Difficile - dx 04/10/18 Denies: Hx Hepatitis, Hx Human Immunodeficiency Virus (HIV), Hx of Known/ Suspected MRSA, Hx Shingles, Hx Tuberculosis, Hx Known/Suspected VRE, Hx Known/ Suspected VRSA, History Other Infectious Disease, Traveled Outside the [place] in Last 30 Days - Family History Known Family History: Positive: Cardiac Disease Negative: Hypertension - Social History Alcohol Use: Occasionally Substance Use Type: Reports: Prescribed Substance Use Comment - Amount & Last Used: states "medical marijuana" ... vapor form Hx Tobacco Use: Yes Smoking Status (MU): Heavy Every Day Tobacco Smoker Type: Cigarettes Amount Used/How Often: 1/2 ppd Length of Time of Smoking/Using Tobacco: 26 yrs Have You Smoked in the Last Year: Yes Review of Systems Negative: Fever Positive: Other - positive: swelling and pain bilateral lower extremities All Other Systems Reviewed And Are Negative: Yes Physical Exam - Summary Physical Exam Summary: VITAL SIGNS: Reviewed. GENERAL: Patient is an ill-looking MALE who is lying comfortable in the stretcher. Patient is not in any acute respiratory distress. HEAD AND FACE: No signs of trauma. No ecchymosis, hematomas or skull depressions. No sinus tenderness. EYES: PERRLA, EOMI x 2, No injected conjunctiva, no nystagmus. EARS: Hearing grossly intact. Ear canals and tympanic membranes are within normal limits. MOUTH: Oropharynx within normal limits. NECK: Supple, trachea is midline, no adenopathy, no JVD, no carotid bruit, no c- spine tenderness, neck with full ROM CHEST: Symmetric, no tenderness at palpation LUNGS: Clear to auscultation bilaterally. No wheezing or crackles. CVS: Regular rate and rhythm, S1 and S2 present, no murmurs or gallops appreciated. ABDOMEN: Soft, non-tender. No signs of distention. No rebound no guarding, and no masses palpated. Bowel sounds are normal. EXTREMITIES: bilateral lower extremity swelling however left leg is warm red and tender and stage 2 ulcer with gangrenous surface right mid leg anteriorly measuring 4cm x 3cm no discharge. Left hemiparesis which is old. NEURO: Alert and oriented x 3. No acute neurological deficits. Speech is normal and follows commands. SKIN: Dry and warm Triage Information Reviewed: Yes Vital Signs On Initial Exam: Initial Vitals Temp Pulse Resp BP Pulse Ox 98.7 F 90 18 121/76 96 04/19/19 22:04 04/19/19 22:04 04/19/19 22:04 04/19/19 22:04 04/19/19 22:04 Vital Signs Reviewed: Yes Diagnostics - Vital Signs Vital Signs Temp Pulse Resp BP Pulse Ox 04/20/19 00:03 97.7 F 76 17 106/69 100 04/19/19 22:04 98.7 F 90 18 121/76 96 - Laboratory Result Diagrams: 04/20/19 05:29 04/20/19 05:29 Lab Statement: Any lab studies that have been ordered have been reviewed, and results considered in the medical decision making process. Lower Extremity Course/Dx - Course Course Of Treatment: A 43 y/o male presents to [facility] with a chief complaint of lower extremity swelling. The patient is supposed to be on hospice care, but per [id number] the patient fired his hospice care team a couple weeks ago. The physical exam revealed that the patient is ill-looking, has bilateral lower extremity swelling however left leg is warm red and tender and stage 2 ulcer with gangrenous surface right mid leg anteriorly measuring 4cm x 3cm no discharge. Left hemiparesis which is old. In the ED course the patient was given Vancomycin IVPB and Sodium Chloride IV. Blood work and chemistires obained. Case discussed with Dr. Duenas, hospitalist, who accepted the patient for admisison. The patient is agreeable with this plan. - Diagnoses Provider Diagnoses: Cellulitis of left leg - Physician Notifications Discussed Care Of Patient With: Sury Duenas Time Discussed With Above Provider: 06:12 Instructed by Provider To: Admit As Inpatient Discharge - Sign-Out/Discharge Documenting (check all that apply): Patient Departure - admit Patient Received Moderate/Deep Sedation with Procedure: No - Discharge Plan Condition: Fair Disposition: ADMITTED TO [facility] Referrals: Ole Jones MD [Primary Care Provider] - - Billing Disposition and Condition Condition: FAIR Disposition: Admitted to [facility] - Attestation Statements Document Initiated by Aziza: Yes Documenting Scribe: Wicho Miller Provider For Whom Aziza is Documenting (Include Credential): Patience Chavez MD Scribe Attestation: Wicho Roman, scribed for Patience Chavez MD on 04/20/19 at 0642. Scribe Documentation Reviewed: Yes Provider Attestation: The documentation as recorded by the Wicho soriano accurately reflects the service I personally performed and the decisions made by me, Patience Chavez MD Status of Scribe Document: Viewed
[2019-04-20] MEDS ORDERED: Vancomycin(*) 1,000 MG in NS 0.9% 250 ML* 250 ML IVPB ONE (04:57)
[2019-04-20] MEDS ORDERED: NS 0.9% 1000 ML** 1,000 ML IV ONE (04:58)
[2019-04-20 05:51] LABS: ABS Lymphocytes 0.3 10^3/ul (1.0-4.8); ABS Monocytes 0.3 10^3/ul (0-0.8); ABS Neutrophils 4.3 10^3/ul (1.5-7.7); Eosinophil % 0.5 %; Hematocrit 31 % (42-52); Lymphocyte % 6.1 %; Mean Corpuscular HGB Conc 35 g/dL (31-36); Mean Corpuscular Hemoglobin 33 pg (27-31); Mean Corpuscular Volume 94 fL (80-94); Mean Platelet Volume 8.1 fL (7.4-10.4); Platelet Count 78 10^3/uL (150-450); Red Cell Distribution Width 14 % (10-15); White Blood Count 4.9 10^3/uL (3.5-10.8)
[2019-04-20 05:53] LABS: Activated Partial Thrombo Time 24.2 seconds (26.0-38.0); INR 0.95 (0.82-1.09)
[2019-04-20 06:03] LABS: Albumin 3.2 g/dL (3.2-5.2); Albumin/Globulin Ratio 1.1 (1-3); C Reactive Protein 79.51 mg/L (<8.01); Calcium 9.3 mg/dL (8.6-10.3); EGFR African American 215.7 (>60); EGFR Non-African American 178.2 (>60); Globulin 2.8 g/dL (2-4); Potassium 3.5 mmol/L (3.5-5.0); Total Bilirubin 0.4 mg/dL (0.2-1.0)
[2019-04-20] MEDS ORDERED: LORazepam TAB(*) 1 MG PO PRN (08:13)
[2019-04-20] MEDS ORDERED: Prochlorperazine TAB* 10 MG PO PRN (08:13)
[2019-04-20] MEDS ORDERED: Calcium Carbonate CHEW TAB* 500 MG (TUMS) PO PRN (08:13)
[2019-04-20] MEDS ORDERED: Vancomycin(*) 0 MG in NS 0.9% 250 ML* 250 ML IVPB SCH (09:00)
[2019-04-20] MEDS ORDERED: Vancomycin per Pharmacy* NOTE FOLLOW UP PRN (09:14)
[2019-04-20] MEDS: Enoxaparin(*) 40 MG/0.4 ML SYR SUBCUT SCH (09:15)
[2019-04-20] MEDS: levETIRAcetam TAB* 500 MG PO SCH ×2 (09:15→21:28)
[2019-04-20] MEDS: Lacosamide TAB* 100 MG TAB PO SCH ×2 (09:15→21:28)
[2019-04-20] MEDS: Multivitamins/Minerals TAB PO SCH (09:16)
[2019-04-20] MEDS: Nystatin SUSPENSION* 100000 UNITS/ML 5 ML UDC PO SCH ×4 (09:16→21:28)
[2019-04-20] MEDS: Methadone TAB* 10 MG PO SCH ×3 (09:16→21:27)
[2019-04-20] MEDS: Dexamethasone TAB* 4 MG PO SCH ×2 (09:16→21:35)
--- NOTE | 2019-04-20 10:48 | HP ---
HISTORY AND PHYSICAL: DATE OF ADMISSION: 04/20/19 ADMITTING PROVIDER: Pardeep Winters MD. PRIMARY CARE PROVIDER: Tony Beltre MD. OUTPATIENT ONCOLOGIST: Dr. Jones. CHIEF COMPLAINT: Left lower extremity pain and redness progressed over the last week (after a recent fall) and bilateral lower leg extremity swelling. 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 Within the last week he fired his hospice nurses and desires to be a full code at this time. He is a poor historian as he is very fatigued after having been in the ER all night and some collaborative history is obtained from sister, Alexia Ambrocio, who saw him over the weekend. She states he fell approximately 2 weeks ago and has had progressive swelling of both legs. Since then, the left leg looked warm, red, possibly infected, so they brought him to the emergency room. He says he only has pain when he tries to step on it but then this is attempted it is 0/10. Alexia says they attempted to come to the emergency room within the last week, but were frustrated by the lenght of time waiting in the waiting room, so left without being seen. He denies any chest pain, shortness of breath, but does attest to cough and chills. He does not have any interest in going to a residential hospice facility, "not at this time." No reported seizure activity recently. Initial workup included vital signs, he is afebrile , heart rate initially 90, blood pressure 120/76, satting 98% on room air. He has no leukocytosis. Hemoglobin is 11.0. CRP is 79. He was given 1 L normal saline and 1 g of vancomycin and referred to hospitalist service for admission for suspected cellulitis of the left leg and bilateral lower extremity swelling. PAST MEDICAL HISTORY: Terminal glioblastoma, refractory to treatment, first diagnosed in 2005. He recently had a second opinion with Dr. Sepulveda at [facility], who also thought he was not a surgical candidate. Seizure disorder, hypothyroidism, chronic pain, residual left-sided weakness. PAST SURGICAL HISTORY: He has had a craniotomy and resection of tumor x3 in March 2006, December 2011, and December 2012. MEDICATIONS: Include: 1. Ativan 2 mg p.o. q.6 hours p.r.n. 2. Decadron 4 mg p.o. b.i.d. 3. Lasix 20 mg p.o. daily (seemingly recently started on 04/16/[address] Jones). 4. Keppra 1500 mg p.o. b.i.d. 5. Synthroid 100 mcg p.o. daily. 6. Vimpat 100 mg p.o. b.i.d. 7. Methadone 10 mg p.o. daily. 8. Zofran 8 mg p.o. q.8 hours p.r.n. 9. Compazine 10 mg p.o. q.6 hours p.r.n. Unconfirmed as of yet Medications include: 1. Trazodone 50 mg p.o. at bedtime. 2. Calcium carbonate 500 mg p.o. q.4 hours. 3. Acetaminophen 650 mg p.o. q.4 hours p.r.n. 4. Nystatin 500,000 units p.o. 4 times a day. 5. Multivitamin tablet 1 tablet p.o. daily. ALLERGIES: Include GADOLINIUM CONTRAST (hives), PHENYTOIN (unknown), shellfish (swelling). FAMILY HISTORY: Not able to reconfirm at this time given his drowsiness. Per past records, father has a history of hypertension, hyperlipidemia, PTSD and mom was healthy. This is circa December 2017. SOCIAL HISTORY: The patient reportedly is a former smoker, unclear pack-years. He has a 9-year-old son, with plans to be adopted by one of the [employer] teachers. He has a [facility], whom he lives with. His medical surrogate are his parents, Luis Daniel Luna and Mariella Luna. He desires to be a full code. REVIEW OF SYSTEMS: A complete 14-point review of systems is not obtainable at this time given his severe fatigue and/or baseline deficits. It seems like he has baseline left-sided weakness. Per Oct, he is stubborn and will try to walk , but also has a walker and wheelchair, which may have been taken back by hospice nurses upon their firing. PHYSICAL EXAMINATION GENERAL APPEARANCE: In no acute distress, chronically ill appearing. VITAL SIGNS: Temp 97.7, heart rate 50; though initially was 90, respiratory rate 18, satting between 96% and 100% on room air, blood pressure 134/91. HEENT: Normocephalic, atraumatic. Pupils are equal, round, and reactive to light. Extraocular motions are intact. No scleral icterus. LUNGS: Clear to auscultation bilaterally with no wheezing, rales, or rhonchi. CARDIOVASCULAR: Regular rate and rhythm. No murmurs, rubs, or gallops. ABDOMEN: Soft, nontender, nondistended. EXTREMITIES: Cool to touch, nonpitting edema bilaterally, 2+. SKIN: There is erythema especially on the left leg below the knee to the ankle. There is an approximately 3 cm ulceration with overlying scab on the left midshin. No oozing. NEUROLOGIC: He can wiggle both toes. He is not able to lift his legs off the bed. Steel Rigger strength is 3+ on the left and 4+ on the right. He is oriented x3. DIAGNOSTIC STUDIES/LAB DATA: Labs: White count 4.9, hemoglobin 11.0, hematocrit 31, platelets 78. INR 0.95. Sodium 139, potassium 3.5, chloride 101 , carbon dioxide 33, BUN 25, creatinine 0.51, glucose 134, lactic acid 1.0. Total bili is 0.04, AST 16, ALT 36, alk phos 51, CRP 79.5. Imaging: None. ASSESSMENT AND PLAN: Mohan Luna is a 43-year-old male with end-stage glioblastoma, recently firing his hospice nurse, suffered a fall 2 weeks ago, has had progressive swelling in bilateral legs and also now redness and erythema of the left leg concerning for cellulitis. He is status post vancomycin in the emergency room and I will continue that. Follow up blood cultures, consult palliative care and physical therapy. I am going to get a bedside dysphagia screen given just how tired he appears, but otherwise order a heart healthy diet. He has been on chronic methadone 10 mg t.i.d., Ativan 2 mg q.6 hours p.r.n., antinausea medications of Zofran and Compazine, and antiseizure medications lacosamide 100 mg p.o. b.i.d. and Keppra 1500 mg p.o. b.i.d., along with dexamethasone 4 mg p.o. b.i.d. for his glioblastoma. I am concerned that he may have developed a blood clot in either or both legs and we will get a Doppler to rule out those and start him on Lovenox 40 mg daily for now for DVT prophylaxis. He is at high risk given his cancer and immobility. I am adding on a BNP. His lungs sound clear, he denies any shortness of breath , and I have less suspicion right now for acute onset congestive heart failure. DVTs and cellulitis are higher on my differential for the leg swelling. Medical surrogate is his father, Luis Daniel, and mother, Mariella Luna. [id number]/[facility] #: [id number] MTDD
--- NOTE | 2019-04-20 13:49 | PN ---
Progress Note - Progress Note Date of Service: 04/20/19 SOAP: Subjective: [Admitted earlier this am after a fall at home. He has a LLE cellulitis and has been admitted for IV abx. He has been receiving hospice services at home up until earlier this week at which point he revoked hospice and his DNR status. He had an appointment to be seen in the oncology clinic Sunday, but did not make it to that appointment. His parents are with him in the hospital, but are not sure exactly how he has been at home. Mohan has been living with his girlfriend. Unsure if he has had any recent seizures. Patient is unable to supply any history.] Objective: [ Vital Signs: Temp Pulse Resp BP Pulse Ox 97.4 F 48 20 108/66 100 04/20/19 08:57 04/20/19 08:57 04/20/19 11:03 04/20/19 08:57 04/20/19 08:57 Acetaminophen (Tylenol Tab*) 650 mg PO Q4H PRN PRN Reason: FEVER/PAIN Calcium Carbonate (Tums*) 500 mg PO Q4H PRN PRN Reason: INDIGESTION Dexamethasone (Decadron Tab*) 4 mg PO BID [facility] Last Admin: 04/20/19 09:16 Dose: 4 mg Enoxaparin Sodium (Lovenox(*)) 40 mg SUBCUT Q24H [facility] Last Admin: 04/20/19 09:15 Dose: 40 mg Vancomycin HCl 1,000 mg/ (Sodium Chloride) 250 mls @ 166.667 mls/hr IVPB Q8H [facility] Lacosamide (Vimpat Tab*) 100 mg PO BID [facility] Last Admin: 04/20/19 09:15 Dose: 100 mg Levetiracetam (Keppra Tab*) 1,500 mg PO BID [facility] Last Admin: 04/20/19 09:15 Dose: 1,500 mg Levothyroxine Sodium (Synthroid Tab*) 100 mcg PO 0600 ALEX Lorazepam (Ativan Tab(*)) 2 mg PO Q6H PRN PRN Reason: IMPENDING SEIZURE Methadone HCl (Dolophine Tab*) 10 mg PO TID [facility] Last Admin: 04/20/19 09:16 Dose: 10 mg Multivitamins/Minerals (Theragran/Minerals Tab*) 1 tab PO DAILY [facility] Last Admin: 04/20/19 09:16 Dose: 1 tab Nystatin (Nystatin Suspension*) 500,000 units PO QID [facility] Last Admin: 04/20/19 09:16 Dose: 500,000 units Ondansetron HCl (Zofran Tab*) 8 mg PO Q8HR PRN PRN Reason: NAUSEA/VOMITING Pharmacy Consult (Vancomycin Per Pharmacy*) 1 note FOLLOW UP . PRN PRN Reason: PER PROTOCOL Pharmacy Profile Note (Vancomycin Trough Check) 1 note FOLLOW UP 529 ONE Stop: 04/21/19 05:31 Prochlorperazine (Compazine Tab*) 10 mg PO Q6H PRN PRN Reason: NAUSEA/VOMITING Trazodone HCl (Desyrel Tab*) 50 mg PO BEDTIME [facility] Laboratory Results - last 24 hr 04/20/19 04/20/19 04/20/19 05:29 05:29 05:29 WBC 4.9 RBC 3.30 L Hgb 11.0 L Hct 31 L MCV 94 MCH 33 H MCHC 35 RDW 14 Plt Count 78 L MPV 8.1 Neut % (Auto) 86.4 Lymph % (Auto) 6.1 [place] % (Auto) 6.7 Eos % (Auto) 0.5 Baso % (Auto) 0.3 Absolute Neuts (auto) 4.3 Absolute Lymphs (auto) 0.3 L Absolute Monos (auto) 0.3 Absolute Eos (auto) 0.0 Absolute Basos (auto) 0.0 Absolute Nucleated RBC 0.0 Nucleated RBC % 0.0 INR (Anticoag Therapy) 0.95 APTT 24.2 L Sodium 139 Potassium 3.5 Chloride 101 Carbon Dioxide 33 H Anion Gap 5 BUN 25 H Creatinine 0.51 L Est GFR ( Amer) 215.7 Est GFR (Non-Af Amer) 178.2 BUN/Creatinine Ratio 49.0 H Glucose 134 H Lactic Acid Calcium 9.3 Total Bilirubin 0.40 AST 16 ALT 36 Alkaline Phosphatase 51 C-Reactive Protein 79.51 H B-Natriuretic Peptide Total Protein 6.0 L Albumin 3.2 Globulin 2.8 Albumin/Globulin Ratio 1.1 04/20/19 04/20/19 04/20/19 05:29 05:29 10:01 WBC RBC Hgb Hct MCV MCH MCHC RDW Plt Count MPV Neut % (Auto) Lymph % (Auto) [place] % (Auto) Eos % (Auto) Baso % (Auto) Absolute Neuts (auto) Absolute Lymphs (auto) Absolute Monos (auto) Absolute Eos (auto) Absolute Basos (auto) Absolute Nucleated RBC Nucleated RBC % INR (Anticoag Therapy) APTT Sodium Potassium Chloride Carbon Dioxide Anion Gap BUN Creatinine Est GFR ( Amer) Est GFR (Non-Af Amer) BUN/Creatinine Ratio Glucose Lactic Acid 1.0 1.9 Calcium Total Bilirubin AST ALT Alkaline Phosphatase C-Reactive Protein B-Natriuretic Peptide 346 H Total Protein Albumin Globulin Albumin/Globulin Ratio Exam: Gen: cushingoid, lethargic, occasionally opens his eyes - unable to carry on a conversation HEENT: MMM CV: RRR, no m/r/g Resp: CTA, no w/c/r Abd: soft, nonTTP Ext: bilateral LE edema, L>R ~2+ - multiple areas of ecchymosis and abrasions over legs - ulcerated area over mid anterior L lower leg with area of fluctuance under the ulcerated region.. Psych: lethargic, occasionally opens eyes, not oriented] Assessment: [This is a 43 yo male with GBM who has progressed through multiple lines of therapy and has recently received hospice services until revoking them earlier this week. He presents with c/o freq falls and evidence of LLE abscess/ cellulitis.] Plan: [1. LLE abscess/cellulitis - blood cx pending, cont vancomycin - there appears to be an abscess under the ulcerated abrasion of the LLE which is close to spontaneously draining- would like to minimize procedures that will cause discomfort for him and he does not appear septic - will hold on I&D and encourage spontaneous drainage 2. GBM - no further treatment options exist - cont dexamethasone and antiepileptics to prevent seizure - recommend hospice care - this was discussed in detail with patient's family (mother and father present) 3. CODE STATUS - currently FULL CODE - patient does not have the capacity to make a decision on code status at this time - his parents are HCP and discussed in detail the recommendation for DNR/DNI status - his father is not ready to sign a MOLST form at this time, the document was left with him for his review Dispo: cont IV abx and will look into availability at the [facility] tomorrow, it does not appear safe for him to be discharged home]
[2019-04-20] MEDS: Vancomycin(*) 1,000 MG in NS 0.9% 250 ML* 250 ML IVPB SCH ×2 (13:57→23:16)
[2019-04-20 17:06] LABS: HIV 4th Generation Negative (Negative)
[2019-04-20] MEDS: Acetaminophen TAB* 325 MG PO PRN ×2 (18:08→23:06)
[2019-04-20] MEDS: traZODone TAB* 50 MG TAB PO SCH (21:28)
--- NOTE | 2019-04-20 22:51 | PN ---
Hospitalist Progress Note Paged by SETH Lazaro that Patient, his sister and long time Friend Aditya wanted to fill out a new MOLST form given improvement in his lucidity. He expressed desire for his CODE status to be yes for CPR, yes for BIPAP, yes for intubation , and if prolonged intubation necessary: yes for tracheostomy and even indefinite mechanical ventilation no matter what decline in his mental status ( with the stated hope that future medical advances might one day find a way to cure his cancer). He offers that he was stage III at diagnosis and the longest survivor with his condition that Dr. Jones has seen.
[2019-04-20] MEDS: oxyCODONE TAB* 5 MG TAB PO PRN (23:12)
[2019-04-21] MEDS ORDERED: Vancomycin Trough Check NOTE FOLLOW UP ONE (05:30)
[2019-04-21] MEDS: Levothyroxine TAB* 100 MCG TAB PO SCH (07:00)
[2019-04-21] MEDS: Vancomycin(*) 1,000 MG in NS 0.9% 250 ML* 250 ML IVPB SCH ×3 (08:08→23:32)
[2019-04-21] MEDS: Multivitamins/Minerals TAB PO SCH (08:09)
[2019-04-21] MEDS: Dexamethasone TAB* 4 MG PO SCH ×2 (08:09→21:07)
[2019-04-21] MEDS: Lacosamide TAB* 100 MG TAB PO SCH ×2 (08:09→21:07)
[2019-04-21] MEDS: Methadone TAB* 10 MG PO SCH ×3 (08:09→21:07)
[2019-04-21] MEDS: Enoxaparin(*) 40 MG/0.4 ML SYR SUBCUT SCH (08:09)
[2019-04-21 08:40] LABS: Vancomycin Trough 11.6 mcg/mL
[2019-04-21] MEDS: levETIRAcetam TAB* 500 MG PO SCH ×2 (09:07→21:07)
[2019-04-21] MEDS: Nystatin SUSPENSION* 100000 UNITS/ML 5 ML UDC PO SCH ×4 (09:08→21:07)
--- NOTE | 2019-04-21 10:42 | PN ---
Progress Note - Progress Note Date of Service: 04/21/19 SOAP: Subjective: []Stable overnight. Had a conversation yesterday and became full code. He is not in pain on current regimen. Frequent falls at home and progressive LLE and redness. He reports the is eating. Overall mentation is improved from last time I saw him. Acetaminophen (Tylenol Tab*) 650 mg PO Q4H PRN PRN Reason: FEVER/PAIN Last Admin: 04/20/19 23:06 Dose: 650 mg Calcium Carbonate (Tums*) 500 mg PO Q4H PRN PRN Reason: INDIGESTION Dexamethasone (Decadron Tab*) 4 mg PO BID [facility] Last Admin: 04/21/19 08:09 Dose: 4 mg Enoxaparin Sodium (Lovenox(*)) 40 mg SUBCUT Q24H [facility] Last Admin: 04/21/19 08:09 Dose: 40 mg Vancomycin HCl 1,000 mg/ (Sodium Chloride) 250 mls @ 166.667 mls/hr IVPB Q8H [facility] Last Admin: 04/21/19 08:08 Dose: 166.667 mls/hr Lacosamide (Vimpat Tab*) 100 mg PO BID [facility] Last Admin: 04/21/19 08:09 Dose: 100 mg Levetiracetam (Keppra Tab*) 1,500 mg PO BID [facility] Last Admin: 04/21/19 09:07 Dose: 1,500 mg Levothyroxine Sodium (Synthroid Tab*) 100 mcg PO 0600 [facility] Last Admin: 04/21/19 07:00 Dose: 100 mcg Lorazepam (Ativan Tab(*)) 2 mg PO Q6H PRN PRN Reason: IMPENDING SEIZURE Methadone HCl (Dolophine Tab*) 10 mg PO TID [facility] Last Admin: 04/21/19 08:09 Dose: 10 mg Multivitamins/Minerals (Theragran/Minerals Tab*) 1 tab PO DAILY [facility] Last Admin: 04/21/19 08:09 Dose: 1 tab Nystatin (Nystatin Suspension*) 500,000 units PO QID [facility] Last Admin: 04/21/19 09:08 Dose: 500,000 units Ondansetron HCl (Zofran Tab*) 8 mg PO Q8HR PRN PRN Reason: NAUSEA/VOMITING Oxycodone HCl (Roxycodone Tab*) 5 mg PO Q4H PRN PRN Reason: PAIN Last Admin: 04/20/19 23:12 Dose: 5 mg Pharmacy Consult (Vancomycin Per Pharmacy*) 1 note FOLLOW UP . PRN PRN Reason: PER PROTOCOL Prochlorperazine (Compazine Tab*) 10 mg PO Q6H PRN PRN Reason: NAUSEA/VOMITING Trazodone HCl (Desyrel Tab*) 50 mg PO BEDTIME [facility] Last Admin: 04/20/19 21:28 Dose: 50 mg Objective: [] Vital Signs Temp Pulse Resp BP Pulse Ox 97.7 F 85 18 119/71 99 04/21/19 00:48 04/21/19 00:48 04/21/19 08:09 04/21/19 00:48 04/21/19 00:48 HEENT: pale, no thrush, OM dry CTA RRR S1S2 +BS NT ND Ext: relative to marker he has had marked decrease in erythema. multiple bruises. feet + edema, cool and little circulation. Ulceration with necrotic tissue 3 cm, clear fluid oozing out. 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 He is not a candidate for additional therapy and has had slow progression of disease and slow deterioration over several months. Had been on hospice but course complicated by ulceration left leg and abscess draining as well as frequent falls at home. Also, poor tacking of narcotic mediation at home making therapy for pain medication difficulty. Talked with Mohan today and separately with father. Both acknowledge that he is dying from his cancer and prognosis is weeks to a month or two. His QOL goal is to spend time with his son. Plan: []1. GBM. No additional therapy. Family and patient refuse hospice. He is currently full code. - Will have family meeting on Sunday at 9 am. - Patient in agreement with [facility] today. - Unclear that Mohan can make decisions, father is proxy. - Continue Dex 2. Discussed that he cannot go home. Possible NH with rehab as a transition of care. - PT/OT during hospitalization. 3. Continue Vancomycin and wound care consult 4. Superficial phlebitis at risk for DVT. Not a candidate for anticoagulation. 5. Encourage PO. time with patient and chart 40 min
[2019-04-21 11:28] LABS: Free T4 1.36 ng/dL (0.61-1.12)
--- NOTE | 2019-04-21 11:43 | CONSULT ---
Palliative / Hospice Consult Ordering Provider: Pardeep Winters - PCP-[facility] [place] Reason: Goals of care - Subjective Code Status: Full Code Advance Directives Location: No Advance Directives - History or Present Illness History or Present Illness: 43 yo male with advanced GBM presents with L lower extremity pain and swelling s /p fall 2 wks ago. Pt had been on hospice since last hospitalization 03/12/19 but he recently switched off. PMH is significant for GBM with no further treatment options-he got a second opinion in [place] with same outcome, seizure disorder, hypothyroid and residual R sided weakness. Pt lives on his own with girlfriend, he has an 11yo son, smoker, no etoh, + drug use, parents are his HCP. Studies doppler with R saphenous vein DVT, H/H , BUN/Cr 25/.51 egfr 178, tprot 6 and alb 3.2. All history is from pt and medical records. Lab Values: Abnormal Lab Results 04/20/19 04/20/19 04/21/19 10:16 21:15 06:14 POC Glucose (mg/dL) 122 H TSH Free T4 Vancomycin Trough 13.7 HIV 1&2 Ab/P24 Ag 4thGn Negative 04/21/19 08:03 POC Glucose (mg/dL) TSH 0.00 L Free T4 1.36 H Vancomycin Trough 11.6 HIV 1&2 Ab/P24 Ag 4thGn Laboratory Last Values WBC 4.9 10^3/uL (3.5-10.8) 04/20/19 05:29 RBC 3.30 10^6 /uL (4.18-5.48) L 04/20/19 05:29 Hgb 11.0 g/dL (14.0-18.0) L 04/20/19 05:29 Hct 31 % (42-52) L 04/20/19 05:29 MCV 94 fL (80-94) 04/20/19 05:29 MCH 33 pg (27-31) H 04/20/19 05:29 MCHC 35 g/dL (31-36) 04/20/19 05:29 RDW 14 % (10-15) 04/20/19 05:29 Plt Count 78 10^3/uL (150-450) L 04/20/19 05:29 MPV 8.1 fL (7.4-10.4) 04/20/19 05:29 Neut % (Auto) 86.4 % 04/20/19 05:29 Lymph % (Auto) 6.1 % 04/20/19 05:29 Thayer % (Auto) 6.7 % 04/20/19 05:29 Eos % (Auto) 0.5 % 04/20/19 05:29 Baso % (Auto) 0.3 % 04/20/19 05:29 Absolute Neuts (auto) 4.3 10^3/ul (1.5-7.7) 04/20/19 05:29 Absolute Lymphs (auto) 0.3 10^3/ul (1.0-4.8) L 04/20/19 05:29 Absolute Monos (auto) 0.3 10^3/ul (0-0.8) 04/20/19 05:29 Absolute Eos (auto) 0.0 10^3/ul (0-0.6) 04/20/19 05:29 Absolute Basos (auto) 0.0 10^3/ul (0-0.2) 04/20/19 05:29 Absolute Nucleated RBC 0.0 10^3/ul 04/20/19 05:29 Nucleated RBC % 0.0 04/20/19 05:29 INR (Anticoag Therapy) 0.95 (0.82-1.09) 04/20/19 05:29 APTT 24.2 seconds (26.0-38.0) L 04/20/19 05:29 Sodium 139 mmol/L (135-145) 04/20/19 05:29 Potassium 3.5 mmol/L (3.5-5.0) 04/20/19 05:29 Chloride 101 mmol/L (101-111) 04/20/19 05:29 Carbon Dioxide 33 mmol/L (22-32) H 04/20/19 05:29 Anion Gap 5 mmol/L (2-11) 04/20/19 05:29 BUN 25 mg/dL (6-24) H 04/20/19 05:29 Creatinine 0.51 mg/dL (0.67-1.17) L 04/20/19 05:29 Est GFR ( Amer) 215.7 (>60) 04/20/19 05:29 Est GFR (Non-Af Amer) 178.2 (>60) 04/20/19 05:29 BUN/Creatinine Ratio 49.0 (8-20) H 04/20/19 05:29 Glucose 134 mg/dL (70-100) H 04/20/19 05:29 POC Glucose (mg/dL) 122 mg/dL (70-100) H 04/20/19 21:15 Lactic Acid 1.9 mmol/L (0.5-2.0) 04/20/19 10:01 Calcium 9.3 mg/dL (8.6-10.3) 04/20/19 05:29 Total Bilirubin 0.40 mg/dL (0.2-1.0) 04/20/19 05:29 AST 16 U/L (13-39) 04/20/19 05:29 ALT 36 U/L (7-52) 04/20/19 05:29 Alkaline Phosphatase 51 U/L (34-104) 04/20/19 05:29 C-Reactive Protein 79.51 mg/L (<8.01) H 04/20/19 05:29 B-Natriuretic Peptide 346 pg/mL (<=100) H 04/20/19 05:29 Total Protein 6.0 g/dL (6.4-8.9) L 04/20/19 05:29 Albumin 3.2 g/dL (3.2-5.2) 04/20/19 05:29 Globulin 2.8 g/dL (2-4) 04/20/19 05:29 Albumin/Globulin Ratio 1.1 (1-3) 04/20/19 05:29 TSH 0.00 mcIU/mL (0.34-5.60) L 04/21/19 08:03 Free T4 1.36 ng/dL (0.61-1.12) H 04/21/19 08:03 Vancomycin Trough 11.6 mcg/mL 04/21/19 08:03 HIV 1&2 Ab/P24 Ag 4thGn Negative (Negative) 04/20/19 10:16 - Objective Active Medications: Acetaminophen (Tylenol Tab*) 650 mg PO Q4H PRN PRN Reason: FEVER/PAIN Last Admin: 04/20/19 23:06 Dose: 650 mg Calcium Carbonate (Tums*) 500 mg PO Q4H PRN PRN Reason: INDIGESTION Dexamethasone (Decadron Tab*) 4 mg PO BID [facility] Last Admin: 04/21/19 08:09 Dose: 4 mg Enoxaparin Sodium (Lovenox(*)) 40 mg SUBCUT Q24H [facility] Last Admin: 04/21/19 08:09 Dose: 40 mg Vancomycin HCl 1,000 mg/ (Sodium Chloride) 250 mls @ 166.667 mls/hr IVPB Q8H [facility] Last Admin: 04/21/19 08:08 Dose: 166.667 mls/hr Lacosamide (Vimpat Tab*) 100 mg PO BID [facility] Last Admin: 04/21/19 08:09 Dose: 100 mg Levetiracetam (Keppra Tab*) 1,500 mg PO BID [facility] Last Admin: 04/21/19 09:07 Dose: 1,500 mg Levothyroxine Sodium (Synthroid Tab*) 100 mcg PO 0600 [facility] Last Admin: 04/21/19 07:00 Dose: 100 mcg Lorazepam (Ativan Tab(*)) 2 mg PO Q6H PRN PRN Reason: IMPENDING SEIZURE Methadone HCl (Dolophine Tab*) 10 mg PO TID [facility] Last Admin: 04/21/19 08:09 Dose: 10 mg Multivitamins/Minerals (Theragran/Minerals Tab*) 1 tab PO DAILY [facility] Last Admin: 04/21/19 08:09 Dose: 1 tab Nystatin (Nystatin Suspension*) 500,000 units PO QID [facility] Last Admin: 04/21/19 09:08 Dose: 500,000 units Ondansetron HCl (Zofran Tab*) 8 mg PO Q8HR PRN PRN Reason: NAUSEA/VOMITING Oxycodone HCl (Roxycodone Tab*) 5 mg PO Q4H PRN PRN Reason: PAIN Last Admin: 04/20/19 23:12 Dose: 5 mg Pharmacy Consult (Vancomycin Per Pharmacy*) 1 note FOLLOW UP . PRN PRN Reason: PER PROTOCOL Prochlorperazine (Compazine Tab*) 10 mg PO Q6H PRN PRN Reason: NAUSEA/VOMITING Trazodone HCl (Desyrel Tab*) 50 mg PO BEDTIME [facility] Last Admin: 04/20/19 21:28 Dose: 50 mg Vital Signs: Vital Signs: Temp Pulse Resp BP Pulse Ox 97.7 F 85 18 119/71 99 04/21/19 00:48 04/21/19 00:48 04/21/19 08:09 04/21/19 00:48 04/21/19 00:48 Patient Weight: Weight 67.993 kg Intake and Output: Intake & Output 04/19/19 04/20/19 04/21/19 04/22/19 06:59 06:59 06:59 06:59 Intake Total 2688 Output Total 375 Balance 2313 Weight 58.967 kg 67.993 kg Intake: IV Fluids 2078 ABX - VANCOMYCIN 289 IVPB 250 ABX - VANCOMYCIN 250 Oral 360 Output: Urine 375 ADLs: Meal Record Start: 04/20/19 08: 06 Freq: DAILY@0900,1400,1800 Status: Active Protocol: Created 04/20/19 08:06 System (Rec: 04/20/19 08:06 System [email or web address]) Document 04/20/19 09:00 [id number] (Rec: 04/20/19 12:44 [id number] TELE-C13) Document 04/20/19 14:00 [id number] (Rec: 04/20/19 15:52 [id number] TELE-C13) Document 04/20/19 18:00 [id number] (Rec: 04/20/19 18:45 [id number] TELE-C05) Intake and Output Start: 04/19/19 22: 07 Freq: Status: Active Protocol: Created 04/19/19 22:07 System (Rec: 04/19/19 22:07 System [id number]) Intake and Output Start: 04/20/19 08: 06 Freq: DAILY@0600,1400,2200 Status: Active Protocol: Created 04/20/19 08:06 System (Rec: 04/20/19 08:06 System [email or web address]) Document 04/20/19 14:00 [id number] (Rec: 04/20/19 14:11 [id number] TELE-C13) Document 04/20/19 22:00 [id number] (Rec: 04/20/19 22:53 [id number] TELE-C33) Document 04/21/19 02:06 [id number] (Rec: 04/21/19 02:06 [id number] TELE-C09) Document 04/21/19 05:41 [id number] (Rec: 04/21/19 05:43 [id number] TELE-C09) Ears/Nose/Mouth/Throat: NL Teeth, Lips, Gums Neck: NL Appearance and Movements; NL JVP Cardiovascular: NL Sounds; No Murmurs; No JVD Respiratory: Symmetrical Chest Expansion and Respiratory Effort, Clear to Auscultation Extremities: No Edema - Assessment Assessment: 43 yo male with GBM admitted with L lower extremity cellulitis and DVT - Plan Consult Plan (MU): Hospice Plan: Long discussion with pt he understands he is dying and has about 1 month to live. He wants to be a full code so he can be alive as long as possible. He is hospice eligible but just signed off. Plans are to have pt go to SNF for [facility] to help with getting more strength. Pt is interested in nursing homes in the [facility]. A family meeting is set up for SundayApril 25 with oncology. KPS 50% , PPS 50% - Time On Unit Date of Evaluation: 04/21/19 Hospice Consult Time in: 10:45 Hospice Consult Time Out: 11:45 Hospice Consult Time Total: 60 > 50% of Time Spend In Counseling or Coordinating Care: Yes
--- NOTE | 2019-04-21 14:06 | ECHO ---
*[facility]* [place] [address] Fax #: [phone] Transthoracic Echocardiogram Patient: Mohan Luna : 1975 Study Date: 04/21/2019 Age: 43 Gender: M HR: 69 bpm Height: 68.1 in /173 cm BSA: 1.68 m^2 Weight: 129.8 lb /59 kg BMI: 19.7 kg/m^2 *Pole Framer: * Sue Barboza [facility] *Referring Physician: * Pardeep Winters *Reading Physician: * Jax Rivera MD Indications: Edema. History: Risk factors: Former tobacco use. Terminal glioblastoma. Seizures. Conclusions Summary: 1. Left ventricle: There is mild concentric hypertrophy. Systolic function is at the lower limits of normal. The estimated ejection fraction is 50-55%. Wall motion is normal; there are no regional wall motion abnormalities. 2. Mitral valve: There is mild regurgitation. 3. Aortic valve: There is no evidence of stenosis. There is no significant regurgitation. 4. Tricuspid valve: There is trace to mild regurgitation. The regurgitant peak velocity is 2.3 m/sec. With normal Est PASP 5. Pericardium, extracardiac: There is no significant pericardial effusion. 6. Study data: No prior study is available for comparison. Study data: Transthoracic echocardiogram. Procedure: Transthoracic echocardiography was performed. Image quality was good. Complete 2D, spectral Doppler, and color flow Doppler. Location: Bedside. Patient status: Inpatient. Patient room number: 450-2. No prior study is available for comparison. Rhythm: Normal sinus rhythm. Findings Left ventricle: The cavity size is normal. There is mild concentric hypertrophy. Systolic function is at the lower limits of normal. The estimated ejection fraction is 50-55%. Wall motion is normal; there are no regional wall motion abnormalities. Left ventricular diastolic function parameters are normal. Right ventricle: The cavity size is normal. Systolic function is low normal. Left atrium: The atrium is mildly dilated. Right atrium: The atrium is normal in size. Mitral valve: The leaflets are mildly thickened. There is no evidence of stenosis. There is mild regurgitation. Aortic valve: The valve is trileaflet. The leaflets are mildly thickened. There is no evidence of stenosis. There is no significant regurgitation. Tricuspid valve: The leaflets are normal thickness. There is no evidence of stenosis. There is trace to mild regurgitation. Pulmonic valve: The leaflets are normal thickness. There is no evidence of stenosis. There is trivial regurgitation. Aorta: Aortic root: The aortic root is appears normal. Ascending aorta: The ascending aorta is appears normal. Aortic arch: The aortic arch is poorly visualized. Pericardium: A prominent pericardial fat pad is present. There is no significant pericardial effusion. Pulmonary arteries: Not well visualized. Systemic veins: Inferior vena cava: The vessel is normal in size. The respirophasic diameter changes are blunted (< 50%). Measurements Left ventricle Value Ref Aortic valve Value Ref NINI, LAX (L) 4.0 cm 4.2 - Jonathan diam, S 2.0 cm 2.0 - 5.8 3.2 ESD, LAX 2.6 cm 2.5 - 4.0 Mitral valve Value Ref FS, LAX 35 % 25 - 43 Peak E 1 m/sec -------- PW, ED, LAX (H) 1.2 cm 0.6 - Peak A 0.5 m/sec -------- 1.0 Decel time 148 ms -------- E', lat jonathan, TDI 12.0 cm/sec >=10.0 Peak grad, D 4.0 mm Hg - ------- E/e', lat jonathan, TDI 8 -------- Peak E/A ratio 2 ---- ---- E', med jonathan, TDI 12.0 cm/sec >=7.0 E/e', med jonathan, TDI 8 -------- Pulmonic valve Value Ref E', avg, TDI 12.0 cm/sec -------- Peak v, S 1 m/sec ---- ---- E/e', avg, TDI 8 <=14 Peak grad, S 4.0 mm Hg - ------- Ventricular septum Value Ref Tricuspid valve Value Ref IVS, ED, LAX (H) 1.1 cm 0.6 - TR peak v 2.3 m/sec <=2.8 1.0 Peak RV-RA grad, 21 mm Hg -------- S Right ventricle Value Ref NINI, LAX 2.6 cm -------- Aortic root Value Ref NINI minor ax, A4C (H) 4.0 cm 1.9 - Root diam 3.2 cm <3.9 mid 3.5 Ascending aorta Value Ref Left atrium Value Ref AAo diam 3.1 cm 2.2 - AP dim ES, LAX 3.5 cm 3.0 - 3.8 4.0 ML dim, A4C 4.8 cm -------- Inferior vena cava Value Ref SI dim, A4C 4.7 cm -------- Diam 2.1 cm -------- Vol/bsa, ES, A/L (H) 41 ml/m^2 16 - 34 Right atrium Value Ref ML dim, ES, A4C 4.2 cm 2.6 - 4.4 SI dim, ES, A4C 4.5 cm 3.4 - 5.3 SI dim/bsa, ES, A4C 2.7 cm/m^2 1.8 - 3.0 Estimated RAP 8 mm Hg -------- Legend: (L) and (H) ally values outside specified reference range. Prepared and electronically signed by Jax Rivera MD 04/21/2019 14:05
[2019-04-21] MEDS: traZODone TAB* 50 MG TAB PO SCH (21:07)
[2019-04-21] MEDS ORDERED: LORazepam TAB(*) 0.5 MG PO ONE (21:18)
[2019-04-22] MEDS: Levothyroxine TAB* 100 MCG TAB PO SCH (06:03)
[2019-04-22] MEDS: Vancomycin(*) 1,000 MG in NS 0.9% 250 ML* 250 ML IVPB SCH ×3 (06:05→22:00)
[2019-04-22] MEDS ORDERED: LORazepam INJ* 2 MG/ML 1 ML VIAL ONE ×2 (06:13→10:32)
[2019-04-22] MEDS ORDERED: Lorazepam PYXIS KEY ONE (06:13)
[2019-04-22 06:41] LABS: Hematocrit 35 % (42-52); Hemoglobin 12.2 g/dL (14.0-18.0); Mean Corpuscular HGB Conc 35 g/dL (31-36); Mean Corpuscular Hemoglobin 33 pg (27-31); Mean Corpuscular Volume 95 fL (80-94); Mean Platelet Volume 7.9 fL (7.4-10.4); Platelet Count 83 10^3/uL (150-450); Red Blood Count 3.71 10^6 /uL (4.18-5.48); Red Cell Distribution Width 14 % (10-15); White Blood Count 5.9 10^3/uL (3.5-10.8)
[2019-04-22 06:51] LABS: Albumin 3.1 g/dL (3.2-5.2); Albumin/Globulin Ratio 1.1 (1-3); BUN/Creatinine Ratio 30.3 (8-20); Calcium 8.9 mg/dL (8.6-10.3); EGFR African American 160.2 (>60); EGFR Non-African American 132.4 (>60); Globulin 2.7 g/dL (2-4); Magnesium 1.6 mg/dL (1.9-2.7); Phosphorus 3.6 mg/dL (2.5-5.0); Potassium 4.3 mmol/L (3.5-5.0); Total Bilirubin 0.3 mg/dL (0.2-1.0); Total Protein 5.8 g/dL (6.4-8.9)
[2019-04-22] MEDS ORDERED: LORazepam INJ* 2 MG/ML 1 ML VIAL IV PUSH PRN (06:51)
[2019-04-22] MEDS ORDERED: Lorazepam PYXIS KEY PRN (06:51)
--- NOTE | 2019-04-22 07:32 | PN ---
Hospitalist Progress Note Date of Service: 04/22/19 ad terminal makeup operator paged regarding seizure. It broke with 2mg ativan however he was having some residual twitching on the left. Reviewed chart likely twitching from Right GBM Hx however followed up with CT brain. Again had recurrent seizure so ordered extra PRN ativan.
[2019-04-22] MEDS: Enoxaparin(*) 40 MG/0.4 ML SYR SUBCUT SCH (08:45)
[2019-04-22] MEDS ORDERED: Dexamethasone IV* 4 MG in NS 0.9% 50 ML* 50 ML IVPB SCH (10:00)
--- NOTE | 2019-04-22 10:21 | PN ---
Progress Note - Progress Note Date of Service: 04/22/19 SOAP: Subjective: []Events of evening and this AM reviewed. Transferred to the ICU @ approx. 0730. Non-verbal though grunts. Follows commands to a limited degree. Failed bedside swallow eval. Continues to have twitching motions of left eye, check, lip, and shoulder. Medications Acetaminophen (Tylenol Tab*) 650 mg PO Q4H PRN PRN Reason: FEVER/PAIN Last Admin: 04/20/19 23:06 Dose: 650 mg Calcium Carbonate (Tums*) 500 mg PO Q4H PRN PRN Reason: INDIGESTION Dexamethasone Sodium Phosphate (Decadron Iv*) 4 mg IV SLOW PU Q12H [facility] Enoxaparin Sodium (Lovenox(*)) 40 mg SUBCUT Q24H [facility] Last Admin: 04/21/19 08:09 Dose: 40 mg Vancomycin HCl 1,000 mg/ (Sodium Chloride) 250 mls @ 166.667 mls/hr IVPB Q8H [facility] Last Admin: 04/22/19 06:05 Dose: 166.667 mls/hr Levetiracetam 1,500 mg/ Sodium (Chloride) 115 mls @ 460 mls/hr IVPB Q12H [facility] Lacosamide (Vimpat Tab*) 100 mg PO BID [facility] Last Admin: 04/21/19 21:07 Dose: 100 mg Levothyroxine Sodium (Synthroid Tab*) 100 mcg PO 0600 [facility] Last Admin: 04/22/19 06:03 Dose: 100 mcg Lorazepam (Ativan Tab(*)) 2 mg PO Q6H PRN PRN Reason: IMPENDING SEIZURE Lorazepam (Ativan Inj*) 2 mg IV PUSH Q4H PRN PRN Reason: Break Through seizure Methadone HCl (Dolophine Tab*) 10 mg PO TID [facility] Last Admin: 04/21/19 21:07 Dose: 10 mg Miscellaneous (Ativan Pyxis Lacy) 1 ea N/A .ATIVAN IV LACY PRN PRN Reason: PYXIS LACY Multivitamins/Minerals (Theragran/Minerals Tab*) 1 tab PO DAILY [facility] Last Admin: 04/21/19 08:09 Dose: 1 tab Nystatin (Nystatin Suspension*) 500,000 units PO QID [facility] Last Admin: 04/21/19 21:07 Dose: 500,000 units Ondansetron HCl (Zofran Tab*) 8 mg PO Q8HR PRN PRN Reason: NAUSEA/VOMITING Oxycodone HCl (Roxycodone Tab*) 5 mg PO Q4H PRN PRN Reason: PAIN Last Admin: 04/20/19 23:12 Dose: 5 mg Pharmacy Consult (Vancomycin Per Pharmacy*) 1 note FOLLOW UP . 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 feet Laboratory Results - last 24 hr 04/21/19 04/22/19 04/22/19 08:03 06:25 06:25 WBC 5.9 RBC 3.71 L Hgb 12.2 L Hct 35 L MCV 95 H MCH 33 H MCHC 35 RDW 14 Plt Count 83 L MPV 7.9 Sodium 139 Potassium 4.3 Chloride 102 Carbon Dioxide 26 Anion Gap 11 BUN 20 Creatinine 0.66 L Est GFR ( Amer) 160.2 Est GFR (Non-Af Amer) 132.4 BUN/Creatinine Ratio 30.3 H Glucose 116 H Calcium 8.9 Phosphorus 3.6 Magnesium 1.6 L Total Bilirubin 0.30 AST 17 ALT 34 Alkaline Phosphatase 56 Total Protein 5.8 L Albumin 3.1 L Globulin 2.7 Albumin/Globulin Ratio 1.1 TSH 0.00 L Free T4 1.36 H Vancomycin Trough 11.6 Assessment/Plan: []43 yo with end stage GBM who was admitted for left leg cellulitis following a fall after signing himself off of hospice and rescinding his DNR, unfortunately this AM seized this AM and now shows new neurological deficits concerning for a stroke and possible background seizure activity despite medications. Initially his father, Luis Daniel (current proxy), requested care be escalated as needed however at this time I voiced my concern that Mohan is now actively dying and the family is making their way to the hospital. He did agree to my giving Mohan additional medications to provide sedation and comfort. I will speak with them once they arrive regarding comfort measures.
[2019-04-22] MEDS: levETIRAcetam IV* 1,500 MG in NS 0.9% 100 ML* 100 ML IVPB SCH ×2 (10:37→21:26)
[2019-04-22] MEDS: LORazepam INJ* 2 MG/ML 1 ML VIAL IV PUSH PRN ×2 (10:47→21:38)
[2019-04-22] MEDS: Dexamethasone IV* 4 MG/ML 1 ML (4 MG) IV SLOW PU SCH ×2 (10:48→21:26)
[2019-04-22] MEDS: Lacosamide TAB* 100 MG TAB PO SCH ×2 (15:51→21:25)
[2019-04-22] MEDS: Methadone TAB* 10 MG PO SCH ×3 (15:52→21:25)
[2019-04-22] MEDS: Multivitamins/Minerals TAB PO SCH (15:53)
[2019-04-22] MEDS: Nystatin SUSPENSION* 100000 UNITS/ML 5 ML UDC PO SCH ×3 (15:53→21:25)
[2019-04-22] MEDS: Dexamethasone TAB* 4 MG PO SCH (15:58)
[2019-04-22] MEDS: levETIRAcetam TAB* 500 MG PO SCH (15:58)
--- NOTE | 2019-04-22 17:29 | CONSULT ---
Subjective Date of Service: 04/22/19 Interval History: Mr. Luna is a 43 yo male with PMH significant for terminal glionlastoma, seizure disorder, hypothyroidism, chronic pain and residual left sided weakness. He presented to the emergency room with complaints of left LE pain and redness and bilateral LE edema. He was admitted to the hospital for left LE cellulitis. He presented to the hospital with a wound to his left fajardo that has been present since February when he felt on a set of metal stairs at home. Patient seen and examined at bedside. Family History: Unchanged from Admission Social History: Unchanged from Admission Past Medical History: Unchanged from Admission Review of Systems - Measurements Intake and Output: Intake and Output Last 24 Hours 04/20/19 04/21/19 04/22/19 04/23/19 06:59 06:59 06:59 06:59 Intake Total 2688 1850 538 Output Total 375 1200 170 Balance 2313 650 368 Weight 130 lb 149 lb 14.4 oz Intake: IV Fluids 2078 589 393 ABX - VANCOMYCIN 289 300 NS 100 IVPB 250 176 145 ABX - VANCOMYCIN 250 NS 145 Oral 360 1085 Output: Urine 375 1200 170 Other: Estimated Void Medium # Bowel Movements 1 # Voids 3 - Review of Systems Constitutional Symptoms: Negative: Fever, Other - Chills Dermatology: Positive: Other - Wound to left fajardo Objective Active Medications: Acetaminophen (Tylenol Tab*) 650 mg PO Q4H PRN Reason: FEVER/PAIN Calcium Carbonate (Tums*) 500 mg PO Q4H PRN Reason: INDIGESTION Dexamethasone Sodium Phosphate (Decadron Iv*) 4 mg IV SLOW PU Q12H [facility] Enoxaparin Sodium (Lovenox(*)) 40 mg SUBCUT Q24H [facility] Vancomycin HCl 1,000 mg/ (Sodium Chloride) 250 mls @ 166.667 mls/hr IVPB Q8H [facility] Levetiracetam 1,500 mg/ Sodium (Chloride) 115 mls @ 460 mls/hr IVPB Q12H [facility] Lacosamide (Vimpat Tab*) 100 mg PO BID [facility] Levothyroxine Sodium (Synthroid Tab*) 100 mcg PO 0600 [facility] Lorazepam (Ativan Inj*) 2 mg IV PUSH Q2H PRN Reason: seizure, convulsion, agitation Methadone HCl (Dolophine Tab*) 10 mg PO TID [facility] Multivitamins/Minerals (Theragran/Minerals Tab*) 1 tab PO DAILY [facility] Nystatin (Nystatin Suspension*) 500,000 units PO QID [facility] Ondansetron HCl (Zofran Tab*) 8 mg PO Q8HR PRN Reason: NAUSEA/VOMITING Oxycodone HCl (Roxycodone Tab*) 5 mg PO Q4H PRN Reason: PAIN Pharmacy Consult (Vancomycin Per Pharmacy*) 1 note FOLLOW UP . PRN Reason: PER PROTOCOL Vital Signs 04/22/19 04/22/19 04/22/19 15:01 15:30 16:00 Temperature Pulse Rate 58 80 53 Respiratory 14 29 12 Rate Blood Pressure 129/94 140/92 (mmHg) O2 Sat by Pulse 97 97 97 Oximetry 04/22/19 04/22/19 16:03 16:05 Temperature 97.6 F Pulse Rate 53 Respiratory 14 Rate Blood Pressure 119/83 (mmHg) O2 Sat by Pulse 96 Oximetry Oxygen Devices in Use Now: None Appearance: NAD, laying in bed Ears/Nose/Mouth/Throat: Mucous Membranes Moist Respiratory: Symmetrical Chest Expansion and Respiratory Effort Extremities: - - Bilateral LE edema Neurological: - - Alert and Oriented to person Result Diagrams: 04/28/19 06:33 04/28/19 06:33 Additional Lab and Data: Above labs were pulled into the chart when note was edited prior to signing, see labs from day of consult below Laboratory Tests 04/20/19 04/22/19 04/22/19 05:29 06:25 06:25 WBC 5.9 Hgb 12.2 L Hct 35 L Plt Count 83 L Sodium 139 Potassium 4.3 Chloride 102 Carbon Dioxide 26 BUN 20 Creatinine 0.66 L Glucose 116 H C-Reactive Protein 79.51 H Albumin 3.1 L Globulin 2.7 Albumin/Globulin Ratio 1.1 Microbiology and Other Data: Microbiology 04/20/19 05:29 Aerobic Blood Culture - Preliminary Blood Venous No Growth Day 2 Anaerobic Blood Culture - Preliminary No Growth Day 2 04/20/19 05:29 Aerobic Blood Culture - Preliminary Blood Venous No Growth Day 2 Anaerobic Blood Culture - Preliminary No Growth Day 2 Skin Deviation Note - Skin Deviation Findings Left anterior fajardo - The wound measures 3.8 cm x 3.8 cm x 0.2 cm. The wound probes in the deep open area, 3 cm at 3-5 o'clock. There is serous drainage from the wound after the wound was probed. The surrounding skin is intact, without erythema. Assessment/Plan: Mr. Luna is a 43 yo male with PMH significant for terminal glionlastoma, seizure disorder, hypothyroidism, chronic pain and residual left sided weakness. He presented to the emergency room with complaints of left LE pain and redness and bilateral LE edema. He was admitted to the hospital for left LE cellulitis. 1. Chronic left skin wound. Due to the length of time the wound has been present (6-8 week), osteomyelitis is in the differential. Discussed with orthopedics (they recommended the xray). Recommend obtaining a plain film xray to evaluate the leg. Based on the patient and family's wishes may consider MRI to further eval for osteomyelitis. Wound culture not obtained as he has been on Vancomycin and suspect this wouldn't have any growth. This wound may also need to have debridement due to the depth of the wound. Recommend applying Santyl, followed by a dry gauze dressing and change the dressing daily and as needed for drainage. Will add a CRP on to todays labs. Based on imaging findings, may need an formal orthopedic consult. Consider wound clinic referral at discharge. 2. Glioblastoma with seizures. Management per Oncology team. 3. Diet. NPO at this time. 4. Code Status. Full code. 5. Disposition. Inpatient, disposition per primary team. TIME SPENT: Time for this wound consultation was 20 minutes and 10 minutes was spent with the patient and family discussing PMH; assessing, measuring, and photographing the wound. Wound Problem/Plan Is Patient a Wound Clinic Patient: No Attending: Tracey Oviedo
[2019-04-23] MEDS: LORazepam INJ* 2 MG/ML 1 ML VIAL IV PUSH PRN ×4 (01:25→22:09)
[2019-04-23] MEDS: Levothyroxine TAB* 100 MCG TAB PO SCH (05:38)
[2019-04-23] MEDS: Vancomycin(*) 1,000 MG in NS 0.9% 250 ML* 250 ML IVPB SCH ×3 (05:38→22:17)
[2019-04-23] MEDS ORDERED: diPHENhydraMINE IV* 50 MG/ML 1 ml VIAL (BENADRYL) IV ONE (07:00)
[2019-04-23] MEDS ORDERED: Midazolam* 1 MG/ML 5 ML VIAL (5 MG) IV SLOW PU ONE (08:11)
[2019-04-23] MEDS: Enoxaparin(*) 40 MG/0.4 ML SYR SUBCUT SCH (10:06)
[2019-04-23] MEDS: Dexamethasone IV* 4 MG/ML 1 ML (4 MG) IV SLOW PU SCH ×2 (10:06→21:38)
[2019-04-23] MEDS: Multivitamins/Minerals TAB PO SCH (10:14)
[2019-04-23] MEDS: Lacosamide TAB* 100 MG TAB PO SCH ×2 (10:14→21:38)
[2019-04-23] MEDS: Methadone TAB* 10 MG PO SCH ×3 (10:14→21:38)
[2019-04-23] MEDS: Nystatin SUSPENSION* 100000 UNITS/ML 5 ML UDC PO SCH ×4 (10:15→21:38)
[2019-04-23] MEDS: levETIRAcetam IV* 1,500 MG in NS 0.9% 100 ML* 100 ML IVPB SCH ×2 (10:18→21:38)
[2019-04-23 11:20] LABS: Albumin 2.7 g/dL (3.2-5.2); Albumin/Globulin Ratio 1.4 (1-3); Calcium 8.3 mg/dL (8.6-10.3); EGFR African American 193.6 (>60); Magnesium 1.7 mg/dL (1.9-2.7); Potassium 3.7 mmol/L (3.5-5.0); Total Bilirubin 0.4 mg/dL (0.2-1.0); Total Protein 4.7 g/dL (6.4-8.9)
[2019-04-23] MEDS ORDERED: Gadobenate* (CONTRAST) 529 MG/ML 10 ML SDV IV ONE (11:20)
--- NOTE | 2019-04-23 15:31 | PN ---
Hospitalist Progress Note Date of Service: 04/23/19 Called to bedside by RN for additional seizure activity at approximately 0700. Patient given ativan. He is currently post-ictal but arousable. Impulsive with 1 :1 observation. Patient is pending MRI's this afternoon, concern that patient will not be able to tolerate sitting still for imaging and ativan does not offer sedation. As RN will be escorting patient to MRI suite, will order 1 time dose versed 5mg for procedure, patient to remain on telemetry. Coordinated with RN. Oncology service remains primary.
[2019-04-23] MEDS: Collagenase 250 UNITS/GM OINT* 1 APPLIC OINT TOPICAL SCH (17:28)
[2019-04-23] MEDS: Acetaminophen TAB* 325 MG PO PRN (21:38)
[2019-04-23] MEDS: oxyCODONE TAB* 5 MG TAB PO PRN (23:12)
[2019-04-24] MEDS: LORazepam INJ* 2 MG/ML 1 ML VIAL IV PUSH PRN ×7 (00:38→23:49)
[2019-04-24] MEDS: Acetaminophen TAB* 325 MG PO PRN ×2 (02:43→16:01)
[2019-04-24] MEDS: oxyCODONE TAB* 5 MG TAB PO PRN ×3 (04:39→21:08)
[2019-04-24] MEDS: Vancomycin(*) 1,000 MG in NS 0.9% 250 ML* 250 ML IVPB SCH ×2 (05:56→17:44)
[2019-04-24] MEDS: Levothyroxine TAB* 100 MCG TAB PO SCH (06:02)
[2019-04-24] MEDS: Multivitamins/Minerals TAB PO SCH (09:44)
[2019-04-24] MEDS: Nystatin SUSPENSION* 100000 UNITS/ML 5 ML UDC PO SCH ×4 (09:44→21:09)
[2019-04-24] MEDS: Lacosamide TAB* 100 MG TAB PO SCH ×2 (09:45→21:08)
[2019-04-24] MEDS: Collagenase 250 UNITS/GM OINT* 1 APPLIC OINT TOPICAL SCH (09:45)
[2019-04-24] MEDS: Methadone TAB* 10 MG PO SCH ×3 (09:45→21:08)
[2019-04-24] MEDS: Enoxaparin(*) 40 MG/0.4 ML SYR SUBCUT SCH (09:46)
[2019-04-24] MEDS: Dexamethasone IV* 4 MG/ML 1 ML (4 MG) IV SLOW PU SCH ×2 (09:47→21:52)
--- NOTE | 2019-04-24 09:47 | PN ---
Progress Note - Progress Note Date of Service: 04/24/19 SOAP: Subjective: confused this morning. garbled speech. no further seizure activity. family revoked DNR again yesterday. Objective: Vital Signs Temp Pulse Resp BP Pulse Ox 97.9 F 55 12 132/88 99 04/24/19 08:00 04/24/19 09:00 04/24/19 09:00 04/24/19 09:00 04/24/19 09:00 lying flat in nad garbled speech incoherent moving r side but not left facial twitch on left L LE improved cellulitis based on drawn lines Acetaminophen (Tylenol Tab*) 650 mg PO Q4H PRN PRN Reason: FEVER/PAIN Last Admin: 04/24/19 02:43 Dose: 650 mg Calcium Carbonate (Tums*) 500 mg PO Q4H PRN PRN Reason: INDIGESTION Collagenase (Santyl 250 Mg/Gm Oint*) 1 applic TOPICAL DAILY [facility] Last Admin: 04/23/19 17:28 Dose: Not Given Dexamethasone Sodium Phosphate (Decadron Iv*) 4 mg IV SLOW PU Q12H [facility] Last Admin: 04/23/19 21:38 Dose: 4 mg Enoxaparin Sodium (Lovenox(*)) 40 mg SUBCUT Q24H [facility] Last Admin: 04/23/19 10:06 Dose: 40 mg Heparin Sodium (Porcine) (Heparin Flush Picc/Ml/Cvc(*)) 1 - 3 ml FLUSH 0600, 1800 [facility]; Protocol Last Admin: 04/24/19 06:02 Dose: 1 ml Levetiracetam 1,500 mg/ Sodium (Chloride) 115 mls @ 460 mls/hr IVPB Q12H [facility] Last Admin: 04/23/19 21:38 Dose: 460 mls/hr Lacosamide (Vimpat Tab*) 100 mg PO BID [facility] Last Admin: 04/23/19 21:38 Dose: 100 mg Levothyroxine Sodium (Synthroid Tab*) 100 mcg PO 0600 [facility] Last Admin: 04/24/19 06:02 Dose: 100 mcg Lorazepam (Ativan Inj*) 2 mg IV PUSH Q2H PRN PRN Reason: seizure, convulsion, agitation Last Admin: 04/24/19 02:54 Dose: 2 mg Methadone HCl (Dolophine Tab*) 10 mg PO TID [facility] Last Admin: 04/23/19 21:38 Dose: 10 mg Miscellaneous (Ativan Pyxis Lacy) 1 ea N/A .ATIVAN IV LACY PRN PRN Reason: PYXIS LACY Multivitamins/Minerals (Theragran/Minerals Tab*) 1 tab PO DAILY [facility] Last Admin: 04/23/19 10:14 Dose: Not Given Nystatin (Nystatin Suspension*) 500,000 units PO QID [facility] Last Admin: 04/23/19 21:38 Dose: 500,000 units Ondansetron HCl (Zofran Tab*) 8 mg PO Q8HR PRN PRN Reason: NAUSEA/VOMITING Oxycodone HCl (Roxycodone Tab*) 5 mg PO Q4H PRN PRN Reason: PAIN Last Admin: 04/24/19 04:39 Dose: 5 mg Pharmacy Consult (Vancomycin Per Pharmacy*) 1 note FOLLOW UP . PRN PRN Reason: PER PROTOCOL Pharmacy Consult (Vancomycin Random Level*) 1 note FOLLOW UP 1000 ONE Stop: 04/24/19 10:01 Assessment: 43 yo with end stage GBM who was admitted for left leg cellulitis following a fall after signing himself off of hospice and rescinding his DNR, w recurrent seizures and progressive disease on MRI imaging. as has been thoroughly documented in multiple notes, Mohan has no further options for treatment of his disease but refuses to be hospice/comfort measures only. I anticipate with continued disease progression that he might continue to seize and even may have status at some point and require intubation. If he seizes again I will ask neurology to see him but I do not think there is much they can offer. cont ICU management for now anticipating more seizure activity
[2019-04-24] MEDS ORDERED: Vancomycin Random Level* NOTE FOLLOW UP ONE (10:00)
[2019-04-24] MEDS: levETIRAcetam IV* 1,500 MG in NS 0.9% 100 ML* 100 ML IVPB SCH ×2 (12:30→21:52)
[2019-04-24] MEDS ORDERED: Haloperidol LIQ* 10 MG/5 ML UDC PO ONE (17:00)
[2019-04-24] MEDS ORDERED: Haloperidol TAB* 0.5 MG PO ONE (17:00)
[2019-04-24] MEDS ORDERED: NS 0.9% 100 ML* 100 ML ONE (21:46)
[2019-04-25] MEDS: oxyCODONE TAB* 5 MG TAB PO PRN ×2 (00:54→20:22)
[2019-04-25] MEDS: LORazepam INJ* 2 MG/ML 1 ML VIAL IV PUSH PRN ×7 (01:46→23:30)
[2019-04-25] MEDS ORDERED: Vancomycin Trough Check NOTE FOLLOW UP ONE (05:00)
[2019-04-25] MEDS: Vancomycin(*) 1,000 MG in NS 0.9% 250 ML* 250 ML IVPB SCH ×2 (05:52→16:26)
[2019-04-25] MEDS: Levothyroxine TAB* 100 MCG TAB PO SCH (05:53)
[2019-04-25] MEDS: Lacosamide TAB* 100 MG TAB PO SCH ×2 (07:45→20:22)
[2019-04-25] MEDS: Multivitamins/Minerals TAB PO SCH (07:45)
[2019-04-25] MEDS: Methadone TAB* 10 MG PO SCH ×3 (07:45→20:22)
[2019-04-25] MEDS: Enoxaparin(*) 40 MG/0.4 ML SYR SUBCUT SCH (07:46)
[2019-04-25] MEDS: Collagenase 250 UNITS/GM OINT* 1 APPLIC OINT TOPICAL SCH (07:47)
[2019-04-25] MEDS: Nystatin SUSPENSION* 100000 UNITS/ML 5 ML UDC PO SCH ×4 (07:47→20:22)
--- NOTE | 2019-04-25 09:50 | PN ---
Progress Note - Progress Note Date of Service: 04/25/19 SOAP: Subjective: []Minimally responsive, denies pain. He has twitching of mouth. Incontinent of urine and stool. Family meeting scheduled for 9 am but his parents did not come. Acetaminophen (Tylenol Tab*) 650 mg PO Q4H PRN PRN Reason: FEVER/PAIN Last Admin: 04/24/19 16:01 Dose: 650 mg Calcium Carbonate (Tums*) 500 mg PO Q4H PRN PRN Reason: INDIGESTION Collagenase (Santyl 250 Mg/Gm Oint*) 1 applic TOPICAL DAILY [facility] Last Admin: 04/25/19 07:47 Dose: 1 applic Dexamethasone Sodium Phosphate (Decadron Iv*) 4 mg IV SLOW PU Q12H [facility] Last Admin: 04/24/19 21:52 Dose: 4 mg Enoxaparin Sodium (Lovenox(*)) 40 mg SUBCUT Q24H [facility] Last Admin: 04/25/19 07:46 Dose: 40 mg Heparin Sodium (Porcine) (Heparin Flush Picc/Ml/Cvc(*)) 1 - 3 ml FLUSH 0600, 1800 [facility]; Protocol Last Admin: 04/25/19 07:45 Dose: Not Given Levetiracetam 1,500 mg/ Sodium (Chloride) 115 mls @ 460 mls/hr IVPB Q12H [facility] Last Admin: 04/24/19 21:52 Dose: 460 mls/hr Vancomycin HCl 1,000 mg/ (Sodium Chloride) 250 mls @ 166.667 mls/hr IVPB Q12H [facility] Last Admin: 04/25/19 05:52 Dose: 166.667 mls/hr Lacosamide (Vimpat Tab*) 100 mg PO BID [facility] Last Admin: 04/25/19 07:45 Dose: 100 mg Levothyroxine Sodium (Synthroid Tab*) 100 mcg PO 0600 [facility] Last Admin: 04/25/19 05:53 Dose: 100 mcg Lorazepam (Ativan Inj*) 2 mg IV PUSH Q2H PRN PRN Reason: seizure, convulsion, agitation Last Admin: 04/25/19 07:46 Dose: 2 mg Methadone HCl (Dolophine Tab*) 10 mg PO TID [facility] Last Admin: 04/25/19 07:45 Dose: 10 mg Miscellaneous (Ativan Pyxis Lacy) 1 ea N/A .ATIVAN IV LACY PRN PRN Reason: PYXIS LACY Multivitamins/Minerals (Theragran/Minerals Tab*) 1 tab PO DAILY [facility] Last Admin: 04/25/19 07:45 Dose: 1 tab Nystatin (Nystatin Suspension*) 500,000 units PO QID [facility] Last Admin: 04/25/19 07:47 Dose: 500,000 units Ondansetron HCl (Zofran Tab*) 8 mg PO Q8HR PRN PRN Reason: NAUSEA/VOMITING Oxycodone HCl (Roxycodone Tab*) 5 mg PO Q4H PRN PRN Reason: PAIN Last Admin: 04/25/19 00:54 Dose: 5 mg Pharmacy Consult (Vancomycin Per Pharmacy*) 1 note FOLLOW UP . PRN PRN Reason: PER PROTOCOL Objective: [] Vital Signs Temp Pulse Resp BP Pulse Ox 98.1 F 58 23 131/82 97 04/25/19 08:00 04/25/19 09:00 04/25/19 09:00 04/25/19 05:59 04/25/19 09:00 HEENT; OM moist and no lesions. CTA RRR S1S2 +BS NT ND Ext - leg is clearly improved, edema resolved. warm but decreased pulses. the ulcer is bandaged and I did not remove dressing Neuro- minimal responsive, reflex +2 but muscle atrophy and not following commands. MRI brain with marked progression of disease from January Assessment: []43 year old with GBM and now more rapid progression of disease and clear clinical deterioration. He had been DNR and on hospice but they have reverted to full code. He has no options for therapy and will soon from cancer. Plan: []1. Family contacted to re-schedule meeting and discuss end of life issues. 2. Continue antibiotics and seizure medication, he is full code at this time. 3. Comfortable today, no change in pain medication. 4. Full code at this time. 5. Labs stable, re-check Sunday
[2019-04-25] MEDS: levETIRAcetam IV* 1,500 MG in NS 0.9% 100 ML* 100 ML IVPB SCH ×2 (09:56→21:28)
[2019-04-25] MEDS: Dexamethasone IV* 4 MG/ML 1 ML (4 MG) IV SLOW PU SCH ×2 (10:40→21:27)
[2019-04-26] MEDS: Vancomycin(*) 1,000 MG in NS 0.9% 250 ML* 250 ML IVPB SCH ×2 (05:02→18:39)
[2019-04-26] MEDS: Levothyroxine TAB* 100 MCG TAB PO SCH (05:03)
[2019-04-26 06:37] LABS: ABS Lymphocytes 0.5 10^3/ul (1.0-4.8); ABS Monocytes 0.3 10^3/ul (0-0.8); ABS Neutrophils 4.4 10^3/ul (1.5-7.7); Eosinophil % 0.3 %; Hematocrit 40 % (42-52); Hemoglobin 13.9 g/dL (14.0-18.0); Lymphocyte % 10.2 %; Mean Corpuscular HGB Conc 35 g/dL (31-36); Mean Corpuscular Hemoglobin 33 pg (27-31); Mean Corpuscular Volume 93 fL (80-94); Nucleated Red Blood Cells % 0.2; Platelet Count 100 10^3/uL (150-450); Red Blood Count 4.26 10^6 /uL (4.18-5.48); Red Cell Distribution Width 14 % (10-15); White Blood Count 5.2 10^3/uL (3.5-10.8)
[2019-04-26 06:53] LABS: Calcium 8.9 mg/dL (8.6-10.3); Chloride 105 mmol/L (101-111); Sodium 139 mmol/L (135-145)
[2019-04-26 06:59] LABS: Blood Urea Nitrogen 12 mg/dL (6-24); Glucose 96 mg/dL (70-100)
[2019-04-26 07:04] LABS: Anion Gap 7 mmol/L (2-11); CO2 Carbon Dioxide 27 mmol/L (22-32)
[2019-04-26 07:20] LABS: BUN/Creatinine Ratio 22.6 (8-20); EGFR African American 206.3 (>60); EGFR Non-African American 170.5 (>60)
[2019-04-26] MEDS: Enoxaparin(*) 40 MG/0.4 ML SYR SUBCUT SCH (08:08)
[2019-04-26] MEDS: Collagenase 250 UNITS/GM OINT* 1 APPLIC OINT TOPICAL SCH (08:08)
[2019-04-26] MEDS: Lacosamide TAB* 100 MG TAB PO SCH ×2 (08:09→20:07)
[2019-04-26] MEDS: Multivitamins/Minerals TAB PO SCH (08:09)
[2019-04-26] MEDS: Nystatin SUSPENSION* 100000 UNITS/ML 5 ML UDC PO SCH ×4 (08:09→20:07)
--- NOTE | 2019-04-26 08:11 | PN ---
Progress Note - Progress Note Date of Service: 04/26/19 SOAP: Subjective: "feel shaky" is the only words this health underwriter is able to glean Objective: Vital Signs Temp Pulse Resp BP Pulse Ox 97.8 F 56 15 87/66 93 04/26/19 07:35 04/26/19 07:00 04/26/19 07:00 04/26/19 07:00 04/26/19 07:00 lying in bed in nad minimally verbal shaky dense left paralysis muscle atrophy left leg cellulitis essentially resolved did not undress ulcer Laboratory Results - last 24 hr 04/26/19 04/26/19 06:10 06:10 WBC 5.2 RBC 4.26 Hgb 13.9 L Hct 40 L MCV 93 MCH 33 H MCHC 35 RDW 14 Plt Count 100 L MPV 8.0 Neut % (Auto) 83.3 Lymph % (Auto) 10.2 Tillman % (Auto) 6.0 Eos % (Auto) 0.3 Baso % (Auto) 0.2 Absolute Neuts (auto) 4.4 Absolute Lymphs (auto) 0.5 L Absolute Monos (auto) 0.3 Absolute Eos (auto) 0.0 Absolute Basos (auto) 0.0 Absolute Nucleated RBC 0.0 Nucleated RBC % 0.2 Sodium 139 Potassium TNP Chloride 105 Carbon Dioxide 27 Anion Gap 7 BUN 12 Creatinine 0.53 L Est GFR ( Amer) 206.3 Est GFR (Non-Af Amer) 170.5 BUN/Creatinine Ratio 22.6 H Glucose 96 Calcium 8.9 Acetaminophen (Tylenol Tab*) 650 mg PO Q4H PRN PRN Reason: FEVER/PAIN Last Admin: 04/24/19 16:01 Dose: 650 mg Calcium Carbonate (Tums*) 500 mg PO Q4H PRN PRN Reason: INDIGESTION Collagenase (Santyl 250 Mg/Gm Oint*) 1 applic TOPICAL DAILY [facility] Last Admin: 04/26/19 08:08 Dose: 1 applic Dexamethasone Sodium Phosphate (Decadron Iv*) 4 mg IV SLOW PU Q12H [facility] Last Admin: 04/25/19 21:27 Dose: 4 mg Enoxaparin Sodium (Lovenox(*)) 40 mg SUBCUT Q24H [facility] Last Admin: 04/26/19 08:08 Dose: 40 mg Heparin Sodium (Porcine) (Heparin Flush Picc/Ml/Cvc(*)) 1 - 3 ml FLUSH 0600, 1800 [facility]; Protocol Last Admin: 04/26/19 05:03 Dose: Not Given Levetiracetam 1,500 mg/ Sodium (Chloride) 115 mls @ 460 mls/hr IVPB Q12H [facility] Last Admin: 04/25/19 21:28 Dose: 460 mls/hr Vancomycin HCl 1,000 mg/ (Sodium Chloride) 250 mls @ 166.667 mls/hr IVPB Q12H [facility] Last Admin: 04/26/19 05:02 Dose: 166.667 mls/hr Lacosamide (Vimpat Tab*) 100 mg PO BID [facility] Last Admin: 04/26/19 08:09 Dose: 100 mg Levothyroxine Sodium (Synthroid Tab*) 100 mcg PO 0600 [facility] Last Admin: 04/26/19 05:03 Dose: 100 mcg Lorazepam (Ativan Inj*) 2 mg IV PUSH Q2H PRN PRN Reason: seizure, convulsion, agitation Last Admin: 04/25/19 23:30 Dose: 2 mg Methadone HCl (Dolophine Tab*) 10 mg PO TID [facility] Last Admin: 04/25/19 20:22 Dose: 10 mg Miscellaneous (Ativan Pyxis Lacy) 1 ea N/A .ATIVAN IV LACY PRN PRN Reason: PYXIS LACY Multivitamins/Minerals (Theragran/Minerals Tab*) 1 tab PO DAILY [facility] Last Admin: 04/26/19 08:09 Dose: 1 tab Nystatin (Nystatin Suspension*) 500,000 units PO QID [facility] Last Admin: 04/26/19 08:09 Dose: 500,000 units Ondansetron HCl (Zofran Tab*) 8 mg PO Q8HR PRN PRN Reason: NAUSEA/VOMITING Oxycodone HCl (Roxycodone Tab*) 5 mg PO Q4H PRN PRN Reason: PAIN Last Admin: 04/25/19 20:22 Dose: 5 mg Pharmacy Consult (Vancomycin Per Pharmacy*) 1 note FOLLOW UP . PRN PRN Reason: PER PROTOCOL Pharmacy Profile Note (Vancomycin Trough Check) 1 note FOLLOW UP 1630 ONE Stop: 04/26/19 16:31 Assessment: 43 yo with end stage GBM who was admitted for left leg cellulitis following a fall after signing himself off of hospice and rescinding his DNR, w recurrent seizures and progressive disease on MRI imaging. Cellulitis: clearly improved IV antibiotics through Sunday then switch to PO GBM: again, no treatment options, he will from this. I anticipate with continued disease progression that he might continue to seize and even may have status at some point and require intubation family meeting SUNDAY at [address] Jones, will d/w nursing to have family informed (again) cont ICU management for now anticipating more seizure activity
[2019-04-26] MEDS: LORazepam INJ* 2 MG/ML 1 ML VIAL IV PUSH PRN ×3 (08:14→22:31)
[2019-04-26] MEDS: Methadone TAB* 10 MG PO SCH ×3 (09:14→20:07)
[2019-04-26] MEDS: levETIRAcetam IV* 1,500 MG in NS 0.9% 100 ML* 100 ML IVPB SCH ×2 (09:15→21:41)
[2019-04-26] MEDS: Dexamethasone IV* 4 MG/ML 1 ML (4 MG) IV SLOW PU SCH ×2 (09:15→21:42)
[2019-04-26] MEDS: oxyCODONE TAB* 5 MG TAB PO PRN (12:23)
[2019-04-26] MEDS ORDERED: Vancomycin Trough Check NOTE FOLLOW UP ONE (16:30)
[2019-04-26 18:25] LABS: Potassium Redraw 3.9 mmol/L (3.5-5.0)
[2019-04-26] MEDS ORDERED: NS 0.9% 100 ML* 100 ML ONE (21:38)
[2019-04-26] MEDS: Ondansetron TAB* 4 MG PO PRN (23:24)
[2019-04-26] MEDS: Acetaminophen TAB* 325 MG PO PRN (23:28)
[2019-04-27] MEDS: oxyCODONE TAB* 5 MG TAB PO PRN ×2 (01:13→16:11)
[2019-04-27] MEDS: Vancomycin(*) 1,000 MG in NS 0.9% 250 ML* 250 ML IVPB SCH ×2 (05:39→17:56)
[2019-04-27] MEDS: Levothyroxine TAB* 100 MCG TAB PO SCH (07:00)
--- NOTE | 2019-04-27 08:11 | PN ---
Subjective Date of Service: 04/27/19 Interval History: No definite c/o. Pain control is adequate. Family History: Unchanged from Admission Social History: Unchanged from Admission Past Medical History: Unchanged from Admission Objective Active Medications: Acetaminophen (Tylenol Tab*) 650 mg PO Q4H PRN PRN Reason: FEVER/PAIN Last Admin: 04/26/19 23:28 Dose: 650 mg Calcium Carbonate (Tums*) 500 mg PO Q4H PRN PRN Reason: INDIGESTION Collagenase (Santyl 250 Mg/Gm Oint*) 1 applic TOPICAL DAILY [facility] Last Admin: 04/26/19 08:08 Dose: 1 applic Dexamethasone Sodium Phosphate (Decadron Iv*) 4 mg IV SLOW PU Q12H [facility] Last Admin: 04/26/19 21:42 Dose: 4 mg Enoxaparin Sodium (Lovenox(*)) 40 mg SUBCUT Q24H [facility] Last Admin: 04/26/19 08:08 Dose: 40 mg Heparin Sodium (Porcine) (Heparin Flush Picc/Ml/Cvc(*)) 1 - 3 ml FLUSH 0600, 1800 [facility]; Protocol Last Admin: 04/27/19 05:43 Dose: Not Given Levetiracetam 1,500 mg/ Sodium (Chloride) 115 mls @ 460 mls/hr IVPB Q12H [facility] Last Admin: 04/26/19 21:41 Dose: 460 mls/hr Vancomycin HCl 1,000 mg/ (Sodium Chloride) 250 mls @ 166.667 mls/hr IVPB 0600, 1800 [facility] Last Admin: 04/27/19 05:39 Dose: 166.667 mls/hr Lacosamide (Vimpat Tab*) 100 mg PO BID [facility] Last Admin: 04/26/19 20:07 Dose: 100 mg Levothyroxine Sodium (Synthroid Tab*) 100 mcg PO 0600 [facility] Last Admin: 04/27/19 07:00 Dose: 100 mcg Lorazepam (Ativan Inj*) 2 mg IV PUSH Q2H PRN PRN Reason: seizure, convulsion, agitation Last Admin: 04/26/19 22:31 Dose: 2 mg Methadone HCl (Dolophine Tab*) 10 mg PO TID [facility] Last Admin: 04/26/19 20:07 Dose: 10 mg Miscellaneous (Ativan Pyxis Lacy) 1 ea N/A .ATIVAN IV LACY PRN PRN Reason: PYXIS LACY Multivitamins/Minerals (Theragran/Minerals Tab*) 1 tab PO DAILY [facility] Last Admin: 04/26/19 08:09 Dose: 1 tab Nystatin (Nystatin Suspension*) 500,000 units PO QID [facility] Last Admin: 04/26/19 20:07 Dose: 500,000 units Ondansetron HCl (Zofran Tab*) 8 mg PO Q8HR PRN PRN Reason: NAUSEA/VOMITING Last Admin: 04/26/19 23:24 Dose: 8 mg Oxycodone HCl (Roxycodone Tab*) 5 mg PO Q4H PRN PRN Reason: PAIN Last Admin: 04/27/19 01:13 Dose: 5 mg Pharmacy Consult (Vancomycin Per Pharmacy*) 1 note FOLLOW UP . PRN PRN Reason: PER PROTOCOL Vital Signs - 8 hr 04/27/19 04/27/19 04/27/19 00:15 01:00 01:01 Temperature Pulse Rate 97 132 123 Respiratory 13 20 18 Rate Blood Pressure 129/81 (mmHg) O2 Sat by Pulse 99 92 95 Oximetry 04/27/19 04/27/19 04/27/19 01:30 02:00 03:00 Temperature Pulse Rate 97 98 Respiratory 17 8 13 Rate Blood Pressure 121/83 108/78 (mmHg) O2 Sat by Pulse 99 98 Oximetry 04/27/19 04/27/19 04/27/19 03:36 04:00 05:00 Temperature 97.1 F Pulse Rate 90 133 69 Respiratory 10 13 12 Rate Blood Pressure 108/78 116/75 93/64 (mmHg) O2 Sat by Pulse 98 98 93 Oximetry 04/27/19 04/27/19 06:00 07:16 Temperature 96.8 F Pulse Rate 57 Respiratory 15 Rate Blood Pressure 112/74 (mmHg) O2 Sat by Pulse 96 Oximetry Oxygen Devices in Use Now: None Appearance: Alert, partly up in ICU bed. Neutral affect. Looks comfortable. Eyes: No Scleral Icterus Extremities: No Edema, No Clubbing, Cyanosis, - - L ankle wrapped Skin: No Nodules or Sclerosis, - - L medial thigh skin has residual discoloration, not inflamed. Neurological: Alert and Oriented x 3 - Able to state present month, identify facility as "[facility] [place]". Speech low volume, mumbles. Occ twitching L face. L hemiparesis., NL Sensation Result Diagrams: 04/26/19 06:10 04/26/19 16:31 Additional Lab and Data: Above labs were pulled into the chart when note was edited prior to signing, see labs from day of consult below Laboratory Tests 04/20/19 04/22/19 04/22/19 05:29 06:25 06:25 WBC 5.9 Hgb 12.2 L Hct 35 L Plt Count 83 L Sodium 139 Potassium 4.3 Chloride 102 Carbon Dioxide 26 BUN 20 Creatinine 0.66 L Glucose 116 H C-Reactive Protein 79.51 H Albumin 3.1 L Globulin 2.7 Albumin/Globulin Ratio 1.1 Microbiology and Other Data: Microbiology 04/20/19 05:29 Aerobic Blood Culture - Preliminary Blood Venous No Growth Day 2 Anaerobic Blood Culture - Preliminary No Growth Day 2 04/20/19 05:29 Aerobic Blood Culture - Preliminary Blood Venous No Growth Day 2 Anaerobic Blood Culture - Preliminary No Growth Day 2 Assess/Plan/Problems-Billing Assessment: - Patient Problems (1) Glioblastoma multiforme Current Visit: Yes Status: Acute Code(s): C71.9 - MALIGNANT NEOPLASM OF BRAIN, UNSPECIFIED SNOMED Code(s): 839508934 Comment: Continue DXM, methadone. Family conference planned for 04/28. (2) Seizures Current Visit: No Status: Acute Code(s): R56.9 - UNSPECIFIED CONVULSIONS SNOMED Code(s): 13902674 Comment: Continue levetriacetam, lacosamide. (3) Hypothyroid Current Visit: Yes Status: Acute Code(s): E03.9 - HYPOTHYROIDISM, UNSPECIFIED SNOMED Code(s): 04496223 Comment: TSH 0 04/21/19, cut dose to 50 mcg/d. (4) Cellulitis of left leg Current Visit: Yes Status: Acute Code(s): L03.116 - CELLULITIS OF LEFT LOWER LIMB SNOMED Code(s): 749319149 Comment: Resolved. ? status L leg ulcer. Continue vanco.
[2019-04-27] MEDS: LORazepam INJ* 2 MG/ML 1 ML VIAL IV PUSH PRN ×3 (08:44→21:29)
[2019-04-27] MEDS: Lacosamide TAB* 100 MG TAB PO SCH ×2 (08:44→21:31)
[2019-04-27] MEDS: Enoxaparin(*) 40 MG/0.4 ML SYR SUBCUT SCH (09:20)
[2019-04-27] MEDS: Nystatin SUSPENSION* 100000 UNITS/ML 5 ML UDC PO SCH ×4 (09:23→21:31)
[2019-04-27] MEDS: Multivitamins/Minerals TAB PO SCH (09:24)
[2019-04-27] MEDS: Methadone TAB* 10 MG PO SCH ×3 (09:24→21:31)
[2019-04-27] MEDS: Dexamethasone IV* 4 MG/ML 1 ML (4 MG) IV SLOW PU SCH ×2 (09:27→21:31)
[2019-04-27] MEDS: levETIRAcetam IV* 1,500 MG in NS 0.9% 100 ML* 100 ML IVPB SCH ×2 (09:37→21:46)
[2019-04-27] MEDS: Collagenase 250 UNITS/GM OINT* 1 APPLIC OINT TOPICAL SCH (09:51)
[2019-04-28] MEDS: Ondansetron TAB* 4 MG PO PRN (00:28)
[2019-04-28] MEDS: Vancomycin(*) 1,000 MG in NS 0.9% 250 ML* 250 ML IVPB SCH (06:06)
[2019-04-28] MEDS: Levothyroxine TAB* 50 MCG TAB PO SCH (06:06)
[2019-04-28 06:50] LABS: ABS Lymphocytes 0.6 10^3/ul (1.0-4.8); ABS Monocytes 0.3 10^3/ul (0-0.8); ABS Neutrophils 4.6 10^3/ul (1.5-7.7); Hematocrit 37 % (42-52); Hemoglobin 13.4 g/dL (14.0-18.0); Mean Corpuscular HGB Conc 36 g/dL (31-36); Mean Corpuscular Hemoglobin 33 pg (27-31); Mean Corpuscular Volume 92 fL (80-94); Mean Platelet Volume 7.9 fL (7.4-10.4); Platelet Count 95 10^3/uL (150-450); Red Blood Count 4.08 10^6 /uL (4.18-5.48); Red Cell Distribution Width 14 % (10-15); White Blood Count 5.5 10^3/uL (3.5-10.8)
[2019-04-28 06:59] LABS: Albumin 3.2 g/dL (3.2-5.2); CO2 Carbon Dioxide 26 mmol/L (22-32); Chloride 105 mmol/L (101-111); Sodium 138 mmol/L (135-145)
[2019-04-28 07:05] LABS: ALT 73 U/L (7-52); Albumin/Globulin Ratio 1.5 (1-3); Alkaline Phosphatase 56 U/L (34-104); BUN/Creatinine Ratio 26.2 (8-20); Blood Urea Nitrogen 16 mg/dL (6-24); EGFR African American 175.4 (>60); Globulin 2.1 g/dL (2-4); Glucose 104 mg/dL (70-100); Total Protein 5.3 g/dL (6.4-8.9)
[2019-04-28 07:06] LABS: Anion Gap 7 mmol/L (2-11)
[2019-04-28 07:14] LABS: Eosinophil % 0.3 %; Lymphocyte % 10.5 %; Nucleated Red Blood Cells % 0.1
[2019-04-28] MEDS: Enoxaparin(*) 40 MG/0.4 ML SYR SUBCUT SCH (08:07)
[2019-04-28] MEDS: Multivitamins/Minerals TAB PO SCH (08:07)
[2019-04-28] MEDS: Collagenase 250 UNITS/GM OINT* 1 APPLIC OINT TOPICAL SCH (08:07)
[2019-04-28] MEDS: Lacosamide TAB* 100 MG TAB PO SCH ×2 (08:07→20:57)
[2019-04-28] MEDS: Nystatin SUSPENSION* 100000 UNITS/ML 5 ML UDC PO SCH ×4 (08:08→20:57)
[2019-04-28] MEDS: Methadone TAB* 10 MG PO SCH ×3 (08:08→20:57)
--- NOTE | 2019-04-28 10:29 | PN ---
Progress Note - Progress Note Date of Service: 04/28/19 SOAP: Subjective: []Non responsive Acetaminophen (Tylenol Tab*) 650 mg PO Q4H PRN PRN Reason: FEVER/PAIN Last Admin: 04/26/19 23:28 Dose: 650 mg Calcium Carbonate (Tums*) 500 mg PO Q4H PRN PRN Reason: INDIGESTION Collagenase (Santyl 250 Mg/Gm Oint*) 1 applic TOPICAL DAILY [facility] Last Admin: 04/28/19 08:07 Dose: 1 applic Dexamethasone Sodium Phosphate (Decadron Iv*) 4 mg IV SLOW PU Q12H [facility] Last Admin: 04/27/19 21:31 Dose: 4 mg Enoxaparin Sodium (Lovenox(*)) 40 mg SUBCUT Q24H [facility] Last Admin: 04/28/19 08:07 Dose: 40 mg Heparin Sodium (Porcine) (Heparin Flush Picc/Ml/Cvc(*)) 1 - 3 ml FLUSH 0600, 1800 [facility]; Protocol Last Admin: 04/28/19 06:06 Dose: Not Given Levetiracetam 1,500 mg/ Sodium (Chloride) 115 mls @ 460 mls/hr IVPB Q12H [facility] Last Admin: 04/27/19 21:46 Dose: 460 mls/hr Vancomycin HCl 1,000 mg/ (Sodium Chloride) 250 mls @ 166.667 mls/hr IVPB 0600, 1800 [facility] Last Admin: 04/28/19 06:06 Dose: 166.667 mls/hr Lacosamide (Vimpat Tab*) 100 mg PO BID [facility] Last Admin: 04/28/19 08:07 Dose: 100 mg Levothyroxine Sodium (Synthroid Tab*) 50 mcg PO 0600 [facility] Last Admin: 04/28/19 06:06 Dose: 50 mcg Lorazepam (Ativan Inj*) 2 mg IV PUSH Q2H PRN PRN Reason: seizure, convulsion, agitation Last Admin: 04/27/19 21:29 Dose: 2 mg Methadone HCl (Dolophine Tab*) 10 mg PO TID [facility] Last Admin: 04/28/19 08:08 Dose: 10 mg Miscellaneous (Ativan Pyxis Lacy) 1 ea N/A .ATIVAN IV LACY PRN PRN Reason: PYXIS LACY Multivitamins/Minerals (Theragran/Minerals Tab*) 1 tab PO DAILY [facility] Last Admin: 04/28/19 08:07 Dose: 1 tab Nystatin (Nystatin Suspension*) 500,000 units PO QID [facility] Last Admin: 04/28/19 08:08 Dose: 500,000 units Ondansetron HCl (Zofran Tab*) 8 mg PO Q8HR PRN PRN Reason: NAUSEA/VOMITING Last Admin: 04/28/19 00:28 Dose: 8 mg Oxycodone HCl (Roxycodone Tab*) 5 mg PO Q4H PRN PRN Reason: PAIN Last Admin: 04/27/19 16:11 Dose: 5 mg Pharmacy Consult (Vancomycin Per Pharmacy*) 1 note FOLLOW UP . PRN PRN Reason: PER PROTOCOL Objective: [] Vital Signs Temp Pulse Resp BP Pulse Ox 97.1 F 58 12 124/84 94 04/28/19 08:00 04/28/19 08:00 04/28/19 08:08 04/28/19 08:00 04/28/19 08:00 HEENT; OM moist and no lesions. CTA RRR S1S2 +BS NT ND Ext - leg is clearly improved, edema resolved. warm but decreased pulses. the ulcer is bandaged and I did not remove dressing Neuro- minimal responsive, reflex +2 but muscle atrophy and not following commands. MRI brain with marked progression of disease from January Assessment: []43 year old with GBM and now more rapid progression of disease on MRI and clear clinical deterioration. He has no options for therapy and will soon from cancer. Extensive family meeting today with both parents and his sister. Discussed course and options for comfort care and full intervention. His QOL will not improved. Family and patient agrees to a natural . Goals are comfort and options for care are in-patient on hospice or hospice residence. Plan: []1.DNR 2. Re-consult hospice 3. Stop IV medication except anti-seizure therapy 4. Stop Lovenox and antibiotics.
[2019-04-28] MEDS ORDERED: Atropine 1% (ORAL/SL)* 15 ML BTL SL PRN (10:34)
[2019-04-28] MEDS ORDERED: Ondansetron ODT TAB* 4 MG SL PRN (10:34)
[2019-04-28] MEDS: levETIRAcetam IV* 1,500 MG in NS 0.9% 100 ML* 100 ML IVPB SCH ×2 (11:44→22:20)
[2019-04-28] MEDS: oxyCODONE TAB* 5 MG TAB PO PRN (11:44)
[2019-04-28] MEDS: Dexamethasone IV* 4 MG/ML 1 ML (4 MG) IV SLOW PU SCH ×2 (11:45→22:21)
[2019-04-28] MEDS: LORazepam INJ* 2 MG/ML 1 ML VIAL IV PUSH PRN (14:45)
--- NOTE | 2019-04-28 17:26 | PN ---
Progress Note - Progress Note Date of Service: 04/28/19 Note: Asked by nursing staff to evaluate patient. Family had expressed concerns regarding the bruising on his arms and its etiology. On exam he is noted to have scattered bruises over both forearms at the antecubital fossa, scattered along the length of the dorsal and ventral sides of the arms and over the dorsum of the hand. These bruises are noted to be overlying visible veins beneath, which supports the likelihood that they are secondary to venopuncture for lab draws. There are no (partial, or complete) circumferential bruises either over the lower forearms or upper arms, and the lack of such bruising speaks against the possibility for the bruises to be due to gripping. Of note the patient has thrombocytopenia, as need on today's labs , and thus is prone to bleeding from venopuncture. I have recommended photo documentation of the bruises to be uploaded to the chart
[2019-04-28] MEDS: Ondansetron ODT TAB* 4 MG PO PRN (22:04)
[2019-04-29] MEDS: Levothyroxine TAB* 50 MCG TAB PO SCH (06:13)
[2019-04-29] MEDS: Multivitamins/Minerals TAB PO SCH (09:22)
[2019-04-29] MEDS: Lacosamide TAB* 100 MG TAB PO SCH ×2 (09:22→22:04)
[2019-04-29] MEDS: Methadone TAB* 10 MG PO SCH ×3 (09:22→22:02)
[2019-04-29] MEDS: Dexamethasone IV* 4 MG/ML 1 ML (4 MG) IV SLOW PU SCH ×2 (09:27→22:02)
[2019-04-29] MEDS: Nystatin SUSPENSION* 100000 UNITS/ML 5 ML UDC PO SCH ×4 (09:28→22:02)
[2019-04-29] MEDS: levETIRAcetam IV* 1,500 MG in NS 0.9% 100 ML* 100 ML IVPB SCH ×2 (09:30→23:22)
[2019-04-29] MEDS: Collagenase 250 UNITS/GM OINT* 1 APPLIC OINT TOPICAL SCH (09:41)
--- NOTE | 2019-04-29 10:15 | PN ---
Progress Note - Progress Note Date of Service: 04/29/19 SOAP: Subjective: []No family in room. Sitting upright eating breakfast. C/o pulsing pain in left last two fingers/hand, resolves with pain meds. Wants to make sure family is aware of transfer out of ICU, nursing has attempted to call father's number on record however it has been disconnected. Medications Acetaminophen (Tylenol Tab*) 650 mg PO Q4H PRN PRN Reason: FEVER Atropine Sulfate (Atropine 1% (Oral/Sl)*) 2 drop SL Q2H PRN PRN Reason: Terminal Secretions Collagenase (Santyl 250 Mg/Gm Oint*) 1 applic TOPICAL DAILY [facility] Last Admin: 04/29/19 09:41 Dose: 1 applic Dexamethasone Sodium Phosphate (Decadron Iv*) 4 mg IV SLOW PU Q12H [facility] Last Admin: 04/29/19 09:27 Dose: 4 mg Levetiracetam 1,500 mg/ Sodium (Chloride) 115 mls @ 460 mls/hr IVPB Q12H [facility] Last Admin: 04/29/19 09:30 Dose: 460 mls/hr Lacosamide (Vimpat Tab*) 100 mg PO BID [facility] Last Admin: 04/29/19 09:22 Dose: 100 mg Levothyroxine Sodium (Synthroid Tab*) 50 mcg PO 0600 [facility] Last Admin: 04/29/19 06:13 Dose: 50 mcg Lorazepam (Ativan Inj*) 2 mg IV PUSH Q2H PRN PRN Reason: seizure, convulsion, agitation Last Admin: 04/28/19 14:45 Dose: 2 mg Methadone HCl (Dolophine Tab*) 10 mg PO TID [facility] Last Admin: 04/29/19 09:22 Dose: 10 mg Miscellaneous (Ativan Pyxis Lacy) 1 ea N/A .ATIVAN IV LACY PRN PRN Reason: PYXIS LACY Multivitamins/Minerals (Theragran/Minerals Tab*) 1 tab PO DAILY [facility] Last Admin: 04/29/19 09:22 Dose: 1 tab Nystatin (Nystatin Suspension*) 500,000 units PO QID [facility] Last Admin: 04/29/19 09:28 Dose: 500,000 units Ondansetron HCl (Zofran Odt Tab*) 8 mg PO Q8HR PRN PRN Reason: NAUSEA/VOMITING Last Admin: 04/28/19 22:04 Dose: 8 mg Oxycodone HCl (Roxycodone Tab*) 5 mg PO Q4H PRN PRN Reason: PAIN Last Admin: 04/28/19 11:44 Dose: 5 mg Objective: [] Vital Signs Temp Pulse Resp BP Pulse Ox 97.2 F 103 16 144/102 99 04/29/19 07:45 04/28/19 14:00 04/29/19 09:22 04/28/19 14:00 04/28/19 14:00 A&Ox3, recalls reasons for coming into hospital and plan to make him comfort ( as reviewed today with him) Answering some questions but in short sentences with mumbled speech pattern. JENNINGS, left with slow movements, left clerical grader weak Left cellulitis HRR LS clear Assessment: []43 yo male with progressive GBM transitioned to comfort care yesterday. He is more alert today, however expect some waxing and waning of mental status with known seizure disorder. Plan: []Transfer out of ICU: Comfort Room Hospice Consult: prognosis likely weeks to months though may be a more rapid decline, may benefit from residence and will certainly need usp DNR
[2019-04-29] MEDS: oxyCODONE TAB* 5 MG TAB PO PRN (17:08)
--- NOTE | 2019-04-29 18:09 | PN ---
Subjective Date of Service: 04/29/19 Interval History: Mr. Luna is a 43 yo male with PMH significant for terminal glioblastoma, seizure disorder, hypothyroidism, chronic pain and residual left sided weakness. He presented to the emergency room with complaints of left LE pain and redness and bilateral LE edema. He was admitted to the hospital for left LE cellulitis. He presented to the hospital with a wound to his left fajardo that has been present since February when he felt on a set of metal stairs at home. Patient seen and examined at bedside. Family History: Unchanged from Admission Social History: Unchanged from Admission Past Medical History: Unchanged from Admission Objective Active Medications: Acetaminophen (Tylenol Tab*) 650 mg PO Q4H PRN Reason: FEVER/PAIN/HEADACHE Atropine Sulfate (Atropine 1% (Oral/Sl)*) 2 drop SL Q2H PRN Reason: Terminal Secretions Collagenase (Santyl 250 Mg/Gm Oint*) 1 applic TOPICAL DAILY [facility] Dexamethasone Sodium Phosphate (Decadron Iv*) 4 mg IV SLOW PU Q12H [facility] Levetiracetam 1,500 mg/ Sodium (Chloride) 115 mls @ 460 mls/hr IVPB Q12H [facility] Lacosamide (Vimpat Tab*) 100 mg PO BID [facility] Levothyroxine Sodium (Synthroid Tab*) 50 mcg PO 0600 [facility] Lorazepam (Ativan Inj*) 2 mg IV PUSH Q2H PRN Reason: seizure, convulsion, agitation Methadone HCl (Dolophine Tab*) 10 mg PO TID [facility] Miscellaneous (Ativan Pyxis Solitario) 1 ea N/A .ATIVAN IV SOLITARIO PRN Reason: PYXIS SOLITARIO Multivitamins/Minerals (Theragran/Minerals Tab*) 1 tab PO DAILY [facility] Nystatin (Nystatin Suspension*) 500,000 units PO QID [facility] Ondansetron HCl (Zofran Odt Tab*) 8 mg PO Q8HR PRN Reason: NAUSEA/VOMITING Oxycodone HCl (Roxycodone Tab*) 5 mg PO Q4H PRN Reason: PAIN Vital Signs - 8 hr 04/29/19 04/29/19 04/29/19 10:43 12:00 14:50 Temperature 97 F Respiratory 16 16 Rate Oxygen Devices in Use Now: None Appearance: NAD, sitting up in bed Ears/Nose/Mouth/Throat: Mucous Membranes Moist Respiratory: Symmetrical Chest Expansion and Respiratory Effort Extremities: No Edema Skin: - - See skin note below Neurological: - - Alert and Oriented to person Nutrition: Taking PO's Result Diagrams: 04/28/19 06:33 04/28/19 06:33 Additional Lab and Data: Above labs were pulled into the note when the note was edited prior to signing , see labs from day of consult below Laboratory Tests 04/20/19 04/28/19 04/28/19 05:29 06:33 06:33 WBC 5.5 Hgb 13.4 L Hct 37 L Plt Count 95 L Sodium 138 Potassium TNP Chloride 105 Carbon Dioxide 26 BUN 16 Creatinine 0.61 L Glucose 104 H C-Reactive Protein 79.51 H Diagnostic Imagin. Exam Date: 04/20/19 0813 - VL LOWER EXT VEINS BILATERAL IMPRESSION: There is venous thrombosis of the right greater saphenous vein approximately 1.4 cm distal to the common femoral vein junction. Limited evaluation of the left calf with only one of the paired left peroneal veins identified. 2. Exam Date: 04/22/19 1729 - TIBIA FIBULA LEFT IMPRESSION: Unremarkable left lower leg. 3. Exam Date: 04/23/19 0700 - MRI LOWER EXTREMITY LEFT W/O IMPRESSION: Muscular edema in the proximal calf muscle in the posterior tibialis and anterior tibialis muscle as well as the extensor digitorum longus. More distally , edema is noted in the extensor digitorum longus muscle. No evidence of osteomyelitis is noted. 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 Skin Deviation Note - Skin Deviation Findings Left anterior lower leg - There is a wound measuring 3.8 cm x 3 cm x 0.3 cm. The wound has tunneling at 11 o'clock that measures 2.3 cm and at 5 o'clock that measures 4.2 cm. There wound base is yellow slough and dark colored eschar. There is no drainage noted. There is mild erythema noted to the periwound, other surrounding skin without erythema. Assessment/Plan: Mr. Luna is a 43 yo male with PMH significant for terminal glioblastoma, seizure disorder, hypothyroidism, chronic pain and residual left sided weakness. He presented to the emergency room with complaints of left LE pain and redness and bilateral LE edema. He was admitted to the hospital for left LE cellulitis. 1. Chronic left fajardo wound. The wound has been present (7-9 weeks). No evidence of osteomyelitis seen on MRI. This wound may also need to have surgical debridement and wound exploration due to the depth of the wound, but would hold off at this time as the family has decided to pursue comfort care measures. Recommend applying Santyl, followed by a nonstick gauze dressing and rolled gauze. Change the dressing daily and as needed for drainage. Consider wound clinic referral/orthopedics referral at discharge if the family decides to now longer pursue comfort care or would like further treatment of the wound. 2. Glioblastoma with seizures. Management per Oncology team. 3. Diet. Comfort Care diet. 4. Code Status. DNR. 5. Disposition. Inpatient, disposition per primary team. TIME SPENT: Time for this wound consultation was 20 minutes and 10 minutes was spent with the patient removing the old dressing; assessing, measuring, and photographing the wound; and reapplying a new dressing. Wound Problem/Plan Is Patient a Wound Clinic Patient: No Attending: Tracey Oviedo
[2019-04-30] MEDS: LORazepam INJ* 2 MG/ML 1 ML VIAL IV PUSH PRN (00:24)
[2019-04-30] MEDS: Levothyroxine TAB* 50 MCG TAB PO SCH (06:05)
[2019-04-30] MEDS: Multivitamins/Minerals TAB PO SCH (07:13)
[2019-04-30] MEDS: Collagenase 250 UNITS/GM OINT* 1 APPLIC OINT TOPICAL SCH (07:13)
[2019-04-30] MEDS: Lacosamide TAB* 100 MG TAB PO SCH (07:13)
[2019-04-30] MEDS: Nystatin SUSPENSION* 100000 UNITS/ML 5 ML UDC PO SCH ×4 (07:13→21:21)
[2019-04-30] MEDS: Methadone TAB* 10 MG PO SCH ×3 (07:13→22:32)
[2019-04-30] MEDS: Dexamethasone IV* 4 MG/ML 1 ML (4 MG) IV SLOW PU SCH (09:54)
[2019-04-30] MEDS: levETIRAcetam IV* 1,500 MG in NS 0.9% 100 ML* 100 ML IVPB SCH (09:54)
--- NOTE | 2019-04-30 10:00 | PN ---
Progress Note - Progress Note Date of Service: 04/30/19 SOAP: Subjective: []Events of last night reviewed. Seizure activity @ approx. 0015 with good response to ativan. Case reviewed with primary RN, [place] and no needs identified. Mohan is aware that he had another seizure, "that's what they told me." Denies pain. Denies needs and questions. No family in room at this time. Medications: Acetaminophen (Tylenol Tab*) 650 mg PO Q4H PRN PRN Reason: FEVER/PAIN/HEADACHE Atropine Sulfate (Atropine 1% (Oral/Sl)*) 2 drop SL Q2H PRN PRN Reason: Terminal Secretions Collagenase (Santyl 250 Mg/Gm Oint*) 1 applic TOPICAL DAILY [facility] Last Admin: 04/30/19 07:13 Dose: 1 applic Dexamethasone Sodium Phosphate (Decadron Iv*) 4 mg IV SLOW PU Q12H [facility] Last Admin: 04/30/19 09:54 Dose: 4 mg Levetiracetam 1,500 mg/ Sodium (Chloride) 115 mls @ 460 mls/hr IVPB Q12H [facility] Last Admin: 04/30/19 09:54 Dose: 460 mls/hr Lacosamide (Vimpat Tab*) 100 mg PO BID [facility] Last Admin: 04/30/19 07:13 Dose: 100 mg Levothyroxine Sodium (Synthroid Tab*) 50 mcg PO 0600 [facility] Last Admin: 04/30/19 06:05 Dose: 50 mcg Lorazepam (Ativan Inj*) 2 mg IV PUSH Q2H PRN PRN Reason: seizure, convulsion, agitation Last Admin: 04/30/19 00:24 Dose: 2 mg Methadone HCl (Dolophine Tab*) 10 mg PO TID [facility] Last Admin: 04/30/19 07:13 Dose: 10 mg Miscellaneous (Ativan Pyxis Lacy) 1 ea N/A .ATIVAN IV LACY PRN PRN Reason: PYXIS LACY Multivitamins/Minerals (Theragran/Minerals Tab*) 1 tab PO DAILY [facility] Last Admin: 04/30/19 07:13 Dose: 1 tab Nystatin (Nystatin Suspension*) 500,000 units PO QID [facility] Last Admin: 04/30/19 07:13 Dose: 500,000 units Ondansetron HCl (Zofran Odt Tab*) 8 mg PO Q8HR PRN PRN Reason: NAUSEA/VOMITING Last Admin: 04/28/19 22:04 Dose: 8 mg Oxycodone HCl (Roxycodone Tab*) 5 mg PO Q4H PRN PRN Reason: PAIN Last Admin: 04/29/19 17:08 Dose: 5 mg Objective: [] Vital Signs Temp Pulse Resp BP Pulse Ox 98.4 F 72 16 134/87 95 04/30/19 07:10 04/30/19 07:10 04/30/19 09:46 04/30/19 00:14 04/30/19 00:14 A&Ox3 Mumbled responses and occassionally jumbled words Resp. even and non-labored LLE dressing intact Assessment: []43 yo male with progressive GBM now on comfort care. He unfortunately cont.' s to have breakthrough seizures and requires cont.'d residential. Plan: []Comfort Measures - more alert and can switch to PO/SL Breakthrough seizures: increase Vimpat to 150 mg PO BID - keppra is 1:1 therefore we will change scheduled with PO with IV PRN if not able to take POs - PRN SL ativan for any seizure activity with IV for rescue only - switch dex to PO Hospice Consult: prognosis likely weeks to months though may be a more rapid decline - residence does not currently have beds, recommend SNF with hospice d/t residential need with breakthrough seizures DNR
[2019-04-30] MEDS ORDERED: levETIRAcetam IV* 1,500 MG in NS 0.9% 100 ML* 100 ML IVPB PRN (20:00)
[2019-04-30] MEDS ORDERED: Lacosamide TAB* 100 MG TAB PO SCH (21:00)
[2019-04-30] MEDS: Dexamethasone TAB* 4 MG PO SCH (21:21)
[2019-04-30] MEDS: levETIRAcetam TAB* 500 MG PO SCH (21:21)
[2019-04-30] MEDS: LORazepam TAB(*) 1 MG SL PRN (21:32)
[2019-04-30] MEDS ORDERED: Lacosamide TAB* 50 MG TAB PO SCH (22:25)
[2019-04-30] MEDS: Lacosamide TAB* 50 MG TAB PO SCH (22:32)
[2019-05-01] MEDS: Ondansetron ODT TAB* 4 MG PO PRN (00:28)
[2019-05-01] MEDS: oxyCODONE TAB* 5 MG TAB PO PRN (00:29)
[2019-05-01] MEDS: LORazepam INJ* 2 MG/ML 1 ML VIAL IV PUSH PRN (02:13)
[2019-05-01] MEDS ORDERED: Haloperidol INJ IV/IM* 5 MG/ML AMP IV SLOW PU PRN ×2 (02:35→09:41)
[2019-05-01] MEDS: Levothyroxine TAB* 50 MCG TAB PO SCH (06:23)
[2019-05-01] MEDS: Lacosamide TAB* 50 MG TAB PO SCH ×2 (08:52→20:27)
[2019-05-01] MEDS: Dexamethasone TAB* 4 MG PO SCH ×2 (08:53→20:25)
[2019-05-01] MEDS: Methadone TAB* 10 MG PO SCH ×3 (08:53→20:25)
[2019-05-01] MEDS: levETIRAcetam TAB* 500 MG PO SCH ×2 (08:53→20:27)
[2019-05-01] MEDS: Collagenase 250 UNITS/GM OINT* 1 APPLIC OINT TOPICAL SCH (09:05)
[2019-05-01] MEDS: Nystatin SUSPENSION* 100000 UNITS/ML 5 ML UDC PO SCH ×4 (09:05→20:27)
[2019-05-01] MEDS: Multivitamins/Minerals TAB PO SCH (09:05)
--- NOTE | 2019-05-01 09:07 | PN ---
Progress Note - Progress Note Date of Service: 05/01/19 SOAP: Subjective: []Family and patient rescinded DNR yesterday evening. This AM Mohan states he would want to be on a machine if it would keep him a live longer, saying yes when I asked "even if it means you can't talk?" He nodes when I ask if he understands the severity of his cancer. He also says he knows he will from his cancer. Mohan was more agitated overnight and order obtained from hospitalist team for haldol with good effect. Mohan is calm and denies pain today. He has a good appetite and is enjoying breakfast. There is no family in his room this AM. Medications: Acetaminophen (Tylenol Tab*) 650 mg PO Q4H PRN PRN Reason: FEVER/PAIN/HEADACHE Atropine Sulfate (Atropine 1% (Oral/Sl)*) 2 drop SL Q2H PRN PRN Reason: Terminal Secretions Collagenase (Santyl 250 Mg/Gm Oint*) 1 applic TOPICAL DAILY [facility] Last Admin: 05/01/19 09:05 Dose: 1 applic Dexamethasone (Decadron Tab*) 4 mg PO BID [facility] Last Admin: 05/01/19 08:53 Dose: 4 mg Haloperidol Lactate (Haldol Inj Iv/Im*) 3 mg IV SLOW PU Q6H PRN PRN Reason: AGITATION Last Admin: 05/01/19 02:51 Dose: 3 mg Levetiracetam 1,500 mg/ Sodium (Chloride) 115 mls @ 460 mls/hr IVPB BID PRN PRN Reason: IF UNABLE TO TAKE PO DOSE Lacosamide (Vimpat Tab*) 150 mg PO BID [facility] Last Admin: 05/01/19 08:52 Dose: 150 mg Levetiracetam (Keppra Tab*) 1,500 mg PO BID [facility] Last Admin: 05/01/19 08:53 Dose: 1,500 mg Levothyroxine Sodium (Synthroid Tab*) 50 mcg PO 0600 [facility] Last Admin: 05/01/19 06:23 Dose: 50 mcg Lorazepam (Ativan Tab(*)) 1 mg SL Q1HR PRN PRN Reason: seizure/agitation/anxiety Last Admin: 04/30/19 21:32 Dose: 1 mg Lorazepam (Ativan Inj*) 2 mg IV PUSH Q2H PRN PRN Reason: seizure, convulsion, agitation Last Admin: 05/01/19 02:13 Dose: 2 mg Methadone HCl (Dolophine Tab*) 10 mg PO TID [facility] Last Admin: 05/01/19 08:53 Dose: 10 mg Miscellaneous (Ativan Pyxis Lacy) 1 ea N/A .ATIVAN IV LACY PRN PRN Reason: PYXIS LACY Multivitamins/Minerals (Theragran/Minerals Tab*) 1 tab PO DAILY [facility] Last Admin: 05/01/19 09:05 Dose: 1 tab Nystatin (Nystatin Suspension*) 500,000 units PO QID [facility] Last Admin: 05/01/19 09:05 Dose: 500,000 units Ondansetron HCl (Zofran Odt Tab*) 8 mg PO Q8HR PRN PRN Reason: NAUSEA/VOMITING Last Admin: 05/01/19 00:28 Dose: 8 mg Oxycodone HCl (Roxycodone Tab*) 5 mg PO Q4H PRN PRN Reason: PAIN Last Admin: 05/01/19 00:29 Dose: 5 mg Objective: [] Vital Signs Temp Pulse Resp BP Pulse Ox 98.4 F 72 14 134/87 94 04/30/19 22:55 04/30/19 07:10 05/01/19 08:53 04/30/19 00:14 05/01/19 00:00 Alert and oriented, speaking in soft, short sentences. Often mumbles words and occasionally does not make sense. Left side weakness cont.'s, though JENNINGS Cushingoid appearance HRR, S1S2 LS clear, shallow respirations +BS Frail appearing with minimal muscle mass Left fajardo with large ulcerated wound Assessment: []43 yo male with progressive GBM who recently transition to comfort measures due to progressive disease and cont.'d breakthrough seizures. He is however more alert now and the family has once again rescinded his DNR. Extensive discussions regarding the implications of a full code status for Mohan have been discussed multiple times with multiple providers. While the futility of life saving measures for a person with a large, progressive, GBM is clear from a medical standpoint, Mohan is surpassed multiple prognoses in the past and holds onto the belief that he can 'stay around' for his children. I recommend attempting to limit interventions and maintain his comfort, should his heart stop or he stop breathing he has requested attempt at life saving measures. Plan: []Comfort Measures: no escalation of care for decline, however should he experienced arrest initiate life saving measures (CPR and ALS) Breakthrough seizures: last was approx. 0015 04/30/19, cont. current meds Agitation: reasonable to have haldol for PM, will add to PO for PRN use Weakness: he has had minimal ambulation d/t seizures, I will ask PT to evaluate Wound: cont. santyl dressing changes daily, suspect some vascular insufficiency so likely will not resolve with pt.'s decline Dispo: stable for d/c to SNF
[2019-05-01] MEDS ORDERED: Haloperidol TAB* 2 MG PO PRN (09:40)
[2019-05-02] MEDS: Levothyroxine TAB* 50 MCG TAB PO SCH (06:25)
[2019-05-02] MEDS: oxyCODONE TAB* 5 MG TAB PO PRN (07:18)
[2019-05-02] MEDS: Methadone TAB* 10 MG PO SCH ×3 (08:58→22:33)
[2019-05-02] MEDS: levETIRAcetam TAB* 500 MG PO SCH ×2 (08:58→22:33)
[2019-05-02] MEDS: Lacosamide TAB* 50 MG TAB PO SCH ×2 (08:58→22:33)
[2019-05-02] MEDS: Multivitamins/Minerals TAB PO SCH (08:58)
[2019-05-02] MEDS: Collagenase 250 UNITS/GM OINT* 1 APPLIC OINT TOPICAL SCH (08:59)
[2019-05-02] MEDS: Dexamethasone TAB* 4 MG PO SCH ×2 (08:59→22:33)
[2019-05-02] MEDS: Nystatin SUSPENSION* 100000 UNITS/ML 5 ML UDC PO SCH ×4 (11:25→22:33)
[2019-05-02] MEDS: LORazepam TAB(*) 1 MG SL PRN (13:55)
[2019-05-02] MEDS ORDERED: Haloperidol TAB* 2 MG PO PRN (15:20)
--- NOTE | 2019-05-02 17:56 | PN ---
Progress Note - Progress Note Date of Service: 05/02/19 SOAP: Subjective: [Patient reports that he is feeling relatively well. Appetite is good. No seizure in ~36 hours.] Objective: [ Vital Signs: Temp Pulse Resp BP Pulse Ox 98.4 F 111 16 123/80 96 05/02/19 16:32 05/02/19 16:32 05/02/19 16:32 05/02/19 16:32 05/02/19 16:32 Acetaminophen (Tylenol Tab*) 650 mg PO Q4H PRN PRN Reason: FEVER/PAIN/HEADACHE Atropine Sulfate (Atropine 1% (Oral/Sl)*) 2 drop SL Q2H PRN PRN Reason: Terminal Secretions Collagenase (Santyl 250 Mg/Gm Oint*) 1 applic TOPICAL DAILY [facility] Last Admin: 05/02/19 08:59 Dose: 1 applic Dexamethasone (Decadron Tab*) 4 mg PO BID [facility] Last Admin: 05/02/19 08:59 Dose: 4 mg Haloperidol (Haldol Tab*) 2 mg PO Q4H PRN PRN Reason: AGITATION Last Admin: 05/02/19 15:34 Dose: 2 mg Haloperidol Lactate (Haldol Inj Iv/Im*) 3 mg IV SLOW PU Q6H PRN PRN Reason: AGITATION Levetiracetam 1,500 mg/ Sodium (Chloride) 115 mls @ 460 mls/hr IVPB BID PRN PRN Reason: IF UNABLE TO TAKE PO DOSE Lacosamide (Vimpat Tab*) 150 mg PO BID [facility] Last Admin: 05/02/19 08:58 Dose: 150 mg Levetiracetam (Keppra Tab*) 1,500 mg PO BID [facility] Last Admin: 05/02/19 08:58 Dose: 1,500 mg Levothyroxine Sodium (Synthroid Tab*) 50 mcg PO 0600 [facility] Last Admin: 05/02/19 06:25 Dose: 50 mcg Lorazepam (Ativan Tab(*)) 1 mg SL Q1HR PRN PRN Reason: seizure/agitation/anxiety Last Admin: 05/02/19 13:55 Dose: 1 mg Lorazepam (Ativan Inj*) 2 mg IV PUSH Q2H PRN PRN Reason: seizure, convulsion, agitation Last Admin: 05/01/19 02:13 Dose: 2 mg Methadone HCl (Dolophine Tab*) 10 mg PO TID [facility] Last Admin: 05/02/19 13:55 Dose: 10 mg Miscellaneous (Ativan Pyxis Lacy) 1 ea N/A .ATIVAN IV LACY PRN PRN Reason: PYXIS LACY Multivitamins/Minerals (Theragran/Minerals Tab*) 1 tab PO DAILY [facility] Last Admin: 05/02/19 08:58 Dose: 1 tab Nystatin (Nystatin Suspension*) 500,000 units PO QID [facility] Last Admin: 05/02/19 13:10 Dose: Not Given Ondansetron HCl (Zofran Odt Tab*) 8 mg PO Q8HR PRN PRN Reason: NAUSEA/VOMITING Last Admin: 05/01/19 00:28 Dose: 8 mg Oxycodone HCl (Roxycodone Tab*) 5 mg PO Q4H PRN PRN Reason: PAIN Last Admin: 05/02/19 07:18 Dose: 5 mg Exam: Gen: chronically ill appearing 43 yo male in NAD, accompanied by his parents. Alert and eating lunch CV: RRR, no m/r/g Resp: CTA Neuro: full assessment not completed, soft voice which is difficult to understand, alert and oriented] [Assessment: []43 yo male with progressive GBM who recently transitioned to comfort measures due to progressive disease and cont.'d breakthrough seizures. He is however more alert now and the patient and family have once again rescinded his DNR. Extensive discussions regarding the implications of a full code status for Mohan have been discussed multiple times with multiple providers. Plan: []Comfort Measures: no escalation of care for decline, however should he experienced arrest initiate life saving measures (CPR and ALS) Seizures: - cont antiepileptics and prn ativan Agitation: - prn lorazepam and haldol Wound: - completed antibiotics - cont. santyl dressing changes daily, do not expect good wound healing GBM: - no further treatment options - recommend Hospice but patient has decided to remain FULL CODE and is not willing to sign back on to Hospice FULL CODE Dispo: plan for dc to SNF, referrals pending
[2019-05-03] MEDS: Levothyroxine TAB* 50 MCG TAB PO SCH (07:25)
[2019-05-03] MEDS: Lacosamide TAB* 50 MG TAB PO SCH ×2 (08:22→21:27)
[2019-05-03] MEDS: Multivitamins/Minerals TAB PO SCH (08:23)
[2019-05-03] MEDS: Dexamethasone TAB* 4 MG PO SCH ×2 (08:23→21:27)
[2019-05-03] MEDS: levETIRAcetam TAB* 500 MG PO SCH ×2 (08:23→21:26)
[2019-05-03] MEDS: Nystatin SUSPENSION* 100000 UNITS/ML 5 ML UDC PO SCH ×4 (08:23→21:26)
[2019-05-03] MEDS: LORazepam TAB(*) 1 MG SL PRN ×3 (08:33→19:43)
--- NOTE | 2019-05-03 09:21 | PN ---
Progress Note - Progress Note Date of Service: 05/03/19 SOAP: Subjective: []Feels well. Wants to walk with walker. Son has visited. Agreeable to ILP. Pain controlled. Acetaminophen (Tylenol Tab*) 650 mg PO Q4H PRN PRN Reason: FEVER/PAIN/HEADACHE Atropine Sulfate (Atropine 1% (Oral/Sl)*) 2 drop SL Q2H PRN PRN Reason: Terminal Secretions Collagenase (Santyl 250 Mg/Gm Oint*) 1 applic TOPICAL DAILY [facility] Last Admin: 05/02/19 08:59 Dose: 1 applic Dexamethasone (Decadron Tab*) 4 mg PO BID [facility] Last Admin: 05/03/19 08:23 Dose: 4 mg Haloperidol (Haldol Tab*) 2 mg PO Q4H PRN PRN Reason: AGITATION Last Admin: 05/02/19 15:34 Dose: 2 mg Haloperidol Lactate (Haldol Inj Iv/Im*) 3 mg IV SLOW PU Q6H PRN PRN Reason: AGITATION Levetiracetam 1,500 mg/ Sodium (Chloride) 115 mls @ 460 mls/hr IVPB BID PRN PRN Reason: IF UNABLE TO TAKE PO DOSE Lacosamide (Vimpat Tab*) 150 mg PO BID [facility] Last Admin: 05/03/19 08:22 Dose: 150 mg Levetiracetam (Keppra Tab*) 1,500 mg PO BID [facility] Last Admin: 05/03/19 08:23 Dose: 1,500 mg Levothyroxine Sodium (Synthroid Tab*) 50 mcg PO 0600 [facility] Last Admin: 05/03/19 07:25 Dose: 50 mcg Lorazepam (Ativan Tab(*)) 1 mg SL Q1HR PRN PRN Reason: seizure/agitation/anxiety Last Admin: 05/03/19 08:33 Dose: 1 mg Lorazepam (Ativan Inj*) 2 mg IV PUSH Q2H PRN PRN Reason: seizure, convulsion, agitation Last Admin: 05/01/19 02:13 Dose: 2 mg Miscellaneous (Ativan Pyxis Lacy) 1 ea N/A .ATIVAN IV LACY PRN PRN Reason: PYXIS LACY Multivitamins/Minerals (Theragran/Minerals Tab*) 1 tab PO DAILY [facility] Last Admin: 05/03/19 08:23 Dose: 1 tab Nystatin (Nystatin Suspension*) 500,000 units PO QID [facility] Last Admin: 05/03/19 08:23 Dose: 500,000 units Ondansetron HCl (Zofran Odt Tab*) 8 mg PO Q8HR PRN PRN Reason: NAUSEA/VOMITING Last Admin: 05/01/19 00:28 Dose: 8 mg Objective: [] Vital Signs Temp Pulse Resp BP Pulse Ox 98.9 F 111 18 123/80 98 05/02/19 20:00 05/02/19 16:32 05/03/19 08:33 05/02/19 16:32 05/03/19 08:00 Exam: Gen: chronically ill appearing 43 yo male in NAD, accompanied by his parents. Alert and eating lunch CV: RRR, no m/r/g Resp: CTA Neuro: full assessment not completed, soft voice which is difficult to understand, alert and oriented] [Assessment: []43 yo male with progressive GBM who recently transitioned to comfort measures due to progressive disease and continued breakthrough seizures. He is however more alert and stable for time being. He has progressive disease and will deteriorate over coming weeks to months. After extensive discussion he remains full code and therefore not a candidate for hospice. No additional therapy for his cancer and he is a candidate for NHP. Plan: []1. Comfort Measures: no escalation of care for decline, however should he experienced arrest initiate life saving measures (CPR and ALS) 2. Seizures: - cont antiepileptics and prn ativan 3. Agitation: - prn lorazepam and haldol 4. Wound: - completed antibiotics - cont. santyl dressing changes daily, do not expect good wound healing 5. GBM: - no further treatment options - recommend Hospice but patient has decided to remain FULL CODE 6. Disposition. NHP pending.
[2019-05-03] MEDS: oxyCODONE TAB* 5 MG TAB PO PRN ×2 (11:17→17:29)
[2019-05-03] MEDS: Acetaminophen TAB* 325 MG PO PRN ×2 (11:17→19:45)
[2019-05-03] MEDS: Collagenase 250 UNITS/GM OINT* 1 APPLIC OINT TOPICAL SCH ×2 (11:20→20:11)
[2019-05-03] MEDS: Methadone TAB* 10 MG PO SCH ×2 (13:31→19:45)
[2019-05-04] MEDS: Levothyroxine TAB* 50 MCG TAB PO SCH (06:09)
[2019-05-04] MEDS: LORazepam TAB(*) 1 MG SL PRN ×2 (06:13→14:32)
[2019-05-04] MEDS: oxyCODONE TAB* 5 MG TAB PO PRN ×2 (06:14→16:13)
[2019-05-04] MEDS: levETIRAcetam TAB* 500 MG PO SCH ×2 (08:11→20:50)
[2019-05-04] MEDS: Multivitamins/Minerals TAB PO SCH (08:11)
[2019-05-04] MEDS: Lacosamide TAB* 50 MG TAB PO SCH ×2 (08:11→20:49)
[2019-05-04] MEDS: Nystatin SUSPENSION* 100000 UNITS/ML 5 ML UDC PO SCH ×5 (08:12→21:14)
[2019-05-04] MEDS: Methadone TAB* 10 MG PO SCH ×3 (08:12→20:54)
[2019-05-04] MEDS: Dexamethasone TAB* 4 MG PO SCH ×2 (08:12→20:54)
[2019-05-04] MEDS: Collagenase 250 UNITS/GM OINT* 1 APPLIC OINT TOPICAL SCH (09:15)
--- NOTE | 2019-05-04 19:20 | PN ---
Subjective Interval History: no acute events overnight states he has been in hospital since March 01 (actually 04/20 when I admitted him ) complaint of 9/10 LLQ abdominal pain improved with coffee and passing gas. had a small BM this afternoon. Tried to go again later but could not. denies other complaints. Family History: Unchanged from Admission Social History: Unchanged from Admission Past Medical History: Unchanged from Admission Objective Active Medications: Acetaminophen (Tylenol Tab*) 650 mg PO Q4H PRN PRN Reason: FEVER/PAIN/HEADACHE Last Admin: 05/03/19 19:45 Dose: 650 mg Atropine Sulfate (Atropine 1% (Oral/Sl)*) 2 drop SL Q2H PRN PRN Reason: Terminal Secretions Collagenase (Santyl 250 Mg/Gm Oint*) 1 applic TOPICAL DAILY [facility] Last Admin: 05/04/19 09:15 Dose: 1 applic Dexamethasone (Decadron Tab*) 4 mg PO BID [facility] Last Admin: 05/04/19 08:12 Dose: 4 mg Haloperidol (Haldol Tab*) 2 mg PO Q4H PRN PRN Reason: AGITATION Last Admin: 05/02/19 15:34 Dose: 2 mg Haloperidol Lactate (Haldol Inj Iv/Im*) 3 mg IV SLOW PU Q6H PRN PRN Reason: AGITATION Levetiracetam 1,500 mg/ Sodium (Chloride) 115 mls @ 460 mls/hr IVPB BID PRN PRN Reason: IF UNABLE TO TAKE PO DOSE Lacosamide (Vimpat Tab*) 150 mg PO BID [facility] Last Admin: 05/04/19 08:11 Dose: 150 mg Levetiracetam (Keppra Tab*) 1,500 mg PO BID [facility] Last Admin: 05/04/19 08:11 Dose: 1,500 mg Levothyroxine Sodium (Synthroid Tab*) 50 mcg PO 0600 [facility] Last Admin: 05/04/19 06:09 Dose: 50 mcg Lorazepam (Ativan Tab(*)) 1 mg SL Q1HR PRN PRN Reason: seizure/agitation/anxiety Last Admin: 05/04/19 14:32 Dose: 1 mg Lorazepam (Ativan Inj*) 2 mg IV PUSH Q2H PRN PRN Reason: seizure, convulsion, agitation Last Admin: 05/01/19 02:13 Dose: 2 mg Methadone HCl (Dolophine Tab*) 10 mg PO TID [facility] Last Admin: 05/04/19 14:32 Dose: 10 mg Miscellaneous (Ativan Pyxis Lacy) 1 ea N/A .ATIVAN IV LACY PRN PRN Reason: PYXIS LACY Multivitamins/Minerals (Theragran/Minerals Tab*) 1 tab PO DAILY [facility] Last Admin: 05/04/19 08:11 Dose: 1 tab Nystatin (Nystatin Suspension*) 500,000 units PO QID [facility] Last Admin: 05/04/19 17:41 Dose: Not Given Ondansetron HCl (Zofran Odt Tab*) 8 mg PO Q8HR PRN PRN Reason: NAUSEA/VOMITING Last Admin: 05/01/19 00:28 Dose: 8 mg Oxycodone HCl (Roxycodone Tab*) 5 mg PO Q6H PRN PRN Reason: PAIN Last Admin: 05/04/19 16:13 Dose: 5 mg Vital Signs - 8 hr 05/04/19 05/04/19 05/04/19 14:32 16:00 16:13 Respiratory 16 18 Rate O2 Sat by Pulse 98 Oximetry Oxygen Devices in Use Now: None Appearance: NAD, sitting up in bed, scalp surgical scars Eyes: No Scleral Icterus Neck: NL Appearance and Movements; NL JVP Respiratory: Symmetrical Chest Expansion and Respiratory Effort, Clear to Auscultation Cardiovascular: NL Sounds; No Murmurs; No JVD Abdominal: - - nontender to palpation and soft but distended. hyperactive bowel sounds. Extremities: - - left leg with gauze bandage no wrapping. Neurological: NL Sensation, - - oriented to name and place. Nutrition: Taking PO's Result Diagrams: 04/28/19 06:33 04/28/19 06:33 Microbiology and Other Data: Microbiology 04/20/19 05:29 Blood Venous Aerobic Blood Culture - Final No Growth Day 5 04/20/19 05:29 Blood Venous Anaerobic Blood Culture - Final No Growth Day 5 04/20/19 05:29 Blood Venous Aerobic Blood Culture - Final No Growth Day 5 04/20/19 05:29 Blood Venous Anaerobic Blood Culture - Final No Growth Day 5 Diagnostic Imagin. Exam Date: 04/20/19812 - VL LOWER EXT VEINS BILATERAL IMPRESSION: There is venous thrombosis of the right greater saphenous vein approximately 1.4 cm distal to the common femoral vein junction. Limited evaluation of the left calf with only one of the paired left peroneal veins identified. 2. Exam Date: 04/22/19 1729 - TIBIA FIBULA LEFT IMPRESSION: Unremarkable left lower leg. 3. Exam Date: 04/23/19 0700 - MRI LOWER EXTREMITY LEFT W/O IMPRESSION: Muscular edema in the proximal calf muscle in the posterior tibialis and anterior tibialis muscle as well as the extensor digitorum longus. More distally , edema is noted in the extensor digitorum longus muscle. No evidence of osteomyelitis is noted. 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 Assess/Plan/Problems-Billing Assessment: - Patient Problems (1) Glioblastoma multiforme Current Visit: Yes Status: Acute Code(s): C71.9 - MALIGNANT NEOPLASM OF BRAIN, UNSPECIFIED SNOMED Code(s): 588224830 Comment: Continue dexamethasone 4mg BID Continue methadone. end stage (2) Abdominal pain Current Visit: Yes Status: Acute Code(s): R10.9 - UNSPECIFIED ABDOMINAL PAIN SNOMED Code(s): 47724137 Comment: add bowel regimen as he is on methadone and oxycodone - senna yovana, colace prn, miralax prn. (3) Full code status Current Visit: Yes Status: Acute Code(s): Z78.9 - OTHER SPECIFIED HEALTH STATUS SNOMED Code(s): 274840445 (4) Cellulitis of left leg Current Visit: Yes Status: Acute Code(s): L03.116 - CELLULITIS OF LEFT LOWER LIMB SNOMED Code(s): 361820167 Comment: s/p 7 days of vancomycin (after fall 2 weeks prior to admission - so since mid March). s/p MRI and wound care consult continue santyl and dressing changes (5) Hypothyroid Current Visit: Yes Status: Acute Code(s): E03.9 - HYPOTHYROIDISM, UNSPECIFIED SNOMED Code(s): 36366816 Comment: TSH 0 04/21/19 and dose of levothyroxine was cut to 50 mcg/d. (6) Seizures Current Visit: No Status: Acute Code(s): R56.9 - UNSPECIFIED CONVULSIONS SNOMED Code(s): 54026765 Comment: Continue levetriacetam, lacosamide. Status and Disposition: medicine inpatient. Spoke with ARIANNA Mosher and reportedly referrals have been made to SNFs. No hospicare residence beds last week but maybe option next week and patient currently wanting CPR if codes.
[2019-05-04] MEDS: LORazepam INJ* 2 MG/ML 1 ML VIAL IV PUSH PRN ×2 (20:45→23:38)
[2019-05-04] MEDS: Simethicone TAB* 80 MG TAB.CHEW PO SCH (20:47)
[2019-05-04] MEDS: Polyethylene Glycol 3350* 17 GM PACKET PO PRN (20:56)
[2019-05-04] MEDS: Senna TAB PO SCH (23:17)
[2019-05-04] MEDS: Docusate CAP* 100 MG PO PRN (23:17)
[2019-05-05] MEDS: oxyCODONE TAB* 5 MG TAB PO PRN ×2 (00:11→20:58)
[2019-05-05] MEDS: LORazepam TAB(*) 1 MG SL PRN ×2 (01:17→20:59)
[2019-05-05] MEDS: Levothyroxine TAB* 50 MCG TAB PO SCH (06:16)
[2019-05-05] MEDS: Docusate CAP* 100 MG PO PRN (06:16)
[2019-05-05] MEDS: Lacosamide TAB* 50 MG TAB PO SCH ×2 (07:38→20:59)
[2019-05-05] MEDS: Methadone TAB* 10 MG PO SCH ×3 (07:38→20:58)
[2019-05-05] MEDS: Dexamethasone TAB* 4 MG PO SCH ×2 (07:38→20:58)
[2019-05-05] MEDS: levETIRAcetam TAB* 500 MG PO SCH ×2 (07:38→20:59)
[2019-05-05] MEDS: Simethicone TAB* 80 MG TAB.CHEW PO SCH ×3 (07:39→19:05)
[2019-05-05] MEDS: Multivitamins/Minerals TAB PO SCH (07:39)
[2019-05-05] MEDS: Nystatin SUSPENSION* 100000 UNITS/ML 5 ML UDC PO SCH ×4 (07:39→21:01)
[2019-05-05] MEDS: LORazepam INJ* 2 MG/ML 1 ML VIAL IV PUSH PRN (07:43)
--- NOTE | 2019-05-05 09:50 | PN ---
Progress Note - Progress Note Date of Service: 05/05/19 SOAP: Subjective: []He is more sedated this am then over weekend. Answering questions in one word , not answering questions for orientation. He is constipated, did eat some breakfast. Acetaminophen (Tylenol Tab*) 650 mg PO Q4H PRN PRN Reason: FEVER/PAIN/HEADACHE Last Admin: 05/03/19 19:45 Dose: 650 mg Atropine Sulfate (Atropine 1% (Oral/Sl)*) 2 drop SL Q2H PRN PRN Reason: Terminal Secretions Collagenase (Santyl 250 Mg/Gm Oint*) 1 applic TOPICAL DAILY [facility] Last Admin: 05/04/19 09:15 Dose: 1 applic Dexamethasone (Decadron Tab*) 4 mg PO BID [facility] Last Admin: 05/05/19 07:38 Dose: 4 mg Docusate Sodium (Colace Cap*) 100 mg PO BID PRN PRN Reason: CONSTIPATION Last Admin: 05/05/19 06:16 Dose: 100 mg Haloperidol (Haldol Tab*) 2 mg PO Q4H PRN PRN Reason: AGITATION Last Admin: 05/02/19 15:34 Dose: 2 mg Haloperidol Lactate (Haldol Inj Iv/Im*) 3 mg IV SLOW PU Q6H PRN PRN Reason: AGITATION Levetiracetam 1,500 mg/ Sodium (Chloride) 115 mls @ 460 mls/hr IVPB BID PRN PRN Reason: IF UNABLE TO TAKE PO DOSE Lacosamide (Vimpat Tab*) 150 mg PO BID [facility] Last Admin: 05/05/19 07:38 Dose: 150 mg Levetiracetam (Keppra Tab*) 1,500 mg PO BID [facility] Last Admin: 05/05/19 07:38 Dose: 1,500 mg Levothyroxine Sodium (Synthroid Tab*) 50 mcg PO 0600 [facility] Last Admin: 05/05/19 06:16 Dose: 50 mcg Lorazepam (Ativan Tab(*)) 1 mg SL Q1HR PRN PRN Reason: seizure/agitation/anxiety Last Admin: 05/05/19 01:17 Dose: 1 mg Lorazepam (Ativan Inj*) 2 mg IV PUSH Q2H PRN PRN Reason: seizure, convulsion, agitation Last Admin: 05/05/19 07:43 Dose: 2 mg Methadone HCl (Dolophine Tab*) 10 mg PO TID [facility] Last Admin: 05/05/19 07:38 Dose: 10 mg Miscellaneous (Ativan Pyxis Lacy) 1 ea N/A .ATIVAN IV LACY PRN PRN Reason: PYXIS LACY Multivitamins/Minerals (Theragran/Minerals Tab*) 1 tab PO DAILY [facility] Last Admin: 05/05/19 07:39 Dose: 1 tab Nystatin (Nystatin Suspension*) 500,000 units PO QID [facility] Last Admin: 05/05/19 07:39 Dose: 500,000 units Ondansetron HCl (Zofran Odt Tab*) 8 mg PO Q8HR PRN PRN Reason: NAUSEA/VOMITING Last Admin: 05/01/19 00:28 Dose: 8 mg Oxycodone HCl (Roxycodone Tab*) 5 mg PO Q6H PRN PRN Reason: PAIN Last Admin: 05/05/19 00:11 Dose: 5 mg Polyethylene Glycol/Electrolytes (Miralax*) 17 gm PO DAILY PRN PRN Reason: CONSTIPATION Last Admin: 05/04/19 20:56 Dose: 17 gm Senna (Senokot Tab*) 2 tab PO BEDTIME [facility] Last Admin: 05/04/19 23:17 Dose: 2 tab Simethicone (Mylicon Tab*) 80 mg PO AC [facility] Last Admin: 05/05/19 07:39 Dose: 80 mg Objective: [] Vital Signs Temp Pulse Resp BP Pulse Ox 98.6 F 111 20 123/80 98 05/03/19 16:35 05/02/19 16:32 05/05/19 07:43 05/02/19 16:32 05/04/19 16:00 Exam: Gen: chronically ill appearing 43 yo male in NAD. CV: RRR, no m/r/g Resp: CTA +BS NT ND Neuro: less oriented, no seizure activity. [Assessment: []43 yo male with progressive GBM who recently transitioned to comfort measures due to progressive disease and continued breakthrough seizures. He has been stable on current medications. He has progressive disease and will deteriorate over coming weeks to months. After extensive discussion he remains full code and therefore not a candidate for hospice. No additional therapy for his cancer and he is a candidate for NHP. Plan: []1. Comfort Measures: no escalation of care for decline, however should he experienced arrest initiate life saving measures (CPR and ALS) 2. Seizures: - cont antiepileptics and prn ativan 3. Agitation: - prn lorazepam and haldol 4. Wound: - completed antibiotics - cont. santyl dressing changes daily, do not expect good wound healing 5. GBM: - no further treatment options - recommend Hospice but patient has decided to remain FULL CODE 6. Constipation, will give Miralax today. 7. Disposition. NHP pending. He is appropriate for discharge, no offers yet.
[2019-05-05] MEDS: Collagenase 250 UNITS/GM OINT* 1 APPLIC OINT TOPICAL SCH (12:00)
[2019-05-05] MEDS: Polyethylene Glycol 3350* 17 GM PACKET PO PRN (12:50)
[2019-05-05] MEDS: Senna TAB PO SCH (20:59)
[2019-05-06] MEDS: Levothyroxine TAB* 50 MCG TAB PO SCH (07:06)
[2019-05-06] MEDS: Multivitamins/Minerals TAB PO SCH (07:34)
[2019-05-06] MEDS: levETIRAcetam TAB* 500 MG PO SCH (07:34)
[2019-05-06] MEDS: Nystatin SUSPENSION* 100000 UNITS/ML 5 ML UDC PO SCH ×2 (07:34→11:34)
[2019-05-06] MEDS: Lacosamide TAB* 50 MG TAB PO SCH (07:35)
[2019-05-06] MEDS: Methadone TAB* 10 MG PO SCH ×2 (07:35→15:08)
[2019-05-06] MEDS: Simethicone TAB* 80 MG TAB.CHEW PO SCH ×2 (07:35→11:35)
[2019-05-06] MEDS: Collagenase 250 UNITS/GM OINT* 1 APPLIC OINT TOPICAL SCH (07:36)
[2019-05-06] MEDS: Dexamethasone TAB* 4 MG PO SCH (07:36)
[2019-05-06 11:50] VITALS: BP 117/81
--- NOTE | 2019-05-06 12:36 | DS ---
- Discharge Summary Admission Date: 04/20/19 Discharge Date: 05/06/19 Discharge Diagnosis: 1. GBM: end stage, progressed 2. Seizures: no activity since increase in Vimpat, cont. PO meds 3. Cellulitis: improved, wound stable with dressing changes Discharge Medications: Medication Instructions Recorded Confirmed Type Methadone TAB* [Dolophine TAB*] 10 mg PO TID 11/20/17 04/20/19 History Dexamethasone TAB* [Decadron TAB*] 4 mg PO BID #60 tab 01/24/19 04/20/19 Rx Levothyroxine TAB* [Synthroid 100 100 mcg PO DAILY #30 tab 01/24/19 04/20/19 Rx MCG TAB*] Multivitamins/Minerals TAB* 1 tab PO DAILY 03/10/19 04/21/19 History [Theragran/minerals TAB*] levETIRAcetam [Keppra-] 1,500 mg PO BID 03/10/19 04/20/19 History Calcium Carbonate CHEW TAB* [Tums*] 500 mg PO Q4HR PRN 04/21/19 04/21/19 History Prochlorperazine TAB* [Compazine 10 mg PO Q6H PRN 04/21/19 04/21/19 History Tab*] Acetaminophen TAB* [Tylenol TAB*] 650 mg PO Q4H PRN #0 tab 05/06/19 Rx Collagenase 250 UNITS/GM OINT* 1 applic TOPICAL DAILY oint 05/06/19 Rx [Santyl 250 UNITS/GM Oint*] Docusate CAP* [Colace Cap*] 100 mg PO BID PRN cap 05/06/19 Rx Haloperidol TAB* [Haldol TAB*] 2 mg PO Q4H PRN tab 05/06/19 Rx LORazepam TAB(*) [Ativan 1 MG TAB 1 mg SL Q4HR PRN tab 05/06/19 Rx (*)] Lacosamide [Vimpat] 150 mg PO BID #60 tablet MDD 300 05/06/19 Rx Nystatin SUSPENSION* 500,000 units PO QID udc 05/06/19 Rx Ondansetron ODT TAB* [Zofran 4 MG 4 mg PO Q4HR PRN tab 05/06/19 Rx Odt TAB*] Polyethylene Glycol 3350* 17 gm PO DAILY PRN packet 05/06/19 Rx [Miralax*] Senna TAB* [Senokot TAB*] 2 tab PO BEDTIME tab 05/06/19 Rx Simethicone TAB* [Mylicon TAB*] 80 mg PO AC tab.chew 05/06/19 Rx oxyCODONE TAB* [Roxycodone TAB 5 5 mg PO Q6H PRN tab 05/06/19 Rx mg*] Disposition: [facility] Condition: stable Diet: as tolerated Activity: as tolerated, fall precautions, seizure precautions Hospital Course: Please see admission note for full H&P, however briefly Mr. Luna is well known to our service due to his unfortunate diagnosis GBM. Mr. Luna presented to the ER on 04/20/19 following a fall and was admitted for left lower leg cellulitis. He was started on IV antibiotics and wound care was consulted. He received a palliative consult as he had previously been on hospice due to progressive GBM with decline, which he revoked prior to the admission. On the morning of 04/22/19 Mr. Luna experienced a seizure and was transferred to the ICU. 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 That day he had an x-ray of the left leg to evaluate for osteomyelitis, this was negative. On 04/23/19 he had an MRI of the head and the lower extremity, the MRI head revealed marked progression of his known cancer, the lower extremity was neg. for obvious osteo. He was transferred out of the ICU on 04/29/19. On 04/30 he experienced a small seizure and his Vimpat was increased to max 150 mg PO BID. He has remained stable since and is safe for discharge to SNF. Throughout Mr. Luna's admission there have been multiple conversations with multiple providers regarding his progressive GBM, however ultimately the patient and family have declined hospice and requested full code status. He has no further treatment options and we have recommended supportive care only. Mr. Luna has intermittent periods of sedation and difficulty communicating, however he has remained involved in his care and is agreeable to discharge to SNF. He will be discharged on PO medications and recommendation to cont. santyl dressing changes to left lower extremity. He will cont. PO seizures meds as above and PRN ativan as needed. He will follow-up with Dr. Jones in approximately 1 months time and as needed. >40 min spent with >50% spent face to face
== END 2019-05-06 15:50 | DRG 603 ==
LOC: ED 22:02 → OBSVTOIN 04-20 07:59 → INTOOBSV 04-20 07:59 → MEDTELE 04-20 07:59 → UNDOADMOB 04-20 07:59 → MEDTELE 04-22 07:09 → ICU 04-22 07:09 → OBSVTOIN 04-22 12:00 → MED 04-29 17:41
PROVIDERS: ADMIT Internal Medicine; ATTEND Internal Medicine Hematology & Oncology
PROC: 02HV33Z Insertion of Infusion Device into Superior Vena Cava, Percutaneous Approach (ICD-10-PCS; principal; 2019-04-22)
DX: L03.116 Cellulitis of left lower limb (principal); C71.9 Malignant neoplasm of brain, unspecified; L97.929 Non-pressure chronic ulcer of unspecified part of left lower leg with unspecified severity; G40.909 Epilepsy, unspecified, not intractable, without status epilepticus; F90.9 Attention-deficit hyperactivity disorder, unspecified type; L02.416 Cutaneous abscess of left lower limb; R29.810 Facial weakness; I80.9 Phlebitis and thrombophlebitis of unspecified site; Z51.5 Encounter for palliative care; G83.84 Todd's paralysis (postepileptic); Z66 Do not resuscitate; R45.1 Restlessness and agitation; W19.XXXA Unspecified fall, initial encounter; R29.6 Repeated falls; K59.00 Constipation, unspecified; R10.9 Unspecified abdominal pain; E03.9 Hypothyroidism, unspecified; G89.29 Other chronic pain; Z91.041 Radiographic dye allergy status; Z88.8 Allergy status to other drugs, medicaments and biological substances; Z91.013 Allergy to seafood; Z81.8 Family history of other mental and behavioral disorders; Z82.49 Family history of ischemic heart disease and other diseases of the circulatory system; Z83.49 Family history of other endocrine, nutritional and metabolic diseases; Z87.891 Personal history of nicotine dependence; Z87.01 Personal history of pneumonia (recurrent); Z92.21 Personal history of antineoplastic chemotherapy; Z92.3 Personal history of irradiation; Z72.89 Other problems related to lifestyle; Y92.9 Unspecified place or not applicable
CPT/HCPCS: 36415; 70450; 70553; 80048; 80053; 80202; 83605; 83735; 83880; 84100; 84439; 84443; 85025; 85027; 85610; 85730; 86140; 87040; 87389; 93306; 93970; 99226; 99232; 99233; 99239; 99283; A9270-GY; A9577; G0378; G8978-GP-CK; G8979-GP-CI; J1100; J1200; J1630; J1650; J2060; J2250; J3370; J8540

== ENCOUNTER 2019-05-07 09:11 | Inpatient (IN) | payer MEDICARE, MEDICAID ==
[2019-05-07] MEDS ORDERED: LORazepam INJ* 2 MG/ML 1 ML VIAL IV PUSH ONE ×5 (09:24→11:31)
[2019-05-07] MEDS ORDERED: Lorazepam PYXIS KEY PRN ×5 (09:24→11:31)
--- NOTE | 2019-05-07 09:29 | ED ---
Neurological HPI - HPI Summary HPI Summary: This patient is a 43 year old M presenting to [facility] by EMS with a chief complaint of seizure prior to arrival possible began at nursing facility per EMS. Pt still has tremors on left side, and reports left sided weakness. Pt has a PMHx of focal seizures. Per triage, the patient rates the pain 6/10 in severity. - History of Current Complaint Stated Complaint: SEIZURE PER EMS Time Seen by Provider: 05/07/19 09:16 Hx Obtained From: Patient Seizure Severity: Severe Pain Intensity: 6 Pain Scale Used: 0-10 Numeric Seizure Character: Generalized Associated Signs and Symptoms: Positive: Weakness - left side Related Hx: Seizure - Additional Pertinent History Primary Care Physician: ADELA - Allergy/Home Medications Allergies/Adverse Reactions: Allergies Allergy/AdvReac Type Severity Reaction Status Date / Time Gadolinium-Containing Allergy Hives Verified 04/19/19 22:06 Contrast Medi gadoteridol Allergy Hives Verified 04/19/19 22:06 phenytoin Allergy Unknown Verified 04/19/19 22:06 Reaction Details shellfish derived Allergy Swelling Verified 04/19/19 22:06 PMH/Surg Hx/FS Hx/Imm Hx Endocrine/Hematology History: Denies: Hx Anticoagulant Therapy, Hx Diabetes, Hx Thyroid Disease Cardiovascular History: Denies: Hx Congestive Heart Failure, Hx Deep Vein Thrombosis, Hx Hypertension , Hx Myocardial Infarction, Hx Pacemaker/ICD Respiratory History: Reports: Hx Pneumonia - Current PNA, Other Respiratory Problems/Disorders Denies: Hx Asthma, Hx Chronic Obstructive Pulmonary Disease (COPD), Hx Lung Cancer, Hx Pulmonary Embolism GI History: Reports: Other GI Disorders - Hernia surgery in the 80s Denies: Hx Gall Bladder Disease, Hx Gastrointestinal Bleed, Hx Ulcer, Hx Urosepsis History: Denies: Hx Dialysis, Hx Kidney Stones, Hx Renal Disease Sensory History: Reports: Hx Contacts or Glasses Denies: Hx Hearing Aid Opthamlomology History: Reports: Hx Contacts or Glasses Neurological History: Reports: Hx Seizures, Other Neuro Impairments/Disorders - Recurrent x3 astrocytoma Denies: Hx Dementia, Hx Migraine, Hx Transient Ischemic Attacks (TIA) Psychiatric History: Reports: Hx Attention Deficit Hyperactivity Disorder Denies: Hx Anxiety, Hx Depression, Hx Panic Disorder, Hx Schizophrenia, Hx Bipolar Disorder - Cancer History Cancer Type, Location and Year: Brain cancer (astrocytoma), recurrence x3 Hx Chemotherapy: Yes - Last in greater than few weeks Hx Radiation Therapy: Yes - Surgical History Surgery Procedure, Year, and Place: HERNIA - A CHILD. CRANIOTOMY 03/27, , 01/01. MOLE REMOVED FROM Rt UNDER ARM, Lt FOREARM & BACK - 03/26/16 Hx Anesthesia Reactions: No Infectious Disease History: Reports: Hx Clostridium Difficile - dx 04/10/18 Denies: Hx Hepatitis, Hx Human Immunodeficiency Virus (HIV), Hx of Known/ Suspected MRSA, Hx Shingles, Hx Tuberculosis, Hx Known/Suspected VRE, Hx Known/ Suspected VRSA, History Other Infectious Disease - Family History Known Family History: Positive: Cardiac Disease Negative: Hypertension - Social History Occupation: Disabled Alcohol Use: Occasionally Substance Use Type: Reports: Prescribed Substance Use Comment - Amount & Last Used: states "medical marijuana" ... vapor form Hx Tobacco Use: Yes Smoking Status (MU): Heavy Every Day Tobacco Smoker Type: Cigarettes Amount Used/How Often: 1/2 ppd Length of Time of Smoking/Using Tobacco: 26 yrs Have You Smoked in the Last Year: Yes Review of Systems Positive: Other - tremers on left side Positive: Weakness - left side All Other Systems Reviewed And Are Negative: Yes Physical Exam - Summary Physical Exam Summary: Appearance: chronicall ill appearing middle age man laying on stretcher. Skin: Warm, dry, no obvious rash, Eyes: sclera anicteric, no conjunctival pallor ENT: mucous membranes moist Neck: deferred Respiratory: No signs of respiratory distress Cardiovascular: Appears well perfused, pulses are nml Abdomen: deferred Musculoskeletal: Moving all 4 extremities without obvious discomfort Neurological: seizure activity on left side affecting leg and arm, awake alert and able to answer simple questions limited by seizure activity. Psychiatric: affect is normal, does not appear anxious or depressed Triage Information Reviewed: Yes Vital Signs On Initial Exam: Initial Vital Signs Pulse 110 05/07/19 09:27 Pulse Ox 95 05/07/19 09:27 Vital Signs Reviewed: Yes Diagnostics - Laboratory Result Diagrams: 05/07/19 10:19 05/07/19 10:19 Lab Statement: Any lab studies that have been ordered have been reviewed, and results considered in the medical decision making process. Re-Evaluation - Re-Evaluation First Eval Re-Evaluation Time: 10:09 Comment: Checking on pt's condition. Second Eval Re-Evaluation Time: 10:31 Comment: Checking on pt's condition. Third Eval Re-Evaluation Time: 10:46 Comment: Checking on pt's condition. Fourth Eval Re-Evaluation Time: 10:58 Comment: Discussed plan to admit with pt. Course/Dx - Course Course Of Treatment: This patient is a 43 year old M presenting to [facility] by EMS with a chief complaint of seizure prior to arrival possible began at nursing facility per EMS. Pt still has tremors on left side, and reports left sided weakness. Pt has a PMHx of focal seizures. Per triage, the patient rates the pain 6/10 in severity. Blood work obtained. RBC is 3.97, Hgb is 12.8, Hct is 36 , MCH is 32, Plt Count is 118, MPV is 6.5. Carbon dioxide is 33, BUN is 27, BUN /Creatinine Ratio is 36.0, Total protein is 5.4. UA obtained. We discussed patient care with Dr. Perez and with Dr. Borges who recommended pt be admitted to the hospital for comfort care. Patient will be admitted. The patient is agreeable with this plan. - Physician Notifications Discussed Care Of Patient With: Osmany Perez Time Discussed With Above Provider: 10:37 Instructed by Provider To: Other - Discussed pt case with Dr. Perez who will come down and see pt. 11:30 - Dr. Borges accepted pt for admission to comfort care. - Critical Care Time Critical Care Time: 30-74 min Discharge - Sign-Out/Discharge Documenting (check all that apply): Patient Departure - Admit All imaging exams completed and their final reports reviewed: Yes Patient Received Moderate/Deep Sedation with Procedure: No - Discharge Plan Condition: Fair Disposition: ADMITTED TO [facility] - Attestation Statements Document Initiated by Scribe: Yes Documenting Scribe: Nuris Lobo Provider For Whom Tranibe is Documenting (Include Credential): Dr. Matthew Grove MD Scribe Attestation: I, jennifer Ramos for Dr. Matthew Grove MD on 05/07/19 at 1348. Status of Scribe Document: Ready
[2019-05-07] MEDS ORDERED: Lorazepam PYXIS KEY ONE ×4 (09:35→11:46)
[2019-05-07] MEDS ORDERED: Valproic Acid IV(*) 1,000 MG in NS 0.9% 100 ML* 100 ML IVPB ONE (10:08)
[2019-05-07 10:30] LABS: Hematocrit 36 % (42-52); Hemoglobin 12.8 g/dL (14.0-18.0); Mean Corpuscular HGB Conc 36 g/dL (31-36); Mean Corpuscular Hemoglobin 32 pg (27-31); Mean Corpuscular Volume 91 fL (80-94); Mean Platelet Volume 6.5 fL (7.4-10.4); Platelet Count 118 10^3/uL (150-450); Red Blood Count 3.97 10^6 /uL (4.18-5.48); Red Cell Distribution Width 14 % (10-15); White Blood Count 6.3 10^3/uL (3.5-10.8)
[2019-05-07] MEDS ORDERED: LORazepam INJ* 2 MG/ML 1 ML VIAL ONE (10:46)
[2019-05-07 10:50] LABS: Albumin 3.2 g/dL (3.2-5.2); Albumin/Globulin Ratio 1.5 (1-3); Calcium 8.9 mg/dL (8.6-10.3); EGFR African American 138.2 (>60); EGFR Non-African American 114.2 (>60); Globulin 2.2 g/dL (2-4); Potassium 3.7 mmol/L (3.5-5.0); Total Bilirubin 0.5 mg/dL (0.2-1.0); Total Protein 5.4 g/dL (6.4-8.9)
[2019-05-07 10:53] LABS: ABS Basophils 0.1 10^3/ul (0-0.2); ABS Lymphocytes 0.9 10^3/ul (1.0-4.8); ABS Monocytes 0.6 10^3/ul (0-0.8); ABS Neutrophils 4.7 10^3/ul (1.5-7.7); Eosinophil % 0.8 %; Nucleated Red Blood Cells % 0.1
[2019-05-07] MEDS ORDERED: Ondansetron INJ* 2 MG/ML VIAL IV PRN (11:35)
[2019-05-07] MEDS ORDERED: Haloperidol LIQ* 10 MG/5 ML UDC PO PRN (11:35)
[2019-05-07] MEDS ORDERED: Acetaminophen SUPP* 650 MG SUPP PR PRN (11:35)
[2019-05-07] MEDS ORDERED: Acetaminophen TAB* 325 MG PO PRN (11:35)
[2019-05-07] MEDS ORDERED: Prochlorperazine SUPP* 25 MG SUPP PR PRN (11:35)
[2019-05-07] MEDS ORDERED: LORazepam PREMIX BAG 1MG/ML* 100 MG/100 ML BAG IVPB SCH (12:00)
[2019-05-07] MEDS: D5W IV SCH (13:44)
[2019-05-07] MEDS: LORAZEPAM IV SCH (13:44)
[2019-05-07] MEDS: Lacosamide TAB* 100 MG TAB PO SCH ×2 (14:41→20:42)
--- NOTE | 2019-05-07 15:40 | CONS ---
CONSULTATION REPORT: DATE OF CONSULT: 05/07/19 PATIENT OF: Dr. Beltre and Dr. Jones. HISTORY OF PRESENT ILLNESS: I was asked this morning to see Mohan acutely because he was in focal status epilepticus. 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 He was just discharged from the hospital the day before. Dr. Grove had elicited that he was a full code upon presentation to the emergency room. He had been on Keppra 1500 mg twice a day and Vimpat, Dr. Grove had said, 150 twice a day and was having focal seizures for more than an hour when I was called. I recommended obtaining an emergent EEG as well as loading with Depakote. PAST MEDICAL HISTORY: His past history is significant for terminal glioblastoma refractory to treatment, first diagnosed in 2005. He has recently had a second opinion with Dr. Sepulveda in [facility], so he was not a surgical candidate. He has seizure disorder, hypothyroidism, chronic pain, right -sided weakness, status post craniectomy and resection of his tumor 3 separate times in 2005, 2011, and 2012. MEDICATIONS: Include: 1. Haloperidol 0.5 mg q.2 hours p.r.n. 2. Vimpat, it says here 1500 twice a day. 3. Decadron 4 mg b.i.d. 4. Methadone 10 mg t.i.d. 5. Synthroid 100 mcg daily. 6. Keppra 1500 mg b.i.d. 7. Senokot 2 tabs b.i.d. ALLERGIES: He has a DILANTIN allergy. PHYSICAL EXAM: He was afebrile, temperature 98.3, pulse 98, respirations 14, blood pressure 137/84. He was alert and could say his age and his name. He was a little bit tired and he received 6 to 7 mg of Ativan when I had seen him. He could speak in brief sentences throughout the exam. He was having rhythmic jerks on the left side which decreased in frequency from before he had gotten the Ativan, but were still occurring with regularity. His EEG running show mostly muscle artifact, but no clear epileptiform potentials were seen through this prominent artifact. We could not stop this rhythmic twitching by holding him. He was able to move his right side with power. Chest: Clear. Cardiovascular: Regular rate and rhythm. Abdomen: Soft with positive bowel sounds. IMPRESSION AND PLAN: The parents came while I was evaluating him and I had recommended giving the Depakote, which he was receiving and I had recommended transfer for video EEG monitoring and possible more aggressive treatment, but the parents came, they said that even though he was a full code and wants everything done, they had talked to him and they wanted to re-discuss, and I discussed with him that I would call Dr. Jones and see if he would speak to the family and get his chance at least to aware what the patient's wishes were. I spoke to Dr. Jones that in detail and he very kindly came over, discussed with the entire family the overall situation which included that to control the seizures and be most effective, he might need to be intubated and put on medicines that might even induce a coma. I discussed also that I was not seeing clear-cut seizures on EEG, but I thought that this is most likely seizure activity and that there was prominent muscle movement artifact on EEG. Dr. Jones discussed the case in detail with the family, and given his overall clinical picture and selecting not to transfer the patient and make him comfort care, it is possible that the seizures would stop on their own, but also that they could intensify. I spoke to the mother after Dr. Jones's conversation with the family and would be glad to be available for any questions or concerns. Thank you for sharing his case. [id number]/[facility] #: [id number] [place]
--- NOTE | 2019-05-07 18:36 | HP ---
HISTORY AND PHYSICAL: DATE OF ADMISSION: 05/07/19 REASON FOR ADMISSION: 1. Seizures. 2. Terminal glioblastoma. HISTORY OF PRESENT ILLNESS: Mr. 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 He has had multiple chemotherapies in the past as well as 3 surgical resections and multiple courses of radiation. Over the past 6 months, he has had progressive disease and is not a candidate for additional therapy. He had a recent admission from 04/20/19 to 05/06/19. At that time, he had been on hospice, but then developed lower extremity edema and cellulitis. He came off hospice and then was admitted for treatment of his cellulitis. During that time, he had recently been DNI/DNR, but then reversed to full code as he felt better with treatment of his infection. There were multiple discussions during the course of that hospitalization about his prognosis. The patient and both his parents understand that he is terminal and will in a relatively short period of time from his malignancy. However, he remains full code and was discharged to correction yesterday. He has long-standing history of seizures and he has been managed on Vimpat 1500 mg twice a day as well as Keppra 1500 mg twice a day and was taking Ativan 1 mg p.r.n. for seizure activity. There had been a seizure early in the past hospitalization, but then for the last 10 days he had had no events. After being in the correction 1 day, this morning he developed focal status epilepticus with shaking of his head on the left side and came to the emergency room. On presentation, he was given 6 mg of IV Ativan without improvement in symptoms. Neurology was consulted and recommendation was transfer to tertiary center for intubation and titration of seizure medication. I had extensive meeting with the patient's father and mother in the emergency room to talk about intubation and more aggressive treatment for his seizures. The seizures will continue to worsen given that the disease is progressive and after extensive discussion, they elected for DNR/DNI and comfort measures only at [facility]. ALLERGIES: DILANTIN. MEDICATIONS: 1. Haloperidol 0.5 mg q.2 hours p.r.n. 2. Vimpat 1500 mg b.i.d. 3. Decadron 4 mg b.i.d. 4. Methadone 10 mg t.i.d. 5. Synthroid 100 mcg daily. 6. Keppra 1500 b.i.d. 7. Senokot 2 tabs b.i.d. PAST MEDICAL HISTORY: 1. Glioblastoma, treatment as outlined above. Recently seen at [facility] and at [place], no additional surgical options and he is not a candidate for systemic therapy. 2. Hyperthyroidism, then hypothyroidism. Currently, on Synthroid. 3. Chronic pain in the right upper extremity and chronic weakness. 4. Lower extremity edema and recent cellulitis. PAST SURGICAL HISTORY: Multiple resections of GBM. FAMILY HISTORY: No significant history of malignancy. SOCIAL HISTORY: He has a son who now has a designated caregiver after his . He has both parents involved in his care. He has a sister who is estranged and another sister who is involved. There is a girlfriend, but she has no legal standing. REVIEW OF SYSTEMS: The patient is unresponsive in the emergency room with focal status epilepticus. PHYSICAL EXAMINATION VITAL SIGNS: Temperature 98.3, BP 119/85, pulse 94, respirations 20, O2 sat 100 %. HEENT: No thrush. Mucosa moist. Pupils are pinpoint. NEUROLOGIC: Nonresponsive status epilepticus with twitching on his left side. HEART: Heart rate 90s and regular. LUNGS: Clear to auscultation, but not cooperating with exam. ABDOMEN: No focal pain. Good bowel sounds. EXTREMITIES: No cellulitis. No edema. Ankle pulses. DIAGNOSTIC STUDIES/LAB DATA: Labs: He had a CBC that showed hemoglobin 12.8, platelets 118, and chemistries with normal renal function and albumin at 3.2. ASSESSMENT AND PLAN: This 43-year-old male with glioblastoma refractory and at end stage who presents with focal seizures. As noted above, we had extensive discussion with the patient's family. Ultimately decided that he should be placed on comfort measures. We will cancel transfer plans to [place] or [facility] and admit [place] [facility]. 1. DNR/DNI signed by both parents. 2. We will place on Ativan drip 3 mg q.30 minutes to comfort and release of seizure activity. 3. He is not taking oral medications at this time. If he regains consciousness , we will restart the Vimpat and the Keppra. 4. Morphine concentrate sublingual for pain, Haldol for hallucinations, Tylenol oral or rectal for pain, and rectal Compazine or IV Zofran for nausea. 5. No monitoring, no blood work planned. We will hold all of the medications. time with patient and family, 60 min [id number]/[facility] #: [id number] MTDD
[2019-05-08] MEDS: Morphine ORAL CONCENTRATE* 5 MG/0.25 ML ORAL.SYRIN SL PRN ×7 (04:52→22:26)
[2019-05-08] MEDS: Lacosamide TAB* 100 MG TAB PO SCH (09:41)
--- NOTE | 2019-05-08 10:03 | PN ---
Progress Note - Progress Note Date of Service: 05/08/19 SOAP: Subjective: [No seizure activity overnight. Patient has been comfortable and remains on ativan drip. ] Objective: [ Vital Signs: Temp Pulse Resp BP Pulse Ox 98.1 F 89 24 119/85 100 05/08/19 09:40 05/08/19 05:39 05/08/19 09:00 05/08/19 03:39 05/07/19 13:35 Acetaminophen (Tylenol Supp*) 650 mg MA Q4H PRN PRN Reason: FEVER Acetaminophen (Tylenol Tab*) 650 mg PO Q4H PRN PRN Reason: FEVER Atropine Sulfate (Atropine 1% (Oral/Sl)*) 2 drop SL Q2H PRN PRN Reason: Terminal Secretions Haloperidol (Haldol Liq*) 0.5 mg PO Q2H PRN PRN Reason: AGITATION Lorazepam 200 mg/ Dextrose 200 mls @ 3 mls/hr IV Q48H ALEX; Protocol Last Admin: 05/07/19 13:44 Dose: 2 mls/hr Lacosamide (Vimpat Tab*) 100 mg PO BID ALEX Last Admin: 05/08/19 09:41 Dose: Not Given Miscellaneous (Ativan Pyxis Lacy) 1 ea N/A .ATIVAN IV LACY PRN PRN Reason: PYXIS LACY Morphine Sulfate (Morphine Oral Concentrate*) 10 mg SL Q2H PRN PRN Reason: Pain or Dyspnea Last Admin: 05/08/19 07:53 Dose: 10 mg Ondansetron HCl (Zofran Inj*) 4 mg IV Q6H PRN PRN Reason: NAUSEA/VOMITING Prochlorperazine (Compazine Supp*) 25 mg MA Q12H PRN PRN Reason: NAUSEA/VOMITING Exam: Gen: Sedated, but opens eyes when his name is said CV:[id number] Resp: easy respirations, no adventitious sounds] Assessment: [This is an unfortunate 43 yo male with advanced GBM refractory to therapy who has had multiple recent hospitalizations readmitted yesterday after 24h at SNF with recurrent seizures. Patient has now been admitted for comfort care measures and is comfortable on an ativan drip without evidence of recurrent seizures.] Plan: [Continue comfort measures - ativan drip - prn dilaudid for pain - DNR Dispo: patient is not stable for discharge and requires continuous infusion of lorazepam for seizure control]
[2019-05-08] MEDS: Atropine 1% (ORAL/SL)* 15 ML BTL SL PRN ×4 (15:45→22:11)
[2019-05-08] MEDS ORDERED: Scopolamine 1.5 mg* PATCH TRANSDERM PRN (17:10)
[2019-05-08] MEDS: D5W IV SCH (19:48)
[2019-05-08] MEDS: LORAZEPAM IV SCH (19:48)
[2019-05-09] MEDS: Atropine 1% (ORAL/SL)* 15 ML BTL SL PRN ×2 (01:09→03:41)
[2019-05-09] MEDS: Morphine ORAL CONCENTRATE* 5 MG/0.25 ML ORAL.SYRIN SL PRN (01:21)
[2019-05-09 02:47] VITALS: BP 84/47
[2019-05-09] MEDS: Glycopyrrolate IV* 0.2 MG/ML 1 ML VIAL IV SLOW PU PRN ×2 (03:41→08:11)
[2019-05-09] MEDS: Morphine INJ* 2 MG/ML 1 ML SYRINGE (TWO MG - NEW SYRINGE VERSION) IV PRN ×5 (03:41→12:42)
[2019-05-09] MEDS ORDERED: Morphine INJ* 2 MG/ML 1 ML SYRINGE (TWO MG - NEW SYRINGE VERSION) IV PRN (13:00)
[2019-05-09] MEDS ORDERED: D5W IV SCH (14:00)
[2019-05-09] MEDS ORDERED: LORAZEPAM IV SCH (14:00)
--- NOTE | 2019-05-09 15:07 | EEG ---
ELECTROENCEPHALOGRAPHY: DATE OF STUDY: - ROOM #[id number] DATE OF DICTATION: 05/09/19 PATIENT OF: Dr. Grove and Dr. Jones.* CLINICAL PROBLEM: This is a 43-year-old man presenting with focal status with a known glioblastoma. MEDICATIONS: Not listed on record. REPORT: Background cerebral activity consists of admixed beta, alpha, and delta frequencies. Frequent muscle movement artifact occurring at times rhythmically, appear throughout the background and obscure background activity at times; however, no clearcut epileptiform potentials were noted. The patient appeared to be having jerking throughout this tracing predominantly affecting the left side, which was not controlled by external force and appeared to be a clinical seizure. The patient received Depakote and Ativan during this tracing. CLINICAL IMPRESSION: This EEG is abnormal because of slowing of background, but does not show epileptiform potentials or clear electrographic seizures despite appearing to have a clinical seizure that did not appear to be a conversion disorder. [id number]/[facility] #: [id number] MTDD
[2019-05-11] MEDS ORDERED: Scopolamine PATCH Remove* 1 NOTE MISC PATCH OFF SCH (18:00)
== END 2019-05-09 14:44 | disposition expired | DRG 55 ==
LOC: ED 09:11 → ICU 11:37
PROVIDERS: ADMIT Internal Medicine Hematology & Oncology; ATTEND Internal Medicine Hematology & Oncology
PROC: 4A00X4Z Measurement of Central Nervous Electrical Activity, External Approach (ICD-10-PCS; principal; 2019-05-09)
DX: C71.9 Malignant neoplasm of brain, unspecified (principal); G40.101 Localization-related (focal) (partial) symptomatic epilepsy and epileptic syndromes with simple partial seizures, not intractable, with status epilepticus; Z51.5 Encounter for palliative care; Z66 Do not resuscitate; E03.9 Hypothyroidism, unspecified; G89.29 Other chronic pain; R53.1 Weakness; F17.210 Nicotine dependence, cigarettes, uncomplicated; G40.901 Epilepsy, unspecified, not intractable, with status epilepticus; F90.9 Attention-deficit hyperactivity disorder, unspecified type; Z82.49 Family history of ischemic heart disease and other diseases of the circulatory system; Z72.89 Other problems related to lifestyle; Z92.21 Personal history of antineoplastic chemotherapy; Z92.3 Personal history of irradiation; Z88.8 Allergy status to other drugs, medicaments and biological substances; Z91.041 Radiographic dye allergy status; Z91.013 Allergy to seafood; Z87.01 Personal history of pneumonia (recurrent)
CPT/HCPCS: 36415; 80053; 83605; 85025; 95812; 99223; 99232; 99239; 99285; A9270-GY; J2060; J2270